=== PATIENT | female | born 1980 | race Caucasian/White ===

== ENCOUNTER → 2017-05-25 13:59 | Outpatient (CLI) | payer MEDICAID, SELFPAY ==
[2017-05-25 15:16] LABS: Absolute Lymphocyte Count 2.88 X10^3/ul (0.83-4.51); Absolute Neutrophil Count 3.2 X10^3/uL (2.0-7.7); Basophil# 0.04 X10^3/uL; Basophil% 0.6 % (0-1); Eosinophil# 0.32 X10^3/uL; Eosinophils% 4.6 % (0-5); Hematocrit 44.6 % (37-47); Hemoglobin 15.3 g/dl (12.0-15.0); Lymphocyte # 2.88 X10^3/ul (4.0); Lymphocyte % 41.8 % (19-41); Mean Corp Hgb Conc 34.3 g/gl (32-36); Mean Corpuscular Hgb 29.1 pg (27.0-32.0); Mean Platelet Vol. 10.4 fl (6.2-12.0); Monocyte# 0.47 X10^3/uL; Monocyte% 6.8 % (0-10); Neutrophil # 3.17 X10^3/uL (2.7-7.7); Neutrophil % 46.1 % (47-70); Platelet Count 292 K/mm3 (150-450); RBC Distribution Width CV 12.5 % (11.6-14.6); Red Blood Count 5.25 M/mm3 (4.2-5.4); White Blood Count 6.9 K/mm3 (4.4-11.0)
[2017-05-25 15:35] LABS: POSITIVE COUNT NO; POSITIVE DIFFERENTIAL NO; POSITIVE MORPHOLOGY NO
[2017-05-25 16:03] LABS: AST(SGOT) 17 U/L (15-37); Alanine Aminotransfer ALT/SGPT 28 U/L (13-56); Albumin, Serum 3.7 g/dL (3.2-5.0); Alkaline Phosphatase 89 U/L (45-117); Anion Gap 9 (5-15); BUN 10 mg/dL (7-18); BUN/Creat Ratio 12.1 RATIO (10-20); Chloride 99 mmol/L (98-107); Creatinine, Serum 0.83 mg/dL (0.55-1.02); EST Glomerular Filtration Rate 83 mL/min (>60); Est Glom Filt Rate - Afr Amer 100 mL/min (>60); Globulin 3.8 g/dL (2.2-4.2); Glucose 303 mg/dL (74-106); Potassium 4.1 mmol/L (3.5-5.1); Protein, Total 7.5 g/dL (6.4-8.2); Sodium Level 135 mmol/L (136-145); Thyroid Stim Hormone (TSH) 3.15 uIU/mL (0.358-3.74)
== END ==
PROVIDERS: Family Provider Family Medicine Geriatric Medicine; PCP Family Medicine Geriatric Medicine; Visit Provider Family Medicine Geriatric Medicine
DX: I10 Essential (primary) hypertension (principal); E11.9 Type 2 diabetes mellitus without complications
CPT/HCPCS: 36415; 80053; 84443; 85025

== ENCOUNTER → 2017-08-30 13:41 | Outpatient (CLI) | payer MEDICAID, SELFPAY ==
[2017-08-30 15:39] LABS: HIV - WCH Non-Reactive (Nonreactive)
[2017-09-01 03:08] LABS: HCV Quant. RNA PCR HCV Not Detected IU/mL (.)
[2017-09-01 03:47] LABS: Rapid Plasmin Reagin (RPR) NONREACTIVE (NONREACTIVE)
[2017-09-01 11:18] LABS: HEPATITIS B SURFACE AG Negative (Negative); HSV 2 IgG < 0.91 index (0.00-0.90)
== END ==
PROVIDERS: Family Provider Family Medicine Geriatric Medicine; PCP Family Medicine Geriatric Medicine; Visit Provider Obstetrics & Gynecology
DX: N76.0 Acute vaginitis (principal)
CPT/HCPCS: 36415; 86592; 86695; 86696; 86703; 87340; 87522

== ENCOUNTER → 2017-08-30 17:29 | Outpatient (CLI) | payer MEDICAID, SELFPAY ==
[2017-08-30 20:04] LABS: Chlamydia Trachomatis by PCR Negative (Negative); Neisserai gonorrhoeae by PCR Negative (Negative); Probe Check PASS; Sample Adequacy Control PASS; Specimen Processing Control PASS
== END ==
PROVIDERS: Family Provider Family Medicine Geriatric Medicine; PCP Family Medicine Geriatric Medicine; Visit Provider Obstetrics & Gynecology
DX: N76.0 Acute vaginitis (principal); N89.8 Other specified noninflammatory disorders of vagina
CPT/HCPCS: 36415; 86592; 86695; 86696; 86703; 87070; 87077; 87086; 87088; 87106; 87186; 87205; 87340; 87491; 87522; 87591

== ENCOUNTER → 2017-12-26 15:42 | Outpatient (CLI) | payer MEDICAID, SELFPAY ==
[2017-12-26 17:00] LABS: Absolute Lymphocyte Count 2.72 X10^3/ul (0.83-4.51); Absolute Neutrophil Count 3.5 X10^3/uL (2.0-7.7); Basophil# 0.07 X10^3/uL; Eosinophil# 0.28 X10^3/uL; Hemoglobin 14.9 g/dl (12.0-15.0); Lymphocyte # 2.72 X10^3/ul (4.0); Lymphocyte % 38.8 % (19-41); Mean Corp Hgb Conc 33.9 g/gl (32-36); Mean Corpuscular Hgb 29.2 pg (27.0-32.0); Mean Corpuscular Volume 86.3 fL (81-99); Mean Platelet Vol. 10.2 fl (6.2-12.0); Monocyte# 0.46 X10^3/uL; Monocyte% 6.6 % (0-10); Neutrophil # 3.46 X10^3/uL (2.7-7.7); Neutrophil % 49.3 % (47-70); Platelet Count 307 K/mm3 (150-450); RBC Distribution Width CV 12.5 % (11.6-14.6); RBC Distribution Width SD 39.7 fl (35.1-43.9)
[2017-12-26 17:01] LABS: POSITIVE COUNT NO; POSITIVE DIFFERENTIAL NO; POSITIVE MORPHOLOGY NO
[2017-12-26 17:13] LABS: ALB/GLOB Ratio 0.8 RATIO (0.9-2.4); AST(SGOT) 27 U/L (15-37); Alanine Aminotransfer ALT/SGPT 31 U/L (13-56); Albumin, Serum 3.4 g/dL (3.2-5.0); Alkaline Phosphatase 97 U/L (45-117); Anion Gap 14 (5-15); BUN 19 mg/dL (7-18); BUN/Creat Ratio 22.2 RATIO (10-20); Calcium,Total 9.2 mg/dL (8.5-10.1); Chloride 98 mmol/L (98-107); Creatinine, Serum 0.86 mg/dL (0.55-1.02); EST Glomerular Filtration Rate 79 mL/min (>60); Est Glom Filt Rate - Afr Amer 96 mL/min (>60); Globulin 4.1 g/dL (2.2-4.2); Glucose 299 mg/dL (74-106); Potassium 4.2 mmol/L (3.5-5.1); Protein, Total 7.5 g/dL (6.4-8.2); Sodium Level 135 mmol/L (136-145); Thyroid Stim Hormone (TSH) 1.55 uIU/mL (0.358-3.74)
== END ==
PROVIDERS: Family Provider Family Medicine Geriatric Medicine; PCP Family Medicine Geriatric Medicine; Visit Provider Family Medicine Geriatric Medicine
DX: E11.9 Type 2 diabetes mellitus without complications (principal); I10 Essential (primary) hypertension
CPT/HCPCS: 36415; 80053; 84443; 85025

== ENCOUNTER → 2017-12-27 13:39 | Outpatient (CLI) | payer MEDICAID, SELFPAY ==
[2017-12-27 16:45] LABS: Chlamydia Trachomatis by PCR Negative (Negative); Neisserai gonorrhoeae by PCR Negative (Negative); Probe Check PASS; Sample Adequacy Control PASS; Specimen Processing Control PASS
== END ==
PROVIDERS: Family Provider Family Medicine Geriatric Medicine; PCP Family Medicine Geriatric Medicine; Referring Provider Nurse Practitioner Women's Health; Visit Provider Nurse Practitioner Women's Health
DX: A64 Unspecified sexually transmitted disease (principal)
CPT/HCPCS: 87491; 87591

== ENCOUNTER → 2018-03-27 14:47 | Outpatient (CLI) | payer MEDICAID, SELFPAY ==
[2018-01-25 14:00] VITALS: BMI 49.0
[2018-03-27 17:16] LABS: Absolute Lymphocyte Count 3.05 X10^3/ul (0.83-4.51); Absolute Neutrophil Count 4.7 X10^3/uL (2.0-7.7); Basophil# 0.05 X10^3/uL; Basophil% 0.6 % (0-1); Eosinophil# 0.26 X10^3/uL; Hematocrit 42.2 % (37-47); Hemoglobin 14.5 g/dl (12.0-15.0); Lymphocyte # 3.05 X10^3/ul (4.0); Lymphocyte % 34.7 % (19-41); Mean Corp Hgb Conc 34.4 g/gl (32-36); Mean Corpuscular Hgb 29.7 pg (27.0-32.0); Mean Corpuscular Volume 86.5 fL (81-99); Mean Platelet Vol. 10.6 fl (6.2-12.0); Monocyte# 0.69 X10^3/uL; Monocyte% 7.8 % (0-10); Neutrophil # 4.71 X10^3/uL (2.7-7.7); Neutrophil % 53.6 % (47-70); Platelet Count 345 K/mm3 (150-450); RBC Distribution Width CV 12.8 % (11.6-14.6); RBC Distribution Width SD 39.4 fl (35.1-43.9); Red Blood Count 4.88 M/mm3 (4.2-5.4); White Blood Count 8.8 K/mm3 (4.4-11.0)
[2018-03-27 17:22] LABS: POSITIVE COUNT NO; POSITIVE DIFFERENTIAL NO; POSITIVE MORPHOLOGY NO
[2018-03-27 17:49] LABS: ALB/GLOB Ratio 0.9 RATIO (0.9-2.4); AST(SGOT) 10 U/L (15-37); Alanine Aminotransfer ALT/SGPT 25 U/L (13-56); Albumin, Serum 3.3 g/dL (3.2-5.0); Alkaline Phosphatase 102 U/L (45-117); Anion Gap 12 (5-15); BUN 10 mg/dL (7-18); BUN/Creat Ratio 11.7 RATIO (10-20); Calcium,Total 8.3 mg/dL (8.5-10.1); Chloride 100 mmol/L (98-107); Creatinine, Serum 0.86 mg/dL (0.55-1.02); EST Glomerular Filtration Rate 79 mL/min (>60); Est Glom Filt Rate - Afr Amer 96 mL/min (>60); Globulin 3.8 g/dL (2.2-4.2); Glucose 298 mg/dL (74-106); Potassium 3.8 mmol/L (3.5-5.1); Protein, Total 7.1 g/dL (6.4-8.2); Sodium Level 134 mmol/L (136-145); Thyroid Stim Hormone (TSH) 3.52 uIU/mL (0.358-3.74)
== END ==
PROVIDERS: Family Provider Family Medicine Geriatric Medicine; PCP Family Medicine Geriatric Medicine; Visit Provider Family Medicine Geriatric Medicine
DX: I10 Essential (primary) hypertension (principal); E11.9 Type 2 diabetes mellitus without complications
CPT/HCPCS: 36415; 80053; 84443; 85025

== ENCOUNTER 2018-04-02 01:33 | Observation (INO) | payer MEDICAID, SELFPAY ==
[2018-01-25 14:00] VITALS: BMI 49.0
[2018-04-02 01:34] VITALS: BP 143/104; PULSE 114; RESP 16; TEMP 36.7; O2SAT 99; BMI 47.2
[2018-04-02] MEDS: 0.9% Normal Saline 1,000 ML 1000 ML IV (02:54)
[2018-04-02] MEDS: Ondansetron 4 MG/2 ML Vial IV (02:54)
[2018-04-02 03:07] LABS: ALB/GLOB Ratio 0.8 RATIO (0.9-2.4); AST(SGOT) 14 U/L (15-37); Alanine Aminotransfer ALT/SGPT 20 U/L (13-56); Albumin, Serum 4.1 g/dL (3.2-5.0); Alkaline Phosphatase 117 U/L (45-117); Anion Gap 17 (5-15); BUN 10 mg/dL (7-18); BUN/Creat Ratio 9.2 RATIO (10-20); Calcium,Total 8.4 mg/dL (8.5-10.1); Chloride 99 mmol/L (98-107); Creatinine, Serum 1.09 mg/dL (0.55-1.02); EST Glomerular Filtration Rate 60 mL/min (>60); Est Glom Filt Rate - Afr Amer 72 mL/min (>60); Estimated Creatinine Clearance 76.42 ml/min; Globulin 4.9 g/dL (2.2-4.2); Glucose 294 mg/dL (74-106); Potassium 2.9 mmol/L (3.5-5.1); Sodium Level 134 mmol/L (136-145)
[2018-04-02 03:11] LABS: Lactic Acid 5.4 mmol/L (0.4-2.0)
--- NOTE | 2018-04-02 03:11 | ED.RN ---
LAB RESULTED LACTIC 5.4, PHYSICIAN NOTIFIED
[2018-04-02 03:20] LABS: Absolute Lymphocyte Count 2.83 X10^3/ul (0.83-4.51); Absolute Neutrophil Count 6.2 X10^3/uL (2.0-7.7); Basophil# 0.02 X10^3/uL; Basophil% 0.2 % (0-1); Eosinophil# 0.15 X10^3/uL; Eosinophils% 1.4 % (0-5); Hematocrit 51.7 % (37-47); Lymphocyte # 2.83 X10^3/ul (4.0); Mean Corpuscular Hgb 29.8 pg (27.0-32.0); Mean Corpuscular Volume 82.9 fL (81-99); Mean Platelet Vol. 10.2 fl (6.2-12.0); Monocyte# 1.21 X10^3/uL; Monocyte% 11.5 % (0-10); Neutrophil # 6.24 X10^3/uL (2.7-7.7); Neutrophil % 59.5 % (47-70); Platelet Count 398 K/mm3 (150-450); RBC Distribution Width CV 12.7 % (11.6-14.6); RBC Distribution Width SD 38.3 fl (35.1-43.9); Red Blood Count 6.24 M/mm3 (4.2-5.4); White Blood Count 10.5 K/mm3 (4.4-11.0)
[2018-04-02 03:22] LABS: Hemoglobin 18.6 g/dl (12.0-15.0); POSITIVE COUNT NO; POSITIVE DIFFERENTIAL NO; POSITIVE MORPHOLOGY NO
--- NOTE | 2018-04-02 03:22 | ED.RN ---
LAB RESULTED HGB 18.6, PHYSICIAN NOTIFIED
--- NOTE | 2018-04-02 03:30 | ED.DCSUM_ITS ---
- ER Visit Summary Date of Service: 04/02/18 Chief Complaint: [Vomiting and diarrhea] History of Present Illness: The patient is a 37 F [presents the emergency department complaint of vomiting and diarrhea for 4 days. Patient's been throwing up 5-6 times a day and having watery stool about every 2 hours. Patient describes some diffuse abdominal discomfort. Last menstrual period was 2 weeks ago. She denies any sick contacts. She is had no fevers. Patient thinks that her symptoms may be due to her new diabetic medication called Jonny. Patient started the medication the day before her symptoms started.] Physical Examination: [HEENT-PERRLA, EOMI. Cranial nerves II through XII grossly intact. TMs clear. Mucous membranes dry. No adenopathy. Cardiovascular-regular and tachycardic. No murmurs auscultated. Lungs-clear to auscultation, chest wall stable without crepitus or subcu emphysema Abdomen-normoactive bowel sounds, soft. Patient has diffuse tenderness to palpation. There is no rebound, rigidity, or perineal signs. Extremities-intact ?4, normal range of motion, normal pulses, atraumatic] Test Results: [Patient had a CBC with differential that showed a white count of 10.5, hemoglobin 18, hematocrit 52, platelets 398. Chemistry showed a sodium 134, potassium 2.9, chloride 99, CO2 18, BUN 10, creatinine 1.09. LFTs unremarkable. Lactate was elevated at 5.4. HCG was negative.] Emergency Department Course and Treatment: [Patient was given a liter normal same fluid bolus and Zofran 4 mg IV. Patient was ordered a second liter of fluid.] Patient received 40 mEq of potassium chloride p.o. Treatment Plan: [Admit for IV hydration] Disposition: [Admit.] Impression: [Viral gastroenteritis Dehydration] This note was generated with [employer] dictation software. It may contain incorrect words, spelling, and punctuation that were not noted in review of the chart prior to signing ED Disposition - Plan for ED Patient: Chief Complaint: Nausea/Vomiting/Diarrhea Referrals: Nahun Martin Chi, MD [Primary Care Provider] -
[2018-04-02] MEDS: 0.9% Normal Saline 1,000 ML 999 ML IV ×2 (03:43→05:26)
[2018-04-02 03:44] LABS: Pregnancy, Serum, hCG Quali. NEGATIVE Negative (0-9 Nonpreg)
--- NOTE | 2018-04-02 03:45 | HP.PCM_ITS ---
Problem List (1) Gastroenteritis Status: Acute (2) Lactic acidosis Status: Acute (3) Hypokalemia Status: Acute (4) Hyponatremia Status: Acute (5) Morbid obesity Status: Chronic (6) Diabetes mellitus, type II Status: Chronic Qualifiers: Diabetes mellitus vermin exterminator insulin use: without vermin exterminator use Diabetes mellitus complication status: with unspecified complications Qualified Code(s): E11.8 - Type 2 diabetes mellitus with unspecified complications (7) HTN (hypertension) Status: Chronic Qualifiers: Hypertension type: essential hypertension Qualified Code(s): I10 - Essential (primary) hypertension (8) Asthma Status: Chronic Qualifiers: Asthma severity: unspecified severity Asthma persistence: unspecified Asthma complication type: unspecified Qualified Code(s): J45.909 - Unspecified asthma, uncomplicated (9) Anxiety and depression Status: Chronic (10) HLD (hyperlipidemia) Status: Chronic Qualifiers: Hyperlipidemia type: unspecified Qualified Code(s): E78.5 - Hyperlipidemia, unspecified History of Present Illness Date of Admission: 04/02/18 Chief Complaint: N/V/D The patient is a 37 y/o F w/ PMHx: Morbid Obesity, Hypothyroidism, JEANNA, HTN, HLD, Asthma, Anxiety and Depression/OCD who presents to the [facility] ED on 04/02/18 with history of onset nausea, emesis, diarrhea x 4 days with liquid stools nearly q 2 hours and > 6 bouts emesis daily noted to have been recently started on new diabetic (Trulicity) medication the day prior to onset of symptoms in addition to concurrent abdominal generalized cramping worsened she notes with bouts of emesis primarily, 12/20 with occurrence. Patient notes that she does have city water. She denies any recent similar ill contacts. She says she subjectively felt intermittently hot and cold but never took her temperature. Workup in the ED included T 98, heart rate 114, BP 143/104, respiratory rate 16, 99% on room air, CBC with WBC 10.5, Hgb18.6, platelet 398 without left shift, CMP with sodium 134, potassium 2.9, carbon dioxide 18, anion gap 17, BUN/Cr 10/1.09, glucose 294, LA 5.4, T bili 1.30, AST/ALT 14/20. In the ED patient administered normal saline, potassium 40 mg 1 p.o. x1, Zofran. Past Medical History Past Medical History (Chronic Problems): Chronic Problems (Last Reviewed 01/25/18 @ 14:01 by Jonna Gauthier) Morbid obesity (Chronic) Diabetes mellitus, type II (Chronic) HTN (hypertension) (Chronic) Asthma (Chronic) Anxiety and depression (Chronic) HLD (hyperlipidemia) (Chronic) Medical History: Medical History (Last Reviewed 01/25/18 @ 14:01 by Jonna Gauthier) Anxiety and depression F41.9, F32.9 Asthma J45.909 OCD (obsessive compulsive disorder) F42.9 Allergies loracarbef [From Lorabid] Allergy (Verified 04/02/18 01:37) Unknown Penicillins Allergy (Verified 04/02/18 01:37) Unknown Sulfa (Sulfonamide Antibiotics) Adverse Reaction (Verified 04/02/18 01:37) Upset Stomach Home Medications: Ambulatory Orders Medication Instructions Recorded Albuterol Inhaler 2 puff INHALATION Q4H PRN PRN 01/12/13 Effexor Xr 300 mg PO DAILY 01/12/13 Lisinopril [Zestril] 20 mg PO DAILY 01/12/13 Loratadine [Claritin] 10 mg PO DAILY 01/12/13 Montelukast [Singulair] 10 mg PO DAILY 01/12/13 buPROPion tablets [Wellbutrin] 300 mg PO QHS 01/12/13 metronidazole 500 mg tablet 500 mg PO .COMPLEX #4 tab 12/27/17 Atorvastatin Calcium 40 mg PO QHS 04/02/18 Bupropion HCl [Wellbutrin Sr] 150 mg PO 04/02/18 Fluconazole 150 mg PO DAILY 04/02/18 Levothyroxine [Synthroid] 25 mcg PO DAILY 04/02/18 Metformin HCl 1,000 mg PO BID 04/02/18 Pantoprazole Sodium 40 mg PO DAILY 04/02/18 Pioglitazone [Actos] 30 mg PO DAILY 04/02/18 Surgical History: Surgical History (Last Reviewed 12/27/17 @ 10:18 by Rowan Chisholm) History of tonsillectomy Z90.89 Hx of cholecystectomy Z90.49 Surgical History: - - Cholecystectomy, tonsillectomy. Psychiatric History: Anxiety, Bipolar, Depression [employer] History: No pertinent [employer] history Lives: Alone Smoking Status: Never smoker Tobacco Use: Non-smoker Alcohol: None Drugs: None - *Family History Maternal History Items: - - Patient notes a maternal family history of diabetes, hypertension, hyperlipidemia. Paternal History Items: Unknown - Patient states she does not know her paternal family history and mother is present and states she does not either. Review of Systems Constitutional: Reports: Anorexia, Chills, Malaise, Weakness, Fatigue. Denies: Fever, Weight Change HEENT: Denies: Head Aches, Sinus Congestion, Sinus Drainage Cardiovascular: Denies: Chest Pain, Palpitations Respiratory: Denies: Cough, Shortness of breath at rest, Sputum production Gastrointestinal: Reports: Abdominal Pain, Diarrhea, Nausea, Vomiting Genitourinary: Denies: Dysuria Musculoskeletal: Denies: Joint Pain, Joint Tenderness Skin: Denies: Rash, Wounds Neurological: Denies: Numbness, Tingling, Focal weakness Psychiatric: Reports: Anxiety, Depression. Denies: Homicidal Ideations, Suicidal Ideations Hematologic/ Lymphatic: Denies: Easy Bruising, Easy Bleeding VTE Information - Inpt Only VTE Present on Admission: No VTE Mechan Device Prophylaxis: SCD's VTE Pharm Prophylaxis ordered?: Yes Patient Problems: Active and Suspected Problems (Last Reviewed 01/25/18 @ 14:01 by Jonna Gauthier) Gastroenteritis (Acute) Lactic acidosis (Acute) Hypokalemia (Acute) Hyponatremia (Acute) Subjective: Seated upright in the ED bed, fatigued appearance, no acute distress. Objective: Physical Examination: General: awake, alert, oriented x 3 and cooperative, seated upright in the ED bed in no apparent distress. Skin: normal color, turgor, no icterus, cyanosis. HEENT: AT/NC, EOMI, PERRLA, dry MM, no carotid bruits or JVD noted; ever thickened neck makes examination difficult. Lungs: Diminished breath sounds bilateral bases, moderate effort, no rales, ronchi or wheezing. Heart: Tachycardic with regular rhythm; no gallop, rub audible. Abdomen: soft, obese, generalized discomfort with palpation, nondistended but difficult to assess given habitus, hyperactive bowel sounds, no HSM however habitus makes examination difficult. Extremities: no cyanosis, clubbing, or edema. Neurological: patient awake, alert, oriented x 3; cognitive function intact; pupils equally reactive to light and accomodation; cranial nerves II-XII grossly normal, moving all 4 extremities, no focal deficits, strength moderately to severely globally decreased secondary to acute presentation. Psychiatric: affect appears normal, fatigued, no acute evidence of depressive or anxiety feelings. - Physical Exam Vital Signs Temp Pulse Resp BP Pulse Ox 98.0 F 114 H 16 143/104 H 99 04/02/18 01:34 04/02/18 01:34 04/02/18 01:34 04/02/18 01:34 04/02/18 01:34 Oxygen Delivery Method Room Air Weight: 329 lb 9.457 oz Body Mass Index (BMI) 47.2 Laboratory Tests Past 24 Hrs 04/02/18 04/02/18 04/02/18 02:40 02:40 02:40 WBC 10.5 RBC 6.24 H Hgb 18.6 H* Hct 51.7 H MCV 82.9 MCH 29.8 MCHC 36.0 RDW 12.7 RDW Differential 38.3 Plt Count 398 MPV 10.2 Immature Gran % (Auto) 0.400 Neut % (Auto) 59.5 Lymph % (Auto) 27.0 Beadle % (Auto) 11.5 H Eos % (Auto) 1.4 Baso % (Auto) 0.2 Absolute Neuts (auto) 6.2 Absolute Lymphs (auto) 2.83 Total Counted Not Reportable Sodium 134 L Potassium 2.9 L Chloride 99 Carbon Dioxide 18.0 L Anion Gap 17 H BUN 10 Creatinine 1.09 H Estim Creat Clear Calc 76.42 Est GFR (MDRD) Af Amer 72 Est GFR (MDRD) Non-Af 60 BUN/Creatinine Ratio 9.2 L Glucose 294 H Lactic Acid 5.4 H* Calcium 8.4 L Total Bilirubin 1.30 H AST 14 L ALT 20 Alkaline Phosphatase 117 Total Protein 9.0 H Albumin 4.1 Globulin 4.9 H Albumin/Globulin Ratio 0.8 L Serum , Qual 04/02/18 02:40 WBC RBC Hgb Hct MCV MCH MCHC RDW RDW Differential Plt Count MPV Immature Gran % (Auto) Neut % (Auto) Lymph % (Auto) Beadle % (Auto) Eos % (Auto) Baso % (Auto) Absolute Neuts (auto) Absolute Lymphs (auto) Total Counted Sodium Potassium Chloride Carbon Dioxide Anion Gap BUN Creatinine Estim Creat Clear Calc Est GFR (MDRD) Af Amer Est GFR (MDRD) Non-Af BUN/Creatinine Ratio Glucose Lactic Acid Calcium Total Bilirubin AST ALT Alkaline Phosphatase Total Protein Albumin Globulin Albumin/Globulin Ratio Serum , Qual Pending Assessment/Plan All Active Problems (Last Reviewed 01/25/18 @ 14:01 by Jonna Gauthier) Gastroenteritis (Acute) Lactic acidosis (Acute) Hypokalemia (Acute) Hyponatremia (Acute) Vaginal foreign body (Resolved) The patient is a 37 y/o F w/ PMHx: Morbid Obesity, Hypothyroidism, JEANNA, HTN, HLD, Asthma, Anxiety and Depression/OCD who presents to the [facility] ED on 04/02/18 with history of onset nausea, emesis, diarrhea x 4 days with liquid stools nearly q 2 hours and > 6 bouts emesis daily noted to have been recently started on new diabetic (Trulicity) medication the day prior to onset of symptoms in addition to concurrent abdominal generalized cramping. (1) N/V/D, Gastroenteritis versus possible Medication reaction: Workup in the ED included T 98, heart rate 114, BP 143/104, respiratory rate 16, 99% on room air, CBC with WBC 10.5, Hgb18.6, platelet 398 without left shift, CMP with sodi um 134, potassium 2.9, carbon dioxide 18, anion gap 17, BUN/Cr 10/1.09, glucose 294, LA 5.4, T bili 1.30, AST/ALT 14/20. Will admit to [facility], continue aggressive hydration, will obtain c diff, stool cx, O+P with repeat AM CBC. Will not start antibiotics at this time given unclear source pending stool studies as may be viral gastroenteritis or possibly medication side effect as N/V/D primarily side effect with Trulicity. Will hold this medication in interim. Anti-emetics, pain regimen PRN. Trial clears if able. (2) Lactic acidosis, DO NOT FEEL consistent w/ Septic Shock Presentation: Suspect secondary to acute severe dehydration, admission lactic acid 5.4, continue to aggressively hydrate, trend lactic acid per facility protocol. (3) Hyponatremia, Hypovolemic: Admission Na 134, secondary to GI losses, poor intake, continue aggressive hydration, repeat CMP in AM. (4) Hypokalemia: Admission K+ 2.9, supplementation given, repeat level in AM. (5) Chronic Asthma w/ Allergic Rhinitis: PRN albuterol, HOB, IS parameters, continue home Singulair and Claritin regimen. (6) Anxiety and Depression/OCD: Continue home Wellbutrin and Effexor regimen. (7) Morbid Obesity: Weight loss and lifestyle changes encouraged, nutrition consulted. (8) Hypertension: Continue home regimen including lisinopril with hold parameters, PRN hydralazine. (9) Hyperlipidemia: Continue home statin regimen. (10) Diabetes mellitus type II: Hold oral home regimen, hold trulicity regimen, initiate diet w/ clears if able w/ initially q 6 hr accu checks w/ ADAT given GI presentation w/ ADA diet, accu checks w/ ISS, HgBA1c this past week 10%, nutrition consulted for education and teaching. (11) Hypothyroidism: Continue home synthroid regimen. (12) GERD: PPI. (13) JEANNA: CPAP q HS. Encouraged improved compliance. (14) DVT Prophylaxis: SCDs, lovenox. Code Visit Inpatient E&M: 20027 Init Hosp L3
[2018-04-02 03:50] VITALS: BP 148/102; PULSE 116; RESP 16; O2SAT 100
[2018-04-02 04:50] VITALS: BP 150/76; PULSE 102; RESP 16; TEMP 36.3; O2SAT 100; BMI 46.3; BMI 46.4
[2018-04-02 05:30] VITALS: PULSE 111
[2018-04-02 06:01] LABS: Bedside Glucose 272 mg/dL (70-110)
[2018-04-02] MEDS: Insulin Lispro 100 UNIT/ML INSULN.PEN SC ×3 (06:28→16:13)
[2018-04-02] MEDS: Levothyroxine 25 MCG TABLET PO (06:29)
[2018-04-02] MEDS: 0.9% Normal Saline 1,000 ML 150 ML IV (06:39)
[2018-04-02 06:43] LABS: Reflex Lactate? Y
--- NOTE | 2018-04-02 06:53 | NURSING ---
Called lab and advised them that Dr. Weir said it was ok to wait awhile until pt becomes more hydrated to redraw lactic acid. Advised them to try in an hour.
[2018-04-02 08:35] LABS: Absolute Lymphocyte Count 3.58 X10^3/ul (0.83-4.51); Basophil# 0.03 X10^3/uL; Basophil% 0.3 % (0-1); Eosinophil# 0.19 X10^3/uL; Eosinophils% 1.9 % (0-5); Hematocrit 41.4 % (37-47); Hemoglobin 14.7 g/dl (12.0-15.0); Lymphocyte # 3.58 X10^3/ul (4.0); Lymphocyte % 36.5 % (19-41); Mean Corp Hgb Conc 35.5 g/gl (32-36); Mean Corpuscular Hgb 29.6 pg (27.0-32.0); Mean Corpuscular Volume 83.3 fL (81-99); Mean Platelet Vol. 9.9 fl (6.2-12.0); Monocyte# 1.02 X10^3/uL; Monocyte% 10.4 % (0-10); Neutrophil # 4.95 X10^3/uL (2.7-7.7); Neutrophil % 50.5 % (47-70); Platelet Count 291 K/mm3 (150-450); RBC Distribution Width CV 12.9 % (11.6-14.6); RBC Distribution Width SD 38.7 fl (35.1-43.9); Red Blood Count 4.97 M/mm3 (4.2-5.4); White Blood Count 9.8 K/mm3 (4.4-11.0)
[2018-04-02 08:36] LABS: Differential Indicated SCAN CRITERIA MET; POSITIVE COUNT NO; POSITIVE DIFFERENTIAL NO; POSITIVE MORPHOLOGY YES
[2018-04-02 09:10] LABS: Reactive Lymphocyte 1+
[2018-04-02 09:26] LABS: ALB/GLOB Ratio 0.8 RATIO (0.9-2.4); AST(SGOT) 17 U/L (15-37); Alanine Aminotransfer ALT/SGPT 16 U/L (13-56); Albumin, Serum 2.7 g/dL (3.2-5.0); Alkaline Phosphatase 79 U/L (45-117); Anion Gap 14 (5-15); BUN 9 mg/dL (7-18); BUN/Creat Ratio 10.8 RATIO (10-20); Calcium,Total 7.1 mg/dL (8.5-10.1); Chloride 105 mmol/L (98-107); Creatinine, Serum 0.83 mg/dL (0.55-1.02); EST Glomerular Filtration Rate 82 mL/min (>60); Est Glom Filt Rate - Afr Amer 99 mL/min (>60); Estimated Creatinine Clearance 100.35 ml/min; Globulin 3.6 g/dL (2.2-4.2); Glucose 211 mg/dL (74-106); Magnesium 0.8 mg/dL (1.6-2.6); Protein, Total 6.3 g/dL (6.4-8.2); Sodium Level 135 mmol/L (136-145)
[2018-04-02 09:52] LABS: Lactic Acid 2.5 mmol/L (0.4-2.0)
--- NOTE | 2018-04-02 09:58 | DCINST_ITS ---
- Discharge Diagnoses Current Active Problems: Current Active and Chronic Problems (Last Reviewed 01/25/18 @ 14:01 by Jonna Gauthier) Gastroenteritis (Acute) Lactic acidosis (Acute) Hypokalemia (Acute) Hyponatremia (Acute) Morbid obesity (Chronic) Diabetes mellitus, type II (Chronic) HTN (hypertension) (Chronic) Asthma (Chronic) Anxiety and depression (Chronic) HLD (hyperlipidemia) (Chronic) You will use the following diet at home:: Calorie/Carbohydrate Controlled (specify 1200, 1400, etc) Your food should be the consistency of: Regular Your liquids should be the consistency of: Regular/Thin Discharge Activity: Return to Normal Activity Call your doctor if you observe: Fever of 101 or Higher, Coldness, Increased Pain, Shortness of breath, Fainting spells, Swelling in the ankles, Chest pain Additional Instructions: Hold oral diabetic medications as well as lisinopril until good p.o. intake Allergies/Adverse Reactions: Allergies loracarbef [From Lorabid] Allergy (Verified 04/02/18 04:52) Unknown Pt does not remember reaction since it happened when she was a child. Penicillins Allergy (Verified 04/02/18 04:52) Unknown Pt does not remember reaction since it happened when she was a child. Sulfa (Sulfonamide Antibiotics) Adverse Reaction (Verified 04/02/18 01:37) Upset Stomach Medications to take at Discharge Albuterol Inhaler 2 puff INHALATION Q4H PRN PRN 01/12/13 Lisinopril [Zestril] 20 mg PO DAILY 01/12/13 Loratadine [Claritin] 10 mg PO DAILY 01/12/13 buPROPion tablets [Wellbutrin tablets] 300 mg PO QHS 01/12/13 ALPRAZolam [Xanax] 1 mg PO TID PRN PRN 04/02/18 Aripiprazole [Abilify] 10 mg PO QHS 04/02/18 Atorvastatin Calcium 40 mg PO QHS 04/02/18 Bupropion HCl [Wellbutrin Sr] 150 mg PO DAILY 04/02/18 Cholecalciferol (Vitamin D3) [D3-50] 50,000 unit PO MO 04/02/18 Levothyroxine [Synthroid] 25 mcg PO DAILY 04/02/18 Metformin HCl 1,000 mg PO BID 04/02/18 Oxybutynin [Ditropan] 10 mg PO DAILY 04/02/18 Pantoprazole Sodium 40 mg PO DAILY 04/02/18 Pioglitazone [Actos] 30 mg PO DAILY 04/02/18 Venlafaxine XR [Effexor Xr] 300 mg PO QHS 04/02/18 Primary Care Physician: Nahun Martin Chi, MD [Primary Care Provider] - Please follow up with your Primary Care Physician in: 3-5 days Test Results: Test results from this visit will be discussed in further detail at your follow- up appointment, if applicable.
--- NOTE | 2018-04-02 10:04 | DS.PCM_ITS ---
Discharge Date and Diagnosis - Problem List Patient Problems: Active and Suspected Problems (Last Reviewed 01/25/18 @ 14:01 by Jonna Gauthier) Gastroenteritis (Acute) Lactic acidosis (Acute) Hypokalemia (Acute) Hyponatremia (Acute) Date of Admission: 04/02/18 Date of Discharge: 04/02/18 - Primary Discharge Diagnosis Active and Suspected Problems (Last Reviewed 01/25/18 @ 14:01 by Jonna Gauthier) Gastroenteritis (Acute) Lactic acidosis (Acute) Hypokalemia (Acute) Hyponatremia (Acute) - Secondary Discharge Diagnosis Chronic Problems (Last Reviewed 01/25/18 @ 14:01 by Jonna Gauthier) Morbid obesity (Chronic) Diabetes mellitus, type II (Chronic) HTN (hypertension) (Chronic) Asthma (Chronic) Anxiety and depression (Chronic) HLD (hyperlipidemia) (Chronic) Hospital Course and Treatment Imaging Results: None Consults: None Operations: None Procedures: None Summary of Care Provided: Per HPI: The patient is a 37 y/o F w/ PMHx: Morbid Obesity, Hypothyroidism, JEANNA, HTN, HLD, Asthma, Anxiety and Depression/OCD who presents to the [facility] ED on 04/02/18 with history of onset nausea, emesis, diarrhea x 4 days with liquid stools nearly q 2 hours and > 6 bouts emesis daily noted to have been recently started on new diabetic (Trulicity) medication the day prior to onset of symptoms in addition to concurrent abdominal generalized cramping worsened she notes with bouts of emesis primarily, 12/20 with occurrence. Patient notes that she does have city water. She denies any recent similar ill contacts. She says she subjectively felt intermittently hot and cold but never took her temperature. Workup in the ED included T 98, heart rate 114, BP 143/104, respiratory rate 16, 99% on room air, CBC with WBC 10.5, Hgb18.6, platelet 398 without left shift, CMP with sodium 134, potassium 2.9, carbon dioxide 18, anion gap 17, BUN/Cr 10/1.09, glucose 294, LA 5.4, T bili 1.30, AST/ALT 14/20. In the ED patient administered normal saline, potassium 40 mg 1 p.o. x1, Zofran. Hospital Course: 1. Viral gastroenteritis/hypokalemia/[id number]-old female who presented from home with multiple episodes of diarrhea and vomiting. In the ER she was found to have an elevated lactic acid and was given fluid boluses and started on IV fluids at 150 on admission. This morning she felt much better than when she came in and improved much quicker than expected, and wanted to go home. Repeat lactic acid was down to 2.5 from 5.4. At the moment we will advance her diet and continue with IV hydration. Her potassium was low on admission to 2.9, which will be replaced and her magnesium was 0.08 which will also be replaced prior to discharge. She does have stool ova and parasites as well as a C. difficile pending, however she would like to go home so if these are positive we will contact her to give the appropriate medications. I did discuss with her that until she is taking adequate oral intake, she should not resume her metformin, Actos, and her lisinopril. Follow-up with her PCP in 3-5 days. 2. Her other medical diagnoses were evaluated and her home medications were continued where appropriate Patient Problems: Active and Suspected Problems (Last Reviewed 01/25/18 @ 14:01 by Jonna Gauthier) Gastroenteritis (Acute) Lactic acidosis (Acute) Hypokalemia (Acute) Hyponatremia (Acute) - Physical Exam General: Alert, Oriented x3, Cooperative, No apparent distress HEENT: Atraumatic, EOMI, Normocephalic Oral: Moist Mucosa Neck: Supple, No JVD Lungs: Clear to auscultation, Normal air movement, No rhonchi, No wheeze, No rales Cardiovascular: Regular rate, Regular Rhythm, Normal S1, Normal S2, No murmurs Abdomen: Soft, Non Tender, Non-Distended, No Hepato-splenomegaly Extremities: No edema, Capillary Refill Less than 3 Seconds Skin: No rashes, No breakdown Neurological: Neuro grossly intact, Sensory exam intact to light touch and pain Psych/Mental Status: Normal Affect, Appropriate Vital Signs Temp Pulse Resp BP Pulse Ox 97.4 F L 111 H 16 150/76 H 100 04/02/18 04:50 04/02/18 05:30 04/02/18 04:50 04/02/18 04:50 04/02/18 04:50 Oxygen Delivery Method Room Air Weight: 323 lb 3.163 oz Body Mass Index (BMI) 46.3 Intake and Output for Last 24 Hours 03/31/18 04/01/18 04/02/18 23:59 23:59 23:59 Intake Total 1265 / 1265 Balance 1265 / 1265 Microbiology Past 72 Hours 04/02/18 07:45 Stool Lactoferrin - Final Stool Laboratory Tests Past 24 Hrs 04/02/18 04/02/18 04/02/18 02:40 02:40 02:40 WBC 10.5 RBC 6.24 H Hgb 18.6 H* Hct 51.7 H MCV 82.9 MCH 29.8 MCHC 36.0 RDW 12.7 RDW Differential 38.3 Plt Count 398 MPV 10.2 Immature Gran % (Auto) 0.400 Neut % (Auto) 59.5 Lymph % (Auto) 27.0 Hartley % (Auto) 11.5 H Eos % (Auto) 1.4 Baso % (Auto) 0.2 Absolute Neuts (auto) 6.2 Absolute Lymphs (auto) 2.83 Total Counted Not Reportable Reactive Lymphocytes Sodium 134 L Potassium 2.9 L Chloride 99 Carbon Dioxide 18.0 L Anion Gap 17 H BUN 10 Creatinine 1.09 H Estim Creat Clear Calc 76.42 Est GFR (MDRD) Af Amer 72 Est GFR (MDRD) Non-Af 60 BUN/Creatinine Ratio 9.2 L Glucose 294 H Lactic Acid 5.4 H* Calcium 8.4 L Magnesium Total Bilirubin 1.30 H AST 14 L ALT 20 Alkaline Phosphatase 117 Total Protein 9.0 H Albumin 4.1 Globulin 4.9 H Albumin/Globulin Ratio 0.8 L Serum , Qual 04/02/18 04/02/18 04/02/18 02:40 08:14 08:14 WBC 9.8 RBC 4.97 Hgb 14.7 Hct 41.4 MCV 83.3 MCH 29.6 MCHC 35.5 RDW 12.9 RDW Differential 38.7 Plt Count 291 MPV 9.9 Immature Gran % (Auto) 0.400 Neut % (Auto) 50.5 Lymph % (Auto) 36.5 Hartley % (Auto) 10.4 H Eos % (Auto) 1.9 Baso % (Auto) 0.3 Absolute Neuts (auto) 5.0 Absolute Lymphs (auto) 3.58 Total Counted Not Reportable Reactive Lymphocytes 1+ Sodium 135 L Potassium 3.0 L Chloride 105 Carbon Dioxide 16.0 L Anion Gap 14 BUN 9 Creatinine 0.83 Estim Creat Clear Calc 100.35 Est GFR (MDRD) Af Amer 99 Est GFR (MDRD) Non-Af 82 BUN/Creatinine Ratio 10.8 Glucose 211 H Lactic Acid Calcium 7.1 L Magnesium 0.8 L* Total Bilirubin 0.90 AST 17 ALT 16 Alkaline Phosphatase 79 Total Protein 6.3 L Albumin 2.7 L Globulin 3.6 Albumin/Globulin Ratio 0.8 L Serum , Qual NEGATIVE 04/02/18 08:14 WBC RBC Hgb Hct MCV MCH MCHC RDW RDW Differential Plt Count MPV Immature Gran % (Auto) Neut % (Auto) Lymph % (Auto) Hartley % (Auto) Eos % (Auto) Baso % (Auto) Absolute Neuts (auto) Absolute Lymphs (auto) Total Counted Reactive Lymphocytes Sodium Potassium Chloride Carbon Dioxide Anion Gap BUN Creatinine Estim Creat Clear Calc Est GFR (MDRD) Af Amer Est GFR (MDRD) Non-Af BUN/Creatinine Ratio Glucose Lactic Acid 2.5 H Calcium Magnesium Total Bilirubin AST ALT Alkaline Phosphatase Total Protein Albumin Globulin Albumin/Globulin Ratio Serum , Qual POC Glucose 04/02/18 05:54 POC Glucose 272 H Discharge Activity: Return to Normal Activity Call your doctor if you observe: Fever of 101 or Higher, Coldness, Increased Pain, Shortness of breath, Fainting spells, Swelling in the ankles, Chest pain Home Medications: Medications to take at Discharge Albuterol Inhaler 2 puff INHALATION Q4H PRN PRN 01/12/13 Lisinopril [Zestril] 20 mg PO DAILY 01/12/13 Loratadine [Claritin] 10 mg PO DAILY 01/12/13 buPROPion tablets [Wellbutrin tablets] 300 mg PO QHS 01/12/13 ALPRAZolam [Xanax] 1 mg PO TID PRN PRN 04/02/18 Aripiprazole [Abilify] 10 mg PO QHS 04/02/18 Atorvastatin Calcium 40 mg PO QHS 04/02/18 Bupropion HCl [Wellbutrin Sr] 150 mg PO DAILY 04/02/18 Cholecalciferol (Vitamin D3) [D3-50] 50,000 unit PO MO 04/02/18 Levothyroxine [Synthroid] 25 mcg PO DAILY 04/02/18 Metformin HCl 1,000 mg PO BID 04/02/18 Oxybutynin [Ditropan] 10 mg PO DAILY 04/02/18 Pantoprazole Sodium 40 mg PO DAILY 04/02/18 Pioglitazone [Actos] 30 mg PO DAILY 04/02/18 Venlafaxine XR [Effexor Xr] 300 mg PO QHS 04/02/18 Primary Care Physician: Nahun Martin Chi, MD [Primary Care Provider] - Please follow up with your Primary Care Physician in: 3-5 days Disposition: Home Minutes spent on discharge:: 35 Patient Condition:: Good Medical Necessity - Tobacco Use Smoking Status: Never smoker Tobacco Use: Non-smoker Meaningful Use Info Meaningful Use Diagnoses (Choose all that apply): None applicable Code Visit OBSV E&M: 75095 Observation care discharge
[2018-04-02 10:15] VITALS: BP 150/83; PULSE 106; RESP 18; TEMP 36.5; O2SAT 100
[2018-04-02] MEDS: Enoxaparin 40 MG/0.4 ML Syringe SC (10:33)
[2018-04-02] MEDS: Lisinopril 10 MG Tablet PO (12:09)
[2018-04-02] MEDS: Oxybutynin 5 MG Tablet 10 MG PO (12:09)
[2018-04-02] MEDS: Pantoprazole Sodium 40 MG Tablet PO (12:09)
[2018-04-02] MEDS: buPROPion (SR) 150 MG Tablet.SA PO (12:09)
[2018-04-02] MEDS: Loratadine 10 MG Tablet PO (12:09)
[2018-04-02 12:20] LABS: Bedside Glucose 250 mg/dL (70-110)
[2018-04-02 16:15] VITALS: BP 143/80; PULSE 80; RESP 16; TEMP 36.5; O2SAT 99
[2018-04-02 16:20] LABS: Bedside Glucose 306 mg/dL (70-110)
--- OUTSIDE RECORDS SUMMARY | 2018-06-04 13:01 | XMS RPT_ITS ---
:1980 Author Organization OHIP Support Name Relationship Address Phone RYLAND ANDRADE Unavailable [address] + [address] [place] [address] UE Unavailable Unavailable Unavailable RAYMOND, RYLAND Unavailable [address] + [address] [place] [address] UE Unavailable Unavailable Unavailable RAYMOND RYLAND Unavailable [address] + [address] [place] [address] UE Unavailable Unavailable Unavailable RAYMOND, RYLAND Unavailable [address] + [address] [place] [address] UE Unavailable Unavailable Unavailable RAYMOND RYLAND Unavailable [address] + [address] [place] [address] UE Unavailable Unavailable Unavailable RAYMOND, RYLAND Unavailable [address] + [address] [place] [address] UE Unavailable Unavailable Unavailable RAYMOND, RYLAND Unavailable [address] + [address] [place] [address] UE Unavailable Unavailable Unavailable UE Unavailable Unavailable Unavailable RAYMOND RYLAND Unavailable [address] + [address] [place] [address] JUSTA RIVERA Unavailable [address] + [address] [place] [address] UE Unavailable Unavailable Unavailable RAYMOND RYLAND Unavailable [address] + [address] [place] [address] JUSTA RIVERA Unavailable [address] + [address] [place] [address] UE Unavailable Unavailable Unavailable RAYMOND, RYLAND Unavailable [address] + [address] [place] [address] JUSTA IRVERA Unavailable [address] + [address] [place] [address] UE Unavailable Unavailable Unavailable RAYMOND, RYLAND Unavailable [address] + [address] [place] [address] JUSTA RIVERA Unavailable [address] + [address] [place] [address] UE Unavailable Unavailable Unavailable RYLAND ANDRADE Unavailable [address] + [address] [place] [address] JUSTA RIVERA Unavailable [address] + [address] [place] [address] UE Unavailable Unavailable Unavailable Care Team Providers Name Role Phone Mario, Nahun Chi Attending Unavailable Mario, Nahun Chi Primary Care Unavailable Mario, Nahun Chi Primary Care Unavailable White, Babs Admitting Unavailable White, Babs Referring Unavailable Kannan Cook Attending Unavailable Mario, Nahun Chi Attending Unavailable Mario, Nahun Chi Primary Care Unavailable MarcanthonyFranchesca Attending Unavailable Mario, Nahun Chi Referring Unavailable Mario, Nahun Chi Primary Care Unavailable White, Babs Admitting Unavailable White, Babs Attending Unavailable White, Babs Referring Unavailable Mario, Nahun Chi Primary Care Unavailable White, Babs Consulting Unavailable Mario, Nahun Chi Attending Unavailable Mario, Nahun Chi Primary Care Unavailable MarcanthonyFranchesca Attending Unavailable Marcanthony, Franchesca Referring Unavailable Mario, Nahun Chi Primary Care Unavailable MarcjennionyFranchesca Attending Unavailable Mario, Nahun Chi Primary Care Unavailable MarcanthonyAndrewon Referring Unavailable Mario, Nahun Chi Attending Unavailable Mario, Nahun Chi Primary Care Unavailable SoniaJosiahy Attending Unavailable Mario, Nahun Chi Referring Unavailable SoniaJosiahy Attending Unavailable Sonia, Sadie Referring Unavailable Mario, Nahun Chi Primary Care Unavailable [place] ParkJosiahy Attending Unavailable Mario, Nahun Chi Referring Unavailable PROBLEMS PROBLEMS DATE TYPE CONDITION / CODE ATTENDING STATUS SOURCE 01/25/2018 Unknown Z11.3 - Encounter for SoniaSadie youssef Active Ko screening for Community infections with a Hospital predominantly sexual Repository mode of transmission / Z11.3(ICD-10) 12/27/2017 Unknown A64 - Unspecified Sonia, Sadie Active Jean sexually transmitted Community disease / A64(ICD-10) Hospital Repository 08/31/2017 Unknown N89.8 - Other Marcanthony, Active Jean specified [facility] noninflammatory [facility] disorders of vagina / Repository N89.8(ICD-10) 08/31/2017 Unknown N76.0 - Acute Marcanthony, Active Ko vaginitis / Franchesca Community N76.0(ICD-10) Hospital Repository PROCEDURES PROCEDURES No Procedure Records FoundRESULTS RESULTS BASIC METABOLIC Collected: 04/05/2018 Status: F Source: KO PROFILE (BMP) 4:20 PM [facility] [place] TYPE CODE TESTS RESULT OUT OF RANGE REFERENCE UNITS LAB L501.0100 74-106 mg/dL High GLU 305 Result Comment: Glucose result greater than or equal to 200 mg/dL suggests DIABETES MELLITUS per A.D.A. criteria. Please note revised GLUCOSE reference range effective 2017. LAB L501.1000 7-18 mg/dL Normal BUN 8 LAB L501.1100 0.55-1.02 mg/dL Normal CREAT,SERUM 0.81 Result Comment: The validity of the calculated GFR AND GFRAA in patients over 70 years has not been determined. Clinical correlation is essential. LAB L501.1110 >60 mL/min Normal EST GFR 85 Result Comment: Non- GFR Calc LAB L501.1115 >60 mL/min Normal EST GFR - AA 102 Result Comment: GFR Calc LAB L501.1300 10-20 RATIO Low BUN/CRE 9.9 LAB L501.2200 8.5-10.1 mg/dL Normal CA 8.7 LAB L501.5300 136-145 mmol/L Normal NA 139 LAB L501.5600 3.5-5.1 mmol/L Low K 3.3 LAB L501.5900 98-107 mmol/L Normal CL 103 LAB L501.6100 21.0-32.0 mmol/L Normal CO2 24.0 LAB L501.6200 5-15 Normal GAP 12 Performed By: #### L500.2500, L501.5200 #### [facility] [address] [place], [place], [address] MAGNESIUM Collected: 04/05/2018 Status: F Source: KO 4:20 PM [facility] [place] TYPE CODE TESTS RESULT OUT OF RANGE REFERENCE UNITS LAB L501.5200 1.6-2.6 mg/dL Low MG 1.2 Performed By: #### L500.2500, L501.5200 #### [facility] [address] [place], [address] CBC W/DIFF, AUTOMATED Collected: 04/05/2018 Status: F Source: KO 4:20 PM [facility] TYPE CODE TESTS RESULT OUT OF RANGE REFERENCE UNITS LAB L100.1000 4.4-11.0 K/mm3 Normal WBC 7.9 LAB L100.1200 4.2-5.4 M/mm3 Normal RBC 4.27 LAB L100.1300 12.0-15.0 g/dl Normal HGB 12.5 LAB L100.1400 37-47 % Low HCT 36.2 LAB L100.1500 81-99 fL Normal MCV 84.8 LAB L100.1600 27.0-32.0 pg Normal MCH 29.3 LAB L100.1700 32-36 g/gl Normal MCHC 34.5 LAB L100.1810 11.6-14.6 % Normal RDW CV 13.0 LAB L100.1820 35.1-43.9 fl Normal RDW SD 39.5 LAB L100.1900 150-450 K/mm3 Normal PLT 256 LAB L100.2000 6.2-12.0 fl Normal MPV 10.1 LAB L100.2100 47-70 % Normal NEUT% 63.4 LAB L100.2200 19-41 % Normal LY% 26.0 LAB L100.2300 0-10 % Normal MONO% 7.6 LAB L100.2400 0-5 % Normal EO% 1.9 LAB L100.2500 0-1 % Normal BASO% 0.5 LAB L100.2550 0.0-0.9 % Normal IM GRAN % 0.600 Result Comment: IG% - Immature Granulocytes (promyelocytes, myelocytes and metamyelocytes) > 1% indicates that a LEFT SHIFT is Present. LAB L100.2620 2.0-7.7 X10 3/uL Normal Absolute Neut 5.0 LAB L100.2720 0.83-4.51 X10 3/ul Normal Absolute Lymph 2.05 Performed By: #### L100.0100 #### [facility] [address] [place], [address] BEDSIDE GLUCOSE Collected: 04/02/2018 Status: F Source: [place] 4:11 PM [facility] TYPE CODE TESTS RESULT OUT OF REFERENCE UNITS RANGE LAB L501.080 70-110 mg/dL High BEDSIDE GLU 306 Result Comment: MANAGEMENT OF PATIENT CARE PER NURSING PROTOCOL Performed By: #### L501.080 #### [facility] Point of Care [address] [place] [address] BEDSIDE GLUCOSE Collected: 04/02/2018 Status: F Source: [place] 12:07 PM [facility] [facility] [place] TYPE CODE TESTS RESULT OUT OF REFERENCE UNITS RANGE LAB L501.080 70-110 mg/dL High BEDSIDE GLU 250 Result Comment: MANAGEMENT OF PATIENT CARE PER NURSING PROTOCOL Performed By: #### L501.080 #### [facility] Point of Care [address] [place] [address] DISCHARGE SUMMARY Observed: 04/02/2018 Status: F Source: [place] 10:08 AM [facility] [place] [facility] Medical Records Department [address] [place] [address] Discharge Summary 04/02/18 0958 MR#: [id number] Acct: [id number] Name: KRISTEN ANDRADE Rep #: [id number] : 1980 37 From: Kannan Cook MD PCP: Mario BLAKELY,Nahun Patino Status: ADM IN Location: [address] Discharge Date and Diagnosis - Problem List Patient Problems: Active and Suspected Problems (Last Reviewed 01/25/18 @ 14:01 by Jonna Gauthier) Gastroenteritis (Acute) Lactic acidosis (Acute) Hypokalemia (Acute) Hyponatremia (Acute) Date of Admission: 04/02/18 Date of Discharge: 04/02/18 - Primary Discharge Diagnosis Active and Suspected Problems (Last Reviewed 01/25/18 @ 14:01 by Jonna Gauthier) Gastroenteritis (Acute) Lactic acidosis (Acute) Hypokalemia (Acute) Hyponatremia (Acute) - Secondary Discharge Diagnosis Chronic Problems (Last Reviewed 01/25/18 @ 14:01 by Jonna Gauthier) Morbid obesity (Chronic) Diabetes mellitus, type II (Chronic) HTN (hypertension) (Chronic) Asthma (Chronic) Anxiety and depression (Chronic) HLD (hyperlipidemia) (Chronic) Hospital Course and Treatment Imaging Results: None Consults: None Operations: None Procedures: None Summary of Care Provided: Per [facility]: The patient is a 37 y/o F w/ PMHx: Morbid Obesity, Hypothyroidism, JEANNA, HTN, HLD, Asthma, Anxiety and Depression/OCD who presents to the [facility] ED on 04/02/18 with history of onset nausea, emesis, diarrhea x 4 days with liquid stools nearly q 2 hours and > 6 bouts emesis daily noted to have been recently started on new diabetic (Trulicity) medication the day prior to onset of symptoms in addition to concurrent abdominal generalized cramping worsened she notes with bouts of emesis primarily, 12/20 with occurrence. Patient notes that she does have city water. She denies any recent similar ill contacts. She says she subjectively felt intermittently hot and cold but never took her temperature. Workup in the ED included T 98, heart rate 114, BP 143/104, respiratory rate 16, 99% on room air, CBC with WBC 10.5, Hgb18.6, platelet 398 without left shift, CMP with sodium 134, potassium 2.9, carbon dioxide 18, anion gap 17, BUN/Cr 10/1.09, glucose 294, LA 5.4, T bili 1.30, AST/ALT 14/20. In the ED patient administered normal saline, potassium 40 mg 1 p.o. x1, Zofran. Hospital Course: 1. Viral gastroenteritis/hypokalemia/aeomissclaaqez-13-x[age]-old female who presented from home with multiple episodes of diarrhea and vomiting. In the ER she was found to have an elevated lactic acid and was given fluid boluses and started on IV fluids at 150 on admission. This morning she felt much better than when she came in and improved much quicker than expected, and wanted to go home. Repeat lactic acid was down to 2.5 from 5.4. At the moment we will advance her diet and continue with IV hydration. Her potassium was low on admission to 2.9, which will be replaced and her magnesium was 0.08 which will also be replaced prior to discharge. She does have stool ova and parasites as well as a C. difficile pending, however she would like to go home so if these are positive we will contact her to give the appropriate medications. I did discuss with her that until she is taking adequate oral intake, she should not resume her metformin, Actos, and her lisinopril. Follow-up with her PCP in 3-5 days. 2. Her other medical diagnoses were evaluated and her home medications were continued where appropriate Patient Problems: Active and Suspected Problems (Last Reviewed 01/25/18 @ 14:01 by Jonna Gauthier) Gastroenteritis (Acute) Lactic acidosis (Acute) Hypokalemia (Acute) Hyponatremia (Acute) - Physical Exam General: Alert, Oriented x3, Cooperative, No apparent distress HEENT: Atraumatic, EOMI, Normocephalic Oral: Moist Mucosa Neck: Supple, No JVD Lungs: Clear to auscultation, Normal air movement, No rhonchi, No wheeze, No rales Cardiovascular: Regular rate, Regular Rhythm, Normal S1, Normal S2, No murmurs Abdomen: Soft, Non Tender, Non-Distended, No Hepato-splenomegaly Extremities: No edema, Capillary Refill Less than 3 Seconds Skin: No rashes, No breakdown Neurological: Neuro grossly intact, Sensory exam intact to light touch and pain Psych/Mental Status: Normal Affect, Appropriate Vital Signs Temp Pulse Resp BP Pulse Ox 97.4 F L 111 H 16 150/76 H 100 04/02/18 04:50 04/02/18 05:30 04/02/18 04:50 04/02/18 04:50 04/02/18 04:50 Oxygen Delivery Method Room Air Weight: 323 lb 3.163 oz Body Mass Index (BMI) 46.3 Intake and Output for Last 24 Hours Intake Total 1265 / 1265 Balance 1265 / 1265 Microbiology Past 72 Hours 04/02/18 07:45 Stool Lactoferrin - Final Stool Laboratory Tests Past 24 Hrs WBC 10.5 WBC 9.8 WBC RBC Hgb Hct MCV MCH MCHC RDW RDW Differential Plt Count MPV POC Glucose POC Glucose 272 H Discharge Activity: Return to Normal Activity Call your doctor if you observe: Fever of 101 or Higher, Coldness, Increased Pain, Shortness of breath, Fainting spells, Swelling in the ankles, Chest pain Home Medications: Medications to take at Discharge Albuterol Inhaler 2 puff INHALATION Q4H PRN PRN 01/12/13 Lisinopril [Zestril] 20 mg PO DAILY 01/12/13 Loratadine [Claritin] 10 mg PO DAILY 01/12/13 buPROPion tablets [Wellbutrin tablets] 300 mg PO QHS 01/12/13 ALPRAZolam [Xanax] 1 mg PO TID PRN PRN 04/02/18 Aripiprazole [Abilify] 10 mg PO QHS 04/02/18 Atorvastatin Calcium 40 mg PO QHS 04/02/18 Bupropion HCl [Wellbutrin Sr] 150 mg PO DAILY 04/02/18 Cholecalciferol (Vitamin D3) [D3-50] 50,000 unit PO MO 04/02/18 Levothyroxine [Synthroid] 25 mcg PO DAILY 04/02/18 Metformin HCl 1,000 mg PO BID 04/02/18 Oxybutynin [Ditropan] 10 mg PO DAILY 04/02/18 Pantoprazole Sodium 40 mg PO DAILY 04/02/18 Pioglitazone [Actos] 30 mg PO DAILY 04/02/18 Venlafaxine XR [Effexor Xr] 300 mg PO QHS 04/02/18 Primary Care Physician: Nahun Martin Chi, MD [Primary Care Provider] - Please follow up with your Primary Care Physician in: 3-5 days Disposition: Home Minutes spent on discharge:: 35 Patient Condition:: Good Medical Necessity - Tobacco Use Smoking Status: Never smoker Tobacco Use: Non-smoker Meaningful Use Info Meaningful Use Diagnoses (Choose all that apply): None applicable Code Visit OBSV E AND M: 49653 Observation care discharge 04/02/18 1008 <Electronically signed by Kannan Cook MD> Date Kannan Cook MD Cosigner Signature (if applicable): Date CC: Kannan Cook MD; Nahun Martin MD Signed DISCHARGE INSTRUCTION Observed: 04/02/2018 Status: F Source: [place] 9:58 AM [facility] [place] [facility] Medical Records Department [address] [place] [address] Instructions for Home/Discharge Instructions 04/02/18 0956 MR#: [id number] Acct: [id number] Name: KRISTEN ANDRADE Rep #: [id number] : 1980 37 From: Kannan Cook MD PCP: Nahun Martin MD, Chi Status: ADM IN - Discharge Diagnoses Current Active Problems: Current Active and Chronic Problems (Last Reviewed 01/25/18 @ 14:01 by Jonna Gauthier) Gastroenteritis (Acute) Lactic acidosis (Acute) Hypokalemia (Acute) Hyponatremia (Acute) Morbid obesity (Chronic) Diabetes mellitus, type II (Chronic) HTN (hypertension) (Chronic) Asthma (Chronic) Anxiety and depression (Chronic) HLD (hyperlipidemia) (Chronic) You will use the following diet at home:: Calorie/Carbohydrate Controlled (specify 1200, 1400, etc) Your food should be the consistency of: Regular Your liquids should be the consistency of: Regular/Thin Discharge Activity: Return to Normal Activity Call your doctor if you observe: Fever of 101 or Higher, Coldness, Increased Pain, Shortness of breath, Fainting spells, Swelling in the ankles, Chest pain Additional Instructions: Hold oral diabetic medications as well as lisinopril until good p.o. intake Allergies/Adverse Reactions: Allergies loracarbef [From Lorabid] Allergy (Verified 04/02/18 04:52) Unknown Pt does not remember reaction since it happened when she was a child. Penicillins Allergy (Verified 04/02/18 04:52) Unknown Pt does not remember reaction since it happened when she was a child. Sulfa (Sulfonamide Antibiotics) Adverse Reaction (Verified 04/02/18 01:37) Upset Stomach Medications to take at Discharge Albuterol Inhaler 2 puff INHALATION Q4H PRN PRN 01/12/13 Lisinopril [Zestril] 20 mg PO DAILY 01/12/13 Loratadine [Claritin] 10 mg PO DAILY 01/12/13 buPROPion tablets [Wellbutrin tablets] 300 mg PO QHS 01/12/13 ALPRAZolam [Xanax] 1 mg PO TID PRN PRN 04/02/18 Aripiprazole [Abilify] 10 mg PO QHS 04/02/18 Atorvastatin Calcium 40 mg PO QHS 04/02/18 Bupropion HCl [Wellbutrin Sr] 150 mg PO DAILY 04/02/18 Cholecalciferol (Vitamin D3) [D3-50] 50,000 unit PO MO 04/02/18 Levothyroxine [Synthroid] 25 mcg PO DAILY 04/02/18 Metformin HCl 1,000 mg PO BID 04/02/18 Oxybutynin [Ditropan] 10 mg PO DAILY 04/02/18 Pantoprazole Sodium 40 mg PO DAILY 04/02/18 Pioglitazone [Actos] 30 mg PO DAILY 04/02/18 Venlafaxine XR [Effexor Xr] 300 mg PO QHS 04/02/18 Primary Care Physician: Nahun Martin Chi, MD [Primary Care Provider] - Please follow up with your Primary Care Physician in: 3-5 days Test Results: Test results from this visit will be discussed in further detail at your follow-up appointment, if applicable. 04/02/18 0958 <Electronically signed by Kannan Cook MD> Date Kannan Cook MD CC: Nahun Martin MD Signed CBC W/DIFF, AUTOMATED Collected: 04/02/2018 Status: F Source: KO 8:14 AM [facility] [facility] [place] TYPE CODE TESTS RESULT OUT OF RANGE REFERENCE UNITS LAB L100.1000 4.4-11.0 K/mm3 Normal WBC 9.8 LAB L100.1200 4.2-5.4 M/mm3 Normal RBC 4.97 LAB L100.1300 12.0-15.0 g/dl Normal HGB 14.7 LAB L100.1400 37-47 % Normal HCT 41.4 LAB L100.1500 81-99 fL Normal MCV 83.3 LAB L100.1600 27.0-32.0 pg Normal MCH 29.6 LAB L100.1700 32-36 g/gl Normal MCHC 35.5 LAB L100.1810 11.6-14.6 % Normal RDW CV 12.9 LAB L100.1820 35.1-43.9 fl Normal RDW SD 38.7 LAB L100.1900 150-450 K/mm3 Normal PLT 291 LAB L100.2000 6.2-12.0 fl Normal MPV 9.9 LAB L100.2100 47-70 % Normal NEUT% 50.5 LAB L100.2200 19-41 % Normal LY% 36.5 LAB L100.2300 0-10 % High MONO% 10.4 LAB L100.2400 0-5 % Normal EO% 1.9 LAB L100.2500 0-1 % Normal BASO% 0.3 LAB L100.2550 0.0-0.9 % Normal IM GRAN % 0.400 Result Comment: IG% - Immature Granulocytes (promyelocytes, myelocytes and metamyelocytes) > 1% indicates that a LEFT SHIFT is Present. LAB L100.2620 2.0-7.7 X10 3/uL Normal Absolute Neut 5.0 LAB L100.2720 0.83-4.51 X10 3/ul Normal Absolute Lymph 3.58 LAB L100.4700 Normal REACTIVE LYMPH 1+ Performed By: #### L100.0100 #### [facility] [address] [place], [address] COMPREHENSIVE METABOLIC Collected: 04/02/2018 Status: F Source: [facility] 8:14 AM [facility] [place] TYPE CODE TESTS RESULT OUT OF RANGE REFERENCE UNITS LAB L501.0100 74-106 mg/dL High GLU 211 Result Comment: Glucose result greater than or equal to 200 mg/dL suggests DIABETES MELLITUS per A.D.A. criteria. Please note revised GLUCOSE reference range effective 2017. LAB L501.1000 7-18 mg/dL Normal BUN 9 LAB L501.1100 0.55-1.02 mg/dL Normal CREAT,SERUM 0.83 Result Comment: The validity of the calculated GFR AND GFRAA in patients over 70 years has not been determined. Clinical correlation is essential. LAB L501.1110 >60 mL/min Normal EST GFR 82 Result Comment: Non- GFR Calc LAB L501.1115 >60 mL/min Normal EST GFR - AA 99 Result Comment: GFR Calc LAB L501.1255 ml/min Normal Estimated CRCL 100.35 LAB L501.1300 10-20 RATIO BUN/CRE Normal 10.8 LAB L501.1500 6.4-8. g/dL Low 2 T PROT 6.3 LAB L501.1800 3.2-5. g/dL Low 0 ALB 2.7 LAB L501.1950 2.2-4. g/dL 2 GLOB Normal 3.6 LAB L501.2000 0.9-2. RATIO Low 4 A/G 0.8 LAB L501.2200 8.5-10 mg/dL Low .1 CA 7.1 LAB L501.4100 15-37 U/L AST Normal 17 LAB L501.4305 45-117 U/L ALK P Normal 79 LAB L501.4405 13-56 U/L ALT Normal 16 LAB L501.4600 0.20-1 mg/dL .00 T BILI Normal 0.90 LAB L501.5300 136-14 mmol/L Low 5 NA 135 LAB L501.5600 3.5-5. mmol/L Low 1 K 3.0 LAB L501.5900 98-107 mmol/L CL Normal 105 LAB L501.6100 21.0-3 mmol/L Low 2.0 CO2 16.0 LAB L501.6200 5-15 GAP Normal 14 Performed By: #### L500.4050, L501.5200 #### [facility] [address] [place], [place], [address] MAGNESIUM Collected: 04/02/2018 Status: F Source: [place] 8:14 AM [facility] [place] TYPE CODE TESTS RESULT OUT OF RANGE REFERENCE UNITS LAB L501.5200 1.6-2.6 mg/dL Low alert MG 0.8 Result Comment: Critical Result(s) Called at: 09:27:22 04/02/2018 by: Aimee Hilliard to adilene Performed By: #### L500.4050, L501.5200 #### [facility] [address] [place], [place], [address] LACTIC ACID Collected: 04/02/2018 Status: F Source: [place] 8:14 AM [facility] Order Comment: SPECIMEN IS MARKEDLY HEMOLYZED. RESULTS MAY BE FALSELY INCREASED. MANAS SUN NOTIFIED BY MINOO. CRITICAL VALUE VERIFIED. CALLED TO MANAS 04/02/18 0927 Aimee Hilliard. RESULTS READ BACK BY SAME . TYPE CODE TESTS RESULT OUT OF REFERENCE UNITS RANGE LAB L503.6005 0.4-2.0 mmol/L High LACTIC ACID 2.5 Performed By: #### L503.6005 #### [facility] [address] [place], [address] STOOL Observed: 04/02/2018 Status: F Source: [place] LACTOFERRIN/WBC 7:45 AM [facility] Stool Lacto/WBC Normal Reference Range = Negative Fecal WBC Lactoferrin Positive: Fecal WBC Lactoferrin present Performed By: #### M100.0605 #### [facility] [address] [place], [address] Observed: 04/02/2018 Status: C Source: [place] CDIFF (MOLECULAR) 7:45 AM [facility] Is the patient receiving laxatives? N New/unexplained onset of 3 or more stools in past 24 hrs? Y Cdiff-Molecular C. Diff DNA Negative- No toxigenic C. Diff DNA Detected NAAT METHOD Testing was performed using nucleic acid amplification Performed By: #### M100.6796 #### [facility] [address] [place], [place], [address] Observed: 04/02/2018 Status: F Source: [place] ENTERIC PATHOGEN 7:45 AM [facility] [facility] [place]POSIT[place] Order Date: 04/02/18 EP PANEL STOOL Not detected for Campylobacter group, Salmonella species, Shigella species, Vibrio Group, Yersinia enterocolitica, EHEC (Shiga Toxin 1, Shiga Toxin 2), Norovirus Gl/Gll, and Rotavirus A. Other common stool pathogens are not detected on this panel include: Aeromonas/Plesiomonas or parasites. Order testing for these organisms separately if suspected. This is an amplified DNA test which makes it both specific and sensitive. Normal Reference Range = Not Detected CAMPYLOBACTER Not Detected Salmonella Not Detected Shigella sp. Not Detected Shiga Toxin Not Detected Yersinia Not Detected VIBRIO Not Detected Norovirus Not Detected Rotavirus Not Detected Performed By: #### M100.637 #### [facility] [address] [place], [address] Observed: 04/02/2018 Status: F Source: [place] OVA AND PARASITES 7:45 AM [facility] [place] O + P OVA AND PARASITES EXAM, ROUTINE These results were obtained using wet preparation(s) and trichrome stained smear. This test does not include testing for Crytosporidium parvum, Cyclospora, or Microsporidia. One negative specimen does not rule out the possibility of a parasitic infection. TESTING PERFORMED AT [facility]. ORIGINAL REPORT ON FILE IN LAB CONTAINS ADDITIONAL TEST SITE INFORMATION. Ova/Parasite Exam NO OVA, CYSTS, OR PARASITES FOUND. Performed By: #### M600.5000 #### [facility] [address] [place], [address] BEDSIDE GLUCOSE Collected: 04/02/2018 Status: F Source: [place] 5:54 AM [facility] [facility] [place] TYPE CODE TESTS RESULT OUT OF REFERENCE UNITS RANGE LAB L501.080 70-110 mg/dL High BEDSIDE GLU 272 Result Comment: MANAGEMENT OF PATIENT CARE PER NURSING PROTOCOL Performed By: #### L501.080 #### [facility] Point of Care [address] [place] [address] HISTORY AND PHYSICAL Observed: 04/02/2018 Status: F Source: [place] EXAM 4:08 AM [facility] [facility] [place] [facility] Medical Records Department [address] [place] [address] History and Physical 04/02/18 0331 MR#: [id number] Acct: [id number] Name: KRISTEN ANDRADE Rep #: [id number] : 1980 37 From: Babs Weir PCP: Mario BLAKELY,Nahun Patino Status: ADM IN Location: [facility] [place] [id number] Problem List (1) Gastroenteritis Status: Acute (2) Lactic acidosis Status: Acute (3) Hypokalemia Status: Acute (4) Hyponatremia Status: Acute (5) Morbid obesity Status: Chronic (6) Diabetes mellitus, type II Status: Chronic Qualifiers: Diabetes mellitus termite helper insulin use: without long-term use Diabetes mellitus complication status: with unspecified complications Qualified Code(s): E11.8 - Type 2 diabetes mellitus with unspecified complications (7) HTN (hypertension) Status: Chronic Qualifiers: Hypertension type: essential hypertension Qualified Code(s): I10 - Essential (primary) hypertension (8) Asthma Status: Chronic Qualifiers: Asthma severity: unspecified severity Asthma persistence: unspecified Asthma complication type: unspecified Qualified Code(s): J45.909 - Unspecified asthma, uncomplicated (9) Anxiety and depression Status: Chronic (10) HLD (hyperlipidemia) Status: Chronic Qualifiers: Hyperlipidemia type: unspecified Qualified Code(s): E78.5 - Hyperlipidemia, unspecified History of Present Illness Date of Admission: 04/02/18 Chief Complaint: N/V/D The patient is a 37 y/o F w/ PMHx: Morbid Obesity, Hypothyroidism, JEANNA, HTN, HLD, Asthma, Anxiety and Depression/OCD who presents to the [facility] ED on 04/02/18 with history of onset nausea, emesis, diarrhea x 4 days with liquid stools nearly q 2 hours and > 6 bouts emesis daily noted to have been recently started on new diabetic (Trulicity) medication the day prior to onset of symptoms in addition to concurrent abdominal generalized cramping worsened she notes with bouts of emesis primarily, 12/20 with occurrence. Patient notes that she does have city water. She denies any recent similar ill contacts. She says she subjectively felt intermittently hot and cold but never took her temperature. Workup in the ED included T 98, heart rate 114, BP 143/104, respiratory rate 16, 99% on room air, CBC with WBC 10.5, Hgb18.6, platelet 398 without left shift, CMP with sodium 134, potassium 2.9, carbon dioxide 18, anion gap 17, BUN/Cr 10/1.09, glucose 294, LA 5.4, T bili 1.30, AST/ALT 14/20. In the ED patient administered normal saline, potassium 40 mg 1 p.o. x1, Zofran. Past Medical History Past Medical History (Chronic Problems): Chronic Problems (Last Reviewed 01/25/18 @ 14:01 by Jonna Gauthier) Morbid obesity (Chronic) Diabetes mellitus, type II (Chronic) HTN (hypertension) (Chronic) Asthma (Chronic) Anxiety and depression (Chronic) HLD (hyperlipidemia) (Chronic) Medical History: Medical History (Last Reviewed 01/25/18 @ 14:01 by Jonna Gauthier) Anxiety and depression F41.9, F32.9 Asthma J45.909 OCD (obsessive compulsive disorder) F42.9 Allergies loracarbef [From Lorabid] Allergy (Verified 04/02/18 01:37) Unknown Penicillins Allergy (Verified 04/02/18 01:37) Unknown Sulfa (Sulfonamide Antibiotics) Adverse Reaction (Verified 04/02/18 01:37) Upset Stomach Home Medications: Ambulatory Orders Medication Instructions Recorded Albuterol Inhaler 2 puff INHALATION Q4H PRN PRN 01/12/13 Effexor Xr 300 mg PO DAILY 01/12/13 Surgical History: Surgical History (Last Reviewed 12/27/17 @ 10:18 by Rowan Chisholm) History of tonsillectomy Z90.89 Hx of cholecystectomy Z90.49 Surgical History: - - Cholecystectomy, tonsillectomy. 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 Paternal History Items: Unknown - Patient states she does not know her paternal family history and mother is present and states she does not either. Review of Systems Constitutional: Reports: Anorexia, Chills, Malaise, Weakness, Fatigue. Denies: Fever, Weight Change HEENT: Denies: Head Aches, Sinus Congestion, Sinus Drainage Cardiovascular: Denies: Chest Pain, Palpitations Respiratory: Denies: Cough, Shortness of breath at rest, Sputum production Gastrointestinal: Reports: Abdominal Pain, Diarrhea, Nausea, Vomiting Genitourinary: Denies: Dysuria Musculoskeletal: Denies: Joint Pain, Joint Tenderness Skin: Denies: Rash, Wounds Neurological: Denies: Numbness, Tingling, Focal weakness Psychiatric: Reports: Anxiety, Depression. Denies: Homicidal Ideations, Suicidal Ideations Hematologic/ Lymphatic: Denies: Easy Bruising, Easy Bleeding VTE Information - Inpt Only VTE Present on Admission: No VTE Mechan Device Prophylaxis: SCD's VTE Pharm Prophylaxis ordered?: Yes Patient Problems: Active and Suspected Problems (Last Reviewed 01/25/18 @ 14:01 by Jonna Gauthier) Gastroenteritis (Acute) Lactic acidosis (Acute) Hypokalemia (Acute) Hyponatremia (Acute) Subjective: Seated upright in the ED bed, fatigued appearance, no acute distress. Objective: Physical Examination: General: awake, alert, oriented x 3 and cooperative, seated upright in the ED bed in no apparent distress. Skin: normal color, turgor, no icterus, cyanosis. HEENT: AT/NC, EOMI, PERRLA, dry MM, no carotid bruits or JVD noted; ever thickened neck makes examination difficult. Lungs: Diminished breath sounds bilateral bases, moderate effort, no rales, ronchi or wheezing. Heart: Tachycardic with regular rhythm; no gallop, rub audible. Abdomen: soft, obese, generalized discomfort with palpation, nondistended but difficult to assess given habitus, hyperactive bowel sounds, no HSM however habitus makes examination difficult. Extremities: no cyanosis, clubbing, or edema. Neurological: patient awake, alert, oriented x 3; cognitive function intact; pupils equally reactive to light and accomodation; cranial nerves II-XII grossly normal, moving all 4 extremities, no focal deficits, strength moderately to severely globally decreased secondary to acute presentation. Psychiatric: affect appears normal, fatigued, no acute evidence of depressive or anxiety feelings. - Physical Exam Vital Signs Temp Pulse Resp BP Pulse Ox 98.0 F 114 H 16 143/104 H 99 04/02/18 01:34 04/02/18 01:34 04/02/18 01:34 04/02/18 01:34 04/02/18 01:34 Oxygen Delivery Method Room Air Weight: 329 lb 9.457 oz Body Mass Index (BMI) 47.2 Laboratory Tests Past 24 Hrs WBC RBC Hgb Hct MCV MCH MCHC RDW Assessment/Plan All Active Problems (Last Reviewed 01/25/18 @ 14:01 by Jonna Gauthier) Gastroenteritis (Acute) Lactic acidosis (Acute) Hypokalemia (Acute) Hyponatremia (Acute) Vaginal foreign body (Resolved) The patient is a 37 y/o F w/ PMHx: Morbid Obesity, Hypothyroidism, JEANNA, HTN, HLD, Asthma, Anxiety and Depression/OCD who presents to the [facility] ED on 04/02/18 with history of onset nausea, emesis, diarrhea x 4 days with liquid stools nearly q 2 hours and > 6 bouts emesis daily noted to have been recently started on new diabetic (Trulicity) medication the day prior to onset of symptoms in addition to concurrent abdominal generalized cramping. (1) N/V/D, Gastroenteritis versus possible Medication reaction: Workup in the ED included T 98, heart rate 114, BP 143/104, respiratory rate 16, 99% on room air, CBC with WBC 10.5, Hgb18.6, platelet 398 without left shift, CMP with sodium 134, potassium 2.9, carbon dioxide 18, anion gap 17, BUN/Cr 10/1.09, glucose 294, LA 5.4, T bili 1.30, AST/ALT 14/20. Will admit to MS, continue aggressive hydration, will obtain c diff, stool cx, O+P with repeat AM CBC. Will not start antibiotics at this time given unclear source pending stool studies as may be viral gastroenteritis or possibly medication side effect as N/V/D primarily side effect with Trulicity. Will hold this medication in interim. Anti-emetics, pain regimen PRN. Trial clears if able. (2) Lactic acidosis, DO NOT FEEL consistent w/ Septic Shock Presentation: Suspect secondary to acute severe dehydration, admission lactic acid 5.4, continue to aggressively hydrate, trend lactic acid per facility protocol. (3) Hyponatremia, Hypovolemic: Admission Na 134, secondary to GI losses, poor intake, continue aggressive hydration, repeat CMP in AM. (4) Hypokalemia: Admission K+ 2.9, supplementation given, repeat level in AM. (5) Chronic Asthma w/ Allergic Rhinitis: PRN albuterol, HOB, IS parameters, continue home Singulair and Claritin regimen. (6) Anxiety and Depression/OCD: Continue home Wellbutrin and Effexor regimen. (7) Morbid Obesity: Weight loss and lifestyle changes encouraged, nutrition consulted. (8) Hypertension: Continue home regimen including lisinopril with hold parameters, PRN hydralazine. (9) Hyperlipidemia: Continue home statin regimen. (10) Diabetes mellitus type II: Hold oral home regimen, hold trulicity regimen, initiate diet w/ clears if able w/ initially q 6 hr accu checks w/ ADAT given GI presentation w/ ADA diet, accu checks w/ ISS, HgBA1c this past week 10%, nutrition consulted for education and teaching. (11) Hypothyroidism: Continue home synthroid regimen. (12) GERD: PPI. (13) JEANNA: CPAP q HS. Encouraged improved compliance. (14) DVT Prophylaxis: SCDs, lovenox. Code Visit Inpatient E AND M: [id number] Init Hosp L3 04/02/18 0408 <Electronically signed by Babs Weir > Date Babs Weir Cosigner Signature: Date (if applicable) CC: Babs Weir; Nahun Martin MD Signed EMERGENCY DEPARTMENT Observed: 04/02/2018 Status: F Source: [place] SUMMARY 3:30 AM [facility] [place] [facility] Medical Records Department [address] [place] [id number] Emergency Department Summary 04/02/18 0328 MR#: [id number] Acct: [id number] Name: KRISTEN ANDRADE Rep #: [id number] : 1980 37 From: Nu Hardy DO PCP: Mario BLAKELY,Nahun Patino Status: REG ER - ER Visit Summary Date of Service: 04/02/18 Chief Complaint: [Vomiting and diarrhea] History of Present Illness: The patient is a 37 F [presents the emergency department complaint of vomiting and diarrhea for 4 days. Patient's been throwing up 5-6 times a day and having watery stool about every 2 hours. Patient describes some diffuse abdominal discomfort. Last menstrual period was 2 weeks ago. She denies any sick contacts. She is had no fevers. Patient thinks that her symptoms may be due to her new diabetic medication called Trulicity. Patient started the medication the day before her symptoms started.] Physical Examination: [HEENT-PERRLA, EOMI. Cranial nerves II through XII grossly intact. TMs clear. Mucous membranes dry. No adenopathy. Cardiovascular-regular and tachycardic. No murmurs auscultated. Lungs-clear to auscultation, chest wall stable without crepitus or subcu emphysema Abdomen-normoactive bowel sounds, soft. Patient has diffuse tenderness to palpation. There is no rebound, rigidity, or perineal signs. Extremities-intact 4, normal range of motion, normal pulses, atraumatic] Test Results: [Patient had a CBC with differential that showed a white count of 10.5, hemoglobin 18, hematocrit 52, platelets 398. Chemistry showed a sodium 134, potassium 2.9, chloride 99, CO2 18, BUN 10, creatinine 1.09. LFTs unremarkable. Lactate was elevated at 5.4. HCG was negative.] Emergency Department Course and Treatment: [Patient was given a liter normal same fluid bolus and Zofran 4 mg IV. Patient was ordered a second liter of fluid.] Patient received 40 mEq of potassium chloride p.o. Treatment Plan: [Admit for IV hydration] Disposition: [Admit.] Impression: [Viral gastroenteritis Dehydration] This note was generated with [employer] dictation software. It may contain incorrect words, spelling, and punctuation that were not noted in review of the chart prior to signing ED Disposition - Plan for ED Patient: Chief Complaint: Nausea/Vomiting/Diarrhea Referrals: Nahun Martin Chi, MD [Primary Care Provider] - What to do if you have Problems For any increased pain, shortness of breath, bleeding, nausea or vomiting, chest pain, or any unexpected problems, contact your Primary Care Provider. Call [facility] ([phone]) or report to the closest Emergency Room. Call 911 if necessary. 04/02/18 0330 <Electronically signed by Nu Hardy DO> Date Nu Hardy DO Cosigner Signature (If Indicated): Date CC: Nahun Martin MD COMPREHENSIVE METABOLIC Collected: 04/02/2018 Status: F Source: KO STOLL 2:40 AM [facility] [place] TYPE CODE TESTS RESULT OUT OF RANGE REFERENCE UNITS LAB L501.0100 74-106 mg/dL High GLU 294 Result Comment: Glucose result greater than or equal to 200 mg/dL suggests DIABETES MELLITUS per A.D.A. criteria. Please note revised GLUCOSE reference range effective 2017. LAB L501.1000 7-18 mg/dL Normal BUN 10 LAB L501.1100 0.55-1.02 mg/dL High CREAT,SERUM 1.09 Result Comment: The validity of the calculated GFR AND GFRAA in patients over 70 years has not been determined. Clinical correlation is essential. LAB L501.1110 >60 mL/min Normal EST GFR 60 Result Comment: Non- GFR Calc LAB L501.1115 >60 mL/min Normal EST GFR - AA 72 Result Comment: GFR Calc LAB L501.1255 ml/min Normal Estimated CRCL 76.42 LAB L501.1300 10-20 RATIO Low BUN/CRE 9.2 LAB L501.1500 6.4-8. g/dL High 2 T PROT 9.0 LAB L501.1800 3.2-5. g/dL Normal 0 ALB 4.1 LAB L501.1950 2.2-4. g/dL High 2 GLOB 4.9 LAB L501.2000 0.9-2. RATIO Low 4 A/G 0.8 LAB L501.2200 8.5-10 mg/dL Low .1 CA 8.4 LAB L501.4100 15-37 U/L Low AST 14 LAB L501.4305 45-117 U/L Normal ALK P 117 LAB L501.4405 13-56 U/L Normal ALT 20 LAB L501.4600 0.20-1 mg/dL High .00 T BILI 1.30 LAB L501.5300 136-14 mmol/L Low 5 NA 134 LAB L501.5600 3.5-5. mmol/L Low 1 K 2.9 LAB L501.5900 98-107 mmol/L Normal CL 99 LAB L501.6100 21.0-3 mmol/L Low 2.0 CO2 18.0 LAB L501.6200 5-15 High GAP 17 Performed By: #### L500.4050 #### [facility] [address] [place], [address] LACTIC ACID Collected: 04/02/2018 Status: F Source: [place] 2:40 AM [facility] [place] Order Comment: Yes/No query for Sepsis Lactate Rule Y TYPE CODE TESTS RESULT OUT OF REFERENCE UNITS RANGE LAB L503.6005 0.4-2.0 mmol/L High alert LACTIC ACID 5.4 Result Comment: Critical Result(s) Called at: 03:11:49 04/02/2018 by: MIKE DAIGLE to Aleisha Mcclelland Performed By: #### L503.6005 #### [facility] [address] [place], [address] CBC W/DIFF, AUTOMATED Collected: 04/02/2018 Status: F Source: [place] 2:40 AM [facility] [place] TYPE CODE TESTS RESULT OUT OF RANGE REFERENCE UNITS LAB L100.1000 4.4-11.0 K/mm3 Normal WBC 10.5 LAB L100.1200 4.2-5.4 M/mm3 High RBC 6.24 LAB L100.1300 12.0-15.0 g/dl High alert HGB 18.6 Result Comment: CRITICAL VALUE VERIFIED. CALLED TO ALEISHA HENRY 04/02/18 0321 Mike Daigle. RESULTS READ BACK BY SAME . LAB L100.1400 37-47 % High HCT 51.7 LAB L100.1500 81-99 fL Normal MCV 82.9 LAB L100.1600 27.0-32.0 pg Normal MCH 29.8 LAB L100.1700 32-36 g/gl Normal MCHC 36.0 LAB L100.1810 11.6-14.6 % Normal RDW CV 12.7 LAB L100.1820 35.1-43.9 fl Normal RDW SD 38.3 LAB L100.1900 150-450 K/mm3 Normal PLT 398 LAB L100.2000 6.2-12.0 fl Normal MPV 10.2 LAB L100.2100 47-70 % Normal NEUT% 59.5 LAB L100.2200 19-41 % Normal LY% 27.0 LAB L100.2300 0-10 % High MONO% 11.5 LAB L100.2400 0-5 % Normal EO% 1.4 LAB L100.2500 0-1 % Normal BASO% 0.2 LAB L100.2550 0.0-0.9 % Normal IM GRAN % 0.400 Result Comment: IG% - Immature Granulocytes (promyelocytes, myelocytes and metamyelocytes) > 1% indicates that a LEFT SHIFT is Present. LAB L100.2620 2.0-7.7 X10 3/uL Normal Absolute Neut 6.2 LAB L100.2720 0.83-4.51 X10 3/ul Normal Absolute Lymph 2.83 Performed By: #### L100.0100 #### [facility] [address] [place], [place], [address] ,SERUM,HCG QUALI. Collected: Status: F Source: [place] 04/02/2018 2:40 AM [facility] [place] TYPE CODE TESTS RESULT OUT OF REFERENCE UNITS RANGE LAB L700.7000 0-9 Nonpreg Negative Normal HCGSQUAL NEGATIVE LAB L700.6700 =>Qualitative mIU/mL Normal HCG Qual < 1 triggr Performed By: #### L700.6800 #### [facility] [address] [place], [place], [address] CBC W/DIFF, AUTOMATED Collected: 03/27/2018 Status: F Source: [place] 2:49 PM [facility] [place] TYPE CODE TESTS RESULT OUT OF RANGE REFERENCE UNITS LAB L100.1000 4.4-11.0 K/mm3 Normal WBC 8.8 LAB L100.1200 4.2-5.4 M/mm3 Normal RBC 4.88 LAB L100.1300 12.0-15.0 g/dl Normal HGB 14.5 LAB L100.1400 37-47 % Normal HCT 42.2 LAB L100.1500 81-99 fL Normal MCV 86.5 LAB L100.1600 27.0-32.0 pg Normal MCH 29.7 LAB L100.1700 32-36 g/gl Normal MCHC 34.4 LAB L100.1810 11.6-14.6 % Normal RDW CV 12.8 LAB L100.1820 35.1-43.9 fl Normal RDW SD 39.4 LAB L100.1900 150-450 K/mm3 Normal PLT 345 LAB L100.2000 6.2-12.0 fl Normal MPV 10.6 LAB L100.2100 47-70 % Normal NEUT% 53.6 LAB L100.2200 19-41 % Normal LY% 34.7 LAB L100.2300 0-10 % Normal MONO% 7.8 LAB L100.2400 0-5 % Normal EO% 3.0 LAB L100.2500 0-1 % Normal BASO% 0.6 LAB L100.2550 0.0-0.9 % Normal IM GRAN % 0.300 Result Comment: IG% - Immature Granulocytes (promyelocytes, myelocytes and metamyelocytes) > 1% indicates that a LEFT SHIFT is Present. LAB L100.2620 2.0-7.7 X10 3/uL Normal Absolute Neut 4.7 LAB L100.2720 0.83-4.51 X10 3/ul Normal Absolute Lymph 3.05 Performed By: #### L100.0100 #### [facility] [address] [place], [place], [address] COMPREHENSIVE METABOLIC Collected: 03/27/2018 Status: F Source: [facility] 2:49 PM [facility] [place] TYPE CODE TESTS RESULT OUT OF RANGE REFERENCE UNITS LAB L501.0100 74-106 mg/dL High GLU 298 Result Comment: Glucose result greater than or equal to 200 mg/dL suggests DIABETES MELLITUS per A.D.A. criteria. Please note revised GLUCOSE reference range effective 2017. LAB L501.1000 7-18 mg/dL Normal BUN 10 LAB L501.1100 0.55-1.02 mg/dL Normal CREAT,SERUM 0.86 Result Comment: The validity of the calculated GFR AND GFRAA in patients over 70 years has not been determined. Clinical correlation is essential. LAB L501.1110 >60 mL/min Normal EST GFR 79 Result Comment: Non- GFR Calc LAB L501.1115 >60 mL/min Normal EST GFR - AA 96 Result Comment: GFR Calc LAB L501.1300 10-20 RATIO Normal BUN/CRE 11.7 LAB L501.1500 6.4-8.2 g/dL T Normal PROT 7.1 LAB L501.1800 3.2-5.0 g/dL Normal ALB 3.3 LAB L501.1950 2.2-4.2 g/dL Normal GLOB 3.8 LAB L501.2000 0.9-2.4 RATIO Normal A/G 0.9 LAB L501.2200 8.5-10.1 mg/dL Low CA 8.3 LAB L501.4100 15-37 U/L Low AST 10 LAB L501.4305 45-117 U/L Normal ALK P 102 LAB L501.4405 13-56 U/L Normal ALT 25 LAB L501.4600 0.20-1.00 mg/dL T Normal BILI 0.80 LAB L501.5300 136-145 mmol/L Low NA 134 LAB L501.5600 3.5-5.1 mmol/L K Normal 3.8 LAB L501.5900 98-107 mmol/L CL Normal 100 LAB L501.6100 21.0-32.0 mmol/L Normal CO2 22.0 LAB L501.6200 5-15 Normal GAP 12 Performed By: #### L500.4050, L501.9520 #### [facility] [address] [place], [address] THYROID STIM HORMONE Collected: 03/27/2018 Status: F Source: KO (TSH) 2:49 PM [facility] [place] TYPE CODE TESTS RESULT OUT OF RANGE REFERENCE UNITS LAB L501.9520 0.358-3.74 uIU/mL Normal TSH 3.52 Performed By: #### L500.4050, L501.9520 #### [facility] [address] [place], [place], [address] CLIENT PROGRAM MANAGER OFFICE VISIT Observed: 01/25/2018 Status: F Source: KO REPORT 2:21 PM [facility] [place] [facility] [address] [place] [address] OFFICE VISIT Date of Service: 01/25/18 MR#: [id number] Acct: [id number] Name: KRISTEN ANDRADE Rep #: [id number] : 1980 Provider: TERELL Scott Age/Sex: 37/F [place] [facility] [place] Status: Signed Intake Vital Signs01/25/18 Height 5 ft 10 in 01/25/18 Weight: 342 lb 01/25/18 Body Mass Index (BMI) 49.0 01/25/18 Blood Pressure 142/100 H Intake Visit Reasons: 4 week follow up, abnormal vaginal discharge Chief Complaint: 4w follow up, Trich Neck Pinner Required: No Is patient in pain?: No Allergies loracarbef [From Lorabid] Allergy (Verified 01/25/18 14:00) Unknown Penicillins Allergy (Verified 01/25/18 14:00) Unknown Sulfa (Sulfonamide Antibiotics) Adverse Reaction (Verified 01/25/18 14:00) Upset Stomach Medications Albuterol Inhaler 2 INHALATION Q4H PRN PRN 01/12/13 [History Confirmed 01/25/18] Effexor Xr 300 mg PO DAILY 01/12/13 [History Confirmed 01/25/18] Lisinopril [Zestril] 10 mg PO DAILY 01/12/13 [History Confirmed 01/25/18] Loratadine [Claritin] 10 mg PO DAILY 01/12/13 [History Confirmed 01/25/18] Montelukast [Singulair] 10 mg PO DAILY 01/12/13 [History Confirmed 01/25/18] buPROPion tablets [Wellbutrin] 100 mg PO DAILY 01/12/13 [History Confirmed 01/25/18] fluconazole 150 mg tablet 150 mg PO .COMPLEX #2 tab 12/20/17 [Rx Confirmed 01/25/18] metronidazole 500 mg tablet 500 mg PO .COMPLEX #4 tab 12/27/17 [Rx Confirmed 01/25/18] Is last menstrual period known: No Post menopausal: No Patient : No : No PFSH Medical History Anxiety and depression (Acute) Asthma (Acute) OCD (obsessive compulsive disorder) (Acute) Surgical History History of tonsillectomy (Acute) Hx of cholecystectomy (Acute) Social History Smoking Status: Never smoker alcohol intake: never substance use type: does not use caffeine: Yes what type of physical activity do you participate in: walking frequency: 1-2 times per week seatbelt use: always do you feel safe at home: Yes additional social history: single- HPI 4 week follow up, abnormal vaginal discharge: Details: KRISTEN ANDRADE is a 37 year old who presents for follow up positive trich 12/27/17. States took all of medication. Partner notified but they are not together and she is unsure if treated. She has not been sexually active Pregancy History 0 Elective abortions Hx Para Spontaneous abortions Exam General: bladder normal to palpation External Female Exam: normal external appearance, normal appearance of the urethra Urethra: normal appearance of the urethra Speculum Exam - Vagina: normal appearance of the vagina, normal vaginal discharge, nontender, no lesions Speculum Exam - Cervix: normal appearance of the cervix, other (smooth, nonfriable) Bimanual Exam- Vagina AND Uterus: bladder normal to palpation, normal bimanual exam, uterine size normal, uterine shape normal, uterine mobility normal, uterus non-tender Bimanual Exam- Adnexa, other: normal adnexae, no adnexal masses, adnexae non-tender Assessment AND Plan Problems 1. History of trichomonal vaginitis Z86.19 Plan CECILLE trich collected and call only if positive Orders Orders: Coding Level of Care Code Off vis,est,level 3 Diagnoses History of trichomonal vaginitis Z86.19 01/25/18 1421 <Electronically signed by Sadie CHEN> Date Sadie CHEN Cosigner Signature: Date (if applicable) CC: CT/NG [facility] BY PCR Collected: 12/27/2017 Status: F Source: KO 2:45 PM [facility] [place] TYPE CODE TESTS RESULT OUT OF RANGE REFERENCE UNITS LAB L8200.2100 Negative Normal Chlam Negative Trac PCR LAB L8200.2200 Negative Normal NG by Negative PCR Performed By: #### L8200.1999 #### [facility] [address] [place], [address] CLIENT PROGRAM MANAGER OFFICE VISIT Observed: 12/27/2017 Status: F Source: KO REPORT 12:19 PM [facility] [place] [facility] [address] [place] [address] OFFICE VISIT Date of Service: 12/27/17 MR#: [id number] Acct: [id number] Name: KRISTEN ANDRADE Rep #: [id number] : 1980 Provider: TERELL Scott Age/Sex: 37/F Location[place] [facility] [place] Status: Signed Intake Vital Signs12/27/17 Height 5 ft 10 in 12/27/17 Weight: 333 lb 4 oz 12/27/17 Body Mass Index (BMI) 47.8 12/27/17 Blood Pressure 120/76 Intake Visit Reasons: abnormal vaginal discharge, rx not working Neck Pinner Required: No Is patient in pain?: No Allergies loracarbef [From Lorabid] Allergy (Verified 12/27/17 10:17) Unknown Penicillins Allergy (Verified 12/27/17 10:17) Unknown Sulfa (Sulfonamide Antibiotics) Adverse Reaction (Verified 12/27/17 10:17) Upset Stomach Medications Albuterol Inhaler 2 INHALATION Q4H PRN PRN 01/12/13 [History Confirmed 12/27/17] Effexor Xr 300 mg PO DAILY 01/12/13 [History Confirmed 12/27/17] Lisinopril [Zestril] 10 mg PO DAILY 01/12/13 [History Confirmed 12/27/17] Loratadine [Claritin] 10 mg PO DAILY 01/12/13 [History Confirmed 12/27/17] Montelukast [Singulair] 10 mg PO DAILY 01/12/13 [History Confirmed 12/27/17] buPROPion tablets [Wellbutrin] 100 mg PO DAILY 01/12/13 [History Confirmed 12/27/17] fluconazole 150 mg tablet 150 mg PO .COMPLEX #2 tab 12/20/17 [Rx Confirmed 12/27/17] metronidazole 500 mg tablet 500 mg PO .COMPLEX #4 tab 12/27/17 [Rx Confirmed 12/27/17] Is last menstrual period known: Yes Last Menstral Period: 12/18/17 Post menopausal: No Patient : No : No Nurse's Note: Pt states she is still having sore and itchy feeling. [facility] Medical History Anxiety and depression (Acute) Asthma (Acute) OCD (obsessive compulsive disorder) (Acute) Surgical History History of tonsillectomy (Acute) Hx of cholecystectomy (Acute) Social History Smoking Status: Never smoker alcohol intake: never substance use type: does not use caffeine: Yes what type of physical activity do you participate in: walking frequency: 1-2 times per week seatbelt use: always do you feel safe at home: Yes additional social history: single- HPI abnormal vaginal discharge, rx not working: Details: KRISTEN ANDRADE is a 37 year old who presents for abnormal discharge, started last week and had period which she felt discharge improved then came back. Describes discharge as heavy mucus. Symptoms include itching, and outer labial soreness. Took diflucan on 12/20 symptoms improved slightly then got worse again. Patient concerned for trich exposure today, would like STI testing. Female Reproductive History Last Menstral Period: 12/18/17 Pregancy History 0 Elective abortions Hx Para Spontaneous abortions ROS Const Constitutional: Reports system reviewed and no additional complaints, except as docu GI GI: Denies abdominal pain or change in bowel habits Exam External Female Exam: erythema, normal appearance of the urethra Urethra: normal appearance of the urethra Speculum Exam - Vagina: abnormal vaginal discharge yellow, vaginal erythema Speculum Exam - Cervix: normal appearance of the cervix Bimanual Exam- Vagina AND Uterus: normal bimanual exam Bimanual Exam- Adnexa, other: normal adnexae Assessment AND Plan Problems 1. Trichimoniasis A59.9 2. Screen for STD (sexually transmitted disease) Z11.3 Plan Rx flagyl. Partner needs treatment [facility] pending-call only if positive Declines serum STD testing. Orders Orders: Medications New: Coding Level of Care Code Off vis,est,level 3 Diagnoses Trichimoniasis A59.9 Screen for STD (sexually transmitted disease) Z11.3 12/27/17 1219 <Electronically signed by Sadie Scott BEEKEEPER-C> Date Sadie Scott BEEKEEPER-C Cosigner Signature: Date (if applicable) CC: CBC W/DIFF, AUTOMATED Collected: 12/26/2017 Status: F Source: KO 3:44 PM [facility] [place] TYPE CODE TESTS RESULT OUT OF RANGE REFERENCE UNITS LAB L100.1000 4.4-11.0 K/mm3 Normal WBC 7.0 LAB L100.1200 4.2-5.4 M/mm3 Normal RBC 5.10 LAB L100.1300 12.0-15.0 g/dl Normal HGB 14.9 LAB L100.1400 37-47 % Normal HCT 44.0 LAB L100.1500 81-99 fL Normal MCV 86.3 LAB L100.1600 27.0-32.0 pg Normal MCH 29.2 LAB L100.1700 32-36 g/gl Normal MCHC 33.9 LAB L100.1810 11.6-14.6 % Normal RDW CV 12.5 LAB L100.1820 35.1-43.9 fl Normal RDW SD 39.7 LAB L100.1900 150-450 K/mm3 Normal PLT 307 LAB L100.2000 6.2-12.0 fl Normal MPV 10.2 LAB L100.2100 47-70 % Normal NEUT% 49.3 LAB L100.2200 19-41 % Normal LY% 38.8 LAB L100.2300 0-10 % Normal MONO% 6.6 LAB L100.2400 0-5 % Normal EO% 4.0 LAB L100.2500 0-1 % Normal BASO% 1.0 LAB L100.2550 0.0-0.9 % Normal IM GRAN % 0.300 Result Comment: IG% - Immature Granulocytes (promyelocytes, myelocytes and metamyelocytes) > 1% indicates that a LEFT SHIFT is Present. LAB L100.2620 2.0-7.7 X10 3/uL Normal Absolute Neut 3.5 LAB L100.2720 0.83-4.51 X10 3/ul Normal Absolute Lymph 2.72 Performed By: #### L100.0100 #### [facility] [address] [place], [address] COMPREHENSIVE METABOLIC Collected: 12/26/2017 Status: F Source: KO STOLL 3:44 PM [facility] [place] TYPE CODE TESTS RESULT OUT OF RANGE REFERENCE UNITS LAB L501.0100 74-106 mg/dL High GLU 299 Result Comment: Glucose result greater than or equal to 200 mg/dL suggests DIABETES MELLITUS per A.D.A. criteria. Please note revised GLUCOSE reference range effective 2017. LAB L501.1000 7-18 mg/dL High BUN 19 LAB L501.1100 0.55-1.02 mg/dL Normal CREAT,SERUM 0.86 Result Comment: The validity of the calculated GFR AND GFRAA in patients over 70 years has not been determined. Clinical correlation is essential. LAB L501.1110 >60 mL/min Normal EST GFR 79 Result Comment: Non- GFR Calc LAB L501.1115 >60 mL/min Normal EST GFR - AA 96 Result Comment: GFR Calc LAB L501.1300 10-20 RATIO High BUN/CRE 22.2 LAB L501.1500 6.4-8.2 g/dL T Normal PROT 7.5 LAB L501.1800 3.2-5.0 g/dL Normal ALB 3.4 LAB L501.1950 2.2-4.2 g/dL Normal GLOB 4.1 LAB L501.2000 0.9-2.4 RATIO Low A/G 0.8 LAB L501.2200 8.5-10.1 mg/dL CA Normal 9.2 LAB L501.4100 15-37 U/L Normal AST 27 LAB L501.4305 45-117 U/L Normal ALK P 97 LAB L501.4405 13-56 U/L Normal ALT 31 LAB L501.4600 0.20-1.00 mg/dL T Normal BILI 0.60 LAB L501.5300 136-145 mmol/L Low NA 135 LAB L501.5600 3.5-5.1 mmol/L K Normal 4.2 LAB L501.5900 98-107 mmol/L CL Normal 98 LAB L501.6100 21.0-32.0 mmol/L Normal CO2 23.0 LAB L501.6200 5-15 Normal GAP 14 Performed By: #### L500.4050, L501.9520 #### [facility] [address] [place], [address] THYROID STIM HORMONE Collected: 12/26/2017 Status: F Source: KO (TSH) 3:44 PM [facility] [place] TYPE CODE TESTS RESULT OUT OF RANGE REFERENCE UNITS LAB L501.9520 0.358-3.74 uIU/mL Normal TSH 1.55 Performed By: #### L500.4050, L501.9520 #### [facility] [address] [place], [address] CLIENT PROGRAM MANAGER OFFICE VISIT Observed: 09/05/2017 Status: F Source: KO REPORT 6:47 AM [facility] [place] [facility] [address] [place] [address] OFFICE VISIT Date of Service: 08/30/17 MR#: [id number] Acct: [id number] Name: KRISTEN ANDRADE Rep #: [id number] : 1980 Provider: Franchesca Strickland MD Age/Sex: 36/F Location: [facility] Status: Signed Intake Vital Signs08/30/17 Height 5 ft 10 in 08/30/17 Weight: 323 lb 6 oz 08/30/17 Body Mass Index (BMI) 46.3 08/30/17 Blood Pressure 166/97 Intake Visit Reasons: VAGINAL ITCHING Chief Complaint: Vaginal Itching, STD Check Neck Pinner Required: No Is patient in pain?: No Allergies loracarbef [From Lorabid] Allergy (Verified 08/30/17 12:45) Unknown Penicillins Allergy (Verified 08/30/17 12:45) Unknown Sulfa (Sulfonamide Antibiotics) Adverse Reaction (Verified 08/30/17 12:45) Upset Stomach Medications Albuterol Inhaler 2 INHALATION Q4H PRN PRN 01/12/13 [History Confirmed 08/30/17] Effexor Xr 300 mg PO DAILY 01/12/13 [History Confirmed 08/30/17] Lisinopril [Zestril] 10 mg PO DAILY 01/12/13 [History Confirmed 08/30/17] Loratadine [Claritin] 10 mg PO DAILY 01/12/13 [History Confirmed 08/30/17] Montelukast [Singulair] 10 mg PO DAILY 01/12/13 [History Confirmed 08/30/17] buPROPion tablets [Wellbutrin] 100 mg PO DAILY 01/12/13 [History Confirmed 08/30/17] metronidazole 500 mg tablet 500 mg PO BID 7 Days #14 tab 08/30/17 [Rx Confirmed 08/30/17] ciprofloxacin 500 mg tablet 500 mg PO BID #6 tab 09/01/17 [Rx] fluconazole 150 mg tablet 150 mg PO .COMPLEX #2 tab 09/04/17 [Rx] Is last menstrual period known: Yes Last Menstral Period: 08/09/17 Post menopausal: No Patient : No : No PFSH Medical History Anxiety and depression (Acute) Asthma (Acute) OCD (obsessive compulsive disorder) (Acute) Surgical History History of tonsillectomy (Acute) Hx of cholecystectomy (Acute) Social History Smoking Status: Never smoker alcohol intake: never substance use type: does not use caffeine: Yes what type of physical activity do you participate in: walking frequency: 1-2 times per week seatbelt use: always do you feel safe at home: Yes additional social history: single- HPI VAGINAL ITCHING: Details: KRISTEN ANDRADE is a 36 year old who presents for vaginal itching and discharge. she is wanting std screening. she has a history of trichomonas. she also has some dysuria. she denies any irregular bleeding. Female Reproductive History Last Menstral Period: 08/09/17 Pregancy History 0 Elective abortions Hx Para Spontaneous abortions ROS Const Constitutional: Reports system reviewed and no additional complaints, except as docu GI GI: Reports system reviewed and no additional complaints, except as docu : Reports as per HPI Exam Const General: cooperative, healthy appearing, comfortable, no acute distress, well developed Nutritional Appearance: average body habitus Orientation: alert HENMT Head: normal to inspection, normocephalic Neck Neck: normal visual inspection, trachea midline Thyroid: thyroid normal Resp Effort AND Inspection: normal respiratory effort GI Inspection: normal to inspection, non-distended Palpation: soft, no hepatosplenomegaly General: bladder normal to palpation External Female Exam: normal external appearance, normal appearance of the urethra Urethra: normal appearance of the urethra, normal palpation, no discharge Speculum Exam - Vagina: normal appearance of the vagina, normal vaginal discharge Speculum Exam - Cervix: normal appearance of the cervix, nontender Bimanual Exam- Vagina AND Uterus: bladder normal to palpation, No cervical tenderness, normal bimanual exam, uterine size normal, uterine shape normal, uterine mobility normal, uterine consistency normal, normal cervical palpation, uterus non-tender Bimanual Exam- Adnexa, other: normal adnexae, adnexae mobile, no adnexal masses, pelvic support normal Pelvic Support: normal Skin General: no rashes or lesions noted Results BMSUA Office Urine Color YELLOW Last Edit by Jonna Gauthier on 08/30/17 13:36 Office Urine Clarity Clear Last Edit by Jonna Gauthier on 08/30/17 13:36 Patient is on period POCTRICVAG Office Trichomonas vaginalis Positive Last Edit by Jonna Gauthier on 08/30/17 13:41 POCBVBLUE Office BVBlue Test Negative Last Edit by Jonna Gauthier on 08/30/17 13:41 Assessment AND Plan Problems 1. Acute vaginitis N76.0 Plan ordered genital cultures and std testing. flagyl ordered for positive trich. std counseling provided Orders Orders: Medications New: Coding Level of Care Code Off vis,est,level 3 Diagnoses Acute vaginitis N76.0 09/05/17 0647 <Electronically signed by Franchesca Strickland MD> Date Franchesca Strickland MD Cosigner Signature: Date (if applicable) CC: CT/NG [facility] BY PCR Collected: 08/30/2017 Status: F Source: FALL[place] 5:30 PM [facility] [place] TYPE CODE TESTS RESULT OUT OF RANGE REFERENCE UNITS LAB L8200.2100 Negative Normal Chlam Negative Trac PCR LAB L8200.2200 Negative Normal NG by Negative PCR Performed By: #### L8200.2000 #### [facility] [address] [place], [address] Observed: 08/30/2017 Status: F Source: [place] CULTURE, GENITAL 5:30 PM [facility] Reason for Exam: vaginal irritation Gram Stain Score = 9 Interpretation: 0-3 Normal, 4-6 Intermediate, 7-10 Positive BV Gram Stain 3+ Gram negative rods 2+ Gram positive cocci 2+ Epithelial cells No Yeast Like Organisms No Gram negative diplococci No White Blood Cells Gent Cult Comp No Neisseria or beta-hemolytic Streptococcus isolated. ORGANISM 1: G. vaginalis (Presumptive) Amount Growth 3+ ORGANISM 2: Presumptive C albicans Amount Growth Rare Performed By: #### M100.1600, M100.0650 #### [facility] [address] [place], [address] Observed: 08/30/2017 Status: F Source: [place] CULTURE, URINE 5:30 PM [facility] [place] Urine Culture ORGANISM 1: Escherichia coli [place] Count 50,000-80,000 Escherichia coli: REACTION Amoxacillin/Clavulanic Acid $ 4 S Ampicillin $ <=2 S Ampicillin/Sulbactam $ <=2 S Cefazolin $ <=4 S Cefepime $ <=1 S Ceftriaxone $ <=1 S Ciprofloxacin $ <=0.25 S ESBL - Ertapenim $$$ <=0.5 S Gentamicin $ <=1 S Imipenem *NF <=0.25 S Levofloxacin $ <=0.12 S Nitrofurantoin $ <=16 S Piperacillin/Tazobactam $$ <=4 S Tobramycin $ <=1 S Trimethoprim/Sulfametho $ <=20 S (NF) indicates non-formulary drug at [facility]. Approval by Infectious Disease Specialist required before non-formulary drugs may be ordered and/or dispensed. Performed By: #### M100.1600, M100.0650 #### [facility] [address] [place], [address] HIV - [facility] Collected: 08/30/2017 Status: F Source: KO 1:44 PM [facility] [place] TYPE CODE TESTS RESULT OUT OF RANGE REFERENCE UNITS LAB L3890.6005 Nonreactive Normal HIV - [facility] Non-Reactive Performed By: #### L3890.6005, L700.5000 #### [facility] [address] [place], [address] RAPID PLASMIN REAGIN Collected: 08/30/2017 Status: F Source: FALL[place] (RPR) 1:44 PM [facility] [place] TYPE CODE TESTS RESULT OUT OF REFERENCE UNITS RANGE LAB L700.5000 NONREACTIVE NONREACTIVE Normal RPR Performed By: #### L3890.6005, L700.5000 #### [facility] [address] [place], [address] HEPATITIS B SURFACE Collected: 08/30/2017 Status: F Source: [place] AG 1:44 PM [facility] [place] TYPE CODE TESTS RESULT OUT OF RANGE REFERENCE UNITS LAB L3100.0400 Negative Normal HB Negative SURF AG Result Comment: Performed at: [facility] [id number] Managed Care Liaison: Jimbo Dash MD, Phone: [phone] Performed at: [facility] [id number] Managed Care Liaison: Danie San PhD, Phone: [phone] Performed By: #### L3100.0390, L3400.1610, L7000.7000 #### [facility] (refer to report for specific site) refer to report for address and phone number HSV 1 AND 2 IGG Collected: 08/30/2017 Status: F Source: KO 1:44 PM [facility] [place] TYPE CODE TESTS RESULT OUT OF RANGE REFERENCE UNITS LAB L3400.1620 0.00-0.90 index High HSV 1 IgG 23.50 Result Comment: Negative <0.91 Equivocal 0.91 - 1.09 Positive >1.09 Note: Negative indicates no antibodies detected to HSV-1. Equivocal may suggest early infection. If clinically appropriate, retest at later date. Positive indicates antibodies detected to HSV-1. LAB L3400.1630 0.00-0.90 index Normal < HSV 2 IgG 0.91 Result Comment: Negative <0.91 Equivocal 0.91 - 1.09 Positive >1.09 Note: Negative indicates no antibodies detected to HSV-2. Equivocal may suggest early infection. If clinically appropriate, retest at later date. Positive indicates antibodies detected to HSV-2. Performed By: #### L3100.0390, L3400.1610, L7000.7000 #### [facility] (refer to report for specific site) refer to report for address and phone number HEPATITIS C,RNA PCR Collected: 08/30/2017 Status: F Source: KO VIRAL LOAD 1:44 PM [facility] [place] TYPE CODE TESTS RESULT OUT OF RANGE REFERENCE UNITS LAB L7000.7100 . IU/mL HCV Normal HCV Not Detected QT PCR LAB L7000.7350 . Test Normal HCV not performed log 10 LAB L7000.7500 . Normal TEST Comment INFO: Result Comment: The quantitative range of this assay is 15 IU/mL to 100 million IU/mL. Performed By: #### L3100.0390, L3400.1610, L7000.7000 #### [facility] (refer to report for specific site) refer to report for address and phone number CBC W/DIFF, AUTOMATED Collected: 05/25/2017 Status: F Source: KO 2:01 PM [facility] [place] TYPE CODE TESTS RESULT OUT OF RANGE REFERENCE UNITS LAB L100.1000 4.4-11.0 K/mm3 Normal WBC 6.9 LAB L100.1200 4.2-5.4 M/mm3 Normal RBC 5.25 LAB L100.1300 12.0-15.0 g/dl High HGB 15.3 LAB L100.1400 37-47 % Normal HCT 44.6 LAB L100.1500 81-99 fL Normal MCV 85.0 LAB L100.1600 27.0-32.0 pg Normal MCH 29.1 LAB L100.1700 32-36 g/gl Normal MCHC 34.3 LAB L100.1810 11.6-14.6 % Normal RDW CV 12.5 LAB L100.1820 35.1-43.9 fl Normal RDW SD 38.0 LAB L100.1900 150-450 K/mm3 Normal PLT 292 LAB L100.2000 6.2-12.0 fl Normal MPV 10.4 LAB L100.2100 47-70 % Low NEUT% 46.1 LAB L100.2200 19-41 % High LY% 41.8 LAB L100.2300 0-10 % Normal MONO% 6.8 LAB L100.2400 0-5 % Normal EO% 4.6 LAB L100.2500 0-1 % Normal BASO% 0.6 LAB L100.2550 0.0-0.9 % Normal IM GRAN % 0.100 Result Comment: IG% - Immature Granulocytes (promyelocytes, myelocytes and metamyelocytes) > 1% indicates that a LEFT SHIFT is Present. LAB L100.2620 2.0-7.7 X10 3/uL Normal Absolute Neut 3.2 LAB L100.2720 0.83-4.51 X10 3/ul Normal Absolute Lymph 2.88 Performed By: #### L100.0100 #### [facility] [address] [place], [address] COMPREHENSIVE METABOLIC Collected: 05/25/2017 Status: F Source: [facility] 2:01 PM [facility] [place] TYPE CODE TESTS RESULT OUT OF RANGE REFERENCE UNITS LAB L501.0100 74-106 mg/dL High GLU 303 Result Comment: Glucose result greater than or equal to 200 mg/dL suggests DIABETES MELLITUS per A.D.A. criteria. Please note revised GLUCOSE reference range effective 2017. LAB L501.1000 7-18 mg/dL Normal BUN 10 LAB L501.1100 0.55-1.02 mg/dL Normal CREAT,SERUM 0.83 Result Comment: The validity of the calculated GFR AND GFRAA in patients over 70 years has not been determined. Clinical correlation is essential. LAB L501.1110 >60 mL/min Normal EST GFR 83 Result Comment: Non- GFR Calc LAB L501.1115 >60 mL/min Normal EST GFR - AA 100 Result Comment: GFR Calc LAB L501.1300 10-20 RATIO Normal BUN/CRE 12.1 LAB L501.1500 6.4-8.2 g/dL T Normal PROT 7.5 LAB L501.1800 3.2-5.0 g/dL Normal ALB 3.7 LAB L501.1950 2.2-4.2 g/dL Normal GLOB 3.8 LAB L501.2000 0.9-2.4 RATIO Normal A/G 1.0 LAB L501.2200 8.5-10.1 mg/dL CA Normal 9.0 LAB L501.4100 15-37 U/L Normal AST 17 LAB L501.4305 45-117 U/L Normal ALK P 89 LAB L501.4405 13-56 U/L Normal ALT 28 Result Comment: Please note revised ALT reference range effective 2017. LAB L501.4600 0.20-1.00 mg/dL Normal T BILI 0.70 LAB L501.5300 136-145 mmol/L Low NA 135 LAB L501.5600 3.5-5.1 mmol/L Normal K 4.1 LAB L501.5900 98-107 mmol/L Normal CL 99 LAB L501.6100 21.0-32.0 mmol/L Normal CO2 27.0 LAB L501.6200 5-15 Normal GAP 9 Performed By: #### L500.4050, L501.9520 #### [facility] [address] [place], [place], [address] THYROID STIM HORMONE Collected: 05/25/2017 Status: F Source: FALL[place] (TSH) 2:01 PM [facility] [place] TYPE CODE TESTS RESULT OUT OF RANGE REFERENCE UNITS LAB L501.9520 0.358-3.74 uIU/mL Normal TSH 3.15 Performed By: #### L500.4050, L501.9520 #### [facility] [address] [place], [place], [address] ALLERGIES ALLERGIES DATE TYPE / CODE NAME / CODE REACTION SEVERITY SOURCE 04/02/2018 Drug Penicillins/F Unknown Unknown [facility] Allergy/4160 [id number](RXN Hospital 19034(SNOMED ORM) Repository CT) 04/02/2018 Drug Sulfa Upset Stomach Unknown [facility] Allergy/4160 (Sulfonamide Hospital 02190(SNOMED Antibiotics)/ Repository CT) [id number](RX NORM) 04/02/2018 Drug loracarbef/F0 Unknown Unknown Ko [facility] Allergy/4160 [id number](RXNO Hospital 70290(SNOMED RM) Repository CT) ENCOUNTERS ENCOUNTERS ADMIT/DISCHARGE ACCOUNT ADMITTING ENCOUNTER LOCATION SOURCE NUMBER CLASS 04/05/2018 [id number] Ambulatory Jean Jean 4 [facility] ing:POLAB3 Repository 04/02/2018 [id number] Carmella Babs Ambulatory BMSBuilding:B Jean 4 [facility] Repository 04/02/2018/ [id number] White, Babs Ambulatory Ko Ko 9 6 [facility] ing:OD7Tfsv: Repository VT114Tzf: 1 03/27/2018 [id number] Ambulatory Ko Ko 6 [facility] ing:POLAB3 Repository 01/25/2018/ [id number] Ambulatory BMSBuilding:B Jean 8 4 [facility] Repository 12/27/2017 [id number] Ambulatory Ko Jean 7 [facility] ing:LABSPEC Repository 12/27/2017/ [id number] Ambulatory BMSBuilding:B Ko 8 7 [facility] Repository 12/26/2017 [id number] Ambulatory Ko Ko 2 [facility] ing:POLAB3 Repository 08/30/2017 [id number] Ambulatory Jean Jean 6 [facility] ing:LABSPEC Repository 08/30/2017 [id number] Ambulatory Ko Jean 6 [facility] ing:LAB Repository 08/30/2017/ [id number] Ambulatory BMSBuilding:B Jean 8 1 [facility] Repository 05/25/2017 [id number] Ambulatory Jean Ko 6 [facility] ing:POLAB3 Repository PAYERS PAYERS ENCOUNTER GUARANTOR PAYER SUBSCRIBER SOURCE 04/05/2018 KRISTEN Rivera Primary KRISTEN [id number] Insurance:[facility] CHAIB: [facility] IRENE parada Number: [id number] [id number] Repository [address]Roc: [phone]) Date:2018-04-05P O [phone] (HP) [address]ATTN: [place] [address]QN: 04/05/2018 Secondary NOT GIVENUNK Jean Insurance:SELF PAY [place] Number: Effective Repository Date:2018-04-05 04/02/2018 KRISTEN Rivera Primary KRISTEN M Ko [id number] Insurance:CARESOURCEP GRABERDOB: Community [employer] [address] olicy Number: [id number] [id number] Repository [address]Yit: ([phone]) Date:2018-04-02P O [phone] () [address]ATTN: [place] [address]TK: 04/02/2018 Secondary NOT GIVENUNK Jean Insurance:SELF PAY [place] Number: Effective Repository Date:2018-04-02 04/02/2018 KRISTEN Rivera Primary KRISTEN M Jean [id number] Insurance:CARESOURCEP GRABERDOB: Community [employer] olicy Number: [id number] [id number] Repository [address]Zie: ([phone]) Date:2018-04-02P O [phone] () [address]ATTN: [facility]S [facility] [place] [address]FQ: 04/02/2018 Secondary NOT GIVENUNK Ko Insurance:SELF PAY [place] Number: Effective Repository Date:2018-04-02 03/27/2018 KRISTEN M Primary KRISTEN M Ko [id number] Insurance:CARESOURCEP GRABERDOB: Community [employer] olicy Number: [id number] [id number] Repository [address]Dqv: ([phone]) Date:2018-03-27P O [phone] (HP) [address]ATTN: CLAIMS [facility] [place] [address]YI: 03/27/2018 Secondary NOT GIVENUNK Jean Insurance:SELF PAY [place] Number: Effective Repository Date:2018-03-27 01/25/2018 KRISTEN Rivera Primary KRISTEN Rivera Jean [id number] Insurance:CARESOURCEP GRABERDOB: Community [employer] tal Number: [id number] [id number] Repository [address]Hxi: ([phone]) Date:2017-12-27P O [phone] () [address]ATTN: [place] [address]MJ: 01/25/2018 Secondary NOT GIVENUNK Jean Insurance:SELF PAY [place] Number: Effective Repository Date:2018-01-25 12/27/2017 KRISTEN Rivera Primary KRISTEN Rivera Jean [id number] Insurance:CARESOURCEP GRABERDOB: [facility] KVNG parada Number: [id number] [id number] Repository [address]Czi: ([phone]) Date:2017-12-27P O [phone] () [address]ATTN: [place] [address]PE: 12/27/2017 Secondary NOT GIVENUNK Jean Insurance:SELF PAY [place] Number: Effective Repository Date:2017-12-27 12/27/2017 KRISTEN Rivera Primary KRISTEN Rivera Ko [id number] Insurance:CARESOURCEP GRABERDOB: [facility] KVNG parada Number: [id number] [id number] Repository [address]Zth: ([phone]) Date:2017-12-25P O [phone] () [address]ATTN: [place] [address]IE: 12/27/2017 Secondary NOT GIVENUNK Jean Insurance:SELF PAY [place] Number: Effective Repository Date:2017-12-27 12/26/2017 KRISTEN Rivera Primary KRISTEN Rivera Ko [id number] Insurance:CARESOURCEP GRABERDOB: Community [employer] olbrown Number: [id number] [id number] Repository [address]Qqa: ([phone]) Date:2017-12-26P O [phone] (HP) [address]ATTN: CLAIMS [place] [facility] [place] [address]FP: 12/26/2017 Secondary NOT GIVENUNK Ko Insurance:SELF PAY [place] Number: Effective Repository Date:2017-12-26 08/30/2017 KRISTEN M Primary KRISTEN M Ko [id number] Insurance:CARESOURCEP GRABERDOB: Community [employer] [place] olicy Number: [id number] [id number] Repository [address]Eox: [phone] Date:2017-08-30P O [phone] (HP) [address]ATTN: [place] [address]MU: 08/30/2017 Secondary NOT GIVENUNK Jean Insurance:SELF PAY [place] Number: Effective Repository Date:2017-08-30 08/30/2017 KRISTEN M Primary KRISTEN M Jean [id number] Insurance:CARESOURCEP GRABERDOB: Community [employer] olicy Number: [id number] [id number] Repository [address]Cip: [phone] Date:2017-08-30P O [phone] (HP) [address]ATTN: [place] [address]GP: 08/30/2017 Secondary NOT GIVENUNK Jean Insurance:SELF PAY [place] Number: Effective Repository Date:2017-08-30 08/30/2017 KRISTEN Primary KRISTEN Ko [id number] Insurance:CARESOURCEP GRABERDOB: Community [employer] olicy Number: [id number] [id number] Repository [address]Miy: [phone] Date:2017-08-29P O [phone] (HP) [address]ATTN: CLAIMS [facility] [place] [address]DU: 08/30/2017 Secondary NOT GIVENUNK Jean Insurance:SELF PAY [place] Number: Effective Repository Date:2017-08-30 05/25/2017 Kristen Primary Kristen Jean [id number] Insurance:BETY GraciaB: [facility] Kvng parada Number: [id number] [id number] Repository [address]Ixb: [phone]) Date:2017-05-25P O [phone] () [address]ATTN: [place] [address]AA: 05/25/2017 Secondary NOT GIVENUNK Jean Insurance:SELF PAY [place] Number: Effective Repository Date:2017-05-25
== END 2018-04-02 17:10 | disposition home or self-care (01) ==
LOC: ED 02:18 → MS3 04:01
PROVIDERS: Admitting Provider Family Medicine; Emergency Provider Emergency Medicine; Family Provider Family Medicine Geriatric Medicine; PCP Family Medicine Geriatric Medicine; Referring Provider Family Medicine; Visit Provider Family Medicine
DX: A08.4 Viral intestinal infection, unspecified (principal); E87.6 Hypokalemia; E87.2 Acidosis; E87.1 Hypo-osmolality and hyponatremia; E86.0 Dehydration; E66.01 Morbid (severe) obesity due to excess calories; Z68.42 Body mass index [BMI] 45.0-49.9, adult; Z71.3 Dietary counseling and surveillance; E11.9 Type 2 diabetes mellitus without complications; I10 Essential (primary) hypertension; J45.909 Unspecified asthma, uncomplicated; E78.5 Hyperlipidemia, unspecified; F41.9 Anxiety disorder, unspecified; Z79.899 Other long term (current) drug therapy; Z79.84 Long term (current) use of oral hypoglycemic drugs; E03.9 Hypothyroidism, unspecified; G47.33 Obstructive sleep apnea (adult) (pediatric); F31.9 Bipolar disorder, unspecified; K21.9 Gastro-esophageal reflux disease without esophagitis; E83.42 Hypomagnesemia
CPT/HCPCS: 36415; 80053; 82962; 83605; 83630; 83735; 84703; 85025; 87177; 87209; 87493; 87506; 96361; 96372; 96374; 97802; 99218; 99284; J7030; A4216; G0378; J2405

== ENCOUNTER → 2018-04-05 16:18 | Outpatient (CLI) | payer MEDICAID, SELFPAY ==
[2018-04-02 04:50] VITALS: BMI 46.3
[2018-04-05 17:12] LABS: Anion Gap 12 (5-15); BUN 8 mg/dL (7-18); BUN/Creat Ratio 9.9 RATIO (10-20); Calcium,Total 8.7 mg/dL (8.5-10.1); Chloride 103 mmol/L (98-107); Creatinine, Serum 0.81 mg/dL (0.55-1.02); EST Glomerular Filtration Rate 85 mL/min (>60); Est Glom Filt Rate - Afr Amer 102 mL/min (>60); Glucose 305 mg/dL (74-106); Magnesium 1.2 mg/dL (1.6-2.6); Potassium 3.3 mmol/L (3.5-5.1); Sodium Level 139 mmol/L (136-145)
[2018-04-05 17:19] LABS: Absolute Lymphocyte Count 2.05 X10^3/ul (0.83-4.51); Basophil# 0.04 X10^3/uL; Basophil% 0.5 % (0-1); Eosinophil# 0.15 X10^3/uL; Eosinophils% 1.9 % (0-5); Hematocrit 36.2 % (37-47); Hemoglobin 12.5 g/dl (12.0-15.0); Lymphocyte # 2.05 X10^3/ul (4.0); Mean Corp Hgb Conc 34.5 g/gl (32-36); Mean Corpuscular Hgb 29.3 pg (27.0-32.0); Mean Corpuscular Volume 84.8 fL (81-99); Mean Platelet Vol. 10.1 fl (6.2-12.0); Monocyte% 7.6 % (0-10); Neutrophil % 63.4 % (47-70); POSITIVE COUNT NO; POSITIVE DIFFERENTIAL NO; POSITIVE MORPHOLOGY NO; Platelet Count 256 K/mm3 (150-450); RBC Distribution Width SD 39.5 fl (35.1-43.9); Red Blood Count 4.27 M/mm3 (4.2-5.4); White Blood Count 7.9 K/mm3 (4.4-11.0)
== END ==
PROVIDERS: Family Provider Family Medicine Geriatric Medicine; PCP Family Medicine Geriatric Medicine; Visit Provider Family Medicine Geriatric Medicine
DX: E83.49 Other disorders of magnesium metabolism (principal); E87.6 Hypokalemia
CPT/HCPCS: 36415; 80048; 83735; 85025

== ENCOUNTER → 2018-04-16 14:31 | Outpatient (CLI) | payer MEDICAID, SELFPAY ==
[2018-04-02 04:50] VITALS: BMI 46.3
[2018-04-16 16:19] LABS: Anion Gap 11 (5-15); BUN 14 mg/dL (7-18); BUN/Creat Ratio 16.6 RATIO (10-20); Calcium,Total 9.5 mg/dL (8.5-10.1); Chloride 102 mmol/L (98-107); Creatinine, Serum 0.84 mg/dL (0.55-1.02); EST Glomerular Filtration Rate 80 mL/min (>60); Est Glom Filt Rate - Afr Amer 97 mL/min (>60); Glucose 190 mg/dL (74-106); Magnesium 1.6 mg/dL (1.6-2.6); Potassium 4.6 mmol/L (3.5-5.1); Sodium Level 137 mmol/L (136-145)
== END ==
PROVIDERS: Family Provider Family Medicine Geriatric Medicine; PCP Family Medicine Geriatric Medicine; Visit Provider Family Medicine Geriatric Medicine
DX: E87.6 Hypokalemia (principal); E83.49 Other disorders of magnesium metabolism
CPT/HCPCS: 36415; 80048; 83735

== ENCOUNTER → 2018-05-15 14:58 | Outpatient (CLI) | payer MEDICAID, SELFPAY ==
[2018-05-15 14:10] VITALS: BMI 48.6
[2018-05-15 17:05] LABS: HIV - WCH Non-Reactive (Nonreactive)
[2018-05-15 20:13] LABS: Chlamydia Trachomatis by PCR Negative (Negative); Neisserai gonorrhoeae by PCR Negative (Negative); Probe Check PASS; Sample Adequacy Control PASS; Specimen Processing Control PASS
[2018-05-18 01:31] LABS: Rapid Plasmin Reagin (RPR) NONREACTIVE (NONREACTIVE)
[2018-05-18 13:37] LABS: HEPATITIS B SURFACE AG Negative (Negative); Hepatitis A AB, Total Negative (Negative); Hepatitis A IgM Antibody Negative (Negative); Hepatitis B Core AB IgM Negative (Negative); Hepatitis B Core Ab Total Negative (Negative); Hepatitis C Ab <0.1 s/co ratio (0.0-0.9)
[2018-05-21 11:46] LABS: HCV Quant. RNA PCR <15 IU/mL (.); HSV 2 IgG < 0.91 index (0.00-0.90); Hep B Surface Antibodies Non Reactive (.)
[2018-05-21 11:46] LABS: HPV APTIMA, High Risk Positive (Negative)
== END ==
PROVIDERS: Family Provider Family Medicine Geriatric Medicine; PCP Family Medicine Geriatric Medicine; Referring Provider Nurse Practitioner Women's Health; Visit Provider Nurse Practitioner Women's Health
DX: Z11.3 Encounter for screening for infections with a predominantly sexual mode of transmission (principal); Z12.4 Encounter for screening for malignant neoplasm of cervix
CPT/HCPCS: 86592; 86695; 86696; 86703; 86704; 86705; 86706; 86708; 86709; 86803; 87340; 87491; 87522; 87591; 87624; 88175; G0145

== ENCOUNTER → 2018-08-02 | Outpatient (CLI) | payer MEDICAID, SELFPAY ==
[2018-07-18 10:33] VITALS: BMI 48.4
[2018-08-02 17:32] LABS: Absolute Lymphocyte Count 2.61 X10^3/ul (0.83-4.51); Absolute Neutrophil Count 4.1 X10^3/uL (2.0-7.7); Basophil# 0.03 X10^3/uL; Basophil% 0.4 % (0-1); Eosinophil# 0.19 X10^3/uL; Eosinophils% 2.5 % (0-5); Hematocrit 41.1 % (37-47); Lymphocyte # 2.61 X10^3/ul (4.0); Lymphocyte % 34.8 % (19-41); Mean Corp Hgb Conc 34.1 g/gl (32-36); Mean Corpuscular Hgb 28.7 pg (27.0-32.0); Mean Corpuscular Volume 84.4 fL (81-99); Mean Platelet Vol. 10.8 fl (6.2-12.0); Monocyte% 6.7 % (0-10); Neutrophil # 4.14 X10^3/uL (2.7-7.7); Neutrophil % 55.2 % (47-70); Platelet Count 268 K/mm3 (150-450); RBC Distribution Width CV 12.9 % (11.6-14.6); RBC Distribution Width SD 38.9 fl (35.1-43.9); Red Blood Count 4.87 M/mm3 (4.2-5.4); White Blood Count 7.5 K/mm3 (4.4-11.0)
[2018-08-02 17:33] LABS: POSITIVE COUNT NO; POSITIVE DIFFERENTIAL NO; POSITIVE MORPHOLOGY NO
[2018-08-02 18:00] LABS: ALB/GLOB Ratio 0.8 RATIO (0.9-2.4); AST(SGOT) 8 U/L (15-37); Alanine Aminotransfer ALT/SGPT 22 U/L (13-56); Albumin, Serum 3.4 g/dL (3.2-5.0); Alkaline Phosphatase 105 U/L (45-117); Anion Gap 9 (5-15); BUN 16 mg/dL (7-18); BUN/Creat Ratio 18.5 RATIO (10-20); Chloride 101 mmol/L (98-107); Creatinine, Serum 0.87 mg/dL (0.55-1.02); EST Glomerular Filtration Rate 78 mL/min (>60); Est Glom Filt Rate - Afr Amer 94 mL/min (>60); Globulin 4.1 g/dL (2.2-4.2); Glucose 331 mg/dL (74-106); Potassium 4.4 mmol/L (3.5-5.1); Protein, Total 7.5 g/dL (6.4-8.2); Sodium Level 136 mmol/L (136-145); Thyroid Stim Hormone (TSH) 2.47 uIU/mL (0.358-3.74)
== END | disposition home or self-care (01) ==
LOC: POLAB3 13:19
PROVIDERS: Family Provider Family Medicine Geriatric Medicine; PCP Family Medicine Geriatric Medicine; Visit Provider Family Medicine Geriatric Medicine
DX: E11.9 Type 2 diabetes mellitus without complications (principal); I10 Essential (primary) hypertension
CPT/HCPCS: 36415; 80053; 84443; 85025

== ENCOUNTER → 2018-09-26 | Outpatient (CLI) | payer MEDICAID, SELFPAY ==
[2018-09-26 09:13] VITALS: BMI 48.4
[2018-09-26 18:52] LABS: Chlamydia Trachomatis by PCR Negative (Negative); Neisserai gonorrhoeae by PCR Negative (Negative); Probe Check PASS; Sample Adequacy Control PASS; Specimen Processing Control PASS
== END | disposition home or self-care (01) ==
LOC: LABSPEC 16:24
PROVIDERS: Family Provider Family Medicine Geriatric Medicine; PCP Family Medicine Geriatric Medicine; Referring Provider Nurse Practitioner Women's Health; Visit Provider Nurse Practitioner Women's Health
DX: Z11.3 Encounter for screening for infections with a predominantly sexual mode of transmission (principal)
CPT/HCPCS: 87491; 87591

== ENCOUNTER → 2018-10-15 | Outpatient (CLI) | payer MEDICAID, SELFPAY ==
[2018-09-26 09:13] VITALS: BMI 48.4
[2018-10-16 09:43] LABS: HIV - WCH Non-Reactive (Nonreactive); Hepatitis B Surface Antigen Non-Reactive (Nonreactive)
[2018-10-19 04:45] LABS: Rapid Plasmin Reagin (RPR) NONREACTIVE (NONREACTIVE)
== END | disposition home or self-care (01) ==
PROVIDERS: Family Provider Family Medicine Geriatric Medicine; PCP Family Medicine Geriatric Medicine; Referring Provider Nurse Practitioner Women's Health; Visit Provider Nurse Practitioner Women's Health
DX: Z11.3 Encounter for screening for infections with a predominantly sexual mode of transmission (principal)
CPT/HCPCS: 36415; 86592; 86703; 87340

== ENCOUNTER → 2019-01-15 | Outpatient (CLI) | payer MEDICAID, SELFPAY ==
[2018-09-26 09:13] VITALS: BMI 48.4
[2019-01-15 17:53] LABS: Absolute Lymphocyte Count 2.45 X10^3/uL (0.83-4.51); Absolute Neutrophil Count 4.2 X10^3/uL (2.0-7.7); Basophil% 1.3 % (0-1); Eosinophil# 0.14 X10^3/uL; Eosinophils% 1.9 % (0-5); Hemoglobin 17.9 g/dL (12.0-15.0); Lymphocyte # 2.45 X10^3/ul (4.0); Lymphocyte % 32.4 % (19-41); Mean Corp Hgb Conc 33.8 g/dL (32-36); Mean Corpuscular Hgb 29.6 pg (27.0-32.0); Mean Corpuscular Volume 87.6 fL (81-99); Monocyte# 0.61 X10^3/uL; Monocyte% 8.1 % (0-10); NRBC Flagged by Analyzer 0 % (0-5); Neutrophil # 4.24 X10^3/uL (2.7-7.7); POSITIVE COUNT YES; Platelet Count 267 K/mm3 (150-450); RBC Distribution Width CV 12.5 % (11.6-14.6); RBC Distribution Width SD 39.4 fl (35.1-43.9); Red Blood Count 6.05 M/mm3 (4.2-5.4); White Blood Count 7.6 K/mm3 (4.4-11.0)
[2019-01-15 18:24] LABS: ALB/GLOB Ratio 0.9 RATIO (0.9-2.4); AST(SGOT) 17 U/L (15-37); Alanine Aminotransfer ALT/SGPT 21 U/L (13-56); Albumin, Serum 3.9 g/dL (3.2-5.0); Alkaline Phosphatase 124 U/L (45-117); Anion Gap 12 (5-15); BUN 11 mg/dL (7-18); BUN/Creat Ratio 10.8 RATIO (10-20); Calcium,Total 9.4 mg/dL (8.5-10.1); Chloride 98 mmol/L (98-107); Creatinine, Serum 1.02 mg/dL (0.55-1.02); Differential Indicated SCAN CRITERIA MET; EST Glomerular Filtration Rate 64 mL/min (>60); Est Glom Filt Rate - Afr Amer 78 mL/min (>60); Globulin 4.3 g/dL (2.2-4.2); Glucose 387 mg/dL (74-106); Potassium 4.1 mmol/L (3.5-5.1); Protein, Total 8.2 g/dL (6.4-8.2); Sodium Level 131 mmol/L (136-145); Thyroid Stim Hormone (TSH) 1.87 uIU/mL (0.358-3.74)
[2019-01-15 18:28] LABS: Platelet Estimate ADEQUATE (ADEQ); Platelet Morphology LARGE; Red Cell Morphology NORM C+C NORMAL (NORM C&C)
== END | disposition home or self-care (01) ==
LOC: POLAB3 15:43
PROVIDERS: Family Provider Family Medicine Geriatric Medicine; PCP Family Medicine Geriatric Medicine; Visit Provider Family Medicine Geriatric Medicine
DX: E11.9 Type 2 diabetes mellitus without complications (principal); E55.9 Vitamin D deficiency, unspecified; I10 Essential (primary) hypertension
CPT/HCPCS: 36415; 80053; 84443; 85025

== ENCOUNTER → 2019-04-16 | Outpatient (CLI) | payer MEDICAID, SELFPAY ==
[2019-04-11 16:14] VITALS: BMI 48.4
[2019-04-16 17:48] LABS: Absolute Lymphocyte Count 2.18 X10^3/uL (0.83-4.51); Absolute Neutrophil Count 3.9 X10^3/uL (2.0-7.7); Basophil# 0.06 X10^3/uL; Basophil% 0.9 % (0-1); Eosinophil# 0.12 X10^3/uL; Eosinophils% 1.8 % (0-5); Hemoglobin 13.7 g/dL (12.0-15.0); Lymphocyte # 2.18 X10^3/ul (4.0); Mean Corp Hgb Conc 33.4 g/dL (32-36); Mean Corpuscular Hgb 28.7 pg (27.0-32.0); Mean Platelet Vol. 10.4 fl (6.2-12.0); Monocyte# 0.54 X10^3/uL; Monocyte% 7.9 % (0-10); NRBC Flagged by Analyzer 0 % (0-5); Neutrophil # 3.89 X10^3/uL (2.7-7.7); Platelet Count 320 K/mm3 (150-450); RBC Distribution Width CV 12.4 % (11.6-14.6); RBC Distribution Width SD 38.8 fl (35.1-43.9); Red Blood Count 4.77 M/mm3 (4.2-5.4); White Blood Count 6.8 K/mm3 (4.4-11.0)
[2019-04-16 18:03] LABS: ALB/GLOB Ratio 0.8 RATIO (0.9-2.4); AST(SGOT) 10 U/L (15-37); Alanine Aminotransfer ALT/SGPT 17 U/L (13-56); Albumin, Serum 3.3 g/dL (3.2-5.0); Alkaline Phosphatase 132 U/L (45-117); Anion Gap 7 (5-15); BUN 12 mg/dL (7-18); BUN/Creat Ratio 13.4 RATIO (10-20); Calcium,Total 9.2 mg/dL (8.5-10.1); Chloride 101 mmol/L (98-107); EST Glomerular Filtration Rate 75 mL/min (>60); Est Glom Filt Rate - Afr Amer 90 mL/min (>60); Globulin 4.2 g/dL (2.2-4.2); Glucose 444 mg/dL (74-106); Potassium 4.3 mmol/L (3.5-5.1); Protein, Total 7.5 g/dL (6.4-8.2); Sodium Level 134 mmol/L (136-145); Thyroid Stim Hormone (TSH) 1.48 uIU/mL (0.358-3.74)
== END | disposition home or self-care (01) ==
LOC: POLAB3 14:12
PROVIDERS: PCP Family Medicine Geriatric Medicine; Visit Provider Family Medicine Geriatric Medicine
DX: I10 Essential (primary) hypertension (principal); E11.9 Type 2 diabetes mellitus without complications
CPT/HCPCS: 36415; 80053; 84443; 85025

== ENCOUNTER → 2019-05-01 10:31 | Outpatient (CLI) | payer MEDICAID, SELFPAY ==
[2019-05-01 09:56] VITALS: BMI 48.4
[2019-05-01 12:20] LABS: HIV - WCH Non-Reactive (Nonreactive)
[2019-05-01 15:19] LABS: Chlamydia Trachomatis by PCR Negative (Negative); Neisserai gonorrhoeae by PCR Negative (Negative); Probe Check PASS; Sample Adequacy Control PASS; Specimen Processing Control PASS
[2019-05-02 03:26] LABS: Rapid Plasmin Reagin (RPR) NONREACTIVE (NONREACTIVE)
[2019-05-02 20:07] LABS: HCV Quant. RNA PCR HCV Not Detected IU/mL (.); HEPATITIS B SURFACE AG Negative (Negative); Hepatitis A IgM Antibody Negative (Negative); Hepatitis B Core AB IgM Negative (Negative)
[2019-05-03 11:59] LABS: Hep C Antibodies <0.1 s/co ratio (0.0-0.9)
== END ==
PROVIDERS: PCP Family Medicine Geriatric Medicine; Referring Provider Obstetrics & Gynecology; Visit Provider Obstetrics & Gynecology
DX: B37.3 Candidiasis of vulva and vagina (principal)
CPT/HCPCS: 36415; 80074; 86592; 86703; 87070; 87077; 87186; 87205; 87491; 87522; 87591

== ENCOUNTER → 2019-10-16 16:00 | Outpatient (CLI) | payer MEDICAID, SELFPAY ==
[2019-06-13 13:27] VITALS: BMI 46.7
[2019-09-16 13:24] VITALS: BMI 48.4
[2019-10-16 17:35] LABS: Absolute Lymphocyte Count 1.84 X10^3/uL (0.83-4.51); Absolute Neutrophil Count 3.3 X10^3/uL (2.0-7.7); Basophil# 0.07 X10^3/uL; Basophil% 1.2 % (0-1); Eosinophil# 0.17 X10^3/uL; Hematocrit 44.4 % (37-47); Hemoglobin 14.6 g/dL (12.0-15.0); Lymphocyte # 1.84 X10^3/ul (4.0); Lymphocyte % 32.1 % (19-41); Mean Corp Hgb Conc 32.9 g/dL (32-36); Mean Corpuscular Hgb 28.5 pg (27.0-32.0); Mean Corpuscular Volume 86.7 fL (81-99); Monocyte# 0.36 X10^3/uL; Monocyte% 6.3 % (0-10); NRBC Flagged by Analyzer 0 % (0-5); Neutrophil # 3.28 X10^3/uL (2.7-7.7); Neutrophil % 57.2 % (47-70); Platelet Count 300 K/mm3 (150-450); RBC Distribution Width CV 12.9 % (11.6-14.6); RBC Distribution Width SD 40.2 fl (35.1-43.9); Red Blood Count 5.12 M/mm3 (4.2-5.4); White Blood Count 5.7 K/mm3 (4.4-11.0)
[2019-10-16 18:48] LABS: ALB/GLOB Ratio 0.9 RATIO (0.9-2.4); AST(SGOT) 8 U/L (15-37); Alanine Aminotransfer ALT/SGPT 21 U/L (13-56); Albumin, Serum 3.6 g/dL (3.2-5.0); Alkaline Phosphatase 119 U/L (45-117); Anion Gap 10 (5-15); BUN 11 mg/dL (7-18); Calcium,Total 8.5 mg/dL (8.5-10.1); Chloride 98 mmol/L (98-107); EST Glomerular Filtration Rate 66 mL/min (>60); Est Glom Filt Rate - Afr Amer 80 mL/min (>60); Globulin 4.2 g/dL (2.2-4.2); Glucose 461 mg/dL (74-106); Potassium 3.8 mmol/L (3.5-5.1); Protein, Total 7.8 g/dL (6.4-8.2); Sodium Level 133 mmol/L (136-145); Thyroid Stim Hormone (TSH) 1.26 uIU/mL (0.358-3.74)
== END ==
PROVIDERS: PCP Family Medicine Geriatric Medicine; Visit Provider Family Medicine Geriatric Medicine
DX: E11.9 Type 2 diabetes mellitus without complications (principal); I10 Essential (primary) hypertension
CPT/HCPCS: 36415; 80053; 84443; 85025

== ENCOUNTER 2019-12-15 19:02 | Inpatient (IN) | payer MEDICAID, SELFPAY ==
[2019-09-16 13:24] VITALS: BMI 48.4
[2019-12-15 19:03] VITALS: BP 190/105; PULSE 119; RESP 16; TEMP 36.2; O2SAT 99; BMI 45.9
[2019-12-15] MEDS: Ondansetron 4 MG/2 ML Vial IV (19:58)
[2019-12-15] MEDS: 0.9% Normal Saline 1,000 ML 1000 ML IV (19:58)
[2019-12-15 20:06] LABS: Absolute Lymphocyte Count 1.85 X10^3/uL (0.83-4.51); Absolute Neutrophil Count 11.1 X10^3/uL (2.0-7.7); Basophil# 0.08 X10^3/uL; Basophil% 0.6 % (0-1); Eosinophil# 0.09 X10^3/uL; Eosinophils% 0.6 % (0-5); Hematocrit 41.7 % (37-47); Hemoglobin 13.9 g/dL (12.0-15.0); Lymphocyte # 1.85 X10^3/ul (4.0); Lymphocyte % 12.9 % (19-41); Mean Corp Hgb Conc 33.3 g/dL (32-36); Mean Corpuscular Hgb 28.9 pg (27.0-32.0); Mean Corpuscular Volume 86.7 fL (81-99); Mean Platelet Vol. 10.1 fl (6.2-12.0); Monocyte# 1.19 X10^3/uL; Monocyte% 8.3 % (0-10); NRBC Flagged by Analyzer 0 % (0-5); Neutrophil # 11.05 X10^3/uL (2.7-7.7); Neutrophil % 76.8 % (47-70); Platelet Count 332 K/mm3 (150-450); RBC Distribution Width CV 12.7 % (11.6-14.6); RBC Distribution Width SD 40.1 fl (35.1-43.9); Red Blood Count 4.81 M/mm3 (4.2-5.4); White Blood Count 14.4 K/mm3 (4.4-11.0)
[2019-12-15] MEDS: HYDROmorphone 1 MG/ML Syringe IV (20:06)
[2019-12-15 20:16] VITALS: BP 175/96; PULSE 114; RESP 18; TEMP 37.1; O2SAT 98
[2019-12-15 20:26] LABS: ALB/GLOB Ratio 0.6 RATIO (0.9-2.4); AST(SGOT) 7 U/L (15-37); Alanine Aminotransfer ALT/SGPT 11 U/L (13-56); Albumin, Serum 3.2 g/dL (3.2-5.0); Alkaline Phosphatase 138 U/L (45-117); Anion Gap 15 (5-15); BUN 8 mg/dL (7-18); BUN/Creat Ratio 8.6 RATIO (10-20); Calcium,Total 9.2 mg/dL (8.5-10.1); Chloride 103 mmol/L (98-107); Creatinine, Serum 0.93 mg/dL (0.55-1.02); EST Glomerular Filtration Rate 72 mL/min (>60); Est Glom Filt Rate - Afr Amer 87 mL/min (>60); Estimated Creatinine Clearance 87.82 ml/min; Globulin 5.2 g/dL (2.2-4.2); Glucose 331 mg/dL (74-106); Potassium 4.5 mmol/L (3.5-5.1); Protein, Total 8.4 g/dL (6.4-8.2); Sodium Level 131 mmol/L (136-145)
[2019-12-15 20:27] LABS: Lactic Acid 1.1 mmol/L (0.4-1.9)
--- NOTE | 2019-12-15 20:56 | HP.PCM_ITS ---
Problem List (1) Hyperglycemia Status: Acute (2) Abscess Status: Acute (3) Diabetes Status: Chronic Qualifiers: Diabetes mellitus type: type 2 Diabetes mellitus skilled nursing insulin use: with skilled nursing use Diabetes mellitus complication status: with hyperglycemia Qualified Code(s): E11.65 - Type 2 diabetes mellitus with hyperglycemia; Z79.4 - [facility] (current) use of insulin (4) Morbid obesity Status: Chronic (5) Diabetes mellitus, type II Status: Chronic Qualifiers: Diabetes mellitus skilled nursing insulin use: with technician terminal and repeater use Diabetes mellitus complication status: with hyperglycemia Qualified Code(s): E11.65 - Type 2 diabetes mellitus with hyperglycemia; Z79.4 - termite helper (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) use of insulin (6) HTN (hypertension) Status: Chronic Qualifiers: Hypertension type: essential hypertension Qualified Code(s): I10 - Essential (primary) hypertension (7) Asthma Status: Chronic Qualifiers: Asthma severity: unspecified severity Asthma persistence: unspecified Asthma complication type: unspecified Qualified Code(s): J45.909 - Unspecified asthma, uncomplicated (8) Anxiety and depression Status: Chronic (9) HLD (hyperlipidemia) Status: Chronic Qualifiers: Hyperlipidemia type: unspecified Qualified Code(s): E78.5 - Hyperlipidemia, unspecified History of Present Illness Date of Admission: 12/15/19 Chief Complaint: Three abscesses The patient is a 39 year old F with a significant history of diabetes mellitus; and hypertension who presents emergency department with 3 abscesses that started 6-day before presentation. She had an abscess in her left armpit and in her bilateral groin. Associated with her symptoms is a fever of 100.1F at home. Also she felt nauseous and vomited. She felt weak and had body aches. She was not eating so she did not take her insulin. At emergency department her abscesses were incised and drained. Patient was started on antibiotics. Past Medical History Past Medical History (Chronic Problems): Chronic Problems (Last Reviewed 12/15/19 @ 22:[address] Kenneth Contreras MD) Diabetes (Chronic) Morbid obesity (Chronic) Diabetes mellitus, type II (Chronic) HTN (hypertension) (Chronic) Asthma (Chronic) Anxiety and depression (Chronic) HLD (hyperlipidemia) (Chronic) Medical History: Medical History (Last Reviewed 12/16/19 @ 02:[address] Kenneth Contreras MD) Anxiety and depression F41.9, F32.9 Asthma J45.909 Diabetes E11.9 Fatigue R53.83 Hx of allergic drug reaction Z88.9 Incontinence R32 OCD (obsessive compulsive disorder) F42.9 Thyroid disease E07.9 Hypertension I10 Allergies loracarbef [From Lorabid] Allergy (Verified 12/15/19 19:06) Unknown Pt does not remember reaction since it happened when she was a child. Penicillins Allergy (Verified 12/15/19 19:06) Unknown Pt does not remember reaction since it happened when she was a child. Sulfa (Sulfonamide Antibiotics) Adverse Reaction (Verified 12/15/19 19:06) Upset Stomach Home Medications: Ambulatory Orders Medication Instructions Recorded ALPRAZolam [Xanax] 1 mg PO TID PRN PRN 04/02/18 Bupropion HCl [Wellbutrin Sr] 150 mg PO DAILY 04/02/18 aripiprazole 10 mg tablet 10 tab PO DAILY 09/16/19 buspirone 30 mg tablet 30 tab PO DAILY 09/16/19 pantoprazole 40 mg tablet,delayed 40 tab PO DAILY 09/16/19 release venlafaxine 150 mg 300 mg PO QHS 09/16/19 capsule,extended release 24 hr Albuterol Sulfate [Albuterol 2 puff IH PRN PRN 12/15/19 Sulfate HFA] Insulin Lispro [Humalog] 30 unit SUBCUT TID 12/15/19 Levothyroxine [Synthroid] 25 mcg PO DAILY 12/15/19 Lisinopril 20 mg PO DAILY 12/15/19 Loratadine [Claritin] 10 mg PO DAILY 12/15/19 Pioglitazone [Actos] 30 mg PO DAILY 12/15/19 Surgical History: Surgical History (Last Reviewed 12/16/19 @ 02:[address] Kenneth Contreras MD) History of tonsillectomy Z90.89 Hx of cholecystectomy Z90.49 Surgical History: - - Cholecystectomy, tonsillectomy. Psychiatric History: Anxiety, Bipolar, Depression PLATE CLEANER History: No pertinent PLATE CLEANER history Smoking Status: Never smoker - *Family History Maternal Family History: Family History (Last Reviewed 12/16/19 @ 02:[address] Kenneth Contreras MD) Other Arthritis Diabetes Heart disease History Items: - - Patient notes a maternal family history of diabetes, hypertension, hyperlipidemia. Paternal Family History: Family History (Last Reviewed 12/16/19 @ 02:[address] Kenneth Contreras MD) Other Arthritis Diabetes Heart disease History Items: Unknown - Patient states she does not know her paternal family history and mother is present and states she does not either. Review of Systems Constitutional: Reports: Anorexia, Fever, Malaise, Weakness, Fatigue. Denies: Chills, Weight Change HEENT: Denies: Head Aches, Sinus Congestion, Sinus Drainage Cardiovascular: Denies: Chest Pain, Palpitations Respiratory: Denies: Cough, Shortness of breath at rest, Sputum production Gastrointestinal: Denies: Abdominal Pain, Nausea, Vomiting Genitourinary: Denies: Dysuria Musculoskeletal: Denies: Joint Pain, Joint Tenderness Skin: Reports: - - 3 abscesses. Denies: Rash Neurological: Denies: Numbness, Tingling, Focal weakness Psychiatric: Denies: Anxiety, Depression, Homicidal Ideations, Suicidal Ideations Hematologic/ Lymphatic: Denies: Easy Bruising, Easy Bleeding VTE Information - Inpt Only VTE Present on Admission: No VTE Mechan Device Prophylaxis: None VTE Pharm Prophylaxis ordered?: Yes Patient Problems: Active and Suspected Problems (Last Reviewed 12/15/19 @ 22:[address] Kenneth Contreras MD) Hyperglycemia (Acute) Abscess (Acute) - Physical Exam Vitals/I&O's: Vital Signs Temp Pulse Resp BP Pulse Ox 98.8 F 114 H 18 175/96 H 98 12/15/19 20:16 12/15/19 20:16 12/15/19 20:16 12/15/19 20:16 12/15/19 20:16 Oxygen Delivery Method Room Air Weight: 145.15 kg Body Mass Index (BMI) 45.9 General: Alert, Oriented x3, Cooperative HEENT: Atraumatic, PERRLA, EOMI, Normocephalic Neck: Supple, No JVD, Negative Carotid Bruits Lungs: Clear to auscultation, Normal air movement Cardiovascular: Regular rate, No murmurs Abdomen: Bowel Sounds Present, Soft, Non Tender Extremities: No edema, Capillary Refill Less than 3 Seconds Skin: No rashes, No breakdown, - - Incised area at bilateral groin with surrounding induration. Incised area at left armpit with mild induration. Musculoskeletal: No Tenderness to Palpation of Joints or Extremities Neurological: Cranial nerves II-XII grossly intact Psych/Mental Status: Normal Affect, Appropriate Laboratory Results 12/15/19 19:50: WBC 14.4 H, RBC 4.81, Hgb 13.9, Hct 41.7, MCV 86.7, MCH 28.9, MCHC 33.3, RDW Std Deviation 40.1, RDW Coeff of June 12.7, Plt Count 332, MPV 10.1, Immature Gran % (Auto) 0.800, Neut % (Auto) 76.8 H, Lymph % (Auto) 12.9 L, Marion % (Auto) 8.3, Eos % (Auto) 0.6, Baso % (Auto) 0.6, Absolute Neuts (auto) 11.1 H, Absolute Lymphs (auto) 1.85, Nucleated RBC % 0 12/15/19 19:50: Sodium 131 L, Potassium 4.5, Chloride 103, Carbon Dioxide 13.0 L , Anion Gap 15, BUN 8, Creatinine 0.93, Estim Creat Clear Calc 87.82, Est GFR (MDRD) Af Amer 87, Est GFR (MDRD) Non-Af 72, BUN/Creatinine Ratio 8.6 L, Glucose 331 H, Calcium 9.2, Total Bilirubin 1.10 H, AST 7 L, ALT 11 L, Alkaline Phosphatase 138 H, Total Protein 8.4 H, Albumin 3.2, Globulin 5.2 H, Albumin/Globulin Ratio 0.6 L 12/15/19 19:50: Lactic Acid 1.1 Assessment/Plan All Active Problems (Last Reviewed 12/15/19 @ 22:[address] Kenneth Contreras MD) Hyperglycemia (Acute) Abscess (Acute) Vaginal foreign body (Resolved) The patient is a 39 year old F with a significant history of diabetes mellitus; and hypertension who presents emergency department with 3 abscesses; fever of 100.1F at home; nausea; vomiting; weakness; body aches; and anorexia was found to have a tachycardia and with leukocytosis on presentation. Sepsis secondary to abscess Sirs criteria: Heart rate of more than 90; white count of 14.4 with neutrophilic predominance. Abscess was incised and drained at the emergency department. Discussed with emergent department doctor to take a sample for culture; follow. Clindamycin IV given at emergency department and continued. Received normal saline bolus in the emergency department Lactic acid was unremarkable Blood culture x2 was obtained in the emergency department; follow. PRN Zofran IV. PRN oxycodone for pain. Protocol ordered. Dry dressing to abscesses. Diabetes mellitus with hyperglycemia Blood glucose on BMP was 331 Adjust home basal and prandial insulin in the hospital setting. Accu-Chek QA CHS with correction scale insulin ordered. Actos continued. Calorie restricted diet ordered. Hypertensive urgency Higher systolic blood pressure on presentation was 190. Highest diastolic blood pressure on presentation was 108. Lisinopril continued. PRN labetalol ordered. Trend blood pressure and adjust blood pressure medications. Morbid obesity: BMI of 45.9. Complicates care. Lifestyle modification recommended. History of recurrent vaginal candidiasis: Reportedly get worse with antibiotics. Fluconazole 150 mg x 1 ordered. GERD: PPI continued Hypothyroidism: Synthroid continued Depression and anxiety: Xanax; aripiprazole; bupropion: Venlafaxine and BuSpar continued Asthma: Stable. PRN albuterol continued. DVT prophylaxis Subcutaneous Lovenox weight adjusted. Inpatient E&M: 81412 Init Hosp L3
--- NOTE | 2019-12-15 21:11 | ED.VIS.GEN ---
History of Present Illness Chief Complaint: Abscess Narrative: Patient presents feeling ill, she is nauseated, she has generalized weakness and she is presenting with left axilla abscess and to groin abscesses. Her blood sugars are quite elevated. She has no fevers or chills. She has had abscesses in the past but these are worse. Past Medical History - Allergies and Home Meds Allergies/Adverse Reactions: Allergies loracarbef [From Lorabid] Allergy (Verified 12/15/19 19:06) Unknown Pt does not remember reaction since it happened when she was a child. Penicillins Allergy (Verified 12/15/19 19:06) Unknown Pt does not remember reaction since it happened when she was a child. Sulfa (Sulfonamide Antibiotics) Adverse Reaction (Verified 12/15/19 19:06) Upset Stomach Primary Care Physician: Nahun Martin Chi, MD [Primary Care Provider] - Past Medical History: - - Obesity, diabetes Surgical History: - - Cholecystectomy, tonsillectomy. Smoking Status: Never smoker - Family History Maternal Family History: Family History (Last Updated 09/16/19 @ 13:24 by Harper Pimentel) Other Arthritis Diabetes Heart disease Family History: Reports: - - Patient notes a maternal family history of diabetes, hypertension, hyperlipidemia. Paternal Family History: Family History (Last Updated 09/16/19 @ 13:24 by Harper Pimentel) Other Arthritis Diabetes Heart disease Family History: Reports: Unknown - Patient states she does not know her paternal family history and mother is present and states she does not either. Review of Systems All systems negative except as indicated General: Denies: Fever Cardiovascular: Denies: Chest pain Respiratory: Denies: Dyspnea, Cough Gastrointestinal: Denies: Abdominal pain, Nausea, Vomiting Genitourinary: Denies: Dysuria Musculoskeletal: Reports: - - Axilla pain, bilateral groin pain Skin: Reports: Abscess Neurological: Denies: Headache, Parasthesia, Numbness Endocrine: Reports: Polyuria. Denies: Heat intolerance, Cold intolerance Hematologic: Denies: Easy bruising Allergy: Denies: Swelling of the mouth, Swelling of the tongue Physical Exam Vital Signs/Narrative: Vital Signs Temp Pulse Resp BP Pulse Ox 12/15/19 20:16 98.8 F 114 H 18 175/96 H 98 12/15/19 19:03 97.2 F L 119 H 16 190/105 H 99 General: - - Appears slightly anxious but does not appear in significant distress she is quite pleasant Head: Normocephalic Eyes: Perrl, EOMI ENT: Moist mucous membranes Neck: Supple Cardiovascular: Regular rate, Regular rhythm Respiratory: No distress Abdomen: Soft, Nontender Back: Nontender, Normal Inspection Extremities: - - There is a 3 cm left axilla abscess. There is a 7 cm left inguinal abscess. There is 8 cm right inguinal abscess present no significant surrounding cellulitis on these abscesses. Skin: - - As above Neurological: Normal Strength, Normal Sensation Diagnostic/Tx/Re-eval - Medical Decision Making Patient has multiple abscesses, she is found to be hyperglycemic with leukocytosis I gave her IV antibiotics I will admit her Procedures Procedure(s): Incision and drainage. 1% lidocaine was used. 3 different abscesses were incised. I used irrigation and saline. A total of 20 mL's of lidocaine was injected between the 3 abscesses. #11 blade was used. Hemostats were used to break the loculations. Copious pus was expectorated from all 3 abscesses. Patient tolerated procedure well. ED Disposition - Plan for ED Patient: Disposition: [facility] Diagnosis: Hyperglycemia, Abscess Referrals: Nahun Martin Chi, MD [Primary Care Provider] -
[2019-12-15 21:12] VITALS: BP 181/108; PULSE 110; RESP 17; TEMP 36.5; O2SAT 98
[2019-12-15 21:18] VITALS: BP 181/103; PULSE 111; RESP 16; TEMP 36.6; O2SAT 99
[2019-12-15 21:51] VITALS: BMI 45.9
[2019-12-15 21:59] VITALS: BP 159/95; PULSE 118; RESP 18; TEMP 37.3; O2SAT 98
[2019-12-15 22:00] VITALS: O2SAT 98
[2019-12-15] MEDS: Lisinopril 20 MG Tablet PO (22:33)
[2019-12-15] MEDS: FLUCONAZOLE 150 MG TABLET PO (22:34)
[2019-12-15] MEDS: Venlafaxine XR 150 MG Capsule 300 MG PO (22:37)
[2019-12-15] MEDS: Enoxaparin 40 MG/0.4 ML Syringe SC (22:39)
[2019-12-15 22:40] LABS: Bedside Glucose 280 mg/dL (70-110)
[2019-12-15] MEDS: Insulin Lispro 100 UNIT/ML INSULN.PEN SC (22:42)
[2019-12-16] VITALS (8 sets, daily range): BP systolic 119–151; BP diastolic 62–89; PULSE 98–116; RESP 16–18; TEMP 36.8–37.3; O2SAT 95–100
[2019-12-16] MEDS: Ondansetron 4 MG/2 ML Vial IV (00:42)
[2019-12-16] MEDS: oxyCODONE 5 MG Tablet PO (00:42)
[2019-12-16] MEDS: 0.9% Saline Lock 10 ML Syringe IV (00:43)
[2019-12-16 02:37] LABS: Probe Check PASS; Staph aureus DNA By PCR POSITIVE (Negative)
[2019-12-16 02:38] LABS: M R Staph aureus DNA By PCR POSITIVE (Negative)
[2019-12-16 02:38] LABS: Probe Check PASS; Staph aureus DNA By PCR POSITIVE (Negative)
[2019-12-16 02:39] LABS: M R Staph aureus DNA By PCR POSITIVE (Negative)
[2019-12-16] MEDS: Levothyroxine 25 MCG TABLET PO (05:24)
[2019-12-16 06:15] LABS: Absolute Lymphocyte Count 2.72 X10^3/uL (0.83-4.51); Basophil# 0.08 X10^3/uL; Basophil% 0.6 % (0-1); Eosinophil# 0.07 X10^3/uL; Eosinophils% 0.5 % (0-5); Hematocrit 39.1 % (37-47); Lymphocyte # 2.72 X10^3/ul (4.0); Lymphocyte % 18.9 % (19-41); Mean Corp Hgb Conc 33.2 g/dL (32-36); Mean Corpuscular Volume 87.1 fL (81-99); Mean Platelet Vol. 10.1 fl (6.2-12.0); Monocyte# 1.39 X10^3/uL; Monocyte% 9.6 % (0-10); NRBC Flagged by Analyzer 0 % (0-5); Neutrophil # 10.04 X10^3/uL (2.7-7.7); Neutrophil % 69.6 % (47-70); Platelet Count 324 K/mm3 (150-450); RBC Distribution Width CV 12.8 % (11.6-14.6); RBC Distribution Width SD 40.9 fl (35.1-43.9); Red Blood Count 4.49 M/mm3 (4.2-5.4); White Blood Count 14.4 K/mm3 (4.4-11.0)
[2019-12-16 06:43] LABS: Anion Gap 15 (5-15); BUN 9 mg/dL (7-18); BUN/Creat Ratio 11.6 RATIO (10-20); Calcium,Total 8.7 mg/dL (8.5-10.1); Chloride 103 mmol/L (98-107); Creatinine, Serum 0.78 mg/dL (0.55-1.02); EST Glomerular Filtration Rate 87 mL/min (>60); Est Glom Filt Rate - Afr Amer 106 mL/min (>60); Estimated Creatinine Clearance 104.71 ml/min; Glucose 284 mg/dL (74-106); Potassium 3.8 mmol/L (3.5-5.1); Sodium Level 129 mmol/L (136-145)
[2019-12-16 08:00] LABS: Bedside Glucose 301 mg/dL (70-110)
[2019-12-16] MEDS: Insulin Lispro 100 UNIT/ML INSULN.PEN SC ×4 (08:32→22:15)
[2019-12-16] MEDS: Insulin Lispro 100 UNIT/ML INSULN.PEN 25 UNIT SC ×2 (08:33→11:51)
[2019-12-16] MEDS: Pantoprazole Sodium 40 MG Tablet PO (08:34)
[2019-12-16] MEDS: ARIPiprazole 10 MG Tablet PO (08:34)
[2019-12-16] MEDS: Pioglitazone Hydrochloride 30 MG Tablet PO (08:34)
[2019-12-16] MEDS: busPIRone 15 MG TABLET 30 MG PO (08:34)
[2019-12-16] MEDS: Loratadine 10 MG Tablet PO (08:35)
[2019-12-16] MEDS: Lisinopril 20 MG Tablet PO (08:35)
[2019-12-16] MEDS: Enoxaparin 40 MG/0.4 ML Syringe SC ×2 (08:35→22:18)
[2019-12-16] MEDS: buPROPion (XL) 150 MG TABLET.XL PO (08:35)
--- NOTE | 2019-12-16 10:26 | NURSING ---
wound photo: left groin
--- NOTE | 2019-12-16 10:26 | NURSING ---
wound photo: left axilla
--- NOTE | 2019-12-16 10:27 | NURSING ---
wound photo: right groin
[2019-12-16 11:25] LABS: Bedside Glucose 246 mg/dL (70-110)
--- NOTE | 2019-12-16 12:39 | EKG12_ITS ---
Test Reason : Blood Pressure : / mmHG Vent. Rate : 102 BPM Atrial Rate : 102 BPM P-R Int : 138 ms QRS Dur : 088 ms QT Int : 344 ms P-R-T Axes : 050 031 038 degrees QTc Int : 448 ms Sinus tachycardia with Premature atrial complexes Otherwise normal ECG Confirmed by SHEYLA BLAKELY, CATHY ([id number]), purchasing expeditor MARINO HA ([id number]) on 12/18/2019 10:19:48 AM Referred By: Kenneth Contreras Confirmed By:CATHY CARRION MD
--- NOTE | 2019-12-16 12:39 | RAD_ITS ---
STUDY: X-RAY CHEST REASON FOR EXAM: Female, 39 years old. pre op, surgery tomorrow -- no chest complaints, fever on and off TECHNIQUE: Frontal view COMPARISON: 06/21/2011 FINDINGS: The lungs are clear and expanded. There is no demonstrated pleural abnormality. Normal size heart. Normal mediastinum and nathaniel. Normal visualized pulmonary arteries. Normal visualized aortic arch and descending thoracic aorta. Normal visualized thoracic spine. Mild degenerative changes at the shoulders. There is no demonstrated abnormality of the visualized soft tissue structures of the upper abdomen. RAD/Chest 1 View (Portable) IMPRESSION: Normal x-ray examination of the chest. Electronically Signed: Brown Martinez DO at 13:39 EDT Tel [phone], Service support ,
--- NOTE | 2019-12-16 12:45 | CASEMGMT ---
RN CM Assessment Note Introduced role of CM to patient. Demographics, PCP verified. Patient has spoken with Dr. Arrieta, and states she may need a wound vac. Discussed Home care and wound vac care with patient, and discussed home care list, and patient does not have a preference of [facility]. Presentation: abcesses- Left axilla and groin Diagnosis: Sepsis secondary to abscess PCP: Dr. Martin Specialists: Dr. Arrieta- surgical consult. Plan is for surgery, likely tomorrow. Insurance: [facility] Preferred Pharmacy: [facility], preferred Prescription Benefit: yes LNOK: Mother Living Arrangements: Lives independently in apartment. Tranportation: drives DME: [employer] and supplies, HHC: [facility] Network providers include [facility], [facility], [facility]. No referral sent yet- patient has not had surgery and no durgery consult notes available yet. SNF: no Patient DC Goals: Home DC Plan: anticipate home. If wound vac applied, will need home health on dc. See InNetwork providers above. CM available for discharge planning coordination. Contact CM for any concerns/needs that may arise. Kaley ESPAÑAN RN ACM
[2019-12-16 13:47] LABS: Hemoglobin A1c 12.3 % (3.8-5.6)
--- NOTE | 2019-12-16 15:56 | PN_ITS ---
Patient Problems: Active and Suspected Problems (Last Reviewed 12/16/19 @ 02:[address] Kennteh Contreras MD) Hyperglycemia (Acute) Abscess (Acute) Reason for Visit: Patient had history of 3 times abscesses in groin and axillary region last 8 months. Has never followed Dr. Arrieta or any other plastic surgeon. Had antibiotics before. I explained that most probably hidradenitis suppurativa in view of morbid obesity and abscesses. Physical exam General: Alert, Oriented x3, Cooperative HEENT: Atraumatic, PERRLA, EOMI, Normocephalic Oral: No Gingival or Mucosal Lesions/ Ulcerations Neck: Supple, No JVD, Negative Carotid Bruits Lungs: Air entry diminished in bilateral lung bases. No crepitation/rhonchi Cardiovascular: Regular rate, Regular Rhythm, Normal S1, Normal S2, No murmurs Abdomen: Bowel Sounds Present, Soft, Non Tender, Non-Distended : No renal angle tenderness. No suprapubic tenderness. Extremities: No edema, Capillary Refill Less than 3 Seconds Skin: Bilateral groin region induration, tenderness. Left axillary region similar abscess status post I and D. Dressing was done. Musculoskeletal: No Tenderness to Palpation of Joints or Extremities Neurological: Cranial nerves II-XII grossly intact, Deep Tendon Reflexes 2+/4 and Symmetrical, Neuro grossly intact Psych/Mental Status: Normal Affect, Appropriate. Vitals/I&O's: Vital Signs Temp Pulse Resp BP Pulse Ox 98.7 F 99 16 119/72 98 12/16/19 14:18 12/16/19 14:18 12/16/19 14:18 12/16/19 14:18 12/16/19 14:18 Oxygen Delivery Method Room Air Weight: 320 lb Body Mass Index (BMI) 45.9 Intake and Output for Last 24 Hours 12/14/19 12/15/19 12/16/19 23:59 23:59 23:59 Intake Total 2105 1265.25 / 1265.25 Balance 2105 1265.25 / 1265.25 Laboratory Results 12/15/19 19:50: WBC 14.4 H, RBC 4.81, Hgb 13.9, Hct 41.7, MCV 86.7, MCH 28.9, MCHC 33.3, RDW Std Deviation 40.1, RDW Coeff of June 12.7, Plt Count 332, MPV 10.1, Immature Gran % (Auto) 0.800, Neut % (Auto) 76.8 H, Lymph % (Auto) 12.9 L, Desha % (Auto) 8.3, Eos % (Auto) 0.6, Baso % (Auto) 0.6, Absolute Neuts (auto) 11.1 H, Absolute Lymphs (auto) 1.85, Nucleated RBC % 0 12/15/19 19:50: Sodium 131 L, Potassium 4.5, Chloride 103, Carbon Dioxide 13.0 L , Anion Gap 15, BUN 8, Creatinine 0.93, Estim Creat Clear Calc 87.82, Est GFR (MDRD) Af Amer 87, Est GFR (MDRD) Non-Af 72, BUN/Creatinine Ratio 8.6 L, Glucose 331 H, Calcium 9.2, Total Bilirubin 1.10 H, AST 7 L, ALT 11 L, Alkaline Phosphatase 138 H, Total Protein 8.4 H, Albumin 3.2, Globulin 5.2 H, Albumin/Globulin Ratio 0.6 L 12/15/19 19:50: Lactic Acid 1.1 12/15/19 21:50: S.aureus Protein A PCR POSITIVE H, MRSA (PCR) POSITIVE H 12/15/19 22:37: POC Glucose 280 H 12/15/19 22:50: S.aureus Protein A PCR POSITIVE H, MRSA (PCR) POSITIVE H 12/16/19 05:20: WBC 14.4 H, RBC 4.49, Hgb 13.0, Hct 39.1, MCV 87.1, MCH 29.0, MCHC 33.2, RDW Std Deviation 40.9, RDW Coeff of June 12.8, Plt Count 324, MPV 10.1, Immature Gran % (Auto) 0.800, Neut % (Auto) 69.6, Lymph % (Auto) 18.9 L, Desha % (Auto) 9.6, Eos % (Auto) 0.5, Baso % (Auto) 0.6, Absolute Neuts (auto) 10.0 H, Absolute Lymphs (auto) 2.72, Nucleated RBC % 0 12/16/19 05:20: Sodium 129 L, Potassium 3.8, Chloride 103, Carbon Dioxide 11.0 L , Anion Gap 15, BUN 9, Creatinine 0.78, Estim Creat Clear Calc 104.71, Est GFR (MDRD) Af Amer 106, Est GFR (MDRD) Non-Af 87, BUN/Creatinine Ratio 11.6, Glucose 284 H, Calcium 8.7 12/16/19 05:20: Hemoglobin A1c 12.3 H 12/16/19 07:46: POC Glucose 301 H 12/16/19 11:05: POC Glucose 246 H Current Medications Acetaminophen (Tylenol) 650 mg PO Q6H PRN PRN PRN Reason: Pain Score 1-10/Temp > 100.7 F Albuterol Sulfate (Ventolin Aerosols) 2.5 mg INHALATION Q2H PRN PRN PRN Reason: Shortness of Breath/Wheezing Alprazolam (Xanax) 1 mg PO TID PRN PRN PRN Reason: panic attacks Aripiprazole (Abilify) 10 mg PO DAILY [facility] Last Admin: 12/16/19 08:34 Dose: 10 mg Documented by: Bupropion HCl (Wellbutrin Xl) 150 mg PO DAILY [facility] Last Admin: 12/16/19 08:35 Dose: 150 mg Documented by: Buspirone HCl (Buspar) 30 mg PO DAILY [facility] Last Admin: 12/16/19 08:34 Dose: 30 mg Documented by: Dextrose (D50w Syringe) 0 gm IV X1 PRN; Protocol PRN Reason: Hypoglycemia Enoxaparin Sodium (Lovenox) 40 mg SC BID [facility] Last Admin: 12/16/19 08:35 Dose: 40 mg Documented by: Glucagon () 1 mg IM .X1 PRN PRN Reason: Hypoglycemia Sodium Chloride () 250 mls @ 15 mls/hr IV .[id number] PRN PRN Reason: Saline Flush Last Infusion: 12/16/19 14:46 Dose: 15 mls/hr Documented by: Sodium Chloride () 250 mls @ 15 mls/hr IV .[id number] PRN PRN Reason: Additional IVPB Infusion Clindamycin Phosphate 900 mg/ (Dextrose) 106 mls @ 150 mls/hr IV Q8 [facility] Last Infusion: 12/16/19 14:46 Dose: Infused Documented by: Insulin Glargine (Lantus (Bkc)) 60 units SC DAILY [facility] Last Admin: 12/16/19 08:33 Dose: 60 u Documented by: Insulin Human Lispro (Humalog Kwikpen (Bkc)) 25 unit SC TIDAC [facility] Last Admin: 12/16/19 11:51 Dose: 25 u Documented by: Insulin Human Lispro (Humalog Kwikpen (Bkc)) 0 unit SC ACHS [facility]; Protocol Last Admin: 12/16/19 11:52 Dose: 4 u Documented by: Labetalol HCl (Trandate) 10 mg IV Q4H PRN PRN PRN Reason: SBP > 160 OR DBP > 120 Levothyroxine Sodium (Synthroid) 25 mcg PO DAILY@0600 [facility] Last Admin: 12/16/19 05:24 Dose: 25 mcg Documented by: Lisinopril (Zestril) 20 mg PO DAILY [facility] Last Admin: 12/16/19 08:35 Dose: 20 mg Documented by: Loratadine (Claritin) 10 mg PO DAILY [facility] Last Admin: 12/16/19 08:35 Dose: 10 mg Documented by: Ondansetron HCl (Zofran) 4 mg IV Q8H PRN PRN PRN Reason: NAUSEA/VOMITING Last Admin: 12/16/19 00:42 Dose: 4 mg Documented by: Oxycodone HCl (Oxyir) 5 mg PO Q4H PRN PRN PRN Reason: Pain Score 4-5/10 Last Admin: 12/16/19 00:42 Dose: 5 mg Documented by: Oxycodone HCl (Oxyir) 10 mg PO Q4H PRN PRN PRN Reason: Pain Score 6-10/10 Pantoprazole Sodium (Protonix) 40 mg PO DAILY [facility] Last Admin: 12/16/19 08:34 Dose: 40 mg Documented by: [facility] Last Admin: 12/16/19 08:34 Dose: 30 mg Documented by: Senna/Docusate Sodium (Senokot-S, Aida-Colace) 2 tablet PO DAILY PRN PRN PRN Reason: CONSTIPATION Sodium Chloride () 10 - 40 ml IV UD PRN PRN Reason: SALINE FLUSH Last Admin: 12/16/19 00:43 Dose: 10 ml Documented by: Venlafaxine HCl (Effexor Xr) 300 mg PO QHS [facility] Last Admin: 12/15/19 22:37 Dose: 300 mg Documented by: STROKE Vital Signs/Narrative: Vital Signs Temp Pulse Resp BP Pulse Ox 12/16/19 14:18 98.7 F 99 16 119/72 98 Medical Necessity - Tobacco Use Smoking Status: Never smoker Tobacco Use: Non-smoker Assessment/Plan All Active Problems (Last Reviewed 12/16/19 @ 02:[address] Kenneth Contreras MD) Hyperglycemia (Acute) Abscess (Acute) Vaginal foreign body (Resolved) This 39 female with history of diabetes mellitus and hypertension came to ED with multiple abscesses and fever and systemic symptoms of nausea, vomiting weakness and body aches anorexia. 1. SIRS with sepsis (mild fever, tachycardia, leukocytosis with left shift) secondary to hidradenitis separative, most likely MRSA: Had incision and drainage in ED. Discussed with the wound care nurse. Dr. Arrieta consult. On IV clindamycin. Blood cultures pending. MRSA nasal screen positive. Patient is afebrile, therefore most likely antibiotic use effective. 2. Diabetes mellitus with hyperglycemia: Accu-Chek before meals and at bedtime. Titrate up the basal and prandial insulin. On Actos at home. 3. Hypertension, uncontrolled: Adjust the antihypertensive medications 4. Morbid obesity, BMI 45.9 kg/m? weight loss, exercise counseling done. 5. History of recurrent vaginal candidiasis, GERD, hypothyroidism, depression and anxiety and asthma: Stable. VTE prophylaxis: On Lovenox 40 mg subcu twice daily. Inpatient E&M: 180[address] [facility] Hosp L2
[2019-12-16 16:35] LABS: Bedside Glucose 254 mg/dL (70-110)
--- NOTE | 2019-12-16 17:03 | CON.PCM_ITS ---
Reason for Consult Date of Consultation: 12/16/19 Reason for Consultation: Diabetic hidradenitis abscesses bilateral inguinal areas and vulval area involving the mons pubis. REFERRING PHYSICIAN: Dr. Riggins. WINDER HELPER: Dr. Arrieta. History of Present Illness: The patient is a 39 year old F with a significant history of diabetes mellitus who presented to the ED with 3 abscesses that started 6-day before presentation. She had an abscess in her left axilla and bilateral inguinal areas with exte nsion to the vulval area involving the mons pubis. She had a fever of 100.1F at home. Also she felt nauseous and vomited. She felt weak and had body aches. She was not eating so she did not take her insulin. At emergency department her abscesses were incised and drained. Patient was started on antibiotics with Clindamycin. Initial wound culture showed MRSA. WBC was 14.4. HgbA1c was 12.3. I was asked to evaluate this patient for surgical options for treatment. Past Medical History Past Medical History (Chronic Problems): Chronic Problems (Last Reviewed 12/16/19 @ 02:[address] Kenneth Contreras MD) Vulval hidradenitis suppurativa (Chronic) Hidradenitis suppurativa (Chronic) bilateral inguinal hidradenitis Diabetes (Chronic) Morbid obesity (Chronic) Diabetes mellitus, type II (Chronic) HTN (hypertension) (Chronic) Asthma (Chronic) Anxiety and depression (Chronic) HLD (hyperlipidemia) (Chronic) Medical History: Medical History (Last Reviewed 12/16/19 @ 02:[address] Kenneth Contreras MD) Anxiety and depression F41.9, F32.9 Asthma J45.909 Diabetes E11.9 Fatigue R53.83 Hx of allergic drug reaction Z88.9 Incontinence R32 OCD (obsessive compulsive disorder) F42.9 Thyroid disease E07.9 Hypertension I10 Allergies loracarbef [From Lorabid] Allergy (Verified 12/15/19 19:06) Unknown Pt does not remember reaction since it happened when she was a child. Penicillins Allergy (Verified 12/15/19 19:06) Unknown Pt does not remember reaction since it happened when she was a child. Sulfa (Sulfonamide Antibiotics) Adverse Reaction (Verified 12/15/19 19:06) Upset Stomach Home Medications: Ambulatory Orders Medication Instructions Recorded ALPRAZolam [Xanax] 1 mg PO TID PRN PRN 04/02/18 aripiprazole 10 mg tablet 10 tab PO DAILY 09/16/19 buspirone 30 mg tablet 30 tab PO BID 09/16/19 pantoprazole 40 mg tablet,delayed 40 tab PO DAILY 09/16/19 release venlafaxine 150 mg 300 mg PO QHS 09/16/19 capsule,extended release 24 hr Albuterol Sulfate [Albuterol 2 puff IH PRN PRN 12/15/19 Sulfate HFA] Insulin Lispro [Humalog] 35 unit SUBCUT TID 12/15/19 Levothyroxine [Synthroid] 25 mcg PO DAILY 12/15/19 Lisinopril 20 mg PO DAILY 12/15/19 Pioglitazone [Actos] 30 mg PO DAILY 12/15/19 Budesonide/Formoterol Fumarate 6 gm IH BID 12/16/19 [Symbicort 160-4.5 Mcg Inhaler] Bupropion HCl [Bupropion Xl] 300 mg PO DAILY 12/16/19 Insulin Glargine [Lantus (BKC)] 70 units SUBCUT DAILY 12/16/19 Loratadine [Claritin] 10 mg PO DAILY 12/16/19 Tolterodine Tartrate 1 tab PO BID 12/16/19 Surgical History: Surgical History (Last Reviewed 12/16/19 @ 02:[address] Kenneth Contreras MD) History of tonsillectomy Z90.89 Hx of cholecystectomy Z90.49 Surgical History: - - Cholecystectomy, tonsillectomy. 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 Kenneth Contreras MD) Other Arthritis Diabetes Heart disease History Items: - - Patient notes a maternal family history of diabetes, hypertension, hyperlipidemia. Paternal Family History: Family History (Last Reviewed 12/16/19 @ 02:[address] Kenneth Contreras MD) Other Arthritis Diabetes Heart disease History Items: Unknown - Patient states she does not know her paternal family history and mother is present and states she does not either. Review of Systems Comment: Constitutional: Reports: Anorexia, Fever, Malaise, Weakness, Fatigue. Denies: Chills, Weight Change. HEENT: Denies: Head Aches, Sinus Congestion, Sinus Drainage. Cardiovascular: Denies: Chest Pain, Palpitations. Respiratory: Denies: Cough, Shortness of breath at rest, Sputum production. Gastrointestinal: Denies: Abdominal Pain, Nausea, Vomiting. Genitourinary: Denies: Dysuria. Musculoskeletal: Denies: Joint Pain, Joint Tenderness. Skin: Reports: - - 3 abscesses. Denies: Rash. Neurological: Denies: Numbness, Tingling, Focal weakness. Psychiatric: Denies: Anxiety, Depression, Homicidal Ideations, Suicidal Ideations. Hematologic/ Lymphatic: Denies: Easy Bruising, Easy Bleeding Patient Problems: Active and Suspected Problems (Last Reviewed 12/16/19 @ 02:[address] Kenneth Contreras MD) Abscess, vulva (Acute) MRSA (methicillin resistant Staphylococcus aureus) infection (Acute) Abscess of groin, right (Acute) Abscess of groin, left (Acute) Hyperglycemia (Acute) Abscess (Acute) - Physical Exam Vitals/I&O's: General: Alert, Oriented. HEENT: PERRLA, EOMI. Neck: Supple, nontender. No cervical adenopathy. Lungs: Clear to auscultation. Cardiovascular: Regular rate and rhythm. Abdomen: Soft, Nondistended. Extremities: No edema, Capillary Refill Less than 3 Seconds Skin: There are diabetic hidradenitis abscesses bilateral inguinal areas with extension to the vulval area involving the mons pubis. Recent I&D done in the ED. Surrounding induration and tenderness. Measures 7 cm. Incised area at left axilla with mild induration. Stable at present time. Neurological: Cranial nerves II-XII grossly intact. Psych/Mental Status: Normal Affect, Appropriate. Vital Signs Temp Pulse Resp BP Pulse Ox 98.7 F 99 16 119/72 98 12/16/19 14:18 12/16/19 14:18 12/16/19 14:18 12/16/19 14:18 12/16/19 14:18 Oxygen Delivery Method Room Air Weight: 320 lb Body Mass Index (BMI) 45.9 Intake and Output for Last 24 Hours 12/14/19 12/15/19 12/16/19 23:59 23:59 23:59 Intake Total 2105 1265.25 / 1265.25 Balance 2105 1265.25 / 1265.25 Laboratory Results 12/15/19 19:50: WBC 14.4 H, RBC 4.81, Hgb 13.9, Hct 41.7, MCV 86.7, MCH 28.9, MCHC 33.3, RDW Std Deviation 40.1, RDW Coeff of June 12.7, Plt Count 332, MPV 10.1, Immature Gran % (Auto) 0.800, Neut % (Auto) 76.8 H, Lymph % (Auto) 12.9 L, Bartholomew % (Auto) 8.3, Eos % (Auto) 0.6, Baso % (Auto) 0.6, Absolute Neuts (auto) 11.1 H, Absolute Lymphs (auto) 1.85, Nucleated RBC % 0 12/15/19 19:50: Sodium 131 L, Potassium 4.5, Chloride 103, Carbon Dioxide 13.0 L , Anion Gap 15, BUN 8, Creatinine 0.93, Estim Creat Clear Calc 87.82, Est GFR (MDRD) Af Amer 87, Est GFR (MDRD) Non-Af 72, BUN/Creatinine Ratio 8.6 L, Glucose 331 H, Calcium 9.2, Total Bilirubin 1.10 H, AST 7 L, ALT 11 L, Alkaline Phosphatase 138 H, Total Protein 8.4 H, Albumin 3.2, Globulin 5.2 H, Albumin/Globulin Ratio 0.6 L 12/15/19 19:50: Lactic Acid 1.1 12/15/19 21:50: S.aureus Protein A PCR POSITIVE H, MRSA (PCR) POSITIVE H 12/15/19 22:37: POC Glucose 280 H 12/15/19 22:50: S.aureus Protein A PCR POSITIVE H, MRSA (PCR) POSITIVE H 12/16/19 05:20: WBC 14.4 H, RBC 4.49, Hgb 13.0, Hct 39.1, MCV 87.1, MCH 29.0, MCHC 33.2, RDW Std Deviation 40.9, RDW Coeff of June 12.8, Plt Count 324, MPV 10.1, Immature Gran % (Auto) 0.800, Neut % (Auto) 69.6, Lymph % (Auto) 18.9 L, Bartholomew % (Auto) 9.6, Eos % (Auto) 0.5, Baso % (Auto) 0.6, Absolute Neuts (auto) 10.0 H, Absolute Lymphs (auto) 2.72, Nucleated RBC % 0 12/16/19 05:20: Sodium 129 L, Potassium 3.8, Chloride 103, Carbon Dioxide 11.0 L , Anion Gap 15, BUN 9, Creatinine 0.78, Estim Creat Clear Calc 104.71, Est GFR (MDRD) Af Amer 106, Est GFR (MDRD) Non-Af 87, BUN/Creatinine Ratio 11.6, Glucose 284 H, Calcium 8.7 12/16/19 05:20: Hemoglobin A1c 12.3 H 12/16/19 07:46: POC Glucose 301 H 12/16/19 11:05: POC Glucose 246 H 12/16/19 16:27: POC Glucose 254 H Diagnostic Data Chest X-Ray 12/16/19 12:39 IMPRESSION: Normal x-ray examination of the chest. Electronically Signed: Brown Martinez DO at 13:39 EDT Tel [phone], Service support , Current Medications Acetaminophen (Tylenol) 650 mg PO Q6H PRN PRN PRN Reason: Pain Score 1-10/Temp > 100.7 F Albuterol Sulfate (Ventolin Aerosols) 2.5 mg INHALATION Q2H PRN PRN PRN Reason: Shortness of Breath/Wheezing Alprazolam (Xanax) 1 mg PO TID PRN PRN PRN Reason: panic attacks Aripiprazole (Abilify) 10 mg PO DAILY [facility] Last Admin: 12/16/19 08:34 Dose: 10 mg Documented by: Bupropion HCl (Wellbutrin Xl) 150 mg PO DAILY [facility] Last Admin: 12/16/19 08:35 Dose: 150 mg Documented by: Buspirone HCl (Buspar) 30 mg PO DAILY [facility] Last Admin: 12/16/19 08:34 Dose: 30 mg Documented by: Dextrose (D50w Syringe) 0 gm IV X1 PRN; Protocol PRN Reason: Hypoglycemia Enoxaparin Sodium (Lovenox) 40 mg SC BID [facility] Last Admin: 12/16/19 08:35 Dose: 40 mg Documented by: Glucagon () 1 mg IM .X1 PRN PRN Reason: Hypoglycemia Sodium Chloride () 250 mls @ 15 mls/hr IV .[id number] PRN PRN Reason: Saline Flush Last Infusion: 12/16/19 14:46 Dose: 15 mls/hr Documented by: Sodium Chloride () 250 mls @ 15 mls/hr IV .[id number] PRN PRN Reason: Additional IVPB Infusion Clindamycin Phosphate 900 mg/ (Dextrose) 106 mls @ 150 mls/hr IV Q8 [facility] Last Infusion: 12/16/19 14:46 Dose: Infused Documented by: Insulin Glargine (Lantus (Bkc)) 60 units SC DAILY [facility] Last Admin: 12/16/19 08:33 Dose: 60 u Documented by: Insulin Glargine (Lantus (Bkc)) 30 units SC QHS [facility] Insulin Human Lispro (Humalog Kwikpen (Bkc)) 0 unit SC ACHS [facility]; Protocol Last Admin: 12/16/19 11:52 Dose: 4 u Documented by: Insulin Human Lispro (Humalog Kwikpen (Bkc)) 35 unit SC TIDAC [facility] Labetalol HCl (Trandate) 10 mg IV Q4H PRN PRN PRN Reason: SBP > 160 OR DBP > 120 Lactobacillus Acidophilus (Acidophilus) 1 tablet PO TID [facility] Levothyroxine Sodium (Synthroid) 25 mcg PO DAILY@0600 [facility] Last Admin: 12/16/19 05:24 Dose: 25 mcg Documented by: Lisinopril (Zestril) 20 mg PO DAILY [facility] Last Admin: 12/16/19 08:35 Dose: 20 mg Documented by: Loratadine (Claritin) 10 mg PO DAILY [facility] Last Admin: 12/16/19 08:35 Dose: 10 mg Documented by: Ondansetron HCl (Zofran) 4 mg IV Q8H PRN PRN PRN Reason: NAUSEA/VOMITING Last Admin: 12/16/19 00:42 Dose: 4 mg Documented by: Oxycodone HCl (Oxyir) 5 mg PO Q4H PRN PRN PRN Reason: Pain Score 4-5/10 Last Admin: 12/16/19 00:42 Dose: 5 mg Documented by: Oxycodone HCl (Oxyir) 10 mg PO Q4H PRN PRN PRN Reason: Pain Score 6-10/10 Pantoprazole Sodium (Protonix) 40 mg PO DAILY [facility] Last Admin: 12/16/19 08:34 Dose: 40 mg Documented by: Pioglitazone HCl (Actos) 30 mg PO DAILYCM [facility] Last Admin: 12/16/19 08:34 Dose: 30 mg Documented by: Senna/Docusate Sodium (Senokot-S, Aida-Colace) 2 tablet PO DAILY PRN PRN PRN Reason: CONSTIPATION Sodium Chloride () 10 - 40 ml IV UD PRN PRN Reason: SALINE FLUSH Last Admin: 12/16/19 00:43 Dose: 10 ml Documented by: Venlafaxine HCl (Effexor Xr) 300 mg PO QHS [facility] Last Admin: 12/15/19 22:37 Dose: 300 mg Documented by: Assessment/Plan All Active Problems (Last Reviewed 12/16/19 @ 02:[address] Kenneth Contreras MD) Abscess, vulva (Acute) MRSA (methicillin resistant Staphylococcus aureus) infection (Acute) Abscess of groin, right (Acute) Abscess of groin, left (Acute) Hyperglycemia (Acute) Abscess (Acute) Vaginal foreign body (Resolved) 1. Diabetic hidradenitis abscess bilateral inguinal areas with extension to vulval area involving the mons pubis. 2. Hidradenitis bilateral inguinal areas. 3. Vulval hidradenitis involving the mons pubis. 4. Left axillary hidradenitis, stable after I&D. 5. Diabetes mellitus. 6. MRSA. 7. Obesity. Continue Clindamycin. Will add Vancomycin for the MRSA. Recommend operative intervention with surgical preparation bilateral inguinal areas with extension to vulval area involving the mons pubis with incision and drainage and excision diabetic hidradenitis abscess and partial vulvectomy. Tissue will be sent to Pathology for analysis to rule out carcinoma and to Microbiology for culture. A positive culture will necessitate antibiotic therapy. Will leave the wounds open and proceed with postoperative care with the VAC or daily Silver dressing changes. After discharge, will followup [facility]. If there is a plateau in the healing process, can proceed with delayed closure with skin grafting. However, before an elective skin graft can be done, her HgbA1c needs to be less than 8. Currently it is 12.3. Surgery will be done tomorrow under general anesthesia. Patient was informed of the risks and complications of the procedure including alternatives to surgery. These were discussed with the patient personally. Patient voices understanding and wishes to proceed. Anticipate increased metabolic demands from the infection. Will check a Prealbumin and encourage nutritional supplementation with protein to help the healing process. We discussed the current risks associated with COVID-19. While it is understood that there is a community spread of COVID-19, the risk of gale COVID-19 while at [facility] ([facility]) is very low; however, the risk cannot be completely mitigated because of the community spread of the disease. We discussed in detail the risk of exposure to and/or potential harm posed by the COVID-19 virus with having a surgery/procedure at this time versus the risk of delaying the surgery/procedure. It is not possible to know either the risk of delaying the surgery or procedure or chance of getting an infection with perfect accuracy, but a joint decision was made to proceed at this time with the scheduled surgery/procedure as indicated on the consent form. Patient was notified that we will need to comply with any screening or testing [facility] wishes to perform or that surgery may be delayed for any positive results. Discussed with the patient that I was tested for COVID-19 on 09/12/19 which was negative and on 09/26/19 which was negative and on 10/10/19 which was negative and on 10/24/19 which was negative and on 11/07/19 which was negative and on 11/28/19 which was negative. My testing regimen at this time is to be COVID-19 tested every 2 weeks or so. Procedure Criteria Procedure Type: Elective COVID Risk Discussion: The surgeon/proceduralist and patient have discussed in detail the risk of exposure to and/or potential harm posed by the COVID-19 virus with having a surgery/procedure at this time versus the risk of delaying the surgery/procedure. It is not possible to know either the risk of delaying the surgery or procedure or chance of getting an infection with perfect accuracy, but a joint decision was made between the patient and the surgeon/proceduralist to proceed at this time with the scheduled surgery/procedure as indicated on the consent form. Inpatient E&M: 76312 Init Hosp L2 - ICD-10 - L02.214, N76.4, L73.2, A49.02, E11.9, E66.01
[2019-12-16] MEDS: Insulin Lispro 100 UNIT/ML INSULN.PEN 35 UNIT SC (17:19)
[2019-12-16] MEDS: Venlafaxine XR 150 MG Capsule 300 MG PO (22:14)
[2019-12-16 22:50] LABS: Bedside Glucose 207 mg/dL (70-110)
[2019-12-17] VITALS (11 sets, daily range): BP systolic 113–143; BP diastolic 60–93; PULSE 95–108; RESP 14–20; TEMP 35.8–37.1; O2SAT 93–100; BMI 45.9
[2019-12-17] MEDS: Levothyroxine 25 MCG TABLET PO (06:44)
[2019-12-17] MEDS: 0.9% Saline Lock 10 ML Syringe IV ×4 (06:50→20:32)
[2019-12-17] MEDS: Insulin Lispro 100 UNIT/ML INSULN.PEN SC ×3 (06:59→22:07)
[2019-12-17 07:11] LABS: Bedside Glucose 234 mg/dL (70-110)
[2019-12-17 07:40] LABS: Absolute Lymphocyte Count 1.55 X10^3/uL (0.83-4.51); Absolute Neutrophil Count 3.8 X10^3/uL (2.0-7.7); Basophil# 0.06 X10^3/uL; Eosinophil# 0.13 X10^3/uL; Eosinophils% 2.1 % (0-5); Hematocrit 37.3 % (37-47); Hemoglobin 12.5 g/dL (12.0-15.0); Lymphocyte # 1.55 X10^3/ul (4.0); Lymphocyte % 24.9 % (19-41); Mean Corp Hgb Conc 33.5 g/dL (32-36); Mean Corpuscular Hgb 28.7 pg (27.0-32.0); Mean Corpuscular Volume 85.6 fL (81-99); Monocyte# 0.65 X10^3/uL; Monocyte% 10.5 % (0-10); NRBC Flagged by Analyzer 0 % (0-5); Platelet Count 309 K/mm3 (150-450); RBC Distribution Width CV 12.8 % (11.6-14.6); RBC Distribution Width SD 39.7 fl (35.1-43.9); Red Blood Count 4.36 M/mm3 (4.2-5.4); White Blood Count 6.2 K/mm3 (4.4-11.0)
[2019-12-17 08:06] LABS: Anion Gap 7 (5-15); BUN 11 mg/dL (7-18); BUN/Creat Ratio 15.4 RATIO (10-20); Calcium,Total 8.7 mg/dL (8.5-10.1); Chloride 106 mmol/L (98-107); Creatinine, Serum 0.72 mg/dL (0.55-1.02); EST Glomerular Filtration Rate 97 mL/min (>60); Est Glom Filt Rate - Afr Amer 117 mL/min (>60); Estimated Creatinine Clearance 113.44 ml/min; Glucose 236 mg/dL (74-106); Potassium 3.5 mmol/L (3.5-5.1); Prealbumin 9.1 mg/dL (20.0-40.0); Sodium Level 135 mmol/L (136-145)
[2019-12-17 08:14] LABS: Internal QC Validated? YES +Cl - CLEAR BKGD; Pregnancy, Urine Negative Negative
[2019-12-17] MEDS: busPIRone 15 MG TABLET 30 MG PO (09:11)
[2019-12-17] MEDS: buPROPion (XL) 150 MG TABLET.XL PO (09:11)
[2019-12-17] MEDS: Pantoprazole Sodium 40 MG Tablet PO (09:12)
[2019-12-17] MEDS: Lisinopril 20 MG Tablet PO (09:12)
[2019-12-17] MEDS: ARIPiprazole 10 MG Tablet PO (09:12)
[2019-12-17] MEDS: Loratadine 10 MG Tablet PO (09:12)
[2019-12-17 11:01] LABS: Bedside Glucose 295 mg/dL (70-110)
--- NOTE | 2019-12-17 12:03 | PCM.PN.HOSP ---
Patient Problems: Active and Suspected Problems (Last Reviewed 12/16/19 @ 02:[address] Kenneth Contreras MD) Abscess, vulva (Acute) MRSA (methicillin resistant Staphylococcus aureus) infection (Acute) Abscess of groin, right (Acute) Abscess of groin, left (Acute) Hyperglycemia (Acute) Abscess (Acute) Reason for Visit: Hidradenitis abscesses of groins and axilla, due to MRSA Objective: No fever or chills. Hemodynamically, blood pressure and heart rate is controlled Physical exam General: Alert, Oriented x3, Cooperative HEENT: Atraumatic, PERRLA, EOMI, Normocephalic Oral: No Gingival or Mucosal Lesions/ Ulcerations Neck: Supple, No JVD, Negative Carotid Bruits Lungs: Air entry diminished in bilateral lung bases secondary to obesity. No crepitation/rhonchi Cardiovascular: Regular rate, Regular Rhythm, Normal S1, Normal S2, No murmurs Abdomen: Bowel Sounds Present, Soft, Non Tender, Non-Distended : No renal angle tenderness. No suprapubic tenderness. Extremities: No edema, Capillary Refill Less than 3 Seconds Skin: Multiple abscesses in both groin and left axilla status post incision and drainage in ED. Right axilla is spared. Musculoskeletal: No Tenderness to Palpation of Joints or Extremities Neurological: Cranial nerves II-XII grossly intact, Deep Tendon Reflexes 2+/4 and Symmetrical, Neuro grossly intact Psych/Mental Status: Normal Affect, Appropriate. Vitals/I&O's: Vital Signs Temp Pulse Resp BP Pulse Ox 98.2 F 95 16 136/72 H 98 12/17/19 11:19 12/17/19 11:19 12/17/19 11:19 12/17/19 11:19 12/17/19 11:19 Oxygen Delivery Method Room Air Weight: 320 lb Body Mass Index (BMI) 45.9 Intake and Output for Last 24 Hours 12/15/19 12/16/19 12/17/19 23:59 23:59 23:59 Intake Total 2105 1821.25 / 2459.75 802.75 / 802.75 Balance 2105 1821.25 / 2459.75 802.75 / 802.75 Laboratory Results 12/16/19 05:20: Hemoglobin A1c 12.3 H 12/16/19 16:27: POC Glucose 254 H 12/16/19 22:12: POC Glucose 207 H 12/17/19 00:20: Urine Test Negative 12/17/19 06:48: POC Glucose 234 H 12/17/19 07:08: WBC 6.2, RBC 4.36, Hgb 12.5, Hct 37.3, MCV 85.6, MCH 28.7, MCHC 33.5, RDW Std Deviation 39.7, RDW Coeff of June 12.8, Plt Count 309, MPV 10.0, Immature Gran % (Auto) 0.500, Neut % (Auto) 61.0, Lymph % (Auto) 24.9, [place] % (Auto) 10.5 H, Eos % (Auto) 2.1, Baso % (Auto) 1.0, Absolute Neuts (auto) 3.8, Absolute Lymphs (auto) 1.55, Nucleated RBC % 0 12/17/19 07:08: Sodium 135 L, Potassium 3.5, Chloride 106, Carbon Dioxide 22.0, Anion Gap 7, BUN 11, Creatinine 0.72, Estim Creat Clear Calc 113.44, Est GFR (MDRD) Af Amer 117, Est GFR (MDRD) Non-Af 97, BUN/Creatinine Ratio 15.4, Glucose 236 H, Calcium 8.7, Prealbumin 9.1 L 12/17/19 10:56: POC Glucose 295 H Current Medications Acetaminophen (Tylenol) 650 mg PO Q6H PRN PRN PRN Reason: Pain Score 1-10/Temp > 100.7 F Albuterol Sulfate (Ventolin Aerosols) 2.5 mg INHALATION Q2H PRN PRN PRN Reason: Shortness of Breath/Wheezing Alprazolam (Xanax) 1 mg PO TID PRN PRN PRN Reason: panic attacks Aripiprazole (Abilify) 10 mg PO DAILY [facility] Last Admin: 12/17/19 09:12 Dose: 10 mg Documented by: Bupropion HCl (Wellbutrin Xl) 150 mg PO DAILY [facility] Last Admin: 12/17/19 09:11 Dose: 150 mg Documented by: Buspirone HCl (Buspar) 30 mg PO DAILY [facility] Last Admin: 12/17/19 09:11 Dose: 30 mg Documented by: Dextrose (D50w Syringe) 0 gm IV X1 PRN; Protocol PRN Reason: Hypoglycemia Enoxaparin Sodium (Lovenox) 40 mg SC BID [facility] Last Admin: 12/17/19 08:05 Dose: Not Given Documented by: Glucagon () 1 mg IM .X1 PRN PRN Reason: Hypoglycemia Sodium Chloride () 250 mls @ 15 mls/hr IV .[id number] PRN PRN Reason: Saline Flush Last Admin: 12/17/19 09:23 Dose: 15 mls/hr Documented by: Sodium Chloride () 250 mls @ 15 mls/hr IV .[id number] PRN PRN Reason: Additional IVPB Infusion Clindamycin Phosphate 900 mg/ (Dextrose) 106 mls @ 150 mls/hr IV Q8 [facility] Last Infusion: 12/17/19 08:04 Dose: Infused Documented by: Insulin Glargine (Lantus (Bkc)) 60 units SC DAILY [facility] Last Admin: 12/16/19 08:33 Dose: 60 u Documented by: Insulin Glargine (Lantus (Bkc)) 30 units SC QHS [facility] Last Admin: 12/16/19 22:16 Dose: 30 units Documented by: Insulin Human Lispro (Humalog Kwikpen (Bkc)) 0 unit SC ACHS [facility]; Protocol Last Admin: 12/17/19 11:20 Dose: Not Given Documented by: Insulin Human Lispro (Humalog Kwikpen (Bkc)) 35 unit SC TIDAC [facility] Last Admin: 12/17/19 10:34 Dose: Not Given Documented by: Labetalol HCl (Trandate) 10 mg IV Q4H PRN PRN PRN Reason: SBP > 160 OR DBP > 120 Lactobacillus Acidophilus (Acidophilus) 1 tablet PO TID [facility] Last Admin: 12/17/19 06:44 Dose: 1 tablet Documented by: Levothyroxine Sodium (Synthroid) 25 mcg PO DAILY@0600 [facility] Last Admin: 12/17/19 06:44 Dose: 25 mcg Documented by: Lisinopril (Zestril) 20 mg PO DAILY [facility] Last Admin: 12/17/19 09:12 Dose: 20 mg Documented by: Loratadine (Claritin) 10 mg PO DAILY [facility] Last Admin: 12/17/19 09:12 Dose: 10 mg Documented by: Ondansetron HCl (Zofran) 4 mg IV Q8H PRN PRN PRN Reason: NAUSEA/VOMITING Last Admin: 12/16/19 00:42 Dose: 4 mg Documented by: Oxycodone HCl (Oxyir) 5 mg PO Q4H PRN PRN PRN Reason: Pain Score 4-5/10 Last Admin: 12/16/19 00:42 Dose: 5 mg Documented by: Oxycodone HCl (Oxyir) 10 mg PO Q4H PRN PRN PRN Reason: Pain Score 6-10/10 Pantoprazole Sodium (Protonix) 40 mg PO DAILY [facility] Last Admin: 12/17/19 09:12 Dose: 40 mg Documented by: [facility] Admin: 12/17/19 09:02 Dose: Not Given Documented by: Senna/Docusate Sodium (Senokot-S, Aida-Colace) 2 tablet PO DAILY PRN PRN PRN Reason: CONSTIPATION Sodium Chloride () 10 - 40 ml IV UD PRN PRN Reason: SALINE FLUSH Last Admin: 12/17/19 06:57 Dose: 10 ml Documented by: Venlafaxine HCl (Effexor Xr) 300 mg PO QHS [facility] Last Admin: 12/16/19 22:14 Dose: 300 mg Documented by: STROKE Vital Signs/Narrative: Vital Signs Temp Pulse Resp BP Pulse Ox 12/17/19 11:19 98.2 F 95 16 136/72 H 98 12/17/19 08:07 98.6 F 99 16 132/81 H 100 Medical Necessity - Tobacco Use Smoking Status: Never smoker Tobacco Use: Non-smoker Assessment/Plan All Active Problems (Last Reviewed 12/16/19 @ 02:[address] Kenneth Contreras MD) Abscess, vulva (Acute) MRSA (methicillin resistant Staphylococcus aureus) infection (Acute) Abscess of groin, right (Acute) Abscess of groin, left (Acute) Hyperglycemia (Acute) Abscess (Acute) Vaginal foreign body (Resolved) This 39 female with history of diabetes mellitus and hypertension came to ED with multiple abscesses and fever and systemic symptoms of nausea, vomiting weakness and body aches anorexia. 1. SIRS with sepsis (mild fever, tachycardia, leukocytosis with left shift) secondary to hidradenitis separative, most likely MRSA: Had incision and drainage in ED. Discussed with the wound care nurse. Dr. Arrieta consult. On IV clindamycin. Blood cultures pending. MRSA nasal screen positive. 12/16: Dr. Arrieta consult reviewed and appreciated. In view of persistent MRSA, antibiotic changed from clindamycin to vancomycin. ID consult for further opinion. Surgery scheduled for today afternoon. I think patient will require extensive surgery and probably secondary healing with wound VAC. 2. Diabetes mellitus with hyperglycemia: Accu-Chek before meals and at bedtime. Titrate up the basal and prandial insulin. On Actos at home. A1c 12.3. 12/16: Glucose is still elevated 234 and 295. Adjust insulin. 3. Hypertension, uncontrolled: Adjust the antihypertensive medications 4. Morbid obesity, BMI 45.9 kg/m? weight loss, exercise counseling done. 5. History of recurrent vaginal candidiasis, GERD, hypothyroidism, depression and anxiety and asthma: Stable. VTE prophylaxis: On Lovenox 40 mg subcu twice daily. Inpatient E&M: [id number] [facility] Hosp L2
--- NOTE | 2019-12-17 13:19 | NURSING ---
pt left for surgery
--- NOTE | 2019-12-17 14:05 | HID_PTH ---
PATIENT: KRISTEN ANDRADE LOC: MS3 U#:[id number] AGE/SX: 39/F ROOM: MS319 RE12/15/[address]: Dr. Jas Tony MD : 1980 BED: 1 DIS: 12/21/2019 SPEC #: [id number] RECD: 12/18/19 06:51 STATUS: AAKASH IZABELA #: [id number] ANNABELLA: 12/17/19 14:[address]: Dereck Arrieta DEPT: SURGICAL PATHOLOGY RECD BY: Bob Moreno ENTERED: 12/18/19 10:29 SP TYPE: Hidradenit OTHR DR: MD Dr. Jas Cornelius MD Dr. Robert Leininger, MD Dr. Tai Chi Kwok, MD Tissues: A - Inguinal region, NOS B - Inguinal region, NOS Procedures: Surgery Specimen Level IV HEADER OPERATION: Excision infected diabetic hidradenitis abscess PRE-OP DIAGNOSIS: Diabetic hidradenitis abscess bilateral inguinal and vulvar area, extensive in bilateral vulvar area TISSUE SUBMITTED: A - Right inguinal and vulvar diabetic hidradenitis abscess, B - Left inguinal and vulvar diabetic hidradenitis abscess MICROSCOPIC DIAGNOSIS A. Skin and soft tissue right inguinal region, excision: Hidradenitis with abscess formation. B. Skin and soft tissue left inguinal region, excision: Hidradenitis with abscess formation. AM:von 12/19/19 MICROSCOPIC DESCRIPTION Slides are reviewed. GROSS DESCRIPTION A - Received in fixative is one container labeled with the patient's name and designated right inguinal and vulvar tissue. The specimen consists of an irregular fragment of pink-kwong skin with attached yellow fatty tissue measuring 15 x 7 cm and a depth of excision measuring 2 cm. No cutaneous mass lesions are identified. Serial sections reveal a subcutaneous blood filled cavity measuring 4 x 2 cm in greatest dimension. Resp Ther sections are submitted in three cassettes. B - Received in fixative is one container labeled with the patient's name and designated left inguinal and vulvar tissue. The specimen consists of an irregular fragment of pink-kwong skin with attached yellow fatty tissue measuring 16 x 8 cm and a depth of excision measuring 3 cm. No cutaneous mass lesions are identified. Serial sections reveal a subcutaneous blood filled cavity measuring 4 x 2.5 x 1.8 cm in greatest dimension. Resp Ther sections are submitted in three cassettes. / AM:von 12/18/19 TC:2 CPT: 43474 x2
--- NOTE | 2019-12-17 14:35 | PCM.RX.CS ---
Consult Pharmacy has been consulted to manage selected antiobiotic: Vancomycin Type of Consult: New start Prior Doses of Antibiotics Received/Current Regimen: Medications Vancomycin HCl 2,000 mg/ (Sodium Chloride) 540 mls @ 250 mls/hr IV X1 ONE Stop: 12/17/19 15:09 Last Admin: 12/17/19 13:00 Dose: 250 mls/hr Documented by: Labs: Sodium 135 mmol/L (136-145) L 12/17/19 07:08 Potassium 3.5 mmol/L (3.5-5.1) 12/17/19 07:08 Chloride 106 mmol/L (98-107) 12/17/19 07:08 Carbon Dioxide 22.0 mmol/L (21.0-32.0) 12/17/19 07:08 Anion Gap 7 (5-15) 12/17/19 07:08 BUN 11 mg/dL (7-18) 12/17/19 07:08 Creatinine 0.72 mg/dL (0.55-1.02) 12/17/19 07:08 Est GFR (MDRD) Af Amer 117 mL/min (>60) 12/17/19 07:08 Est GFR (MDRD) Non-Af 97 mL/min (>60) 12/17/19 07:08 BUN/Creatinine Ratio 15.4 RATIO (-20) 12/17/19 07:08 Glucose 236 mg/dL (74-106) H 12/17/19 07:08 Weight used for dosin kg Estimated Creatinine Clearance: > 100 Goal Trough: 15-20 mcg/mL Pharmacy Plan for Drug Dosing: Vancomycin 2000mg given x1 IV, 1500mg IV q8h thereafter with trough prior to 4th dose per policy. Pharmacy Service will continue to monitor and adjust dosing as required. Follow-Up Labs: Trough Vancomycin - 12/17 @ 2030
--- NOTE | 2019-12-17 16:00 | OP.PCM_ITS ---
Report of Operation Date of Procedure: 12/17/19 Pre-Operative Diagnosis: 1. Diabetic hidradenitis abscesses bilateral inguinal areas with extension to vulval area involving the mons pubis. 2. Hidradenitis bilateral inguinal areas. 3. Vulval hidradenitis involving the mons pubis. 4. Left axillary hidradenitis, stable after I&D. 5. Diabetes mellitus. 6. MRSA. 7. Obesity. Post-Operative Diagnosis: 1. Diabetic hidradenitis abscess bilateral inguinal areas with extension to vulval area involving the mons pesubis and genitocrural crease. 2. Hidradenitis bilateral inguinal areas. 3. Vulval hidradenitis involving the mons pubis and genitocrural crease. 4. Left axillary hidrade nitis, stable after I&D. 5. Diabetes mellitus. 6. MRSA. 7. Obesity. Surgery/Procedure Performed:: 1. Surgical preparation bilateral inguinal areas with extension to vulval area involving the mons pubis and genitocrural crease with incision and drainage and excision diabetic hidradenitis abscesses, (216 cm2 on the left and 209 cm2 on the right). 2. Partial vulvectomy including deep subcutaneous tissue involving mons pubis and genitrocrural crease. Description of Surgical Findings:: The patient is a 39 year old F with a significant history of diabetes mellitus who presented to the ED with 3 abscesses that started 6-day before presentation. She had an abscess in her left axilla and bilateral inguinal areas with extension to the vulval area involving the mons pubis. She had a fever of 100.1F at home. Also she felt nauseous and vomited. She felt weak and had body aches. She was not eating so she did not take her insulin. At emergency department her abscesses were incised and drained. Patient was started on antibiotics with Clindamycin. Initial wound culture showed MRSA. WBC was 14.4. HgbA1c was 12.3. I was asked to evaluate this patient for surgical options for treatment. Patient was informed of the risks and complications of the procedure including alternatives to surgery. These were discussed with the patient personally. Patient voices understanding and wishes to proceed. Size of defect left inguinal area extending to vulval area involving the mons pubis and genitocrural crease - 18 x 12 x 6 cm. Size of defect right inguinal area extending to vulval area involving the mons pubis and genitocrural crease - 19 x 11 x 6 cm. 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 Diabetic hidradenitis ulcer left inguinal area with extension to vulval area involving mons pubis and genitocrural crease to Pathology and Microbiology. 2. Diabetic hidradenitis ulcer right inguinal area with extension to vulval area involving mons pubis and genitocrural crease to Pathology and Microbiology Estimated Blood Loss (mL): 150 ml. Description of Procedure: Patient was taken to OR in supine position and was placed under general anesthesia. The bilateral inguinal and vulval areas were prepped and draped in the usual fashion. SCD's were placed for DVT prophylaxis. Perioperative antibiotics were given intravenously. For the procedure, I wore an N95 mask and wore proper eyewear protection. Patient has diabetic hidradenitis abscesses bilaterally along with further areas of hidradenitis. Incisions were made first on the right side and then on the left side. Some pus was seen in the area of the recent I&D from the ED. A lot of fat necrosis and induration was present and excised and debrided. The abscesses were in the lateral inguinal areas with extension to the vulval area involving the mons pubis. There were further areas of hidradenitis in the medial inguinal areas with extension to the vulval area involving the genitocrural crease that was also excised down through the subcutaneous tissue until the fascia was seen. An extensive partial vulvectomy was done involving the mons pubis and genitocrural crease including deep subcuta neous tissue. The wounds were irrigated with saline. Hemostasis was obtained with electrocautery. Tissue was sent to Pathology for analysis to rule out carcinoma and to Microbiology for culture. A positive culture will necessitate antibiotic therapy. The size of the defects after incision and drainage and excision diabetic hidradenitis abscesses bilateral inguinal areas with extension to vulval area involving mons pubis and genitocrural crease was 18 x 12 x 6 cm or 216 cm2 on the left and 19 x 11 x 6 cm or 209 cm2 on the right. The wounds were dressed with Mepitel nonadherent dressing followed by Kerlix gauze and Betadine and dry Kerlix gauze and ABD pads and secured with Medipore tape and meshed panties. Patient tolerated the procedure well and was sent to PACU in satisfactory cond ition. Patient will be sent upstairs for continued postop care. The VAC will be applied tomorrow. Grafts/Implants Used: None. - Complications None. - Admit VTE Documentation VTE Present on Admission: No VTE Mechan Device Prophylaxis: SCD's VTE Pharm Prophylaxis ordered?: Yes Surgery Charges CPT - 70040 ICD-10 - L02.214, L73.2, E11.9, A49.02, E66.01 [id number] L02.214, L73.2, E11.9, A49.02, E66.01 00669 N76.4, L73.2, E11.9, A49.02, E66.01
[2019-12-17 17:00] LABS: Bedside Glucose 253 mg/dL (70-110)
[2019-12-17] MEDS: Insulin Lispro 100 UNIT/ML INSULN.PEN 35 UNIT SC (17:09)
[2019-12-17 17:16] LABS: Bedside Glucose 304 mg/dL (70-110)
[2019-12-17] MEDS: Acetaminophen 325 MG Tablet 650 MG PO (20:31)
[2019-12-17] MEDS: Venlafaxine XR 150 MG Capsule 300 MG PO (20:42)
[2019-12-17] MEDS: Enoxaparin 40 MG/0.4 ML Syringe SC (20:42)
[2019-12-17 22:35] LABS: Bedside Glucose 304 mg/dL (70-110)
[2019-12-18 01:46] VITALS: BP 150/97; PULSE 96; RESP 18; TEMP 36.8; O2SAT 100
[2019-12-18] MEDS: Levothyroxine 25 MCG TABLET PO (05:22)
[2019-12-18] MEDS: oxyCODONE 5 MG Tablet 10 MG PO ×2 (05:29→10:12)
[2019-12-18 05:35] VITALS: BP 140/92; PULSE 102; RESP 18; TEMP 36.6; O2SAT 100
[2019-12-18 06:56] LABS: Absolute Lymphocyte Count 2.05 X10^3/uL (0.83-4.51); Absolute Neutrophil Count 4.3 X10^3/uL (2.0-7.7); Basophil# 0.04 X10^3/uL; Basophil% 0.5 % (0-1); Eosinophil# 0.03 X10^3/uL; Eosinophils% 0.4 % (0-5); Hemoglobin 11.4 g/dL (12.0-15.0); Lymphocyte # 2.05 X10^3/ul (4.0); Lymphocyte % 27.3 % (19-41); Mean Corp Hgb Conc 32.6 g/dL (32-36); Mean Corpuscular Hgb 28.3 pg (27.0-32.0); Mean Corpuscular Volume 86.8 fL (81-99); Mean Platelet Vol. 9.8 fl (6.2-12.0); Monocyte# 1.09 X10^3/uL; Monocyte% 14.5 % (0-10); NRBC Flagged by Analyzer 0 % (0-5); Neutrophil # 4.25 X10^3/uL (2.7-7.7); Neutrophil % 56.6 % (47-70); Platelet Count 311 K/mm3 (150-450); RBC Distribution Width SD 41.1 fl (35.1-43.9); Red Blood Count 4.03 M/mm3 (4.2-5.4); White Blood Count 7.5 K/mm3 (4.4-11.0)
[2019-12-18 07:31] LABS: Anion Gap 9 (5-15); BUN 19 mg/dL (7-18); BUN/Creat Ratio 12.8 RATIO (10-20); Calcium,Total 8.2 mg/dL (8.5-10.1); Chloride 111 mmol/L (98-107); Creatinine, Serum 1.48 mg/dL (0.55-1.02); EST Glomerular Filtration Rate 42 mL/min (>60); Est Glom Filt Rate - Afr Amer 50 mL/min (>60); Estimated Creatinine Clearance 55.19 ml/min; Glucose 211 mg/dL (74-106); Potassium 3.6 mmol/L (3.5-5.1); Sodium Level 138 mmol/L (136-145)
[2019-12-18] MEDS: Insulin Lispro 100 UNIT/ML INSULN.PEN 35 UNIT SC (08:31)
[2019-12-18] MEDS: Insulin Lispro 100 UNIT/ML INSULN.PEN SC (08:32)
[2019-12-18] MEDS: Pioglitazone Hydrochloride 30 MG Tablet PO (08:33)
[2019-12-18 08:40] LABS: Bedside Glucose 193 mg/dL (70-110)
[2019-12-18] MEDS: Enoxaparin 40 MG/0.4 ML Syringe SC ×2 (08:40→21:36)
[2019-12-18] MEDS: busPIRone 15 MG TABLET 30 MG PO (08:41)
[2019-12-18] MEDS: ARIPiprazole 10 MG Tablet PO (08:41)
[2019-12-18] MEDS: buPROPion (XL) 150 MG TABLET.XL PO (08:41)
[2019-12-18] MEDS: Pantoprazole Sodium 40 MG Tablet PO (08:41)
[2019-12-18] MEDS: Lisinopril 20 MG Tablet PO (08:41)
[2019-12-18] MEDS: Loratadine 10 MG Tablet PO (08:41)
[2019-12-18 10:16] VITALS: O2SAT 100
--- NOTE | 2019-12-18 10:49 | PCM.PN.HOSP ---
Patient Problems: Active and Suspected Problems (Last Reviewed 12/16/19 @ 02:[address] Kenneth Contreras MD) Abscess, vulva (Acute) MRSA (methicillin resistant Staphylococcus aureus) infection (Acute) Abscess of groin, right (Acute) Abscess of groin, left (Acute) Hyperglycemia (Acute) Abscess (Acute) Reason for Visit: Follow-up for hidradenitis abscesses secondary to MRSA Objective: No fever or chills. Vital signs are stable. Mild seropurulent drainage from the wound dressing in groin and left axilla. Physical exam General: Alert, Oriented x3, Cooperative HEENT: Atraumatic, PERRLA, EOMI, Normocephalic Oral: No Gingival or Mucosal Lesions/ Ulcerations Neck: Supple, No JVD, Negative Carotid Bruits Lungs: Air entry diminished in bilateral lung bases secondary to obesity. No crepitation/rhonchi Cardiovascular: Regular rate, Regular Rhythm, Normal S1, Normal S2, No murmurs Abdomen: Bowel Sounds Present, Soft, Non Tender, Non-Distended : No renal angle tenderness. No suprapubic tenderness. Extremities: No edema, Capillary Refill Less than 3 Seconds Skin: Surgical excision and drainage of hidradenitis abscesses in groin and left axilla. Mild seropurulent soakage of the dressing. Right axilla is spared. Musculoskeletal: No Tenderness to Palpation of Joints or Extremities Neurological: Cranial nerves II-XII grossly intact, Deep Tendon Reflexes 2+/4 and Symmetrical, Neuro grossly intact Psych/Mental Status: Normal Affect, Appropriate. Vitals/I&O's: Vital Signs Temp Pulse Resp BP Pulse Ox 97.8 F 102 H 18 140/92 H 100 12/18/19 05:35 12/18/19 05:35 12/18/19 05:35 12/18/19 05:35 12/18/19 10:16 Oxygen Delivery Method Room Air Weight: 320 lb Body Mass Index (BMI) 45.9 Intake and Output for Last 24 Hours 12/16/19 12/17/19 12/18/19 23:59 23:59 23:59 Intake Total 1821.25 / 2459.75 2181.75 / 2681.75 1530 / 1530 Balance 1821.25 / 2459.75 2181.75 / 2681.75 1530 / 1530 Microbiology Past 72 Hours 12/15/19 20:15 Blood Culture (Wb) - Left Forearm Blood Culture - Preliminary No growth in 48 hours. 12/15/19 19:50 Blood Culture (Wb) - Anticubital Right Blood Culture - Preliminary No growth in 48 hours. 12/17/19 16:17 Tissue - Groin Gram Stain - Final 12/17/19 16:17 Tissue - Groin Gram Stain - Final Laboratory Results 12/17/19 10:56: POC Glucose 295 H 12/17/19 16:23: POC Glucose 253 H 12/17/19 17:09: POC Glucose 304 H 12/17/19 22:05: POC Glucose 304 H 12/18/19 06:10: WBC 7.5, RBC 4.03 L, Hgb 11.4 L, Hct 35.0 L, MCV 86.8, MCH 28.3, MCHC 32.6, RDW Std Deviation 41.1, RDW Coeff of June 13.0, Plt Count 311, MPV 9.8, Immature Gran % (Auto) 0.700, Neut % (Auto) 56.6, Lymph % (Auto) 27.3, [place] % (Auto) 14.5 H, Eos % (Auto) 0.4, Baso % (Auto) 0.5, Absolute Neuts (auto) 4.3, Absolute Lymphs (auto) 2.05, Nucleated RBC % 0 12/18/19 06:10: Sodium 138, Potassium 3.6, Chloride 111 H, Carbon Dioxide 18.0 L, Anion Gap 9, BUN 19 H, Creatinine 1.48 H, Estim Creat Clear Calc 55.19, Est GFR (MDRD) Af Amer 50 L, Est GFR (MDRD) Non-Af 42 L, BUN/Creatinine Ratio 12.8, Glucose 211 H, Calcium 8.2 L 12/18/19 08:30: POC Glucose 193 H Current Medications Acetaminophen (Tylenol) 650 mg PO Q6H PRN PRN PRN Reason: Pain Score 1-10/Temp > 100.7 F Last Admin: 12/17/19 20:31 Dose: 650 mg Documented by: Albuterol Sulfate (Ventolin Aerosols) 2.5 mg INHALATION Q2H PRN PRN PRN Reason: Shortness of Breath/Wheezing Alprazolam (Xanax) 1 mg PO TID PRN PRN PRN Reason: panic attacks Aripiprazole (Abilify) 10 mg PO DAILY [facility] Last Admin: 12/18/19 08:41 Dose: 10 mg Documented by: Bupropion HCl (Wellbutrin Xl) 150 mg PO DAILY [facility] Last Admin: 12/18/19 08:41 Dose: 150 mg Documented by: Buspirone HCl (Buspar) 30 mg PO DAILY [facility] Last Admin: 12/18/19 08:41 Dose: 30 mg Documented by: Dextrose (D50w Syringe) 0 gm IV X1 PRN; Protocol PRN Reason: Hypoglycemia Enoxaparin Sodium (Lovenox) 40 mg SC BID [facility] Last Admin: 12/18/19 08:40 Dose: 40 mg Documented by: Glucagon () 1 mg IM .X1 PRN PRN Reason: Hypoglycemia Hydromorphone HCl (Dilaudid Inj) 1 mg IV Q3H PRN PRN PRN Reason: Pain Score 6-10/10 Sodium Chloride () 250 mls @ 15 mls/hr IV .[id number] PRN PRN Reason: Saline Flush Last Infusion: 12/17/19 22:45 Dose: 15 mls/hr Documented by: Sodium Chloride () 250 mls @ 15 mls/hr IV .[id number] PRN PRN Reason: Additional IVPB Infusion Vancomycin IV Pharmacy to Dose (1 ea/ Sodium Chloride) 500 mls @ 250 mls/hr IV X1 PRN; Protocol PRN Reason: prn Vancomycin HCl 1,500 mg/ (Sodium Chloride) 530 mls @ 250 mls/hr IV Q8H [facility] Last Infusion: 12/18/19 07:30 Dose: Infused Documented by: Insulin Glargine (Lantus (Bkc)) 40 units SC QHS [facility] Last Admin: 12/17/19 22:10 Dose: 40 units Documented by: Insulin Glargine (Lantus (Bkc)) 70 units SC 1100 [facility] Insulin Human Lispro (Humalog Kwikpen (Bkc)) 0 unit SC ACHS [facility]; Protocol Last Admin: 12/18/19 08:32 Dose: 2 u Documented by: Insulin Human Lispro (Humalog Kwikpen (Bkc)) 35 unit SC TIDAC [facility] Last Admin: 10/07/20 08:31 Dose: 35 u Documented by: Labetalol HCl (Trandate) 10 mg IV Q4H PRN PRN PRN Reason: SBP > 160 OR DBP > 120 Lactobacillus Acidophilus (Acidophilus) 1 tablet PO TID [facility] Last Admin: 12/18/19 05:22 Dose: 1 tablet Documented by: Levothyroxine Sodium (Synthroid) 25 mcg PO DAILY@0600 [facility] Last Admin: 12/18/19 05:22 Dose: 25 mcg Documented by: Lisinopril (Zestril) 20 mg PO DAILY [facility] Last Admin: 12/18/19 08:41 Dose: 20 mg Documented by: Loratadine (Claritin) 10 mg PO DAILY [facility] Last Admin: 12/18/19 08:41 Dose: 10 mg Documented by: Ondansetron HCl (Zofran) 4 mg IV Q8H PRN PRN PRN Reason: NAUSEA/VOMITING Last Admin: 12/16/19 00:42 Dose: 4 mg Documented by: Oxycodone HCl (Oxyir) 5 mg PO Q4H PRN PRN PRN Reason: Pain Score 4-5/10 Last Admin: 12/16/19 00:42 Dose: 5 mg Documented by: Oxycodone HCl (Oxyir) 10 mg PO Q4H PRN PRN PRN Reason: Pain Score 6-10/10 Last Admin: 12/18/19 10:12 Dose: 10 mg Documented by: Pantoprazole Sodium (Protonix) 40 mg PO DAILY [facility] Last Admin: 12/18/19 08:41 Dose: 40 mg Documented by: [facility] Last Admin: 12/18/19 08:33 Dose: 30 mg Documented by: Senna/Docusate Sodium (Senokot-S, Aida-Colace) 2 tablet PO DAILY PRN PRN PRN Reason: CONSTIPATION Sodium Chloride () 10 - 40 ml IV UD PRN PRN Reason: SALINE FLUSH Last Admin: 12/17/19 20:32 Dose: 10 ml Documented by: Venlafaxine HCl (Effexor Xr) 300 mg PO QHS [facility] Last Admin: 12/17/19 20:42 Dose: 300 mg Documented by: STROKE Vital Signs/Narrative: Vital Signs Pulse Ox 12/18/19 10:16 100 Medical Necessity - Tobacco Use Smoking Status: Never smoker Tobacco Use: Non-smoker Assessment/Plan All Active Problems (Last Reviewed 12/16/19 @ 02:[address] Kenneth Contreras MD) Abscess, vulva (Acute) MRSA (methicillin resistant Staphylococcus aureus) infection (Acute) Abscess of groin, right (Acute) Abscess of groin, left (Acute) Hyperglycemia (Acute) Abscess (Acute) Vaginal foreign body (Resolved) This 39 female with history of diabetes mellitus and hypertension came to ED with multiple abscesses and fever and systemic symptoms of nausea, vomiting weakness and body aches anorexia. 1. SIRS with sepsis (mild fever, tachycardia, leukocytosis with left shift) secondary to hidradenitis separative, most likely MRSA: Had incision and drainage in ED. Discussed with the wound care nurse. Dr. Arrieta consult. On IV clindamycin. Blood cultures pending. MRSA nasal screen positive. 12/16: Dr. Arrieta consult reviewed and appreciated. In view of persistent MRSA, antibiotic changed from clindamycin to vancomycin. ID consult for further opinion. 12/17: Patient had incision and drainage and excision of diabetic hidradenitis abscesses of bilateral groin/genitocrural crease, partial vulvectomy. Plan is wound dressing and wound VAC application. Patient will need home health and dressing education at home. ID consult. 2. Diabetes mellitus with hyperglycemia: Accu-Chek before meals and at bedtime. Titrate up the basal and prandial insulin. On Actos at home. A1c 12.3. 12/16: Glucose is still elevated 234 and 295. Adjust insulin. 12/17: Glucose control is improved. Adjust insulin further. 3. Hypertension, uncontrolled: Adjust the antihypertensive medications 4. Morbid obesity, BMI 45.9 kg/m? weight loss, exercise counseling done. 5. History of recurrent vaginal candidiasis, GERD, hypothyroidism, depression and anxiety and asthma: Stable. VTE prophylaxis: On Lovenox 40 mg subcu twice daily. Inpatient E&M: [id number] [facility] L2
[2019-12-18 11:30] VITALS: BP 129/75; PULSE 79; RESP 16; TEMP 36.7; O2SAT 100
--- NOTE | 2019-12-18 12:11 | NURSING ---
wound photo: left groin
--- NOTE | 2019-12-18 12:12 | NURSING ---
wound photo: right groin
[2019-12-18 12:15] LABS: Bedside Glucose 79 mg/dL (70-110)
--- NOTE | 2019-12-18 13:01 | CASEMGMT ---
Addendum entered by Tu Pritchard 12/18/19 17:00: Call received back from [facility]. They are unable to accept pt d/t staffing. Addendum entered by Tu Pritchard 12/18/19 16:03: Referrals faxed [facility] and [facility]. Call placed to [facility] and spoke w/Lilly. She states intake liaison, Layo, will not be back in the office until tomorrow morning but she will review tomorrow and let RN CM know if they are able to accept. Call placed to Noelle @ [facility] and referral made. Addendum entered by Tu Pritchard 12/18/19 15:44: Call received from Jonna @ [facility]. They are unable to accept pt d/t staffing in [place] area. Addendum entered by Tu Pritchard 12/18/19 15:37: Call placed back to [facility] to inquire if they are able to accept pt. [facility] personnel took this RN CM's information and states someone will call back to inform if able to accept or not. Call placed back to [facility] to inquire if they are able to accept pt. Per staff, this RN CM will receive call once it has been reviewed. Original Note: RN CM NOTE: Wound Vac has been applied. RN CM to room to talk with pt re: discharge needs/plan. Pt states she would like [facility]. Pt states she will be discharging to her mother's home in [place]. Noted mother's address listed in demographics was the same address as pt's. Pt provided her mother's address and this was updated in pt's demographics at this time. List of local [facility] agencies in network w/[facility] given to pt. She denies having any preference. Call placed to [facility] and [facility]. They do not have staffing at this time. Call placed to both [facility] and [facility] and referrals made. They were made aware pt will need SN for wound vac care/dressing changes and anticipate discharge tomorrow 12/18. They were also made aware pt will be discharging to her mother's address in [place]. They will check on staffing in pt's area and will contact this RN CM if able to accept pt. Awaiting response. Anupama BSN RN CM
--- NOTE | 2019-12-18 14:34 | NURSING ---
Home VAC approved for when patient is discharged home. BUN and creat elevated so patient is being monitored.
[2019-12-18 15:15] LABS: Bedside Glucose 93 mg/dL (70-110)
--- NOTE | 2019-12-18 16:05 | PCM.PN.SRG ---
Patient Problems: Active and Suspected Problems (Last Reviewed 12/16/19 @ 02:[address] Kenneth Contreras MD) Hyperglycemia (Acute) Abscess (Acute) Subjective: Post op day #1 Pain is controlled. - Physical Exam Vitals/I&O's: Vital Signs Temp Pulse Resp BP Pulse Ox 98.0 F 79 16 129/75 H 100 12/18/19 11:30 12/18/19 11:30 12/18/19 11:30 12/18/19 11:30 12/18/19 11:30 Oxygen Delivery Method Room Air Weight: 320 lb Body Mass Index (BMI) 45.9 Intake and Output for Last 24 Hours 12/16/19 12/17/19 12/18/19 23:59 23:59 23:59 Intake Total 1821.25 / 2459.75 2181.75 / 2681.75 2251 / 2251 Balance 1821.25 / 2459.75 2181.75 / 2681.75 2251 / 2251 General: Alert, Oriented x3 HEENT: Atraumatic Oral: Moist Mucosa Lungs: Normal air movement Cardiovascular: Regular rate Abdomen: Obese Extremities: Capillary Refill Less than 3 Seconds Skin: Ulcer/ Wound - Bilateral inguinal wounds stable. No bleeding. Wound VAC dressing placed today. Musculoskeletal: No Tenderness to Palpation of Joints or Extremities Neurological: Cranial nerves II-XII grossly intact Psych/Mental Status: Normal Affect, Appropriate Microbiology Past 72 Hours 12/17/19 16:17 Tissue - Groin Gram Stain - Final 12/17/19 16:17 Tissue - Groin Wound Culture - Preliminary Gram positive organism 12/17/19 16:17 Tissue - Groin Gram Stain - Final 12/17/19 16:17 Tissue - Groin Wound Culture - Preliminary Staphylococcus aureus 12/15/19 20:15 Blood Culture (Wb) - Left Forearm Blood Culture - Preliminary No growth in 48 hours. 12/15/19 19:50 Blood Culture (Wb) - Anticubital Right Blood Culture - Preliminary No growth in 48 hours. Laboratory Results 12/17/19 16:23: POC Glucose 253 H 12/17/19 17:09: POC Glucose 304 H 12/17/19 22:05: POC Glucose 304 H 12/18/19 06:10: WBC 7.5, RBC 4.03 L, Hgb 11.4 L, Hct 35.0 L, MCV 86.8, MCH 28.3, MCHC 32.6, RDW Std Deviation 41.1, RDW Coeff of June 13.0, Plt Count 311, MPV 9.8, Immature Gran % (Auto) 0.700, Neut % (Auto) 56.6, Lymph % (Auto) 27.3, [place] % (Auto) 14.5 H, Eos % (Auto) 0.4, Baso % (Auto) 0.5, Absolute Neuts (auto) 4.3, Absolute Lymphs (auto) 2.05, Nucleated RBC % 0 12/18/19 06:10: Sodium 138, Potassium 3.6, Chloride 111 H, Carbon Dioxide 18.0 L, Anion Gap 9, BUN 19 H, Creatinine 1.48 H, Estim Creat Clear Calc 55.19, Est GFR (MDRD) Af Amer 50 L, Est GFR (MDRD) Non-Af 42 L, BUN/Creatinine Ratio 12.8, Glucose 211 H, Calcium 8.2 L 12/18/19 08:30: POC Glucose 193 H 12/18/19 12:08: POC Glucose 79 12/18/19 15:09: POC Glucose 93 Current Medications Acetaminophen (Tylenol) 650 mg PO Q6H PRN PRN PRN Reason: Pain Score 1-10/Temp > 100.7 F Last Admin: 12/17/19 20:31 Dose: 650 mg Documented by: Albuterol Sulfate (Ventolin Aerosols) 2.5 mg INHALATION Q2H PRN PRN PRN Reason: Shortness of Breath/Wheezing Alprazolam (Xanax) 1 mg PO TID PRN PRN PRN Reason: panic attacks Aripiprazole (Abilify) 10 mg PO DAILY [facility] Last Admin: 12/18/19 08:41 Dose: 10 mg Documented by: Bupropion HCl (Wellbutrin Xl) 150 mg PO DAILY [facility] Last Admin: 12/18/19 08:41 Dose: 150 mg Documented by: Buspirone HCl (Buspar) 30 mg PO DAILY [facility] Last Admin: 12/18/19 08:41 Dose: 30 mg Documented by: Dextrose (D50w Syringe) 0 gm IV X1 PRN; Protocol PRN Reason: Hypoglycemia Enoxaparin Sodium (Lovenox) 40 mg SC BID [facility] Last Admin: 12/18/19 08:40 Dose: 40 mg Documented by: Glucagon () 1 mg IM .X1 PRN PRN Reason: Hypoglycemia Hydromorphone HCl (Dilaudid Inj) 1 mg IV Q3H PRN PRN PRN Reason: Pain Score 6-10/10 Sodium Chloride () 250 mls @ 15 mls/hr IV .[id number] PRN PRN Reason: Saline Flush Last Infusion: 12/18/19 11:29 Dose: Infused Documented by: Sodium Chloride () 250 mls @ 15 mls/hr IV .[id number] PRN PRN Reason: Additional IVPB Infusion Vancomycin IV Pharmacy to Dose (1 ea/ Sodium Chloride) 500 mls @ 250 mls/hr IV X1 PRN; Protocol PRN Reason: prn Vancomycin HCl 1,500 mg/ (Sodium Chloride) 530 mls @ 250 mls/hr IV Q8H [facility] Last Infusion: 12/18/19 15:32 Dose: Infused Documented by: Insulin Glargine (Lantus (Bkc)) 70 units SC 1100 [facility] Last Admin: 12/18/19 12:15 Dose: Not Given Documented by: Insulin Glargine (Lantus (Bkc)) 50 units SC QHS [facility] Insulin Human Lispro (Humalog Kwikpen (Bkc)) 0 unit SC ACHS [facility]; Protocol Last Admin: 12/18/19 16:04 Dose: Not Given Documented by: Insulin Human Lispro (Humalog Kwikpen (Bkc)) 40 unit SC TIDAC [facility] Last Admin: 12/18/19 16:05 Dose: Not Given Documented by: Labetalol HCl (Trandate) 10 mg IV Q4H PRN PRN PRN Reason: SBP > 160 OR DBP > 120 Lactobacillus Acidophilus (Acidophilus) 1 tablet PO TID [facility] Last Admin: 12/18/19 13:27 Dose: 1 tablet Documented by: Levothyroxine Sodium (Synthroid) 25 mcg PO DAILY@0600 [facility] Last Admin: 12/18/19 05:22 Dose: 25 mcg Documented by: Lisinopril (Zestril) 20 mg PO DAILY [facility] Last Admin: 12/18/19 08:41 Dose: 20 mg Documented by: Loratadine (Claritin) 10 mg PO DAILY [facility] Last Admin: 12/18/19 08:41 Dose: 10 mg Documented by: Ondansetron HCl (Zofran) 4 mg IV Q8H PRN PRN PRN Reason: NAUSEA/VOMITING Last Admin: 12/16/19 00:42 Dose: 4 mg Documented by: Oxycodone HCl (Oxyir) 5 mg PO Q4H PRN PRN PRN Reason: Pain Score 4-5/10 Last Admin: 12/16/19 00:42 Dose: 5 mg Documented by: Oxycodone HCl (Oxyir) 10 mg PO Q4H PRN PRN PRN Reason: Pain Score 6-10/10 Last Admin: 12/18/19 10:12 Dose: 10 mg Documented by: Pantoprazole Sodium (Protonix) 40 mg PO DAILY [facility] Last Admin: 12/18/19 08:41 Dose: 40 mg Documented by: [facility]) [facility] Last Admin: 12/18/19 08:33 Dose: 30 mg Documented by: Senna/Docusate Sodium (Senokot-S, Aida-Colace) 2 tablet PO DAILY PRN PRN PRN Reason: CONSTIPATION Sodium Chloride () 10 - 40 ml IV UD PRN PRN Reason: SALINE FLUSH Last Admin: 12/17/19 20:32 Dose: 10 ml Documented by: Venlafaxine HCl (Effexor Xr) 300 mg PO QHS [facility] Last Admin: 12/17/19 20:42 Dose: 300 mg Documented by: Medical Necessity - Tobacco Use Smoking Status: Never smoker Tobacco Use: Non-smoker Assessment/Plan All Active Problems (Last Reviewed 12/16/19 @ 02:[address] Kenneth Contreras MD) Abscess, vulva (Acute) MRSA (methicillin resistant Staphylococcus aureus) infection (Acute) Abscess of groin, right (Acute) Abscess of groin, left (Acute) Hyperglycemia (Acute) Abscess (Acute) Vaginal foreign body (Resolved) Post op day #1 from 1. Surgical preparation bilateral inguinal areas with extension to vulval area involving the mons pubis and genitocrural crease with incision and drainage and excision diabetic hidradenitis abscesses, (216 cm2 on the left and 209 cm2 on the right). 2. Partial vulvectomy including deep subcutaneous tissue involving mons pubis and genitrocrural crease. Pain well controlled. Wound VAC placed today to bilateral inguinal wounds at 150 mmHg. Preliminary operative wound cultures to left inguinal/vulval area show Gram +. Right inguinal/vulval show staphylococcus aureus. She is currently on Vancomycin. ID has been consulted. Today BUN 19/Creatinine 1.48. Both elevated from yesterday BUN 11/creat 0.72. Encouraged ambulation. She will go home with a wound VAC. Waiting for approval. She will have home health to assist her with wound VAC changes. After discharge she will follow up at the wound center on 12/30/19.
--- NOTE | 2019-12-18 16:55 | PCM.HP.ID ---
Problem List (1) MRSA (methicillin resistant Staphylococcus aureus) infection Status: Acute Reason for Consult: mrsa Consulted by: Dr. Tony History of Present Illness: The patient is a 39 year old F with uncontrolled DM, hidradenitis, who presented 12/14 with about a week of progressive pain, redness, swelling in bilat groin and R axilla. Had some purulent drainage from axilla. Mild chills, some aches, n/v, fatigue. No abx prior to admit. Started on clinda, changed to vanc. Taken to OR 12/[address] Arrieta for bilat groin I&D and wound vac placement. Feeling ok today. Full ROS performed and neg except as noted above. - Medical History Past Medical History (Chronic Problems): Chronic Problems (Last Reviewed 12/16/19 @ 02:[address] Kenneth Contreras MD) Vulval hidradenitis suppurativa (Chronic) Hidradenitis suppurativa (Chronic) bilateral inguinal hidradenitis Diabetes (Chronic) Morbid obesity (Chronic) Diabetes mellitus, type II (Chronic) HTN (hypertension) (Chronic) Asthma (Chronic) Anxiety and depression (Chronic) HLD (hyperlipidemia) (Chronic) Allergies/Adverse Reactions: Allergies loracarbef [From Lorabid] Allergy (Verified 12/15/19 19:06) Unknown Pt does not remember reaction since it happened when she was a child. Penicillins Allergy (Verified 12/15/19 19:06) Unknown Pt does not remember reaction since it happened when she was a child. Sulfa (Sulfonamide Antibiotics) Adverse Reaction (Verified 12/15/19 19:06) Upset Stomach Home Medications: Ambulatory Orders Medication Instructions Recorded ALPRAZolam [Xanax] 1 mg PO TID PRN PRN 04/02/18 aripiprazole 10 mg tablet 10 tab PO DAILY 09/16/19 buspirone 30 mg tablet 30 tab PO BID 09/16/19 pantoprazole 40 mg tablet,delayed 40 tab PO DAILY 09/16/19 release venlafaxine 150 mg 300 mg PO QHS 09/16/19 capsule,extended release 24 hr Albuterol Sulfate [Albuterol 2 puff IH PRN PRN 12/15/19 Sulfate HFA] Insulin Lispro [Humalog] 35 unit SUBCUT TID 12/15/19 Levothyroxine [Synthroid] 25 mcg PO DAILY 12/15/19 Lisinopril 20 mg PO DAILY 12/15/19 Pioglitazone [Actos] 30 mg PO DAILY 12/15/19 Budesonide/Formoterol Fumarate 6 gm IH BID 12/16/19 [Symbicort 160-4.5 Mcg Inhaler] Bupropion HCl [Bupropion Xl] 300 mg PO DAILY 12/16/19 Insulin Glargine [Lantus (BKC)] 70 units SUBCUT DAILY 12/16/19 Loratadine [Claritin] 10 mg PO DAILY 12/16/19 Tolterodine Tartrate 1 tab PO BID 12/16/19 - Social History Tobacco Use: non-smoker Vital Signs Temp Pulse Resp BP Pulse Ox 98.0 F 79 16 129/75 H 100 12/18/19 11:30 12/18/19 11:30 12/18/19 11:30 12/18/19 11:30 12/18/19 11:30 Oxygen Delivery Method Room Air Weight: 145.15 kg Body Mass Index (BMI) 45.9 Microbiology Past 72 Hours 12/17/19 16:17 Gram Stain - Final Tissue - Groin Wound Culture - Preliminary Gram positive organism 12/17/19 16:17 Gram Stain - Final Tissue - Groin Wound Culture - Preliminary Staphylococcus aureus 12/15/19 20:15 Blood Culture - Preliminary Blood Culture (Wb) - Left Forearm No growth in 48 hours. 12/15/19 19:50 Blood Culture - Preliminary Blood Culture (Wb) - Anticubital Right No growth in 48 hours. Laboratory Tests Past 24 Hrs 12/18/19 12/18/19 06:10 06:10 WBC 7.5 RBC 4.03 L Hgb 11.4 L Hct 35.0 L MCV 86.8 MCH 28.3 MCHC 32.6 RDW Std Deviation 41.1 RDW Coeff of June 13.0 Plt Count 311 MPV 9.8 Immature Gran % (Auto) 0.700 Neut % (Auto) 56.6 Lymph % (Auto) 27.3 [place] % (Auto) 14.5 H Eos % (Auto) 0.4 Baso % (Auto) 0.5 Absolute Neuts (auto) 4.3 Absolute Lymphs (auto) 2.05 Nucleated RBC % 0 Sodium 138 Potassium 3.6 Chloride 111 H Carbon Dioxide 18.0 L Anion Gap 9 BUN 19 H Creatinine 1.48 H Estim Creat Clear Calc 55.19 Est GFR (MDRD) Af Amer 50 L Est GFR (MDRD) Non-Af 42 L BUN/Creatinine Ratio 12.8 Glucose 211 H Calcium 8.2 L - Other Studies Radiology: [] reviewed Other Studies: [] Route of nutrition/ use of supplements: [] Nutritional Intake: [] IV Site: [] Jules Catheter: [] - Physical Exam General: Alert, Oriented x3, Cooperative, No apparent distress HEENT: Atraumatic, PERRLA, EOMI Neck: Supple, No Nodes Lungs: Clear to auscultation, Normal air movement Cardiovascular: Regular rate, Regular Rhythm Abdomen: Soft, Non Tender, Non-Distended, Obese Extremities: No edema Skin: Ulcer/ Wound - reviewed photos IV Site: Peripheral, without redness Musculoskeletal: No Tenderness to Palpation of Joints or Extremities Neurological: Cranial nerves II-XII grossly intact - Assessment/Plan Antibiotics: [] Assessment/Plan: [] Active and Suspected Problems (Last Reviewed 12/16/19 @ 02:[address] Kenneth Contreras MD) Abscess, vulva (Acute) MRSA (methicillin resistant Staphylococcus aureus) infection (Acute) Abscess of groin, right (Acute) Abscess of groin, left (Acute) Hyperglycemia (Acute) Abscess (Acute) Bilat groin suspected MRSA abscess with hidradenitis and uncontrolled DM - now s/p I&D by Dr. Arrieta 12/17/19. On vanc. Having some CLAUDETTE, trough pending for this evening. Will also get repeat bmp at that time. Plan will be for discharge home on po abx now that she has had good source control. For prevention, would benefit from glucose control, weight loss, and would consider long course of doxy. Will follow, thank you
[2019-12-18 17:14] VITALS: BP 102/59; PULSE 99; RESP 18; TEMP 36.6; O2SAT 99
[2019-12-18 21:33] VITALS: BP 141/85; PULSE 104; RESP 18; TEMP 36.8; O2SAT 100
[2019-12-18] MEDS: Venlafaxine XR 150 MG Capsule 300 MG PO (21:37)
[2019-12-18] MEDS: 0.9% Saline Lock 10 ML Syringe IV (21:44)
[2019-12-18 22:01] LABS: Bedside Glucose 107 mg/dL (70-110)
[2019-12-18 22:05] LABS: Anion Gap 7 (5-15); BUN 22 mg/dL (7-18); Calcium,Total 8.3 mg/dL (8.5-10.1); Chloride 113 mmol/L (98-107); Creatinine, Serum 2.19 mg/dL (0.55-1.02); EST Glomerular Filtration Rate 27 mL/min (>60); Est Glom Filt Rate - Afr Amer 32 mL/min (>60); Glucose 130 mg/dL (74-106); Potassium 3.6 mmol/L (3.5-5.1); Sodium Level 140 mmol/L (136-145)
[2019-12-18 22:06] LABS: Vancomycin, Trough Level 48.2 ug/mL (5.0-15.0)
--- NOTE | 2019-12-18 23:55 | NURSING ---
Yohan from Pharmacy called and asked if the pt's Vanc was completed. I advised him that when I checked, it appeared that there was about 50-60 cc left in the bag. He told me to go ahead and stop it. Med was discarded and Ralf SUN aware.
[2019-12-19] MEDS: oxyCODONE 5 MG Tablet 10 MG PO (00:42)
[2019-12-19 03:27] VITALS: BP 104/67; PULSE 105; RESP 18; TEMP 36.6; O2SAT 98
--- NOTE | 2019-12-19 06:13 | PCM.RX.CS ---
Consult Pharmacy has been consulted to manage selected antiobiotic: Vancomycin Type of Consult: Follow-up Labs: Sodium 140 mmol/L (136-145) 12/18/19 21:20 Potassium 3.6 mmol/L (3.5-5.1) 12/18/19 21:20 Chloride 113 mmol/L (98-107) H 12/18/19 21:20 Carbon Dioxide 20.0 mmol/L (21.0-32.0) L 12/18/19 21:20 Anion Gap 7 (5-15) 12/18/19 21:20 BUN 22 mg/dL (7-18) H 12/18/19 21:20 Creatinine 2.19 mg/dL (0.55-1.02) H 12/18/19 21:20 Est GFR (MDRD) Af Amer 32 mL/min (>60) L 12/18/19 21:20 Est GFR (MDRD) Non-Af 27 mL/min (>60) L 12/18/19 21:20 BUN/Creatinine Ratio 10.0 RATIO (-) 12/18/19 21:20 Glucose 130 mg/dL (74-106) H 12/18/19 21:20 Vancomycin Trough 48.2 ug/mL (5.0-15.0) H 12/18/19 21:20 Microbiology: Microbiology 12/17/19 16:17 Tissue - Groin Gram Stain - Final 12/17/19 16:17 Tissue - Groin Wound Culture - Preliminary Gram positive organism 12/17/19 16:17 Tissue - Groin Gram Stain - Final 12/17/19 16:17 Tissue - Groin Wound Culture - Preliminary Staphylococcus aureus 12/15/19 20:15 Blood Culture (Wb) - Left Forearm Blood Culture - Preliminary No growth in 48 hours. 12/15/19 19:50 Blood Culture (Wb) - Anticubital Right Blood Culture - Preliminary No growth in 48 hours. Goal Trough: 15-20 mcg/mL Pharmacy Plan for Drug Dosing: Pharmacy Service will continue to monitor and adjust dosing as required. TROUGH 48.2 D/C CURRENT DOSE, DRAW RANDOM LEVEL 12/18 Follow-Up Labs: Trough Vancomycin Labs to be done on [date and time ordered]: 12/18
[2019-12-19] MEDS: Levothyroxine 25 MCG TABLET PO (06:41)
[2019-12-19 06:51] LABS: Bedside Glucose 180 mg/dL (70-110)
[2019-12-19 07:52] VITALS: BP 122/77; PULSE 105; RESP 20; TEMP 37; O2SAT 97
[2019-12-19 08:11] LABS: Hematocrit 33.1 % (37-47); Hemoglobin 10.8 g/dL (12.0-15.0); Mean Corp Hgb Conc 32.6 g/dL (32-36); Mean Corpuscular Hgb 28.5 pg (27.0-32.0); Mean Corpuscular Volume 87.3 fL (81-99); Mean Platelet Vol. 9.5 fl (6.2-12.0); Platelet Count 274 K/mm3 (150-450); RBC Distribution Width CV 13.2 % (11.6-14.6); RBC Distribution Width SD 42.1 fl (35.1-43.9); Red Blood Count 3.79 M/mm3 (4.2-5.4); White Blood Count 7.3 K/mm3 (4.4-11.0)
[2019-12-19 08:26] LABS: Anion Gap 8 (5-15); BUN 22 mg/dL (7-18); BUN/Creat Ratio 9.1 RATIO (10-20); Calcium,Total 8.1 mg/dL (8.5-10.1); Chloride 110 mmol/L (98-107); Creatinine, Serum 2.41 mg/dL (0.55-1.02); EST Glomerular Filtration Rate 24 mL/min (>60); Est Glom Filt Rate - Afr Amer 29 mL/min (>60); Estimated Creatinine Clearance 33.89 ml/min; Glucose 187 mg/dL (74-106); Potassium 3.6 mmol/L (3.5-5.1); Sodium Level 137 mmol/L (136-145)
[2019-12-19] MEDS: Insulin Lispro 100 UNIT/ML INSULN.PEN SC ×2 (09:07→13:16)
[2019-12-19] MEDS: Insulin Lispro 100 UNIT/ML INSULN.PEN 40 UNIT SC ×3 (09:08→17:02)
[2019-12-19] MEDS: Pioglitazone Hydrochloride 30 MG Tablet PO (09:09)
[2019-12-19] MEDS: ARIPiprazole 10 MG Tablet PO (09:11)
[2019-12-19] MEDS: busPIRone 15 MG TABLET 30 MG PO (09:13)
[2019-12-19] MEDS: Loratadine 10 MG Tablet PO (09:13)
[2019-12-19] MEDS: Enoxaparin 40 MG/0.4 ML Syringe SC ×2 (09:13→22:28)
[2019-12-19] MEDS: Pantoprazole Sodium 40 MG Tablet PO (09:14)
[2019-12-19] MEDS: Lisinopril 20 MG Tablet PO (09:14)
[2019-12-19] MEDS: buPROPion (XL) 150 MG TABLET.XL PO (09:14)
--- NOTE | 2019-12-19 09:42 | CASEMGMT ---
CORINNE CM Note: Call to Noelle @ [facility]. They can accept patient for wound vac changes. Per Dr. Martínez, patient is not ready for discharge at this time. Will continue to follow. Kaley BUTTERFIELD RN ACM
--- NOTE | 2019-12-19 10:00 | PN.ID_ITS ---
Patient Problems: Active and Suspected Problems (Last Reviewed 12/16/19 @ 02:[address] Kenneth Contreras MD) Hyperglycemia (Acute) Abscess (Acute) Subjective: Feeling ok, no fever, no n/v/d. - Physical Exam Vitals/I&O's: Vital Signs Temp Pulse Resp BP Pulse Ox 98.6 F 105 H 20 H 122/77 H 97 12/19/19 07:52 12/19/19 07:52 12/19/19 07:52 12/19/19 07:52 12/19/19 07:52 Oxygen Delivery Method Room Air Weight: 145.15 kg Body Mass Index (BMI) 45.9 Intake and Output for Last 24 Hours 12/17/19 12/18/19 12/19/19 23:59 23:59 23:59 Intake Total 2181.75 / 2681.75 2781 / 2781 700 / 700 Balance 2181.75 / 2681.75 2781 / 2781 700 / 700 General: Alert, Cooperative, No apparent distress Lungs: Clear to auscultation, Normal air movement Cardiovascular: Regular rate, Regular Rhythm Abdomen: Soft, Non Tender, Non-Distended Skin: No rashes, Ulcer/ Wound - wound vac in place Microbiology Past 72 Hours 12/17/19 16:17 Tissue - Groin Gram Stain - Final 12/17/19 16:17 Tissue - Groin Wound Culture - Preliminary Meth. resistant Staph. aureus Streptococcus group B 12/17/19 16:17 Tissue - Groin Gram Stain - Final 12/17/19 16:17 Tissue - Groin Wound Culture - Preliminary Gram positive organism 12/15/19 20:15 Blood Culture (Wb) - Left Forearm Blood Culture - Preliminary No growth in 48 hours. 12/15/19 19:50 Blood Culture (Wb) - Anticubital Right Blood Culture - Preliminary No growth in 48 hours. Laboratory Results 12/18/19 12:08: POC Glucose 79 12/18/19 15:09: POC Glucose 93 12/18/19 21:20: Vancomycin Trough 48.2 H 12/18/19 21:20: Sodium 140, Potassium 3.6, Chloride 113 H, Carbon Dioxide 20.0 L , Anion Gap 7, BUN 22 H, Creatinine 2.19 H, Estim Creat Clear Calc 37.30, Est GFR (MDRD) Af Amer 32 L, Est GFR (MDRD) Non-Af 27 L, BUN/Creatinine Ratio 10.0, Glucose 130 H, Calcium 8.3 L 12/18/19 21:41: POC Glucose 107 12/19/19 06:36: POC Glucose 180 H 12/19/19 08:04: WBC 7.3, RBC 3.79 L, Hgb 10.8 L, Hct 33.1 L, MCV 87.3, MCH 28.5, MCHC 32.6, RDW Std Deviation 42.1, RDW Coeff of June 13.2, Plt Count 274, MPV 9.5 12/19/19 08:04: Sodium 137, Potassium 3.6, Chloride 110 H, Carbon Dioxide 19.0 L , Anion Gap 8, BUN 22 H, Creatinine 2.41 H, Estim Creat Clear Calc 33.89, Est GFR (MDRD) Af Amer 29 L, Est GFR (MDRD) Non-Af 24 L, BUN/Creatinine Ratio 9.1 L, Glucose 187 H, Calcium 8.1 L Current Medications Acetaminophen (Tylenol) 650 mg PO Q6H PRN PRN PRN Reason: Pain Score 1-10/Temp > 100.7 F Last Admin: 12/17/19 20:31 Dose: 650 mg Documented by: Albuterol Sulfate (Ventolin Aerosols) 2.5 mg INHALATION Q2H PRN PRN PRN Reason: Shortness of Breath/Wheezing Alprazolam (Xanax) 1 mg PO TID PRN PRN PRN Reason: panic attacks Aripiprazole (Abilify) 10 mg PO DAILY [facility] Last Admin: 12/19/19 09:11 Dose: 10 mg Documented by: Bupropion HCl (Wellbutrin Xl) 150 mg PO DAILY [facility] Last Admin: 12/19/19 09:14 Dose: 150 mg Documented by: Buspirone HCl (Buspar) 30 mg PO DAILY [facility] Last Admin: 12/19/19 09:13 Dose: 30 mg Documented by: Dextrose (D50w Syringe) 0 gm IV X1 PRN; Protocol PRN Reason: Hypoglycemia Enoxaparin Sodium (Lovenox) 40 mg SC BID [facility] Last Admin: 12/19/19 09:13 Dose: 40 mg Documented by: Glucagon () 1 mg IM .X1 PRN PRN Reason: Hypoglycemia Hydromorphone HCl (Dilaudid Inj) 1 mg IV Q3H PRN PRN PRN Reason: Pain Score 6-10/10 Sodium Chloride () 250 mls @ 15 mls/hr IV .[id number] PRN PRN Reason: Saline Flush Last Infusion: 12/18/19 11:29 Dose: Infused Documented by: Sodium Chloride () 250 mls @ 15 mls/hr IV .[id number] PRN PRN Reason: Additional IVPB Infusion Sodium Chloride () 1,000 mls @ 100 mls/hr IV .Q10H [facility] Insulin Glargine (Lantus (Bkc)) 70 units SC 1100 [facility] Last Admin: 12/18/19 12:15 Dose: Not Given Documented by: Insulin Glargine (Lantus (Bkc)) 50 units SC QHS [facility] Last Admin: 12/18/19 21:44 Dose: Not Given Documented by: Insulin Human Lispro (Humalog Kwikpen (Bkc)) 0 unit SC ACHS [facility]; Protocol Last Admin: 12/19/19 09:07 Dose: 1 u Documented by: Insulin Human Lispro (Humalog Kwikpen (Bkc)) 40 unit SC TIDAC [facility] Last Admin: 12/19/19 09:08 Dose: 40 u Documented by: Labetalol HCl (Trandate) 10 mg IV Q4H PRN PRN PRN Reason: SBP > 160 OR DBP > 120 Lactobacillus Acidophilus (Acidophilus) 1 tablet PO TID [facility] Last Admin: 12/19/19 06:41 Dose: 1 tablet Documented by: Levothyroxine Sodium (Synthroid) 25 mcg PO DAILY@0600 [facility] Last Admin: 12/19/19 06:41 Dose: 25 mcg Documented by: Lisinopril (Zestril) 20 mg PO DAILY [facility] Last Admin: 12/19/19 09:14 Dose: 20 mg Documented by: Loratadine (Claritin) 10 mg PO DAILY [facility] Last Admin: 12/19/19 09:13 Dose: 10 mg Documented by: Ondansetron HCl (Zofran) 4 mg IV Q8H PRN PRN PRN Reason: NAUSEA/VOMITING Last Admin: 12/16/19 00:42 Dose: 4 mg Documented by: Oxycodone HCl (Oxyir) 5 mg PO Q4H PRN PRN PRN Reason: Pain Score 4-5/10 Last Admin: 12/16/19 00:42 Dose: 5 mg Documented by: Oxycodone HCl (Oxyir) 10 mg PO Q4H PRN PRN PRN Reason: Pain Score 6-10/10 Last Admin: 12/19/19 00:42 Dose: 10 mg Documented by: Pantoprazole Sodium (Protonix) 40 mg PO DAILY [facility] Last Admin: 12/19/19 09:14 Dose: 40 mg Documented by: [facility] Last Admin: 12/19/19 09:09 Dose: 30 mg Documented by: Senna/Docusate Sodium (Senokot-S, Aida-Colace) 2 tablet PO DAILY PRN PRN PRN Reason: CONSTIPATION Sodium Chloride () 10 - 40 ml IV UD PRN PRN Reason: SALINE FLUSH Last Admin: 12/18/19 21:44 Dose: 10 ml Documented by: Venlafaxine HCl (Effexor Xr) 300 mg PO QHS [facility] Last Admin: 12/18/19 21:37 Dose: 300 mg Documented by: Medical Necessity - Tobacco Use Smoking Status: Never smoker Tobacco Use: Non-smoker Route of nutrition/ use of supplements: [] Nutritional Intake: [] IV Site: [] Jules Catheter: [] - Assessment/Plan Antibiotics: [] Assessment/Plan: [] Active and Suspected Problems (Last Reviewed 12/16/19 @ 02:[address] Kenneth Contreras MD) Abscess, vulva (Acute) MRSA (methicillin resistant Staphylococcus aureus) infection (Acute) Abscess of groin, right (Acute) Abscess of groin, left (Acute) Hyperglycemia (Acute) Abscess (Acute) Bilat groin suspected MRSA abscess with hidradenitis and uncontrolled DM - now s/p I&D by Dr. Arrieta 12/17/19. High trough and worsening CLAUDETTE on vanc. Stop vanc, check repeat level and bmp in AM. Plan will be for discharge home on po clinda now that she has had good source control. For prevention, would benefit from glucose control, weight loss, and would consider long course of doxy. Will follow, d/w Dr. Tony and employment case manager
[2019-12-19 10:58] VITALS: BP 113/73; PULSE 104; RESP 18; TEMP 36.5; O2SAT 97
[2019-12-19] MEDS: 0.9% Normal Saline 1,000 ML 100 ML IV ×2 (11:17→22:16)
[2019-12-19 11:25] LABS: Bedside Glucose 159 mg/dL (70-110)
--- NOTE | 2019-12-19 12:57 | PCM.PN.HOSP ---
Patient Problems: Active and Suspected Problems (Last Reviewed 12/16/19 @ 02:[address] Kenneth Contreras MD) Hyperglycemia (Acute) Abscess (Acute) Objective: Vital signs are stable. Heart rate 105/min. Blood pressure is stable. Patient had increase in creatinine and BUN. Patient has been voiding urine good and denies any decrease in urine output. Started on IV fluid normal saline. Physical exam General: Alert, Oriented x3, Cooperative HEENT: Atraumatic, PERRLA, EOMI, Normocephalic Oral: No Gingival or Mucosal Lesions/ Ulcerations Neck: Supple, No JVD, Negative Carotid Bruits Lungs: Air entry diminished in bilateral lung bases secondary to obesity. No crepitation/rhonchi Cardiovascular: Regular rate, Regular Rhythm, Normal S1, Normal S2, No murmurs Abdomen: Bowel Sounds Present, Soft, Non Tender, Non-Distended : No renal angle tenderness. No suprapubic tenderness. Extremities: No edema, Capillary Refill Less than 3 Seconds Skin: Surgical excision and drainage of hidradenitis abscesses in groin and left axilla. Wound VAC in right and left groin placed. Musculoskeletal: No Tenderness to Palpation of Joints or Extremities Neurological: Cranial nerves II-XII grossly intact, Deep Tendon Reflexes 2+/4 and Symmetrical, Neuro grossly intact Psych/Mental Status: Normal Affect, Appropriate. Vitals/I&O's: Vital Signs Temp Pulse Resp BP Pulse Ox 97.7 F L 104 H 18 113/73 97 12/19/19 10:58 12/19/19 10:58 12/19/19 10:58 12/19/19 10:58 12/19/19 10:58 Oxygen Delivery Method Room Air Weight: 320 lb Body Mass Index (BMI) 45.9 Intake and Output for Last 24 Hours 12/17/19 12/18/19 12/19/19 23:59 23:59 23:59 Intake Total 2181.75 / 2681.75 2781 / 2781 700 / 700 Balance 2181.75 / 2681.75 2781 / 2781 700 / 700 Microbiology Past 72 Hours 12/17/19 16:17 Tissue - Groin Gram Stain - Final 12/17/19 16:17 Tissue - Groin Wound Culture - Preliminary Staphylococcus aureus Streptococcus group B 12/17/19 16:17 Tissue - Groin Gram Stain - Final 12/17/19 16:17 Tissue - Groin Wound Culture - Preliminary Meth. resistant Staph. aureus Streptococcus group B 12/15/19 20:15 Blood Culture (Wb) - Left Forearm Blood Culture - Preliminary No growth in 48 hours. 12/15/19 19:50 Blood Culture (Wb) - Anticubital Right Blood Culture - Preliminary No growth in 48 hours. Laboratory Results 12/18/19 15:09: POC Glucose 93 12/18/19 21:20: Vancomycin Trough 48.2 H 12/18/19 21:20: Sodium 140, Potassium 3.6, Chloride 113 H, Carbon Dioxide 20.0 L, Anion Gap 7, BUN 22 H, Creatinine 2.19 H, Estim Creat Clear Calc 37.30, Est GFR (MDRD) Af Amer 32 L, Est GFR (MDRD) Non-Af 27 L, BUN/Creatinine Ratio 10.0, Glucose 130 H, Calcium 8.3 L 12/18/19 21:41: POC Glucose 107 12/19/19 06:36: POC Glucose 180 H 12/19/19 08:04: WBC 7.3, RBC 3.79 L, Hgb 10.8 L, Hct 33.1 L, MCV 87.3, MCH 28.5, MCHC 32.6, RDW Std Deviation 42.1, RDW Coeff of June 13.2, Plt Count 274, MPV 9.5 12/19/19 08:04: Sodium 137, Potassium 3.6, Chloride 110 H, Carbon Dioxide 19.0 L, Anion Gap 8, BUN 22 H, Creatinine 2.41 H, Estim Creat Clear Calc 33.89, Est GFR (MDRD) Af Amer 29 L, Est GFR (MDRD) Non-Af 24 L, BUN/Creatinine Ratio 9.1 L, Glucose 187 H, Calcium 8.1 L 12/19/19 11:17: POC Glucose 159 H Current Medications Acetaminophen (Tylenol) 650 mg PO Q6H PRN PRN PRN Reason: Pain Score 1-10/Temp > 100.7 F Last Admin: 12/17/19 20:31 Dose: 650 mg Documented by: Albuterol Sulfate (Ventolin Aerosols) 2.5 mg INHALATION Q2H PRN PRN PRN Reason: Shortness of Breath/Wheezing Alprazolam (Xanax) 1 mg PO TID PRN PRN PRN Reason: panic attacks Aripiprazole (Abilify) 10 mg PO DAILY [facility] Last Admin: 12/19/19 09:11 Dose: 10 mg Documented by: Bupropion HCl (Wellbutrin Xl) 150 mg PO DAILY [facility] Last Admin: 12/19/19 09:14 Dose: 150 mg Documented by: Buspirone HCl (Buspar) 30 mg PO DAILY [facility] Last Admin: 12/19/19 09:13 Dose: 30 mg Documented by: Dextrose (D50w Syringe) 0 gm IV X1 PRN; Protocol PRN Reason: Hypoglycemia Enoxaparin Sodium (Lovenox) 40 mg SC BID [facility] Last Admin: 12/19/19 09:13 Dose: 40 mg Documented by: Glucagon () 1 mg IM .X1 PRN PRN Reason: Hypoglycemia Hydromorphone HCl (Dilaudid Inj) 1 mg IV Q3H PRN PRN PRN Reason: Pain Score 6-10/10 Sodium Chloride () 250 mls @ 15 mls/hr IV .[id number] PRN PRN Reason: Saline Flush Last Infusion: 12/18/19 11:29 Dose: Infused Documented by: Sodium Chloride () 250 mls @ 15 mls/hr IV .[id number] PRN PRN Reason: Additional IVPB Infusion Sodium Chloride () 1,000 mls @ 100 mls/hr IV .Q10H [facility] Last Admin: 12/19/19 11:17 Dose: 100 mls/hr Documented by: Insulin Glargine (Lantus (Bkc)) 70 units SC 1100 [facility] Last Admin: 12/18/19 12:15 Dose: Not Given Documented by: Insulin Glargine (Lantus (Bkc)) 50 units SC QHS [facility] Last Admin: 12/18/19 21:44 Dose: Not Given Documented by: Insulin Human Lispro (Humalog Kwikpen (Bk)) 0 unit SC ACHS [facility]; Protocol Last Admin: 12/19/19 09:07 Dose: 1 u Documented by: Insulin Human Lispro (Humalog Kwikpen (Bkc)) 40 unit SC TIDAC [facility] Last Admin: 12/19/19 09:08 Dose: 40 u Documented by: Labetalol HCl (Trandate) 10 mg IV Q4H PRN PRN PRN Reason: SBP > 160 OR DBP > 120 Lactobacillus Acidophilus (Acidophilus) 1 tablet PO TID [facility] Last Admin: 12/19/19 06:41 Dose: 1 tablet Documented by: Levothyroxine Sodium (Synthroid) 25 mcg PO DAILY@0600 [facility] Last Admin: 12/19/19 06:41 Dose: 25 mcg Documented by: Lisinopril (Zestril) 20 mg PO DAILY [facility] Last Admin: 12/19/19 09:14 Dose: 20 mg Documented by: Loratadine (Claritin) 10 mg PO DAILY [facility] Last Admin: 12/19/19 09:13 Dose: 10 mg Documented by: Ondansetron HCl (Zofran) 4 mg IV Q8H PRN PRN PRN Reason: NAUSEA/VOMITING Last Admin: 12/16/19 00:42 Dose: 4 mg Documented by: Oxycodone HCl (Oxyir) 5 mg PO Q4H PRN PRN PRN Reason: Pain Score 4-5/10 Last Admin: 12/16/19 00:42 Dose: 5 mg Documented by: Oxycodone HCl (Oxyir) 10 mg PO Q4H PRN PRN PRN Reason: Pain Score 6-10/10 Last Admin: 12/19/19 00:42 Dose: 10 mg Documented by: Pantoprazole Sodium (Protonix) 40 mg PO DAILY [facility] Last Admin: 12/19/19 09:14 Dose: 40 mg Documented by: [facility] Last Admin: 12/19/19 09:09 Dose: 30 mg Documented by: Senna/Docusate Sodium (Senokot-S, Aida-Colace) 2 tablet PO DAILY PRN PRN PRN Reason: CONSTIPATION Sodium Chloride () 10 - 40 ml IV UD PRN PRN Reason: SALINE FLUSH Last Admin: 12/18/19 21:44 Dose: 10 ml Documented by: Venlafaxine HCl (Effexor Xr) 300 mg PO QHS [facility] Last Admin: 12/18/19 21:37 Dose: 300 mg Documented by: STROKE Vital Signs/Narrative: Vital Signs Temp Pulse Resp BP Pulse Ox 12/19/19 10:58 97.7 F L 104 H 18 113/73 97 Medical Necessity - Tobacco Use Smoking Status: Never smoker Tobacco Use: Non-smoker Assessment/Plan All Active Problems (Last Reviewed 12/16/19 @ 02:[address] Kenneth Contreras MD) Abscess, vulva (Acute) MRSA (methicillin resistant Staphylococcus aureus) infection (Acute) Abscess of groin, right (Acute) Abscess of groin, left (Acute) Hyperglycemia (Acute) Abscess (Acute) Vaginal foreign body (Resolved) This 39 female with history of diabetes mellitus and hypertension came to ED with multiple abscesses and fever and systemic symptoms of nausea, vomiting weakness and body aches anorexia. 1. SIRS with sepsis (mild fever, tachycardia, leukocytosis with left shift) secondary to hidradenitis separative, most likely MRSA: Had incision and drainage in ED. Discussed with the wound care nurse. Dr. Arrieta consult. On IV clindamycin. Blood cultures pending. MRSA nasal screen positive. 12/16: Dr. Arrieta consult reviewed and appreciated. In view of persistent MRSA, antibiotic changed from clindamycin to vancomycin. ID consult for further opinion. 12/17: Patient had incision and drainage and excision of diabetic hidradenitis abscesses of bilateral groin/genitocrural crease, partial vulvectomy. Plan is wound dressing and wound VAC application. Patient will need home health and dressing education at home. 12/18: Seen and discussed with ID. Vancomycin discontinued secondary to CLAUDETTE. Vanco trough level 48.2. 2. Acute kidney injury most likely ATN from vancomycin: Vancomycin trough is high. As mentioned above it is discontinued. IV fluid normal saline at 100 mL/h. Monitor intake and output. Monitor kidney function and electrolytes. Discussed with the patient. Actos and lisinopril are held. 3. Diabetes mellitus with hyperglycemia: Accu-Chek before meals and at bedtime. Titrate up the basal and prandial insulin. A1c 12.3. 12/16: Glucose is still elevated 234 and 295. Adjust insulin. 12/17: Glucose control is improved. Adjust insulin further. 12/18: Glucose is controlled. Continue Lantus. 3. Hypertension, uncontrolled: Adjust the antihypertensive medications: Lisinopril changed to hydralazine until kidney function recovers. 4. Morbid obesity, BMI 45.9 kg/m? weight loss, exercise counseling done. 5. History of recurrent vaginal candidiasis, GERD, hypothyroidism, depression and anxiety and asthma: Stable. VTE prophylaxis: On Lovenox 40 mg subcu twice daily. Total time of the visit including total time spent in counseling or coordination of care, (more than 50% of the total time, spent in obtaining medical information from nurses and other ancillary care providers), discussion with technical sales consultant, review of labs and imaging is 30 minutes. Inpatient E&M: [id number] [facility]
--- NOTE | 2019-12-19 13:29 | PCM.PN.SRG ---
Patient Problems: Active and Suspected Problems (Last Reviewed 12/16/19 @ 02:[address] Kenneth Contreras MD) Hyperglycemia (Acute) Abscess (Acute) Subjective: Post of day #2 Patient states she has good pain control. She complains of fatigue. - Physical Exam Vitals/I&O's: Vital Signs Temp Pulse Resp BP Pulse Ox 97.7 F L 104 H 18 113/73 97 12/19/19 10:58 12/19/19 10:58 12/19/19 10:58 12/19/19 10:58 12/19/19 10:58 Oxygen Delivery Method Room Air Weight: 320 lb Body Mass Index (BMI) 45.9 Intake and Output for Last 24 Hours 12/17/19 12/18/19 12/19/19 23:59 23:59 23:59 Intake Total 2181.75 / 2681.75 2781 / 2781 700 / 700 Balance 2181.75 / 2681.75 2781 / 2781 700 / 700 General: Alert, Oriented x3, Cooperative HEENT: Atraumatic Oral: Moist Mucosa Lungs: Normal air movement Cardiovascular: Regular rate Abdomen: Obese Extremities: No edema, Capillary Refill Less than 3 Seconds Skin: Ulcer/ Wound - Bilateral inguinal/vulva wounds are stable. Wound VAC in place. No redness surrounding VAC dressing. Musculoskeletal: No Tenderness to Palpation of Joints or Extremities Neurological: Cranial nerves II-XII grossly intact Psych/Mental Status: Normal Affect, Appropriate Microbiology Past 72 Hours 12/17/19 16:17 Tissue - Groin Gram Stain - Final 12/17/19 16:17 Tissue - Groin Wound Culture - Preliminary Staphylococcus aureus Streptococcus group B 12/17/19 16:17 Tissue - Groin Gram Stain - Final 12/17/19 16:17 Tissue - Groin Wound Culture - Preliminary Meth. resistant Staph. aureus Streptococcus group B 12/15/19 20:15 Blood Culture (Wb) - Left Forearm Blood Culture - Preliminary No growth in 48 hours. 12/15/19 19:50 Blood Culture (Wb) - Anticubital Right Blood Culture - Preliminary No growth in 48 hours. Laboratory Results 12/18/19 15:09: POC Glucose 93 12/18/19 21:20: Vancomycin Trough 48.2 H 12/18/19 21:20: Sodium 140, Potassium 3.6, Chloride 113 H, Carbon Dioxide 20.0 L, Anion Gap 7, BUN 22 H, Creatinine 2.19 H, Estim Creat Clear Calc 37.30, Est GFR (MDRD) Af Amer 32 L, Est GFR (MDRD) Non-Af 27 L, BUN/Creatinine Ratio 10.0, Glucose 130 H, Calcium 8.3 L 12/18/19 21:41: POC Glucose 107 12/19/19 06:36: POC Glucose 180 H 12/19/19 08:04: WBC 7.3, RBC 3.79 L, Hgb 10.8 L, Hct 33.1 L, MCV 87.3, MCH 28.5, MCHC 32.6, RDW Std Deviation 42.1, RDW Coeff of June 13.2, Plt Count 274, MPV 9.5 12/19/19 08:04: Sodium 137, Potassium 3.6, Chloride 110 H, Carbon Dioxide 19.0 L, Anion Gap 8, BUN 22 H, Creatinine 2.41 H, Estim Creat Clear Calc 33.89, Est GFR (MDRD) Af Amer 29 L, Est GFR (MDRD) Non-Af 24 L, BUN/Creatinine Ratio 9.1 L, Glucose 187 H, Calcium 8.1 L 12/19/19 11:17: POC Glucose 159 H Current Medications Acetaminophen (Tylenol) 650 mg PO Q6H PRN PRN PRN Reason: Pain Score 1-10/Temp > 100.7 F Last Admin: 12/17/19 20:31 Dose: 650 mg Documented by: Albuterol Sulfate (Ventolin Aerosols) 2.5 mg INHALATION Q2H PRN PRN PRN Reason: Shortness of Breath/Wheezing Alprazolam (Xanax) 1 mg PO TID PRN PRN PRN Reason: panic attacks Aripiprazole (Abilify) 10 mg PO DAILY [facility] Last Admin: 12/19/19 09:11 Dose: 10 mg Documented by: Bupropion HCl (Wellbutrin Xl) 150 mg PO DAILY [facility] Last Admin: 12/19/19 09:14 Dose: 150 mg Documented by: Buspirone HCl (Buspar) 30 mg PO DAILY [facility] Last Admin: 12/19/19 09:13 Dose: 30 mg Documented by: Dextrose (D50w Syringe) 0 gm IV X1 PRN; Protocol PRN Reason: Hypoglycemia Enoxaparin Sodium (Lovenox) 40 mg SC BID [facility] Last Admin: 12/19/19 09:13 Dose: 40 mg Documented by: Glucagon () 1 mg IM .X1 PRN PRN Reason: Hypoglycemia Hydralazine HCl (Apresoline) 25 mg PO BID [facility] Hydromorphone HCl (Dilaudid Inj) 1 mg IV Q3H PRN PRN PRN Reason: Pain Score 6-10/10 Sodium Chloride () 250 mls @ 15 mls/hr IV .[id number] PRN PRN Reason: Saline Flush Last Infusion: 12/18/19 11:29 Dose: Infused Documented by: Sodium Chloride () 250 mls @ 15 mls/hr IV .[id number] PRN PRN Reason: Additional IVPB Infusion Sodium Chloride () 1,000 mls @ 100 mls/hr IV .Q10H [facility] Last Admin: 12/19/19 11:17 Dose: 100 mls/hr Documented by: Insulin Glargine (Lantus (Bkc)) 70 units SC 1100 [facility] Last Admin: 12/19/19 13:16 Dose: 70 u Documented by: Insulin Glargine (Lantus (Bkc)) 50 units SC QHS [facility] Last Admin: 12/18/19 21:44 Dose: Not Given Documented by: Insulin Human Lispro (Humalog Kwikpen (Bkc)) 0 unit SC ACHS [facility]; Protocol Last Admin: 12/19/19 13:16 Dose: 1 u Documented by: Insulin Human Lispro (Humalog Kwikpen (Bkc)) 40 unit SC TIDAC [facility] Last Admin: 12/19/19 13:16 Dose: 40 u Documented by: Labetalol HCl (Trandate) 10 mg IV Q4H PRN PRN PRN Reason: SBP > 160 OR DBP > 120 Lactobacillus Acidophilus (Acidophilus) 1 tablet PO TID [facility] Last Admin: 12/19/19 13:17 Dose: 1 tablet Documented by: Levothyroxine Sodium (Synthroid) 25 mcg PO DAILY@0600 [facility] Last Admin: 12/19/19 06:41 Dose: 25 mcg Documented by: Loratadine (Claritin) 10 mg PO DAILY [facility] Last Admin: 12/19/19 09:13 Dose: 10 mg Documented by: Ondansetron HCl (Zofran) 4 mg IV Q8H PRN PRN PRN Reason: NAUSEA/VOMITING Last Admin: 12/16/19 00:42 Dose: 4 mg Documented by: Oxycodone HCl (Oxyir) 5 mg PO Q4H PRN PRN PRN Reason: Pain Score 4-5/10 Last Admin: 12/16/19 00:42 Dose: 5 mg Documented by: Oxycodone HCl (Oxyir) 10 mg PO Q4H PRN PRN PRN Reason: Pain Score 6-10/10 Last Admin: 12/19/19 00:42 Dose: 10 mg Documented by: Pantoprazole Sodium (Protonix) 40 mg PO DAILY [facility] Last Admin: 12/19/19 09:14 Dose: 40 mg Documented by: Senna/Docusate Sodium (Senokot-S, Aida-Colace) 2 tablet PO DAILY PRN PRN PRN Reason: CONSTIPATION Sodium Chloride () 10 - 40 ml IV UD PRN PRN Reason: SALINE FLUSH Last Admin: 12/18/19 21:44 Dose: 10 ml Documented by: Venlafaxine HCl (Effexor Xr) 300 mg PO QHS [facility] Last Admin: 12/18/19 21:37 Dose: 300 mg Documented by: Medical Necessity - Tobacco Use Smoking Status: Never smoker Tobacco Use: Non-smoker Assessment/Plan All Active Problems (Last Reviewed 12/16/19 @ 02:[address] Kenneth Contreras MD) Abscess, vulva (Acute) MRSA (methicillin resistant Staphylococcus aureus) infection (Acute) Abscess of groin, right (Acute) Abscess of groin, left (Acute) Hyperglycemia (Acute) Abscess (Acute) Vaginal foreign body (Resolved) Post op day #1 from 1. Surgical preparation bilateral inguinal areas with extension to vulval area involving the mons pubis and genitocrural crease with incision and drainage and excision diabetic hidradenitis abscesses, (216 cm2 on the left and 209 cm2 on the right). 2. Partial vulvectomy including deep subcutaneous tissue involving mons pubis and genitrocrural crease. Pain well controlled. Wound VAC in place to bilateral inguinal wounds at 150 mmHg. Preliminary operative wound cultures to left inguinal/vulval area show Staphylococcus aureus and Streptococcus group B. Right inguinal/vulval show MRSA and Streptococcus Group B. ID has been consulted. Vancomycin discontinue- CLAUDETTE with high trough and elevated BUN/Creatinine Today BUN 22/Creatinine 2.41 Encouraged ambulation. She states she is getting up to bathroom without difficulty. She will go home with a wound VAC. Waiting for approval. She will have home health to assist her with wound VAC changes. After discharge she will follow up at the wound center on 12/30/19.
--- NOTE | 2019-12-19 14:49 | CASEMGMT ---
Addendum entered by Isiah Neal 12/19/19 15:33: [facility] cannot accept patient as they do not have a nurse in our area. -Call to engine manager of [facility] wound center requesting call back to see if patient can go to wound center for vac changes. Kaley VALLE Addendum entered by Isiah Neal 12/19/19 15:15: [facility] cannot accept referral. Kaley VALLE Original Note: CORINNE WHATLEY Note: Received call from [facility] that they cannot staff the patient. Called to >10 agencies and none can accept patient. The last two agencies referrals faxed to are [facility] and [facility] in [place] who are still evaluating. Kaley VALLE
[2019-12-19 16:04] VITALS: BP 143/87; PULSE 105; RESP 18; TEMP 37.1; O2SAT 100
[2019-12-19 16:16] LABS: Bedside Glucose 77 mg/dL (70-110)
[2019-12-19 22:04] VITALS: BP 137/77; PULSE 102; RESP 16; TEMP 36.6; O2SAT 100
[2019-12-19 22:25] LABS: Bedside Glucose 108 mg/dL (70-110)
[2019-12-19 22:26] VITALS: BP 137/77; PULSE 102
[2019-12-19] MEDS: Venlafaxine XR 150 MG Capsule 300 MG PO (22:26)
[2019-12-19] MEDS: hydrALAZINE 25 MG Tablet PO (22:26)
[2019-12-20 04:00] VITALS: BP 116/73; PULSE 101; RESP 16; TEMP 36.6; O2SAT 100
[2019-12-20] MEDS: 0.9% Normal Saline 1,000 ML 100 ML IV ×2 (06:50→17:21)
[2019-12-20] MEDS: Levothyroxine 25 MCG TABLET PO (06:51)
[2019-12-20 06:55] LABS: Bedside Glucose 172 mg/dL (70-110)
[2019-12-20 07:26] LABS: Anion Gap 10 (5-15); BUN 25 mg/dL (7-18); BUN/Creat Ratio 9.6 RATIO (10-20); Calcium,Total 8.3 mg/dL (8.5-10.1); Chloride 113 mmol/L (98-107); Creatinine, Serum 2.61 mg/dL (0.55-1.02); EST Glomerular Filtration Rate 22 mL/min (>60); Est Glom Filt Rate - Afr Amer 26 mL/min (>60); Estimated Creatinine Clearance 31.29 ml/min; Glucose 180 mg/dL (74-106); Potassium 3.7 mmol/L (3.5-5.1); Sodium Level 141 mmol/L (136-145)
--- NOTE | 2019-12-20 08:34 | CASEMGMT ---
RN CM NOTE: Call to Wound Center requesting to speak with manager disaster recovery re: patient coming to wound center for wound vac changes. Message left yesterday, no response yet. Spoke with Charmaine, requested she give manager disaster recovery a message to review case and please contact RN CHACORTA with determination so dc planning could be continued. Kaley BUTTERFIELD RN ACM
[2019-12-20 08:40] VITALS: BP 116/74; PULSE 99; RESP 18; TEMP 36.5; O2SAT 100
[2019-12-20] MEDS: Pantoprazole Sodium 40 MG Tablet PO (08:42)
[2019-12-20] MEDS: ARIPiprazole 10 MG Tablet PO (08:42)
[2019-12-20] MEDS: buPROPion (XL) 150 MG TABLET.XL PO (08:42)
[2019-12-20] MEDS: Enoxaparin 40 MG/0.4 ML Syringe SC ×2 (08:42→21:54)
[2019-12-20] MEDS: Loratadine 10 MG Tablet PO (08:42)
[2019-12-20] MEDS: busPIRone 15 MG TABLET 30 MG PO (08:42)
[2019-12-20 08:43] VITALS: PULSE 99
[2019-12-20] MEDS: Insulin Lispro 100 UNIT/ML INSULN.PEN 40 UNIT SC ×2 (08:44→12:47)
[2019-12-20] MEDS: Insulin Lispro 100 UNIT/ML INSULN.PEN SC (08:44)
[2019-12-20 08:51] LABS: Vancomycin, Random Level 24.2 ug/mL (0.0-15.0)
--- NOTE | 2019-12-20 09:19 | CASEMGMT ---
CORINNE WHATLEY Note: Message received from [facility] [employer] who states they could have patient come in Monday and Fridays. CORINNE WHATLEY spoke with Ira wound nurse and ENGINEERING GROUP MANAGER. Updated and ENGINEERING GROUP MANAGER will speak with Tre re: how best to schedule the patient as she will be seen in the clinic on Mondays by ENGINEERING GROUP MANAGER. Requested CORINNE WHATLEY be updated on schedule for dc planning once decided. Patient is not medically ready for dc today. Kaley BUTTERFIELD RN ACM
--- NOTE | 2019-12-20 09:33 | PHA.PHARE_ITS ---
Consult Pharmacy has been consulted to manage selected antiobiotic: Vancomycin Type of Consult: Follow-up Suspected Infection: Skin/Soft tissue Prior Doses of Antibiotics Received/Current Regimen: Had been on 1500mg iv q8h. Last dose 10.7 due to elevated vancomycin level (trough 48.2). Labs: Sodium 141 mmol/L (136-145) 12/20/19 06:13 Potassium 3.7 mmol/L (3.5-5.1) 12/20/19 06:13 Chloride 113 mmol/L (98-107) H 12/20/19 06:13 Carbon Dioxide 18.0 mmol/L (21.0-32.0) L 12/20/19 06:13 Anion Gap 10 (5-15) 12/20/19 06:13 BUN 25 mg/dL (7-18) H 12/20/19 06:13 Creatinine 2.61 mg/dL (0.55-1.02) H 12/20/19 06:13 Est GFR (MDRD) Af Amer 26 mL/min (>60) L 12/20/19 06:13 Est GFR (MDRD) Non-Af 22 mL/min (>60) L 12/20/19 06:13 BUN/Creatinine Ratio 9.6 RATIO (10-20) L 12/20/19 06:13 Glucose 180 mg/dL (74-106) H 12/20/19 06:13 Vancomycin Trough 48.2 ug/mL (5.0-15.0) H 12/18/19 21:20 Random Vancomycin 24.2 ug/mL (0.0-15.0) H 12/20/19 07:50 Microbiology: Microbiology 12/17/19 16:17 Tissue - Groin Gram Stain - Final 12/17/19 16:17 Tissue - Groin Wound Culture - Final Meth. resistant Staph. aureus Streptococcus agalactiae (B) 12/17/19 16:17 Tissue - Groin Anaerobic Culture - Preliminary Checking for anaerobes, further studies to follow. 12/17/19 16:17 Tissue - Groin Gram Stain - Final 12/17/19 16:17 Tissue - Groin Wound Culture - Final Meth. resistant Staph. aureus Streptococcus agalactiae (B) 12/17/19 16:17 Tissue - Groin Anaerobic Culture - Preliminary Checking for anaerobes, further studies to follow. 12/15/19 20:15 Blood Culture (Wb) - Left Forearm Blood Culture - Preliminary No growth in 48 hours. 12/15/19 19:50 Blood Culture (Wb) - Anticubital Right Blood Culture - Preliminary No growth in 48 hours. Weight used for dosin kg Estimated Creatinine Clearance: ~31ml/min Goal Trough: 15-20 mcg/mL Pharmacy Plan for Drug Dosing: Random level trending down today. Was 24.2. Continuing to hold vanco and get ano ther random level in 24hrs. Pharmacy Service will continue to monitor and adjust dosing as required. Follow-Up Labs: Trough Vancomycin - random 10.10 @0800
[2019-12-20] MEDS: HYDROmorphone 1 MG/ML Syringe IV (10:00)
--- NOTE | 2019-12-20 10:38 | PN.SURG_ITS ---
Patient Problems: Active and Suspected Problems (Last Reviewed 12/16/19 @ 02:[address] Kenneth Contreras MD) Hyperglycemia (Acute) Abscess (Acute) - Physical Exam Vitals/I&O's: Vital Signs Temp Pulse Resp BP Pulse Ox 97.7 F L 99 18 116/74 100 12/20/19 08:40 12/20/19 08:43 12/20/19 08:40 12/20/19 08:40 12/20/19 08:40 Oxygen Delivery Method Room Air Weight: 320 lb Body Mass Index (BMI) 45.9 Intake and Output for Last 24 Hours 12/18/19 12/19/19 12/20/19 23:59 23:59 23:59 Intake Total 2781 / 2781 2550 / 2550 856.67 / 856.67 Balance 2781 / 2781 2550 / 2550 856.67 / 856.67 General: Alert, Oriented x3, Cooperative HEENT: Atraumatic Oral: Moist Mucosa Lungs: Normal air movement Cardiovascular: Regular rate Abdomen: Obese Extremities: Capillary Refill Less than 3 Seconds Skin: Ulcer/ Wound - Bilateral inguinal/vulval wounds stable. Wound VAC dressing in place. No redness surrounding the dressing. Musculoskeletal: No Tenderness to Palpation of Joints or Extremities Neurological: Cranial nerves II-XII grossly intact Psych/Mental Status: Normal Affect, Appropriate Microbiology Past 72 Hours 12/17/19 16:17 Tissue - Groin Gram Stain - Final 12/17/19 16:17 Tissue - Groin Wound Culture - Final Meth. resistant Staph. aureus Streptococcus agalactiae (B) 12/17/19 16:17 Tissue - Groin Anaerobic Culture - Preliminary Checking for anaerobes, further studies to follow. 12/17/19 16:17 Tissue - Groin Gram Stain - Final 12/17/19 16:17 Tissue - Groin Wound Culture - Final Meth. resistant Staph. aureus Streptococcus agalactiae (B) 12/17/19 16:17 Tissue - Groin Anaerobic Culture - Preliminary Checking for anaerobes, further studies to follow. 12/15/19 20:15 Blood Culture (Wb) - Left Forearm Blood Culture - Preliminary No growth in 48 hours. 12/15/19 19:50 Blood Culture (Wb) - Anticubital Right Blood Culture - Preliminary No growth in 48 hours. Laboratory Results 12/19/19 11:17: POC Glucose 159 H 12/19/19 16:08: POC Glucose 77 12/19/19 22:16: POC Glucose 108 12/20/19 06:13: Sodium 141, Potassium 3.7, Chloride 113 H, Carbon Dioxide 18.0 L , Anion Gap 10, BUN 25 H, Creatinine 2.61 H, Estim Creat Clear Calc 31.29, Est GFR (MDRD) Af Amer 26 L, Est GFR (MDRD) Non-Af 22 L, BUN/Creatinine Ratio 9.6 L, Glucose 180 H, Calcium 8.3 L 12/20/19 06:44: POC Glucose 172 H 12/20/19 07:50: Random Vancomycin 24.2 H Current Medications Acetaminophen (Tylenol) 650 mg PO Q6H PRN PRN PRN Reason: Pain Score 1-10/Temp > 100.7 F Last Admin: 12/17/19 20:31 Dose: 650 mg Documented by: Albuterol Sulfate (Ventolin Aerosols) 2.5 mg INHALATION Q2H PRN PRN PRN Reason: Shortness of Breath/Wheezing Alprazolam (Xanax) 1 mg PO TID PRN PRN PRN Reason: panic attacks Aripiprazole (Abilify) 10 mg PO DAILY [facility] Last Admin: 12/20/19 08:42 Dose: 10 mg Documented by: Bupropion HCl (Wellbutrin Xl) 150 mg PO DAILY [facility] Last Admin: 12/20/19 08:42 Dose: 150 mg Documented by: Buspirone HCl (Buspar) 30 mg PO DAILY [facility] Last Admin: 12/20/19 08:42 Dose: 30 mg Documented by: Dextrose (D50w Syringe) 0 gm IV X1 PRN; Protocol PRN Reason: Hypoglycemia Enoxaparin Sodium (Lovenox) 40 mg SC BID [facility] Last Admin: 12/20/19 08:42 Dose: 40 mg Documented by: Glucagon () 1 mg IM .X1 PRN PRN Reason: Hypoglycemia Hydralazine HCl (Apresoline) 25 mg PO BID [facility] Last Admin: 12/20/19 08:43 Dose: Not Given Documented by: Hydromorphone HCl (Dilaudid Inj) 1 mg IV Q3H PRN PRN PRN Reason: Pain Score 6-10/10 Last Admin: 12/20/19 10:00 Dose: 1 mg Documented by: Sodium Chloride () 250 mls @ 15 mls/hr IV .[id number] PRN PRN Reason: Saline Flush Last Infusion: 12/18/19 11:29 Dose: Infused Documented by: Sodium Chloride () 250 mls @ 15 mls/hr IV .[id number] PRN PRN Reason: Additional IVPB Infusion Sodium Chloride () 1,000 mls @ 100 mls/hr IV .Q10H [facility] Last Admin: 12/20/19 06:50 Dose: 100 mls/hr Documented by: Insulin Glargine (Lantus (Bkc)) 70 units SC 1100 [facility] Last Admin: 12/19/19 13:16 Dose: 70 u Documented by: Insulin Glargine (Lantus (Bkc)) 50 units SC QHS [facility] Last Admin: 12/19/19 22:19 Dose: Not Given Documented by: Insulin Human Lispro (Humalog Kwikpen (Bkc)) 0 unit SC ACHS [facility]; Protocol Last Admin: 12/20/19 08:44 Dose: 1 u Documented by: Insulin Human Lispro (Humalog Kwikpen (Bkc)) 40 unit SC TIDAC [facility] Last Admin: 12/20/19 08:44 Dose: 40 u Documented by: Labetalol HCl (Trandate) 10 mg IV Q4H PRN PRN PRN Reason: SBP > 160 OR DBP > 120 Lactobacillus Acidophilus (Acidophilus) 1 tablet PO TID [facility] Last Admin: 12/20/19 06:51 Dose: 1 tablet Documented by: Levothyroxine Sodium (Synthroid) 25 mcg PO DAILY@0600 [facility] Last Admin: 12/20/19 06:51 Dose: 25 mcg Documented by: Loratadine (Claritin) 10 mg PO DAILY [facility] Last Admin: 12/20/19 08:42 Dose: 10 mg Documented by: Ondansetron HCl (Zofran) 4 mg IV Q8H PRN PRN PRN Reason: NAUSEA/VOMITING Last Admin: 12/16/19 00:42 Dose: 4 mg Documented by: Oxycodone HCl (Oxyir) 5 mg PO Q4H PRN PRN PRN Reason: Pain Score 4-5/10 Last Admin: 12/16/19 00:42 Dose: 5 mg Documented by: Oxycodone HCl (Oxyir) 10 mg PO Q4H PRN PRN PRN Reason: Pain Score 6-10/10 Last Admin: 12/19/19 00:42 Dose: 10 mg Documented by: Pantoprazole Sodium (Protonix) 40 mg PO DAILY [facility] Last Admin: 12/20/19 08:42 Dose: 40 mg Documented by: Senna/Docusate Sodium (Senokot-S, Aida-Colace) 2 tablet PO DAILY PRN PRN PRN Reason: CONSTIPATION Sodium Chloride () 10 - 40 ml IV UD PRN PRN Reason: SALINE FLUSH Last Admin: 12/18/19 21:44 Dose: 10 ml Documented by: Venlafaxine HCl (Effexor Xr) 300 mg PO QHS [facility] Last Admin: 12/19/19 22:26 Dose: 300 mg Documented by: Medical Necessity - Tobacco Use Smoking Status: Never smoker Tobacco Use: Non-smoker Assessment/Plan All Active Problems (Last Reviewed 12/16/19 @ 02:[address] Kenneth Contreras MD) Abscess, vulva (Acute) MRSA (methicillin resistant Staphylococcus aureus) infection (Acute) Abscess of groin, right (Acute) Abscess of groin, left (Acute) Hyperglycemia (Acute) Abscess (Acute) Vaginal foreign body (Resolved) Post op day #1 from 1. Surgical preparation bilateral inguinal areas with extension to vulval area involving the mons pubis and genitocrural crease with incision and drainage and excision diabetic hidradenitis abscesses, (216 cm2 on the left and 209 cm2 on the right). 2. Partial vulvectomy including deep subcutaneous tissue involving mons pubis and genitrocrural crease. Pain well controlled. Wound VAC in place to bilateral inguinal wounds at 150 mmHg. VAC dressing to be changed later today. Operative wound cultures to left and right inguinal/vulval areas are both positive for MRSA and Streptococcus group agalactiae (B). ID has been consulted. Vancomycin discontinued due to CLAUDETTE with high trough and elevated BUN/Creatinine Today random Vancomycin level 24.2 and BUN 25/Creatinine 2.61 which medicine and ID are managing. Encouraged ambulation. She states she is getting up to bathroom without d ifficulty. She will go home with a wound VAC. Waiting for home health approval. If unable to find a home health agency and she is discharged over the weekend, then she will go to the wound center next week on Monday and Monday for wound VAC changes. After discharge she will follow up with Dr. Arrieta at the wound center on 12/30/19 .
--- NOTE | 2019-12-20 10:42 | CASEMGMT ---
Addendum entered by Isiah Neal 12/20/19 14:19: Wound Center appointments are arranged for 12/24/19 and Monday12/27/19 at 2 pm for nurse visits for vac dressing changes, and Monday12/30/19 @ [address] Arrieta. Appointments placed in worklist and printed copy given to patient. Addendum entered by Isiah Neal 12/20/19 13:36: Call to Charmaine @ Wound Clinic. Monday appointment is not set up yet. CORINNE WHATLEY let patient know of dc plan for Monday wound vac change. Patient knows where wound center is, and will contact them on monday if appointment time has not been called to her by then. DC PLAN: Discharge Home with f/u on Monday @ [facility] for wound vac dressing changes. Kaley VALLE Original Note: CORINNE WHATLEY Note: Per Tiffanie Barnes NP, the [facility] wound center will be able to take patient for wound vac changes on Monday and Monday next week, then will see FEDERAL LAW CLERK the following Monday and remainder of schedule will be figured out. Updated patient and nursing. Kaley VALLE
[2019-12-20 11:30] LABS: Bedside Glucose 148 mg/dL (70-110)
[2019-12-20] MEDS: Clindamycin HCl 150 MG Capsule 450 MG PO ×2 (13:50→21:51)
--- NOTE | 2019-12-20 14:03 | PN_ITS ---
Patient Problems: Active and Suspected Problems (Last Reviewed 12/16/19 @ 02:[address] Kenneth Contreras MD) Hyperglycemia (Acute) Abscess (Acute) Reason for Visit: Follow-up for acute kidney injury and MRSA hidradenitis abscesses Objective: Patient heart rate and blood pressure control. Urine output is good about 3-4 times daily. Vancomycin trough has come down. Physical exam General: Alert, Oriented x3, Cooperative HEENT: Atraumatic, PERRLA, EOMI, Normocephalic Oral: No Gingival or Mucosal Lesions/ Ulcerations Neck: Supple, No JVD, Negative Carotid Bruits Lungs: Air entry diminished in bilateral lung bases secondary to obesity. No crepitation/rhonchi Cardiovascular: Regular rate, Regular Rhythm, Normal S1, Normal S2, No murmurs Abdomen: Bowel Sounds Present, Soft, Non Tender, Non-Distended : No renal angle tenderness. No suprapubic tenderness. Extremities: No edema, Capillary Refill Less than 3 Seconds Skin: Surgical excision and drainage of hidradenitis abscesses in groin and left axilla. Wound VAC in right and left groin placed. Musculoskeletal: No Tenderness to Palpation of Joints or Extremities Neurological: Cranial nerves II-XII grossly intact, Deep Tendon Reflexes 2+/4 and Symmetrical, Neuro grossly intact Psych/Mental Status: Normal Affect, Appropriate. Vitals/I&O's: Vital Signs Temp Pulse Resp BP Pulse Ox 97.7 F L 99 18 116/74 100 12/20/19 08:40 12/20/19 08:43 12/20/19 08:40 12/20/19 08:40 12/20/19 08:40 Oxygen Delivery Method Room Air Weight: 320 lb Body Mass Index (BMI) 45.9 Intake and Output for Last 24 Hours 12/18/19 12/19/19 12/20/19 23:59 23:59 23:59 Intake Total 2781 / 2781 2550 / 2550 1216.67 / 1216.67 Balance 2781 / 2781 2550 / 2550 1216.67 / 1216.67 Microbiology Past 72 Hours 12/17/19 16:17 Tissue - Groin Gram Stain - Final 12/17/19 16:17 Tissue - Groin Wound Culture - Final Meth. resistant Staph. aureus Streptococcus agalactiae (B) 12/17/19 16:17 Tissue - Groin Anaerobic Culture - Preliminary Checking for anaerobes, further studies to follow. 12/17/19 16:17 Tissue - Groin Gram Stain - Final 12/17/19 16:17 Tissue - Groin Wound Culture - Final Meth. resistant Staph. aureus Streptococcus agalactiae (B) 12/17/19 16:17 Tissue - Groin Anaerobic Culture - Preliminary Checking for anaerobes, further studies to follow. 12/15/19 20:15 Blood Culture (Wb) - Left Forearm Blood Culture - Preliminary No growth in 48 hours. 12/15/19 19:50 Blood Culture (Wb) - Anticubital Right Blood Culture - Preliminary No growth in 48 hours. Laboratory Results 12/19/19 16:08: POC Glucose 77 12/19/19 22:16: POC Glucose 108 12/20/19 06:13: Sodium 141, Potassium 3.7, Chloride 113 H, Carbon Dioxide 18.0 L , Anion Gap 10, BUN 25 H, Creatinine 2.61 H, Estim Creat Clear Calc 31.29, Est GFR (MDRD) Af Amer 26 L, Est GFR (MDRD) Non-Af 22 L, BUN/Creatinine Ratio 9.6 L, Glucose 180 H, Calcium 8.3 L 12/20/19 06:44: POC Glucose 172 H 12/20/19 07:50: Random Vancomycin 24.2 H 12/20/19 11:20: POC Glucose 148 H Current Medications Acetaminophen (Tylenol) 650 mg PO Q6H PRN PRN PRN Reason: Pain Score 1-10/Temp > 100.7 F Last Admin: 12/17/19 20:31 Dose: 650 mg Documented by: Albuterol Sulfate (Ventolin Aerosols) 2.5 mg INHALATION Q2H PRN PRN PRN Reason: Shortness of Breath/Wheezing Alprazolam (Xanax) 1 mg PO TID PRN PRN PRN Reason: panic attacks Aripiprazole (Abilify) 10 mg PO DAILY [facility] Last Admin: 12/20/19 08:42 Dose: 10 mg Documented by: Bupropion HCl (Wellbutrin Xl) 150 mg PO DAILY [facility] Last Admin: 12/20/19 08:42 Dose: 150 mg Documented by: Buspirone HCl (Buspar) 30 mg PO DAILY [facility] Last Admin: 12/20/19 08:42 Dose: 30 mg Documented by: Clindamycin HCl (Cleocin) 450 mg PO TID [facility] Last Admin: 12/20/19 13:50 Dose: 450 mg Documented by: Dextrose (D50w Syringe) 0 gm IV X1 PRN; Protocol PRN Reason: Hypoglycemia Enoxaparin Sodium (Lovenox) 40 mg SC BID [facility] Last Admin: 12/20/19 08:42 Dose: 40 mg Documented by: Glucagon () 1 mg IM .X1 PRN PRN Reason: Hypoglycemia Hydralazine HCl (Apresoline) 25 mg PO BID [facility] Last Admin: 12/20/19 08:43 Dose: Not Given Documented by: Hydromorphone HCl (Dilaudid Inj) 1 mg IV Q3H PRN PRN PRN Reason: Pain Score 6-10/10 Last Admin: 12/20/19 10:00 Dose: 1 mg Documented by: Sodium Chloride () 250 mls @ 15 mls/hr IV .[id number] PRN PRN Reason: Saline Flush Last Infusion: 12/18/19 11:29 Dose: Infused Documented by: Sodium Chloride () 250 mls @ 15 mls/hr IV .[id number] PRN PRN Reason: Additional IVPB Infusion Sodium Chloride () 1,000 mls @ 100 mls/hr IV .Q10H [facility] Last Admin: 12/20/19 06:50 Dose: 100 mls/hr Documented by: Insulin Glargine (Lantus (Bkc)) 70 units SC 1100 [facility] Last Admin: 12/20/19 11:22 Dose: 70 u Documented by: Insulin Glargine (Lantus (Bkc)) 50 units SC QHS [facility] Last Admin: 12/19/19 22:19 Dose: Not Given Documented by: Insulin Human Lispro (Humalog Kwikpen (Bkc)) 0 unit SC ACHS [facility]; Protocol Last Admin: 12/20/19 11:20 Dose: Not Given Documented by: Insulin Human Lispro (Humalog Kwikpen (Bkc)) 40 unit SC TIDAC [facility] Last Admin: 12/20/19 12:47 Dose: 40 u Documented by: Labetalol HCl (Trandate) 10 mg IV Q4H PRN PRN PRN Reason: SBP > 160 OR DBP > 120 Lactobacillus Acidophilus (Acidophilus) 1 tablet PO TID [facility] Last Admin: 12/20/19 12:50 Dose: 1 tablet Documented by: Levothyroxine Sodium (Synthroid) 25 mcg PO DAILY@0600 [facility] Last Admin: 12/20/19 06:51 Dose: 25 mcg Documented by: Loratadine (Claritin) 10 mg PO DAILY [facility] Last Admin: 12/20/19 08:42 Dose: 10 mg Documented by: Ondansetron HCl (Zofran) 4 mg IV Q8H PRN PRN PRN Reason: NAUSEA/VOMITING Last Admin: 12/16/19 00:42 Dose: 4 mg Documented by: Oxycodone HCl (Oxyir) 5 mg PO Q4H PRN PRN PRN Reason: Pain Score 4-5/10 Last Admin: 12/16/19 00:42 Dose: 5 mg Documented by: Oxycodone HCl (Oxyir) 10 mg PO Q4H PRN PRN PRN Reason: Pain Score 6-10/10 Last Admin: 12/19/19 00:42 Dose: 10 mg Documented by: Pantoprazole Sodium (Protonix) 40 mg PO DAILY [facility] Last Admin: 12/20/19 08:42 Dose: 40 mg Documented by: Senna/Docusate Sodium (Senokot-S, Aida-Colace) 2 tablet PO DAILY PRN PRN PRN Reason: CONSTIPATION Sodium Chloride () 10 - 40 ml IV UD PRN PRN Reason: SALINE FLUSH Last Admin: 12/18/19 21:44 Dose: 10 ml Documented by: Venlafaxine HCl (Effexor Xr) 300 mg PO QHS [facility] Last Admin: 12/19/19 22:26 Dose: 300 mg Documented by: Medical Necessity - Tobacco Use Smoking Status: Never smoker Tobacco Use: Non-smoker Assessment/Plan All Active Problems (Last Reviewed 12/16/19 @ 02:[address] Kenneth Contreras MD) Abscess, vulva (Acute) MRSA (methicillin resistant Staphylococcus aureus) infection (Acute) Abscess of groin, right (Acute) Abscess of groin, left (Acute) Hyperglycemia (Acute) Abscess (Acute) Vaginal foreign body (Resolved) This 39 female with history of diabetes mellitus and hypertension came to ED with multiple abscesses and fever and systemic symptoms of nausea, vomiting weakness and body aches anorexia. 1. SIRS with sepsis (mild fever, tachycardia, leukocytosis with left shift) secondary to hidradenitis separative, most likely MRSA: Had incision and drainage in ED. Discussed with the wound care nurse. Dr. Arrieta consult. On IV clindamycin. Blood cultures pending. MRSA nasal screen positive. 12/16: Dr. Arrieta consult reviewed and appreciated. In view of persistent MRSA, antibiotic changed from clindamycin to vancomycin. ID consult for further opinion. 12/17: Patient had incision and drainage and excision of diabetic hidradenitis abscesses of bilateral groin/genitocrural crease, partial vulvectomy. Plan is wound dressing and wound VAC application. Patient will need home health and dressing education at home. 12/18: Seen and discussed with ID. Vancomycin discontinued secondary to CLAUDETTE. Vanco trough level 48.2. 12/19: No fever or chills. Currently vancomycin in blood level is high therefore no need to start another antibiotic now. Repeat Vanco level is 24. 2. Acute kidney injury most likely ATN from vancomycin: Vancomycin trough is high. As mentioned above it is discontinued. IV fluid normal saline at 100 mL/h. Monitor intake and output. Monitor kidney function and electrolytes. Discussed with the patient. Actos and lisinopril are held. Vancomycin was discontinued. 12/19: Discussed with the mems process engineer. UA, urine lites ordered. Post void bladder scan to look for urine retention. Renal ultrasound if creatinine gets worse. 3. Diabetes mellitus with hyperglycemia: Accu-Chek before meals and at bedtime. Titrate up the basal and prandial insulin. A1c 12.3. 12/16: Glucose is still elevated 234 and 295. Adjust insulin. 12/17: Glucose control is improved. Adjust insulin further. 12/18: Glucose is controlled. Continue Lantus. 3. Hypertension, uncontrolled: Adjust the antihypertensive medications: Lisinopril changed to hydralazine until kidney function recovers. 4. Morbid obesity, BMI 45.9 kg/m? weight loss, exercise counseling done. 5. History of recurrent vaginal candidiasis, GERD, hypothyroidism, depression and anxiety and asthma: Stable. VTE prophylaxis: On Lovenox 40 mg subcu twice daily. Total time of the visit including total time spent in counseling or coordination of care, (more than 50% of the total time, spent in obtaining medical information from nurses and other ancillary care providers), discussion with j2ee consultant, review of labs and imaging is 30 minutes. Inpatient E&M: 38944 Subs Hosp L2
--- NOTE | 2019-12-20 14:08 | CON.PCM_ITS ---
Problem List (1) CLAUDETTE (acute kidney injury) Status: Acute Consultation - Renal 12/20/19 PCP/ Referring MD: Requesting physician: [] Primary care physician: Dr. Nahun Martin MD Reason for Consultation:: CLAUDETTE - History of Present Illness History of Present Illness: The patient is a 39 year old F who is admitted to the hospital with complaints of lower abdominal, pelvic area wound. She was found to have hidradenitis and is status post incision and drainage. Nephrology consulted for acute renal failure. No kidney disease at baseline. Creatinine on admission was 0.7. Now up to 2.6. She did receive vancomycin for skin infection. Last vancomycin trough was elevated at 4 0. Denies any urinary complaints. Says urine was on the dark side as of 2 days ago but is better now. Blood pressure is acceptable. - Allergies Allergies: Allergies loracarbef [From Lorabid] Allergy (Verified 12/15/19 19:06) Unknown Pt does not remember reaction since it happened when she was a child. Penicillins Allergy (Verified 12/15/19 19:06) Unknown Pt does not remember reaction since it happened when she was a child. Sulfa (Sulfonamide Antibiotics) Adverse Reaction (Verified 12/15/19 19:06) Upset Stomach - Current Medications Current Medications: Current Medications Acetaminophen (Tylenol) 650 mg PO Q6H PRN PRN PRN Reason: Pain Score 1-10/Temp > 100.7 F Last Admin: 12/17/19 20:31 Dose: 650 mg Documented by: Albuterol Sulfate (Ventolin Aerosols) 2.5 mg INHALATION Q2H PRN PRN PRN Reason: Shortness of Breath/Wheezing Alprazolam (Xanax) 1 mg PO TID PRN PRN PRN Reason: panic attacks Aripiprazole (Abilify) 10 mg PO DAILY [facility] Last Admin: 12/20/19 08:42 Dose: 10 mg Documented by: Bupropion HCl (Wellbutrin Xl) 150 mg PO DAILY [facility] Last Admin: 12/20/19 08:42 Dose: 150 mg Documented by: Buspirone HCl (Buspar) 30 mg PO DAILY [facility] Last Admin: 12/20/19 08:42 Dose: 30 mg Documented by: Clindamycin HCl (Cleocin) 450 mg PO TID [facility] Last Admin: 12/20/19 13:50 Dose: 450 mg Documented by: Dextrose (D50w Syringe) 0 gm IV X1 PRN; Protocol PRN Reason: Hypoglycemia Enoxaparin Sodium (Lovenox) 40 mg SC BID [facility] Last Admin: 12/20/19 08:42 Dose: 40 mg Documented by: Glucagon () 1 mg IM .X1 PRN PRN Reason: Hypoglycemia Hydralazine HCl (Apresoline) 25 mg PO BID [facility] Last Admin: 12/20/19 08:43 Dose: Not Given Documented by: Hydromorphone HCl (Dilaudid Inj) 1 mg IV Q3H PRN PRN PRN Reason: Pain Score 6-10/10 Last Admin: 12/20/19 10:00 Dose: 1 mg Documented by: Sodium Chloride () 250 mls @ 15 mls/hr IV .[id number] PRN PRN Reason: Saline Flush Last Infusion: 12/18/19 11:29 Dose: Infused Documented by: Sodium Chloride () 250 mls @ 15 mls/hr IV .[id number] PRN PRN Reason: Additional IVPB Infusion Sodium Chloride () 1,000 mls @ 100 mls/hr IV .Q10H [facility] Last Admin: 12/20/19 06:50 Dose: 100 mls/hr Documented by: Insulin Glargine (Lantus (Bkc)) 70 units SC 1100 [facility] Last Admin: 12/20/19 11:22 Dose: 70 u Documented by: Insulin Glargine (Lantus (Bkc)) 50 units SC QHS [facility] Last Admin: 12/19/19 22:19 Dose: Not Given Documented by: Insulin Human Lispro (Humalog Kwikpen (Bkc)) 0 unit SC ACHS [facility]; Protocol Last Admin: 12/20/19 11:20 Dose: Not Given Documented by: Insulin Human Lispro (Humalog Kwikpen (Bkc)) 40 unit SC TIDAC [facility] Last Admin: 12/20/19 12:47 Dose: 40 u Documented by: Labetalol HCl (Trandate) 10 mg IV Q4H PRN PRN PRN Reason: SBP > 160 OR DBP > 120 Lactobacillus Acidophilus (Acidophilus) 1 tablet PO TID [facility] Last Admin: 12/20/19 12:50 Dose: 1 tablet Documented by: Levothyroxine Sodium (Synthroid) 25 mcg PO DAILY@0600 [facility] Last Admin: 12/20/19 06:51 Dose: 25 mcg Documented by: Loratadine (Claritin) 10 mg PO DAILY [facility] Last Admin: 12/20/19 08:42 Dose: 10 mg Documented by: Ondansetron HCl (Zofran) 4 mg IV Q8H PRN PRN PRN Reason: NAUSEA/VOMITING Last Admin: 12/16/19 00:42 Dose: 4 mg Documented by: Oxycodone HCl (Oxyir) 5 mg PO Q4H PRN PRN PRN Reason: Pain Score 4-5/10 Last Admin: 12/16/19 00:42 Dose: 5 mg Documented by: Oxycodone HCl (Oxyir) 10 mg PO Q4H PRN PRN PRN Reason: Pain Score 6-10/10 Last Admin: 12/19/19 00:42 Dose: 10 mg Documented by: Pantoprazole Sodium (Protonix) 40 mg PO DAILY [facility] Last Admin: 12/20/19 08:42 Dose: 40 mg Documented by: Senna/Docusate Sodium (Senokot-S, Aida-Colace) 2 tablet PO DAILY PRN PRN PRN Reason: CONSTIPATION Sodium Chloride () 10 - 40 ml IV UD PRN PRN Reason: SALINE FLUSH Last Admin: 12/18/19 21:44 Dose: 10 ml Documented by: Venlafaxine HCl (Effexor Xr) 300 mg PO QHS [facility] Last Admin: 12/19/19 22:26 Dose: 300 mg Documented by: - Past Medical History Past Medical History (Chronic Problems): Chronic Problems (Last Reviewed 12/16/19 @ 02:[address] Kenneth Contreras MD) Vulval hidradenitis suppurativa (Chronic) Hidradenitis suppurativa (Chronic) bilateral inguinal hidradenitis Diabetes (Chronic) Morbid obesity (Chronic) Diabetes mellitus, type II (Chronic) HTN (hypertension) (Chronic) Asthma (Chronic) Anxiety and depression (Chronic) HLD (hyperlipidemia) (Chronic) - Past Surgical History Surgical History: - - Cholecystectomy, tonsillectomy. - Social History Smoking Status: Never smoker - Family History Maternal Family History: Family History (Last Reviewed 12/16/19 @ 02:[address] Kenneth Contreras MD) Other Arthritis Diabetes Heart disease History Items: - - Patient notes a maternal family history of diabetes, hypertension, hyperlipidemia. Paternal Family History: Family History (Last Reviewed 12/16/19 @ 02:[address] Kenneth Contreras MD) Other Arthritis Diabetes Heart disease History Items: Unknown - Patient states she does not know her paternal family history and mother is present and states she does not either. Review of Systems Constitutional: Denies: Chills, Fever, Weight Change HEENT: Denies: Head Aches, Sinus Congestion, Sinus Drainage Cardiovascular: Denies: Chest Pain, Palpitations Respiratory: Denies: Cough, Shortness of breath at rest, Sputum production Gastrointestinal: Denies: Abdominal Pain, Nausea, Vomiting Genitourinary: Denies: Dysuria Musculoskeletal: Denies: Joint Pain, Joint Tenderness Skin: Denies: Rash, Wounds Neurological: Denies: Numbness, Tingling, Focal weakness Psychiatric: Denies: Anxiety, Depression, Homicidal Ideations, Suicidal Ideations Hematologic/ Lymphatic: Denies: Easy Bruising, Easy Bleeding Patient Problems: Active and Suspected Problems (Last Reviewed 12/16/19 @ 02:[address] Kenneth Contreras MD) CLAUDETTE (acute kidney injury) (Acute) Hyperglycemia (Acute) Abscess (Acute) - Physical Exam Vitals/I&O's: Vital Signs Temp Pulse Resp BP Pulse Ox 97.7 F L 99 18 116/74 100 12/20/19 08:40 12/20/19 08:43 12/20/19 08:40 12/20/19 08:40 12/20/19 08:40 Oxygen Delivery Method Room Air Weight: 145.15 kg Body Mass Index (BMI) 45.9 Intake and Output for Last 24 Hours 12/18/19 12/19/19 12/20/19 23:59 23:59 23:59 Intake Total 2781 / 2781 2550 / 2550 1216.67 / 1216.67 Balance 2781 / 2781 2550 / 2550 1216.67 / 1216.67 General: Alert, Oriented x3, Cooperative HEENT: Atraumatic, PERRLA, EOMI, Normocephalic Neck: Supple, No JVD, Negative Carotid Bruits Lungs: Clear to auscultation, Normal air movement Cardiovascular: Regular rate, No murmurs Abdomen: Bowel Sounds Present, Soft, Non Tender Extremities: No edema, Capillary Refill Less than 3 Seconds Skin: No rashes, No breakdown Musculoskeletal: No Tenderness to Palpation of Joints or Extremities Neurological: Cranial nerves II-XII grossly intact Psych/Mental Status: Normal Affect, Appropriate Comment: Lower abdominal wound with wound VAC Microbiology Past 72 Hours 12/17/19 16:17 Tissue - Groin Gram Stain - Final 12/17/19 16:17 Tissue - Groin Wound Culture - Final Meth. resistant Staph. aureus Streptococcus agalactiae (B) 12/17/19 16:17 Tissue - Groin Anaerobic Culture - Preliminary Checking for anaerobes, further studies to follow. 12/17/19 16:17 Tissue - Groin Gram Stain - Final 12/17/19 16:17 Tissue - Groin Wound Culture - Final Meth. resistant Staph. aureus Streptococcus agalactiae (B) 12/17/19 16:17 Tissue - Groin Anaerobic Culture - Preliminary Checking for anaerobes, further studies to follow. 12/15/19 20:15 Blood Culture (Wb) - Left Forearm Blood Culture - Preliminary No growth in 48 hours. 12/15/19 19:50 Blood Culture (Wb) - Anticubital Right Blood Culture - Preliminary No growth in 48 hours. Laboratory Results 12/19/19 16:08: POC Glucose 77 12/19/19 22:16: POC Glucose 108 12/20/19 06:13: Sodium 141, Potassium 3.7, Chloride 113 H, Carbon Dioxide 18.0 L , Anion Gap 10, BUN 25 H, Creatinine 2.61 H, Estim Creat Clear Calc 31.29, Est GFR (MDRD) Af Amer 26 L, Est GFR (MDRD) Non-Af 22 L, BUN/Creatinine Ratio 9.6 L, Glucose 180 H, Calcium 8.3 L 12/20/19 06:44: POC Glucose 172 H 12/20/19 07:50: Random Vancomycin 24.2 H 12/20/19 11:20: POC Glucose 148 H Current Medications Acetaminophen (Tylenol) 650 mg PO Q6H PRN PRN PRN Reason: Pain Score 1-10/Temp > 100.7 F Last Admin: 12/17/19 20:31 Dose: 650 mg Documented by: Albuterol Sulfate (Ventolin Aerosols) 2.5 mg INHALATION Q2H PRN PRN PRN Reason: Shortness of Breath/Wheezing Alprazolam (Xanax) 1 mg PO TID PRN PRN PRN Reason: panic attacks Aripiprazole (Abilify) 10 mg PO DAILY [facility] Last Admin: 12/20/19 08:42 Dose: 10 mg Documented by: Bupropion HCl (Wellbutrin Xl) 150 mg PO DAILY [facility] Last Admin: 12/20/19 08:42 Dose: 150 mg Documented by: Buspirone HCl (Buspar) 30 mg PO DAILY [facility] Last Admin: 12/20/19 08:42 Dose: 30 mg Documented by: Clindamycin HCl (Cleocin) 450 mg PO TID [facility] Last Admin: 12/20/19 13:50 Dose: 450 mg Documented by: Dextrose (D50w Syringe) 0 gm IV X1 PRN; Protocol PRN Reason: Hypoglycemia Enoxaparin Sodium (Lovenox) 40 mg SC BID [facility] Last Admin: 12/20/19 08:42 Dose: 40 mg Documented by: Glucagon () 1 mg IM .X1 PRN PRN Reason: Hypoglycemia Hydralazine HCl (Apresoline) 25 mg PO BID [facility] Last Admin: 12/20/19 08:43 Dose: Not Given Documented by: Hydromorphone HCl (Dilaudid Inj) 1 mg IV Q3H PRN PRN PRN Reason: Pain Score 6-10/10 Last Admin: 12/20/19 10:00 Dose: 1 mg Documented by: Sodium Chloride () 250 mls @ 15 mls/hr IV .[id number] PRN PRN Reason: Saline Flush Last Infusion: 12/18/19 11:29 Dose: Infused Documented by: Sodium Chloride () 250 mls @ 15 mls/hr IV .[id number] PRN PRN Reason: Additional IVPB Infusion Sodium Chloride () 1,000 mls @ 100 mls/hr IV .Q10H [facility] Last Admin: 12/20/19 06:50 Dose: 100 mls/hr Documented by: Insulin Glargine (Lantus (Bkc)) 70 units SC 1100 [facility] Last Admin: 12/20/19 11:22 Dose: 70 u Documented by: Insulin Glargine (Lantus (Bkc)) 50 units SC QHS [facility] Last Admin: 12/19/19 22:19 Dose: Not Given Documented by: Insulin Human Lispro (Humalog Kwikpen (Bkc)) 0 unit SC ACHS [facility]; Protocol Last Admin: 12/20/19 11:20 Dose: Not Given Documented by: Insulin Human Lispro (Humalog Kwikpen (Bkc)) 40 unit SC TIDAC [facility] Last Admin: 12/20/19 12:47 Dose: 40 u Documented by: Labetalol HCl (Trandate) 10 mg IV Q4H PRN PRN PRN Reason: SBP > 160 OR DBP > 120 Lactobacillus Acidophilus (Acidophilus) 1 tablet PO TID [facility] Last Admin: 12/20/19 12:50 Dose: 1 tablet Documented by: Levothyroxine Sodium (Synthroid) 25 mcg PO DAILY@0600 [facility] Last Admin: 12/20/19 06:51 Dose: 25 mcg Documented by: Loratadine (Claritin) 10 mg PO DAILY [facility] Last Admin: 12/20/19 08:42 Dose: 10 mg Documented by: Ondansetron HCl (Zofran) 4 mg IV Q8H PRN PRN PRN Reason: NAUSEA/VOMITING Last Admin: 12/16/19 00:42 Dose: 4 mg Documented by: Oxycodone HCl (Oxyir) 5 mg PO Q4H PRN PRN PRN Reason: Pain Score 4-5/10 Last Admin: 12/16/19 00:42 Dose: 5 mg Documented by: Oxycodone HCl (Oxyir) 10 mg PO Q4H PRN PRN PRN Reason: Pain Score 6-10/10 Last Admin: 12/19/19 00:42 Dose: 10 mg Documented by: Pantoprazole Sodium (Protonix) 40 mg PO DAILY [facility] Last Admin: 12/20/19 08:42 Dose: 40 mg Documented by: Senna/Docusate Sodium (Senokot-S, Aida-Colace) 2 tablet PO DAILY PRN PRN PRN Reason: CONSTIPATION Sodium Chloride () 10 - 40 ml IV UD PRN PRN Reason: SALINE FLUSH Last Admin: 12/18/19 21:44 Dose: 10 ml Documented by: Venlafaxine HCl (Effexor Xr) 300 mg PO QHS [facility] Last Admin: 12/19/19 22:26 Dose: 300 mg Documented by: Assessment/Plan All Active Problems (Last Reviewed 12/16/19 @ 02:[address] Kenneth Contreras MD) CLAUDETTE (acute kidney injury) (Acute) Abscess, vulva (Acute) MRSA (methicillin resistant Staphylococcus aureus) infection (Acute) Abscess of groin, right (Acute) Abscess of groin, left (Acute) Hyperglycemia (Acute) Abscess (Acute) Vaginal foreign body (Resolved) Acute renal failure. Normal creatinine at baseline. Last known creatinine was 0.7 at the time of admission. Increased to 2.6 today. Blood pressure is acceptable. We will check urine analysis, urine electrolytes Vancomycin is on hold We will also check a postvoid bladder scan to make sure there is no retention If creatinine continues to get worse, we will get a formal renal ultrasound If urine sodium is low, add fluids Will follow Thank you
[2019-12-20 14:11] VITALS: BP 116/67; PULSE 98; RESP 18; TEMP 36.6; O2SAT 98
--- NOTE | 2019-12-20 14:37 | PN.ID_ITS ---
Patient Problems: Active and Suspected Problems (Last Reviewed 12/16/19 @ 02:[address] Kenneth Contreras MD) CLAUDETTE (acute kidney injury) (Acute) Hyperglycemia (Acute) Abscess (Acute) Subjective: Feeling ok, no fever, no pain, no n/v/d - Physical Exam Vitals/I&O's: Vital Signs Temp Pulse Resp BP Pulse Ox 97.9 F 98 18 116/67 98 12/20/19 14:11 12/20/19 14:11 12/20/19 14:11 12/20/19 14:11 12/20/19 14:11 Oxygen Delivery Method Room Air Weight: 145.15 kg Body Mass Index (BMI) 45.9 Intake and Output for Last 24 Hours 12/18/19 12/19/19 12/20/19 23:59 23:59 23:59 Intake Total 2781 / 2781 2550 / 2550 1216.67 / 1216.67 Balance 2781 / 2781 2550 / 2550 1216.67 / 1216.67 General: Alert, Cooperative, No apparent distress Lungs: Clear to auscultation, Normal air movement Cardiovascular: Regular rate, Regular Rhythm Abdomen: Soft, Non Tender, Non-Distended Skin: No rashes Microbiology Past 72 Hours 12/17/19 16:17 Tissue - Groin Gram Stain - Final 12/17/19 16:17 Tissue - Groin Wound Culture - Final Meth. resistant Staph. aureus Streptococcus agalactiae (B) 12/17/19 16:17 Tissue - Groin Anaerobic Culture - Preliminary Checking for anaerobes, further studies to follow. 12/17/19 16:17 Tissue - Groin Gram Stain - Final 12/17/19 16:17 Tissue - Groin Wound Culture - Final Meth. resistant Staph. aureus Streptococcus agalactiae (B) 12/17/19 16:17 Tissue - Groin Anaerobic Culture - Preliminary Checking for anaerobes, further studies to follow. 12/15/19 20:15 Blood Culture (Wb) - Left Forearm Blood Culture - Preliminary No growth in 48 hours. 12/15/19 19:50 Blood Culture (Wb) - Anticubital Right Blood Culture - Preliminary No growth in 48 hours. Laboratory Results 12/19/19 16:08: POC Glucose 77 12/19/19 22:16: POC Glucose 108 12/20/19 06:13: Sodium 141, Potassium 3.7, Chloride 113 H, Carbon Dioxide 18.0 L , Anion Gap 10, BUN 25 H, Creatinine 2.61 H, Estim Creat Clear Calc 31.29, Est GFR (MDRD) Af Amer 26 L, Est GFR (MDRD) Non-Af 22 L, BUN/Creatinine Ratio 9.6 L, Glucose 180 H, Calcium 8.3 L 12/20/19 06:44: POC Glucose 172 H 12/20/19 07:50: Random Vancomycin 24.2 H 12/20/19 11:20: POC Glucose 148 H Current Medications Acetaminophen (Tylenol) 650 mg PO Q6H PRN PRN PRN Reason: Pain Score 1-10/Temp > 100.7 F Last Admin: 12/17/19 20:31 Dose: 650 mg Documented by: Albuterol Sulfate (Ventolin Aerosols) 2.5 mg INHALATION Q2H PRN PRN PRN Reason: Shortness of Breath/Wheezing Alprazolam (Xanax) 1 mg PO TID PRN PRN PRN Reason: panic attacks Aripiprazole (Abilify) 10 mg PO DAILY [facility] Last Admin: 12/20/19 08:42 Dose: 10 mg Documented by: Bupropion HCl (Wellbutrin Xl) 150 mg PO DAILY [facility] Last Admin: 12/20/19 08:42 Dose: 150 mg Documented by: Buspirone HCl (Buspar) 30 mg PO DAILY [facility] Last Admin: 12/20/19 08:42 Dose: 30 mg Documented by: Clindamycin HCl (Cleocin) 450 mg PO TID [facility] Last Admin: 12/20/19 13:50 Dose: 450 mg Documented by: Dextrose (D50w Syringe) 0 gm IV X1 PRN; Protocol PRN Reason: Hypoglycemia Enoxaparin Sodium (Lovenox) 40 mg SC BID [facility] Last Admin: 12/20/19 08:42 Dose: 40 mg Documented by: Glucagon () 1 mg IM .X1 PRN PRN Reason: Hypoglycemia Hydralazine HCl (Apresoline) 25 mg PO BID [facility] Last Admin: 12/20/19 08:43 Dose: Not Given Documented by: Hydromorphone HCl (Dilaudid Inj) 1 mg IV Q3H PRN PRN PRN Reason: Pain Score 6-10/10 Last Admin: 12/20/19 10:00 Dose: 1 mg Documented by: Sodium Chloride () 250 mls @ 15 mls/hr IV .[id number] PRN PRN Reason: Saline Flush Last Infusion: 12/18/19 11:29 Dose: Infused Documented by: Sodium Chloride () 250 mls @ 15 mls/hr IV .[id number] PRN PRN Reason: Additional IVPB Infusion Sodium Chloride () 1,000 mls @ 100 mls/hr IV .Q10H [facility] Last Admin: 12/20/19 06:50 Dose: 100 mls/hr Documented by: Insulin Glargine (Lantus (Bkc)) 70 units SC 1100 [facility] Last Admin: 12/20/19 11:22 Dose: 70 u Documented by: Insulin Glargine (Lantus (Bkc)) 50 units SC QHS [facility] Last Admin: 12/19/19 22:19 Dose: Not Given Documented by: Insulin Human Lispro (Humalog Kwikpen (Bkc)) 0 unit SC ACHS [facility]; Protocol Last Admin: 12/20/19 11:20 Dose: Not Given Documented by: Insulin Human Lispro (Humalog Kwikpen (Bkc)) 40 unit SC TIDAC [facility] Last Admin: 12/20/19 12:47 Dose: 40 u Documented by: Labetalol HCl (Trandate) 10 mg IV Q4H PRN PRN PRN Reason: SBP > 160 OR DBP > 120 Lactobacillus Acidophilus (Acidophilus) 1 tablet PO TID [facility] Last Admin: 12/20/19 12:50 Dose: 1 tablet Documented by: Levothyroxine Sodium (Synthroid) 25 mcg PO DAILY@0600 [facility] Last Admin: 12/20/19 06:51 Dose: 25 mcg Documented by: Loratadine (Claritin) 10 mg PO DAILY [facility] Last Admin: 12/20/19 08:42 Dose: 10 mg Documented by: Ondansetron HCl (Zofran) 4 mg IV Q8H PRN PRN PRN Reason: NAUSEA/VOMITING Last Admin: 12/16/19 00:42 Dose: 4 mg Documented by: Oxycodone HCl (Oxyir) 5 mg PO Q4H PRN PRN PRN Reason: Pain Score 4-5/10 Last Admin: 12/16/19 00:42 Dose: 5 mg Documented by: Oxycodone HCl (Oxyir) 10 mg PO Q4H PRN PRN PRN Reason: Pain Score 6-10 Last Admin: 12/19/19 00:42 Dose: 10 mg Documented by: Pantoprazole Sodium (Protonix) 40 mg PO DAILY [facility] Last Admin: 12/20/19 08:42 Dose: 40 mg Documented by: Senna/Docusate Sodium (Senokot-S, Aida-Colace) 2 tablet PO DAILY PRN PRN PRN Reason: CONSTIPATION Sodium Chloride () 10 - 40 ml IV UD PRN PRN Reason: SALINE FLUSH Last Admin: 12/18/19 21:44 Dose: 10 ml Documented by: Venlafaxine HCl (Effexor Xr) 300 mg PO QHS [facility] Last Admin: 12/19/19 22:26 Dose: 300 mg Documented by: Medical Necessity - Tobacco Use Smoking Status: Never smoker Tobacco Use: Non-smoker Route of nutrition/ use of supplements: [] Nutritional Intake: [] IV Site: [] Jules Catheter: [] - Assessment/Plan Antibiotics: [] Assessment/Plan: [] Active and Suspected Problems (Last Reviewed 12/16/19 @ 02:[address] Kenneth Contreras MD) Abscess, vulva (Acute) MRSA (methicillin resistant Staphylococcus aureus) infection (Acute) Abscess of groin, right (Acute) Abscess of groin, left (Acute) Hyperglycemia (Acute) Abscess (Acute) Bilat groin suspected MRSA abscess with hidradenitis and uncontrolled DM - now s/p I&D by Dr. Arrieta 12/17/19. High trough and worsening CLAUDETTE on vanc. Plan will be for discharge home on po clinda now that she has had good source control; wrote rx. For prevention, would benefit from glucose control, weight loss, and would consider long course of doxy. Will follow, d/w case packer
[2019-12-20 17:15] LABS: Bedside Glucose 79 mg/dL (70-110)
[2019-12-20 21:32] VITALS: BP 138/67; PULSE 99; RESP 18; TEMP 36.6; O2SAT 100
[2019-12-20] MEDS: oxyCODONE 5 MG Tablet PO (21:50)
[2019-12-20] MEDS: Venlafaxine XR 150 MG Capsule 300 MG PO (21:50)
[2019-12-20 21:51] VITALS: BP 138/67; PULSE 99
[2019-12-20] MEDS: hydrALAZINE 25 MG Tablet PO (21:51)
[2019-12-20] MEDS: Senna/Docusate Sodium 1 Tablet 2 TABLET PO (21:51)
[2019-12-20 22:01] LABS: Bedside Glucose 65 mg/dL (70-110)
[2019-12-20 22:30] LABS: Bedside Glucose 69 mg/dL (70-110)
[2019-12-20 23:00] LABS: Bacteria 0 SEEN /hpf (None Seen); Mucous, Urine 0 SEEN /hpf (<or=2+); Red Blood Cells-Urine 0 SEEN /hpf (0-5); White Blood Cells 0 SEEN /hpf (0-5)
[2019-12-20 23:02] LABS: Color, Urine Yellow (Yellow); Glucose, Dipstick Normal (Normal); Ketone-Dipstick Negative (Negative); Leukocyte Esterase-Dipstick Negative /ul (Negative); Nitrite-Dipstick Negative (Negative); Occult Blood-Urine Negative /ul (Negative); Protein-Dipstick Negative (Negative); Specific Gravity, Urine 1.015 (1.002-1.030); Urine Bilirubin Dipstick Negative (Negative); Urine Clarity Clear (Clear); Urine Urobilinogen Normal (Normal)
[2019-12-20 23:09] LABS: Squamous Epithelial Cells - UA 0-5 SEEN /hpf (5-10)
[2019-12-20 23:11] LABS: Urine Sodium 65 mmol/L (Not Establ.)
[2019-12-20 23:31] LABS: Bedside Glucose 83 mg/dL (70-110)
[2019-12-21] MEDS: 0.9% Normal Saline 1,000 ML 100 ML IV (03:22)
[2019-12-21 03:25] VITALS: BP 133/79; PULSE 100; RESP 18; TEMP 36.7; O2SAT 100
[2019-12-21] MEDS: Clindamycin HCl 150 MG Capsule 450 MG PO (06:25)
[2019-12-21] MEDS: Levothyroxine 25 MCG TABLET PO (06:26)
[2019-12-21 07:34] LABS: Absolute Lymphocyte Count 1.79 X10^3/uL (0.83-4.51); Absolute Neutrophil Count 5.1 X10^3/uL (2.0-7.7); Basophil# 0.04 X10^3/uL; Basophil% 0.5 % (0-1); Eosinophils% 1.3 % (0-5); Hemoglobin 9.4 g/dL (12.0-15.0); Lymphocyte # 1.79 X10^3/ul (4.0); Lymphocyte % 22.6 % (19-41); Mean Corp Hgb Conc 31.3 g/dL (32-36); Mean Corpuscular Hgb 28.1 pg (27.0-32.0); Mean Corpuscular Volume 89.8 fL (81-99); Mean Platelet Vol. 9.7 fl (6.2-12.0); Monocyte# 0.88 X10^3/uL; Monocyte% 11.1 % (0-10); NRBC Flagged by Analyzer 0 % (0-5); Neutrophil # 5.06 X10^3/uL (2.7-7.7); Platelet Count 252 K/mm3 (150-450); Red Blood Count 3.34 M/mm3 (4.2-5.4); White Blood Count 7.9 K/mm3 (4.4-11.0)
[2019-12-21 07:53] LABS: Anion Gap 7 (5-15); BUN 22 mg/dL (7-18); BUN/Creat Ratio 8.7 RATIO (10-20); Calcium,Total 8.2 mg/dL (8.5-10.1); Chloride 114 mmol/L (98-107); Creatinine, Serum 2.52 mg/dL (0.55-1.02); EST Glomerular Filtration Rate 23 mL/min (>60); Est Glom Filt Rate - Afr Amer 27 mL/min (>60); Estimated Creatinine Clearance 32.41 ml/min; Glucose 140 mg/dL (74-106); Magnesium 1.7 mg/dL (1.6-2.6); Potassium 3.9 mmol/L (3.5-5.1); Sodium Level 141 mmol/L (136-145)
--- NOTE | 2019-12-21 08:30 | PCM.DC ---
- Discharge Diagnoses Current Active Problems: Current Active and Chronic Problems (Last Reviewed 12/16/19 @ 02:[address] Kenneth Contreras MD) CLAUDETTE (acute kidney injury) (Acute) Hyperglycemia (Acute) Abscess (Acute) You will use the following diet at home:: Calorie/Carbohydrate Controlled (specify 1200, 1400, etc), Cardiac Discharge Activity: May Not Drive - for 4 weeks Weight Bearing Status: Weight bearing as tolerated Call your doctor if you observe: Fever of 101 or Higher, Coldness, Increased Pain, Numbness or Tingling, Inability to urinate, Inability to have a bowel movement, Using more than one pad per hour, Shortness of breath, Dizziness, Fainting spells, Swelling in the ankles, Chest pain, Increased palpitations (irregular heartbeat), Calf discomfort Allergies/Adverse Reactions: Allergies loracarbef [From Lorabid] Allergy (Verified 12/15/19 19:06) Unknown Pt does not remember reaction since it happened when she was a child. Penicillins Allergy (Verified 12/15/19 19:06) Unknown Pt does not remember reaction since it happened when she was a child. Sulfa (Sulfonamide Antibiotics) Adverse Reaction (Verified 12/15/19 19:06) Upset Stomach Medications to take at Discharge ALPRAZolam [Xanax] 1 mg PO TID PRN PRN 04/02/18 aripiprazole 10 mg tablet 10 tab PO DAILY 09/16/19 buspirone 30 mg tablet 30 tab PO BID 09/16/19 pantoprazole 40 mg tablet,delayed release 40 tab PO DAILY 09/16/19 venlafaxine 150 mg capsule,extended release 24 hr 300 mg PO QHS 09/16/19 Albuterol Sulfate [Albuterol Sulfate HFA] 2 puff IH PRN PRN 12/15/19 Levothyroxine [Synthroid] 25 mcg PO DAILY 12/15/19 Budesonide/Formoterol Fumarate [Symbicort 160-4.5 Mcg Inhaler] 6 gm IH BID 12/16/19 Bupropion HCl [Bupropion Xl] 300 mg PO DAILY 12/16/19 Insulin Glargine [Lantus SoloStar Pen] 70 units SUBCUT DAILY 12/16/19 Loratadine [Claritin] 10 mg PO DAILY 12/16/19 Tolterodine Tartrate 1 tab PO BID 12/16/19 Clindamycin [Cleocin] 450 mg PO TID #27 cap 12/21/19 Insulin Lispro [Humalog] 40 unit SUBCUT TID #0 12/21/19 Lisinopril 20 mg PO DAILY #0 12/21/19 Oxycodone [Oxyir] 5 mg PO Q6H PRN PRN 3 Days #10 tablet 12/21/19 Pioglitazone [Actos] 30 mg PO DAILY #0 12/21/19 The following prescriptions were given: Clindamycin [Cleocin] 450 mg PO TID #27 cap Transmission Status: Pending to [facility] Oxycodone [Oxyir] 5 mg PO Q6H PRN PRN 3 Days #10 tablet PRN Reason: Pain Score 6-12/20 Transmission Status: Sent to [facility] Primary Care Physician: Nahun Martin Chi, MD [Primary Care Provider] - Please follow up with your Primary Care Physician in: in 1-2 week Test Results: Test results from this visit will be discussed in further detail at your follow-up appointment, if applicable. Please Follow Up With: Jan Rizvi MD When: for CLAUDETTE in 1 week with repeat BMP Please Follow Up With: Clinic,Wound When: Monday and Tuesday 12/26 Please Follow Up With: Dereck Arrieta MD When: Monday
--- NOTE | 2019-12-21 08:30 | PCM.DC.SUM ---
Discharge Date and Diagnosis - Problem List Patient Problems: Active and Suspected Problems (Last Reviewed 12/16/19 @ 02:[address] Kenneth Contreras MD) CLAUDETTE (acute kidney injury) (Acute) Hyperglycemia (Acute) Abscess (Acute) Date of Admission: 12/15/19 Date of Discharge: 12/21/19 - Primary Discharge Diagnosis Acute Problems: Active Problems (Last Reviewed 12/16/19 @ 02:[address] Kenneth Contreras MD) CLAUDETTE (acute kidney injury) (Acute) Hyperglycemia (Acute) Abscess (Acute) - Secondary Discharge Diagnosis Chronic Problems: Chronic Problems (Last Reviewed 12/16/19 @ 02:[address] 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 1. SIRS with sepsis (mild fever, tachycardia, leukocytosis with left shift) secondary to hidradenitis separative, most likely MRSA: Had incision and drainage in ED. Discussed with the wound care nurse. Dr. Arrieta consult. On IV clindamycin. Blood cultures pending. MRSA nasal screen positive. In view of multifocal/multiple abscesses in both groins left axilla, antibiotic changed from clindamycin to vancomycin but patient had vancomycin induced acute kidney injury therefore vancomycin was discontinued. As vancomycin level came down to about 15, patient is discharged on clindamycin. Patient had incision and drainage and excision of diabetic hidradenitis abscesses of bilateral groin/genitocrural crease, partial vulvectomy. The patient had wound VAC applied. 2. Acute kidney injury most likely ATN from vancomycin: Vancomycin trough is high. Supervisor [employer] was consulted. Patient was treated with IV fluid normal saline. UA was negative for proteinuria, ketones, glucose, WBC and RBC. Urine random sodium 65. Discussed with the technical assistance consultant today and advised to follow-up in nephrology clinic next week. Keep holding Actos 5 days and lisinopril for 7 days. 3. Diabetes mellitus with hyperglycemia: Accu-Chek before meals and at bedtime. Titrate up the basal and prandial insulin. A1c 12.3. Glucose was controlled optimally. 3. Hypertension, uncontrolled: Adjust the antihypertensive medications: Lisinopril was changed to hydralazine until kidney function recovers. Pressure is controlled 4. Morbid obesity, BMI 45.9 kg/m? weight loss, exercise counseling done. 5. History of recurrent vaginal candidiasis, GERD, hypothyroidism, depression and anxiety and asthma: Stable. VTE prophylaxis: On Lovenox 40 mg subcu twice daily. Discharge medication reconciliation done. Discharge follow-up instructions completed. Discharge process discussed with the patient and all questions were answered to patient's satisfaction. Home health was not able to be arranged because of mild incisional pain available. Follow-up wound clinic on next Monday and then Monday for wound VAC change. Follow-up with Dr. Arrieta on 12/30/2019. Discharged on clindamycin for 3 more days. Total time spent, exact 35 minutes on discharge meds reconciliation, examination, coordination of care with nurses and ancillary staff, review of imaging and blood test and discussion with the patient on follow-up instructions Patient Problems: Active and Suspected Problems (Last Reviewed 12/16/19 @ 02:[address] Kenneth Contreras MD) CLAUDETTE (acute kidney injury) (Acute) Hyperglycemia (Acute) Abscess (Acute) - Physical Exam Vitals/I&O's: Vital Signs Temp Pulse Resp BP Pulse Ox 98.1 F 100 18 133/79 H 100 12/21/19 03:25 12/21/19 03:25 12/21/19 03:25 12/21/19 03:25 12/21/19 03:25 Oxygen Delivery Method Room Air Weight: 320 lb Body Mass Index (BMI) 45.9 Intake and Output for Last 24 Hours 12/19/19 12/20/19 12/21/19 23:59 23:59 23:59 Intake Total 2550 / 2550 3216.67 / 3216.67 1480 / 1480 Output Total 600 / 600 800 / 800 Balance 2550 / 2550 2616.67 / 2616.67 680 / 680 General: Alert, Oriented x3, Cooperative HEENT: Atraumatic, PERRLA, EOMI, Normocephalic Oral: No Gingival or Mucosal Lesions/ Ulcerations Neck: Supple, No JVD, Negative Carotid Bruits Lungs: Clear to auscultation, No rhonchi, No wheeze, No rales, Diminished Cardiovascular: Regular rate, Regular Rhythm, Normal S1, Normal S2, No murmurs Abdomen: Bowel Sounds Present, Soft, Non Tender, Non-Distended, - - : Urine output is good. Patient had 5-6 times good urine output, clear in color. No suprapubic tenderness. UA shows negative for pyuria or proteinuria. Extremities: No edema, Capillary Refill Less than 3 Seconds Skin: Ulcer/ Wound - Bilateral groin wound VAC with dressing. Left axilla is dry. Musculoskeletal: No Tenderness to Palpation of Joints or Extremities Neurological: Cranial nerves II-XII grossly intact Psych/Mental Status: Normal Affect, Appropriate Microbiology Past 72 Hours 12/17/19 16:17 Tissue - Groin Gram Stain - Final 12/17/19 16:17 Tissue - Groin Wound Culture - Final Meth. resistant Staph. aureus Streptococcus agalactiae (B) 12/17/19 16:17 Tissue - Groin Anaerobic Culture - Preliminary Checking for anaerobes, further studies to follow. 12/17/19 16:17 Tissue - Groin Gram Stain - Final 12/17/19 16:17 Tissue - Groin Wound Culture - Final Meth. resistant Staph. aureus Streptococcus agalactiae (B) 12/17/19 16:17 Tissue - Groin Anaerobic Culture - Preliminary Checking for anaerobes, further studies to follow. 12/15/19 20:15 Blood Culture (Wb) - Left Forearm Blood Culture - Preliminary No growth in 48 hours. 12/15/19 19:50 Blood Culture (Wb) - Anticubital Right Blood Culture - Preliminary No growth in 48 hours. Laboratory Results 12/20/19 07:50: Random Vancomycin 24.2 H 12/20/19 11:20: POC Glucose 148 H 12/20/19 17:07: POC Glucose 79 12/20/19 20:25: Urine Color Yellow, Urine Clarity Clear, Urine pH 5.0, Ur Specific [place] 1.015, Urine Protein Negative, Urine Glucose (UA) Normal, Urine Ketones Negative, Urine Occult Blood Negative, Urine Nitrite Negative, Urine Bilirubin Negative, Urine Urobilinogen Normal, Ur Leukocyte Esterase Negative, Urine RBC 0 SEEN, Urine WBC 0 SEEN, Ur Squamous Epith Cells 0-5 SEEN, Urine Bacteria 0 SEEN, Urine Mucus 0 SEEN 12/20/19 20:25: Ur Random Sodium 65 12/20/19 21:48: POC Glucose 65 L 12/20/19 22:25: POC Glucose 69 L 12/20/19 22:54: POC Glucose 83 12/21/19 06:35: WBC 7.9, RBC 3.34 L, Hgb 9.4 L, Hct 30.0 L, MCV 89.8, MCH 28.1, MCHC 31.3 L, RDW Std Deviation 43.0, RDW Coeff of June 13.0, Plt Count 252, MPV 9.7, Immature Gran % (Auto) 0.500, Neut % (Auto) 64.0, Lymph % (Auto) 22.6, [place] % (Auto) 11.1 H, Eos % (Auto) 1.3, Baso % (Auto) 0.5, Absolute Neuts (auto) 5.1, Absolute Lymphs (auto) 1.79, Nucleated RBC % 0 12/21/19 06:35: Sodium 141, Potassium 3.9, Chloride 114 H, Carbon Dioxide 20.0 L, Anion Gap 7, BUN 22 H, Creatinine 2.52 H, Estim Creat Clear Calc 32.41, Est GFR (MDRD) Af Amer 27 L, Est GFR (MDRD) Non-Af 23 L, BUN/Creatinine Ratio 8.7 L, Glucose 140 H, Calcium 8.2 L, Magnesium 1.7 Current Medications Acetaminophen (Tylenol) 650 mg PO Q6H PRN PRN PRN Reason: Pain Score 1-10/Temp > 100.7 F Last Admin: 12/17/19 20:31 Dose: 650 mg Documented by: Albuterol Sulfate (Ventolin Aerosols) 2.5 mg INHALATION Q2H PRN PRN PRN Reason: Shortness of Breath/Wheezing Alprazolam (Xanax) 1 mg PO TID PRN PRN PRN Reason: panic attacks Aripiprazole (Abilify) 10 mg PO DAILY [facility] Last Admin: 12/20/19 08:42 Dose: 10 mg Documented by: Bupropion HCl (Wellbutrin Xl) 150 mg PO DAILY [facility] Last Admin: 12/20/19 08:42 Dose: 150 mg Documented by: Buspirone HCl (Buspar) 30 mg PO DAILY [facility] Last Admin: 12/20/19 08:42 Dose: 30 mg Documented by: Clindamycin HCl (Cleocin) 450 mg PO TID [facility] Last Admin: 12/21/19 06:25 Dose: 450 mg Documented by: Dextrose (D50w Syringe) 0 gm IV X1 PRN; Protocol PRN Reason: Hypoglycemia Enoxaparin Sodium (Lovenox) 40 mg SC BID [facility] Last Admin: 12/20/19 21:54 Dose: 40 mg Documented by: Glucagon () 1 mg IM .X1 PRN PRN Reason: Hypoglycemia Hydralazine HCl (Apresoline) 25 mg PO BID [facility] Last Admin: 12/20/19 21:51 Dose: 25 mg Documented by: Hydromorphone HCl (Dilaudid Inj) 1 mg IV Q3H PRN PRN PRN Reason: Pain Score 6-10/10 Last Admin: 12/20/19 10:00 Dose: 1 mg Documented by: Sodium Chloride () 250 mls @ 15 mls/hr IV .[id number] PRN PRN Reason: Saline Flush Last Infusion: 12/18/19 11:29 Dose: Infused Documented by: Sodium Chloride () 250 mls @ 15 mls/hr IV .[id number] PRN PRN Reason: Additional IVPB Infusion Sodium Chloride () 1,000 mls @ 100 mls/hr IV .Q10H [facility] Last Admin: 12/21/19 03:22 Dose: 100 mls/hr Documented by: Insulin Glargine (Lantus (Bkc)) 70 units SC 1100 [facility] Last Admin: 12/20/19 11:22 Dose: 70 u Documented by: Insulin Glargine (Lantus (Bkc)) 50 units SC QHS [facility] Last Admin: 12/20/19 21:54 Dose: Not Given Documented by: Insulin Human Lispro (Humalog Kwikpen (Bkc)) 0 unit SC ACHS [facility]; Protocol Last Admin: 12/20/19 21:53 Dose: Not Given Documented by: Insulin Human Lispro (Humalog Kwikpen (Bk)) 40 unit SC TIDAC [facility] Last Admin: 12/20/19 19:53 Dose: Not Given Documented by: Labetalol HCl (Trandate) 10 mg IV Q4H PRN PRN PRN Reason: SBP > 160 OR DBP > 120 Lactobacillus Acidophilus (Acidophilus) 1 tablet PO TID [facility] Last Admin: 12/21/19 06:25 Dose: 1 tablet Documented by: Levothyroxine Sodium (Synthroid) 25 mcg PO DAILY@0600 [facility] Last Admin: 12/21/19 06:26 Dose: 25 mcg Documented by: Loratadine (Claritin) 10 mg PO DAILY [facility] Last Admin: 12/20/19 08:42 Dose: 10 mg Documented by: Ondansetron HCl (Zofran) 4 mg IV Q8H PRN PRN PRN Reason: NAUSEA/VOMITING Last Admin: 12/16/19 00:42 Dose: 4 mg Documented by: Oxycodone HCl (Oxyir) 5 mg PO Q4H PRN PRN PRN Reason: Pain Score 4-5/10 Last Admin: 12/20/19 21:50 Dose: 5 mg Documented by: Oxycodone HCl (Oxyir) 10 mg PO Q4H PRN PRN PRN Reason: Pain Score 6-10/10 Last Admin: 12/19/19 00:42 Dose: 10 mg Documented by: Pantoprazole Sodium (Protonix) 40 mg PO DAILY [facility] Last Admin: 12/20/19 08:42 Dose: 40 mg Documented by: Senna/Docusate Sodium (Senokot-S, Aida-Colace) 2 tablet PO DAILY PRN PRN PRN Reason: CONSTIPATION Last Admin: 12/20/19 21:51 Dose: 2 tablet Documented by: Sodium Chloride () 10 - 40 ml IV UD PRN PRN Reason: SALINE FLUSH Last Admin: 12/18/19 21:44 Dose: 10 ml Documented by: Venlafaxine HCl (Effexor Xr) 300 mg PO QHS [facility] Last Admin: 12/20/19 21:50 Dose: 300 mg Documented by: Home Medications: Medications to take at Discharge ALPRAZolam [Xanax] 1 mg PO TID PRN PRN 04/02/18 aripiprazole 10 mg tablet 10 tab PO DAILY 09/16/19 buspirone 30 mg tablet 30 tab PO BID 09/16/19 pantoprazole 40 mg tablet,delayed release 40 tab PO DAILY 09/16/19 venlafaxine 150 mg capsule,extended release 24 hr 300 mg PO QHS 09/16/19 Albuterol Sulfate [Albuterol Sulfate HFA] 2 puff IH PRN PRN 12/15/19 Levothyroxine [Synthroid] 25 mcg PO DAILY 12/15/19 Budesonide/Formoterol Fumarate [Symbicort 160-4.5 Mcg Inhaler] 6 gm IH BID 12/16/19 Bupropion HCl [Bupropion Xl] 300 mg PO DAILY 12/16/19 Insulin Glargine [Lantus SoloStar Pen] 70 units SUBCUT DAILY 12/16/19 Loratadine [Claritin] 10 mg PO DAILY 12/16/19 Tolterodine Tartrate 1 tab PO BID 12/16/19 Clindamycin [Cleocin] 450 mg PO TID #27 cap 12/21/19 Insulin Lispro [Humalog] 40 unit SUBCUT TID #0 12/21/19 Lisinopril 20 mg PO DAILY #0 12/21/19 Oxycodone [Oxyir] 5 mg PO Q6H PRN PRN 3 Days #10 tablet 12/21/19 Pioglitazone [Actos] 30 mg PO DAILY #0 12/21/19 Following Prescriptions Were Given to Patient: Clindamycin [Cleocin] 450 mg PO TID #27 cap Transmission Status: Pending to [facility] Oxycodone [Oxyir] 5 mg PO Q6H PRN PRN 3 Days #10 tablet PRN Reason: Pain Score 6-10/10 Transmission Status: Sent to [facility]30 Primary Care Physician: Nahun Martin Chi, MD [Primary Care Provider] - Please Follow Up With: Clinic,Wound When: Monday and Tuesday 12/26 Please Follow Up With: Dereck Arrieta MD When: Monday Medical Necessity - Tobacco Use Smoking Status: Never smoker Tobacco Use: Non-smoker Meaningful Use Info Meaningful Use Diagnoses (Choose all that apply): None applicable Inpatient E&M: 61570 [facility]
[2019-12-21 08:50] VITALS: BP 170/94; PULSE 103; PULSE 99; RESP 18; TEMP 36.2; O2SAT 100
[2019-12-21] MEDS: hydrALAZINE 25 MG Tablet PO (08:50)
[2019-12-21] MEDS: busPIRone 15 MG TABLET 30 MG PO (08:54)
[2019-12-21] MEDS: Pantoprazole Sodium 40 MG Tablet PO (08:54)
[2019-12-21] MEDS: buPROPion (XL) 150 MG TABLET.XL PO (08:55)
[2019-12-21] MEDS: Loratadine 10 MG Tablet PO (08:55)
[2019-12-21] MEDS: ARIPiprazole 10 MG Tablet PO (08:55)
[2019-12-21] MEDS: Enoxaparin 40 MG/0.4 ML Syringe SC (08:55)
[2019-12-21 09:06] LABS: Bedside Glucose 129 mg/dL (70-110)
[2019-12-21 09:43] LABS: Vancomycin, Random Level 15.8 ug/mL (0.0-15.0)
--- NOTE | 2019-12-23 12:43 | CASEMGMT ---
CORINNE WHATLEY Discharge Follow-up Phone Call: WINDY: Padmaja Strata: 3 Call Date: 12/23/2019 Discharge Date: 12/21/2019 Time of Call: 1240 Admitting Diagnosis: Abscess, CLAUDETTE Discharge follow-up call attempted to pt's cell phone. Non-identifying voicemail received and nondescript message left requesting a return call left. Eugene Dozier RN CM
== END 2019-12-21 12:14 | disposition home or self-care (01) | DRG 710 ==
LOC: ED 21:15 → MS3 21:17
PROVIDERS: Anesthesiology; Internal Medicine Infectious Disease; Internal Medicine Nephrology; Surgery; Admitting Provider Hospitalist; Emergency Provider Emergency Medicine; PCP Family Medicine Geriatric Medicine; Referring Provider Hospitalist; Visit Provider Internal Medicine
PROC: 0UBMXZZ Excision of Vulva, External Approach (ICD-10-PCS; principal; 2019-12-17 13:50)
DX: A41.02 Sepsis due to Methicillin resistant Staphylococcus aureus (principal); L73.2 Hidradenitis suppurativa; A49.02 Methicillin resistant Staphylococcus aureus infection, unspecified site; N17.0 Acute kidney failure with tubular necrosis; T36.8X5A Adverse effect of other systemic antibiotics, initial encounter; E11.65 Type 2 diabetes mellitus with hyperglycemia; I10 Essential (primary) hypertension; Z68.42 Body mass index [BMI] 45.0-49.9, adult; E66.01 Morbid (severe) obesity due to excess calories; K21.9 Gastro-esophageal reflux disease without esophagitis; J45.909 Unspecified asthma, uncomplicated; F31.9 Bipolar disorder, unspecified; F41.9 Anxiety disorder, unspecified; E03.9 Hypothyroidism, unspecified; B37.3 Candidiasis of vulva and vagina; L02.412 Cutaneous abscess of left axilla; L02.214 Cutaneous abscess of groin; Z79.4 Long term (current) use of insulin; E78.5 Hyperlipidemia, unspecified; Z79.899 Other long term (current) drug therapy; I16.0 Hypertensive urgency
CPT/HCPCS: 36415; 71045; 80048; 80053; 80202; 81001; 81025; 82962; 83036; 83605; 83735; 84134; 84300; 85025; 85027; 87015; 87040; 87070; 87075; 87077; 87102; 87116; 87186; 87205; 87206; 87640; 88304; 88305; 93005; 99284; J7030; J7040; J7050; 90686; A4216; J2405

== ENCOUNTER 2020-01-09 13:45 | Outpatient (RCR) | payer MEDICAID, SELFPAY ==
[2019-12-17 10:32] VITALS: BMI 45.9
[2019-12-24 14:58] VITALS: BP 137/74; PULSE 94; RESP 16; TEMP 36.2; BMI 45.9
[2019-12-27 15:13] VITALS: BP 135/79; PULSE 88; RESP 18; TEMP 35.9; BMI 45.9
[2019-12-30 09:15] VITALS: BP 136/78; PULSE 93; RESP 16; TEMP 36.1; BMI 46.6
--- NOTE | 2019-12-30 10:08 | PN.PCM_ITS ---
Type of Wound Date of Service: 12/30/19 Chief Complaint: Open surgical diabetic hidradenitis wounds bilateral inguinal areas with extension to vulval area involving the mons pubis and genitocrural crease. History of Wound: Surgery 12/17/19 - 1. Surgical preparation bilateral inguinal areas with extension to vulval area involving the mons pubis and genitocrural crease with incision and drainage and excision diabetic hidradenitis abscesses, (216 cm2 on the left and 209 cm2 on the right). 2. Partial vulvectomy including deep subcutaneous tissue involving mons pubis and genitrocrural crease. Wound care - VAC. Operative cultures - MRSA and Streptococcus agalactiae. She was treated with Vancomycin in the hospital and had increased Creatinine and the Vancomycin was stopped. She was changed to Clindamycin and has finished them. Prealbumin from 12/17/19 was 9.1. Encourage nutritional feldman pplementation with protein to help the healing process. Today she denies fever. Her appetite is good. Progress of Wound: Improved. - Physical Exam Vital Signs Temp Pulse Resp BP 97.0 F L 93 16 136/78 H 12/30/19 09:15 12/30/19 09:15 12/30/19 09:15 12/30/19 09:15 Wound Measurements and Assessment WC - Nurse 1 - General Ulcer Measurement Start: 12/24/19 09:16 Freq: Status: Active Protocol: Activity Type Activity Date Activity User E-Sign Co-Sign Detail Recorded Client Recorded Date Recorded By Document 12/30/19 09:15 MW [id number] 12/30/19 09:30 MW 12/30/19 09:15 Wound Center Nurse 1 [Ulcer Assessment] #1- R GROIN -Combined with other wound No -Current Size (cm) - Length 20.5 -Current Size (cm) - Width 5.8 -Current Size (cm) - Depth 4.0 -Total Square Cm 118.90 -Date of Last Picture (Recall this 12/30/19 field) -Photo Taken Yes -Epithelialization None Present -Tunneling No -Undermining/Tunneling No -Circular Undermining No -Classification - Thickness Full Thickness with Exposed Support Structure -Exudate Amt Large -Exudate Type Serosanguineous -Wound Margin Distinct, Outline Attached -Granulation Amt Large (67-100%) -Granulation Quality Red -Slough/Fibrin Yes -Necrosis Amt Small (1-33%) -Necrotic Tissue Type Adherent Slough -Structure Exposed N/A -Texture (Aida-wound Skin Appearance) Assessed, Localized Edema ,Scarring -Moisture (Aida-wound Skin Appearance No Abnormality, ) Assessed -Color (Aida-wound Skin Appearance) No Abnormality, Assessed -Temperature (Aida-wound Skin No Abnormality Appearance) (Pt Warm) -Tenderness on Palpation (Aida-wound Yes Skin Appearance) -Ulcer Cleansing SOAP AND WATER -Foul Odor after Cleansing No -Anesthetic Used 4% Lidocaine Solution #2- L GROIN -Combined with other wound No -Current Size (cm) - Length 21.5 -Current Size (cm) - Width 4.8 -Current Size (cm) - Depth 2.4 -Total Square Cm 103.20 -Date of Last Picture (Recall this 12/30/19 field) -Photo Taken Yes -Epithelialization None Present -Tunneling No -Undermining/Tunneling No -Circular Undermining No -Classification - Thickness Full Thickness with Exposed Support Structure -Exudate Amt Large -Exudate Type Serosanguineous -Wound Margin Distinct, Outline Attached -Granulation Amt Large (67-100%) -Granulation Quality Red -Necrosis Amt Small (1-33%) -Necrotic Tissue Type Adherent Slough -Structure Exposed N/A -Texture (Aida-wound Skin Appearance) Assessed, Localized Edema ,Scarring -Moisture (Aida-wound Skin Appearance No Abnormality, ) Assessed -Color (Aida-wound Skin Appearance) No Abnormality, Assessed -Temperature (Aida-wound Skin No Abnormality Appearance) (Pt Warm) -Tenderness on Palpation (Aida-wound No Skin Appearance) -Ulcer Cleansing SOAP AND WATER -Foul Odor after Cleansing No -Anesthetic Used 4% Lidocaine Solution [Edema Assessment] -Lower Limb Edema Present No WC - Nurse 2 - General Ulcer CM Notes Start: 12/24/19 09:16 Freq: Status: Active Protocol: Activity Type Activity Date Activity User E-Sign Co-Sign Detail Recorded Client Recorded Date Recorded By Document 12/30/19 09:45 PAT [id number] 12/30/19 09:47 PAT 12/30/19 09:45 Wound Center Nurse 2 [Procedure/Treatment] #1- R GROIN -Time 09:46 -Correct Patient Yes -Correct Side, Site, Position Yes -Correct Procedure Yes -Procedure Performed Yes -Type of Procedure Debridement -Clinical Debridement Subcutaneous -Tissue Removed Subcutaneous -Post Debridement (cm) - Length 20.5 -Post Debridement (cm) - Width 5.9 -Post Debridement (cm) - Depth 4.0 -Total Square (Post) (cm) 120.95 -Area of Debridement (cm) - Length 20.5 -Area of Debridement (cm) - Width 5.9 -Total Square (Area) (cm) 120.95 -Tunneling No -Undermining/Tunneling No -Circular Undermining No -Wound/Ulcer Outcome Not Healed -Ulcer Cleansing Rinsed/ Irrigated with Saline -Foul Odor after Cleansing No -Bioengineered Tissue No -Bleeding Controlled with Pressure -Offloading No -Debridement - Subq, 1st 20sq cm Yes -Debridement, SubQ, ea addt'l 20sq cm 11 or part thereof #2- L GROIN -Time 09:46 -Correct Patient Yes -Correct Side, Site, Position Yes -Correct Procedure Yes -Procedure Performed Yes -Type of Procedure Debridement -Clinical Debridement Subcutaneous -Tissue Removed Subcutaneous -Post Debridement (cm) - Length 21.5 -Post Debridement (cm) - Width 4.9 -Post Debridement (cm) - Depth 2.5 -Total Square (Post) (cm) 105.35 -Area of Debridement (cm) - Length 21.5 -Area of Debridement (cm) - Width 4.9 -Total Square (Area) (cm) 105.35 -Tunneling No -Undermining/Tunneling No -Circular Undermining No -Wound/Ulcer Outcome Not Healed -Ulcer Cleansing Rinsed/ Irrigated with Saline -Foul Odor after Cleansing No -Bioengineered Tissue No -Bleeding Controlled with Pressure -Offloading No -Treatment Response Procedure Tolerated Well -Debridement - Subq, 1st 20sq cm No [See Physician Procedure note for Specifics] Pain Scale: 0-10 Numeric [Pain] -Is Patient Pain Free? Yes WC - Nurse 3 - General Ulcer D/C NN Start: 12/24/19 09:16 Freq: Status: Active Protocol: Activity Type Activity Date Activity User E-Sign Co-Sign Detail Recorded Client Recorded Date Recorded By Document 12/27/19 15:13 RB [id number] 12/27/19 15:18 RB 12/27/19 15:13 Vital Signs [Temperature Protocol: VS] -Temperature (97.8 F-99.1 F) 96.7 F L -Temperature Source Temporal [Pulse] -Pulse Rate (60-100) 88 -Pulse Location Monitor [Respirations] -Respiratory Rate (12-18) 18 -Respiratory rate source Observation [Blood Pressure] -Blood Pressure (90/60-120/80) 135/79 H -Blood Pressure Mean (mm Hg) 97 -Source Monitor -Position Semi-Fowlers -Blood Pressure Location Left Arm Pain Scale: 0-10 Numeric [Pain] -Is Patient Pain Free? Yes Wound Care Nurse 3 [Wound Dressing] #1- R GROIN -Negative Pressure Wound Therapy Continue -Setting (mmHg) 150 -Negative Pressure is Continuous -NPWT Application Charge ($) NPWT > 50 sq cm (disp) #2- L GROIN -Negative Pressure Wound Therapy Continue -Setting (mmHg) 150 -Negative Pressure is Continuous -NPWT Application Charge ($) NPWT > 50 sq cm (disp) [Post Procedure Tolerated] -Treatment Response Procedure Tolerated Well WC - Visit Discharge [Visit Discharge Information] -Discharge Condition Stable -Ambulatory Status Ambulatory -Transportation Private Auto -Medication Reconcilliation completed No & provided to patient/care provider -Clinical Summary of Care Provided Yes Debridement Note Post-Debridement Measurements/Treatment WC - Nurse 2 - General Ulcer CM Notes Start: 12/24/19 09:16 Freq: Status: Active Protocol: Activity Type Activity Date Activity User E-Sign Co-Sign Detail Recorded Client Recorded Date Recorded By Document 12/30/19 09:45 PAT [id number] 12/30/19 09:47 PAT 12/30/19 09:45 Wound Center Nurse 2 #1- R GROIN -Time 09:46 -Correct Patient Yes -Correct Side, Site, Position Yes -Correct Procedure Yes -Procedure Performed Yes -Type of Procedure Debridement -Clinical Debridement Subcutaneous -Tissue Removed Subcutaneous -Post Debridement (cm) - Length 20.5 -Post Debridement (cm) - Width 5.9 -Post Debridement (cm) - Depth 4.0 -Total Square (Post) (cm) 120.95 -Area of Debridement (cm) - Length 20.5 -Area of Debridement (cm) - Width 5.9 -Total Square (Area) (cm) 120.95 -Tunneling No -Undermining/Tunneling No -Circular Undermining No -Wound/Ulcer Outcome Not Healed -Ulcer Cleansing Rinsed/ Irrigated with Saline -Foul Odor after Cleansing No -Bioengineered Tissue No -Bleeding Controlled with Pressure -Offloading No -Debridement - Subq, 1st 20sq cm Yes -Debridement, SubQ, ea addt'l 20sq cm 11 or part thereof #2- L GROIN -Time 09:46 -Correct Patient Yes -Correct Side, Site, Position Yes -Correct Procedure Yes -Procedure Performed Yes -Type of Procedure Debridement -Clinical Debridement Subcutaneous -Tissue Removed Subcutaneous -Post Debridement (cm) - Length 21.5 -Post Debridement (cm) - Width 4.9 -Post Debridement (cm) - Depth 2.5 -Total Square (Post) (cm) 105.35 -Area of Debridement (cm) - Length 21.5 -Area of Debridement (cm) - Width 4.9 -Total Square (Area) (cm) 105.35 -Tunneling No -Undermining/Tunneling No -Circular Undermining No -Wound/Ulcer Outcome Not Healed -Ulcer Cleansing Rinsed/ Irrigated with Saline -Foul Odor after Cleansing No -Bioengineered Tissue No -Bleeding Controlled with Pressure -Offloading No -Treatment Response Procedure Tolerated Well -Debridement - Subq, 1st 20sq cm No Pain Scale: 0-10 Numeric Is Patient Pain Free? Yes WC - Nurse 3 - General Ulcer D/C NN Start: 12/24/19 09:16 Freq: Status: Active Protocol: Activity Type Activity Date Activity User E-Sign Co-Sign Detail Recorded Client Recorded Date Recorded By Document 12/24/19 14:58 [facility] [id number] 12/24/19 15:02 [facility] Document 12/27/19 15:13 [id number] 12/27/19 15:18 RB 12/24/19 12/27/19 14:58 15:13 Vital Signs Temperature (97.8 F-99.1 F) 97.1 F L 96.7 F L Temperature Source Temporal Temporal Pulse Rate (60-100) 94 88 Pulse Location Monitor Monitor Respiratory Rate (12-18) 16 18 Respiratory rate source Observation Observation Oxygen Delivery Method Room Air Blood Pressure (90/60-120/80) 137/74 H 135/79 H Blood Pressure Mean (mm Hg) 95 97 Source Monitor Monitor Position Sitting Semi-Fowlers Blood Pressure Location Right Forearm Left Arm Pain Scale: 0-10 Numeric Is Patient Pain Free? Yes Yes Wound Care Nurse 3 #1- R GROIN -Ulcer Cleansing SOAPY WATER -Foul Odor after Cleansing No -Negative Pressure Wound Therapy Continue Continue -Setting (mmHg) 150 150 -Negative Pressure is Continuous Continuous -NPWT Application Charge ($) NPWT > 50 sq cm NPWT > 50 sq cm (disp) #2- L GROIN -Ulcer Cleansing SOAPY WATER -Foul Odor after Cleansing No -Negative Pressure Wound Therapy Continue Continue -Setting (mmHg) 150 150 -Negative Pressure is Continuous Continuous -NPWT Application Charge ($) NPWT > 50 sq cm NPWT > 50 sq cm (disp) Treatment Response Procedure Procedure Tolerated Well Tolerated Well WC - Visit Discharge Discharge Condition Stable Stable Ambulatory Status Ambulatory Ambulatory Transportation Private Auto Private Auto Accompanied by MOM Medication Reconcilliation completed & No provided to patient/care provider Clinical Summary of Care Provided Yes Wound debrided: #1 Right inguinal area with extension to vulva. Laterality: Right Wound Grade/Stage: 2. Type of Debridement: Excisional debridement Anesthesia Used: 4% Lidocaine Solution Depth: Down to and including healthy tissue, in the subcutaneous layer Percentage of wound debrided: 100 Instrument Used: 7mm curette Tissue Removed: subcutaneous tissue. Severity: Fat Layer Exposed Amount of bleeding with debridement: Mild Bleeding Controlled with: Pressure Patient tolerated procedure well - Additional Wound Wound debrided: #2 Left inguinal area with extension to vulva. Laterality: Left Wound Grade/Stage: 2. Type of Debridement: Excisional debridement Anesthesia Used: 4% Lidocaine Solution Depth: Down to and including healthy tissue, in the subcutaneous layer Percentage of wound debrided: 100 Instrument Used: 7mm curette Tissue Removed: subcutaneous tissue. Severity: Fat Layer Exposed Amount of bleeding with debridement: Mild Bleeding Controlled with: Pressure Patient tolerated procedure: Patient tolerated procedure well Assessment/Plan Assessment: 1. Diabetic hidradenitis abscess bilateral inguinal areas with extension to vulval area involving the mons pubis and genitocrural crease. 2. Hidradenitis bilateral inguinal areas. 3. Vulval hidradenitis involving the mons pubis and genitocrural crease. 4. Left axillary hidradenitis, stable after I&D. 5. Diabetes mellitus. 6. MRSA. 7. Obesity. 8. Open surgical diabetic hidradenitis wounds bilateral inguinal areas with extension to vulval area involving the mons pubis and genitocrural crease. Plan: Continue VAC twice a week at 150 mmHg continuous suction to be changed at the Wound Center. She has finished the Clindamycin for the MRSA and Streptococcus agalactiae. Prealbumin from 12/17/19 was 9.1. Encourage nutritional supplementation with protein to help the healing process. She has enough pain medication and spasm medication at home at this time. Followup one week. [id number]: [id number] Global Visit - ICD-10 - Z48.89, L02.214, N76.4, S31.103A, S31.104A, S31.40xA, L73.2, E11.9, A49.02, E66.01
[2019-12-30 10:35] VITALS: BP 137/73; PULSE 95
[2020-01-02 16:33] VITALS: BP 135/79; PULSE 103; RESP 16; TEMP 36.6; BMI 46.6
[2020-01-06 11:16] VITALS: BP 132/87; PULSE 106; RESP 20; TEMP 36.3; BMI 46.6
--- NOTE | 2020-01-08 15:13 | PN.PCM_ITS ---
(1) Abscess of groin, left Status: Chronic Code(s): L02.214 - Cutaneous abscess of groin (2) Abscess of groin, right Status: Chronic Code(s): L02.214 - Cutaneous abscess of groin (3) Abscess, vulva Status: Chronic Code(s): N76.4 - Abscess of vulva (4) Non-healing open wound of left groin Status: Acute Code(s): S31.104A - Unspecified open wound of abdominal wall, left lower quadrant without penetration into peritoneal cavity, initial encounter (5) Non-healing open wound of right groin Status: Acute Code(s): S31.103A - Unspecified open wound of abdominal wall, right lower quadrant without penetration into peritoneal cavity, initial encounter (6) Open wound of vulva Status: Acute Code(s): S31.40XA - Unspecified open wound of vagina and vulva, initial encounter (7) Diabetes mellitus, type II Status: Chronic Qualifiers: Diabetes mellitus manager terminal insulin use: with longterm use Diabetes mellitus complication status: with hyperglycemia Qualified Code(s): E11.65 - Type 2 diabetes mellitus with hyperglycemia; Z79.4 - longterm (current) use of insulin Code(s): E11.9 - Type 2 diabetes mellitus without complications (8) Hidradenitis suppurativa Status: Chronic Code(s): L73.2 - Hidradenitis suppurativa Comment: bilateral inguinal hidradenitis (9) Vulval hidradenitis suppurativa Status: Chronic Code(s): L73.2 - Hidradenitis suppurativa Type of Wound Date of Service: 01/06/20 Chief Complaint: Open surgical diabetic hidradenitis wounds bilateral inguinal areas with extension to vulval area involving the mons pubis and genitocrural crease. History of Wound: Surgery 12/17/19 - 1. Surgical preparation bilateral inguinal areas with extension to vulval area involving the mons pubis and genitocrural crease with incision and drainage and excision diabetic hidradenitis abscesses, (216 cm2 on the left and 209 cm2 on the right). 2. Partial vulvectomy including deep subcutaneous tissue involving mons pubis and genitrocrural crease. Wound care - VAC. Operative cultures - MRSA and Streptococcus agalactiae. She was treated with Vancomycin in the hospital and had increased Creatinine and the Vancomycin was stopped. She was changed to Clindamycin and has finished them. Prealbumin from 12/17/19 was 9.1. Encourage nutritional supplementation with protein to help the healing process. Today she denies fever. Her appetite is good. Progress of Wound: Improved. The patient denies any fever, chills, nausea, vomiting, or diarrhea. Denies any increasing pain, redness, swelling, or purulent/malodorous drainage from affected area. - Physical Exam Vital Signs Temp Pulse Resp BP 97.3 F L 106 H 20 H 132/87 H 01/06/20 11:16 01/06/20 11:16 01/06/20 11:16 01/06/20 11:16 General: Alert, Cooperative, No apparent distress HEENT: Atraumatic, Normocephalic Oral: Moist Mucosa Neck: Supple Lungs: Normal air movement Abdomen: Obese Extremities: Capillary Refill Less than 3 Seconds Skin: Ulcer/ Wound - Postsurgical wounds of bilateral groin Wound Measurements and Assessment WC - Nurse 1 - General Ulcer Measurement Start: 12/24/19 09:16 Freq: Status: Active Protocol: Activity Type Activity Date Activity User E-Sign Co-Sign Detail Recorded Client Recorded Date Recorded By Document 01/06/20 11:16 DL [id number] 01/06/20 11:32 DL 01/06/20 11:16 Wound Center Nurse 1 [Ulcer Assessment] #1- R GROIN -Current Size (cm) - Length 16 -Current Size (cm) - Width 4 -Current Size (cm) - Depth 3 -Total Square Cm 64 -Photo Taken No -Exudate Amt Medium -Exudate Type Sanguineous -Wound Margin Distinct, Outline Attached -Granulation Amt Large (67-100%) -Granulation Quality Red -Necrosis Amt None Present (0 %) -Structure Exposed N/A -Texture (Aida-wound Skin Appearance) Scarring -Moisture (Aida-wound Skin Appearance No Abnormality ) -Color (Aida-wound Skin Appearance) No Abnormality -Temperature (Aida-wound Skin No Abnormality Appearance) (Pt Warm) -Tenderness on Palpation (Aida-wound No Skin Appearance) -Ulcer Cleansing Wound Cleanser -Foul Odor after Cleansing No -Anesthetic Used 4% Lidocaine Solution #2- L GROIN -Current Size (cm) - Length 16.5 -Current Size (cm) - Width 5.5 -Current Size (cm) - Depth 3.8 -Total Square Cm 90.75 -Photo Taken No -Exudate Amt Medium -Exudate Type Sanguineous -Wound Margin Distinct, Outline Attached -Granulation Amt Large (67-100%) -Granulation Quality Red -Necrosis Amt None Present (0 %) -Structure Exposed N/A -Texture (Aida-wound Skin Appearance) Scarring -Moisture (Aida-wound Skin Appearance No Abnormality ) -Color (Aida-wound Skin Appearance) No Abnormality -Temperature (Aida-wound Skin No Abnormality Appearance) (Pt Warm) -Tenderness on Palpation (Aida-wound No Skin Appearance) -Ulcer Cleansing Wound Cleanser -Foul Odor after Cleansing No -Anesthetic Used 4% Lidocaine Solution WC - Nurse 2 - General Ulcer CM Notes Start: 12/24/19 09:16 Freq: Status: Active Protocol: Activity Type Activity Date Activity User E-Sign Co-Sign Detail Recorded Client Recorded Date Recorded By Document 01/06/20 11:55 [id number] 01/06/20 12:04 01/06/20 11:55 Wound Center Nurse 2 [Procedure/Treatment] #1- R GROIN -Time 11:58 -Correct Patient Yes -Correct Side, Site, Position Yes -Correct Procedure Yes -Procedure Performed Yes -Type of Procedure Debridement -Clinical Debridement Subcutaneous -Tissue Removed Subcutaneous -Post Debridement (cm) - Length 4.5 -Post Debridement (cm) - Width 21.0 -Post Debridement (cm) - Depth 1.7 -Total Square (Post) (cm) 94.50 -Area of Debridement (cm) - Length 4.5 -Area of Debridement (cm) - Width 21.0 -Total Square (Area) (cm) 94.50 -Tunneling No -Undermining/Tunneling No -Circular Undermining No -Wound/Ulcer Outcome Not Healed -Ulcer Cleansing Rinsed/ Irrigated with Saline -Foul Odor after Cleansing No -Bioengineered Tissue No -Bleeding Controlled with Pressure -Offloading No -Treatment Response Procedure Tolerated Well -Debridement - Subq, 1st 20sq cm No #2- L GROIN -Time 11:55 -Correct Patient Yes -Correct Side, Site, Position Yes -Correct Procedure Yes -Procedure Performed Yes -Type of Procedure Debridement -Clinical Debridement Subcutaneous -Tissue Removed Subcutaneous -Post Debridement (cm) - Length 7.0 -Post Debridement (cm) - Width 21.5 -Post Debridement (cm) - Depth 0.8 -Total Square (Post) (cm) 150.50 -Area of Debridement (cm) - Length 7.0 -Area of Debridement (cm) - Width 21.5 -Total Square (Area) (cm) 150.50 -Tunneling No -Undermining/Tunneling No -Circular Undermining No -Wound/Ulcer Outcome Not Healed -Ulcer Cleansing Rinsed/ Irrigated with Saline -Foul Odor after Cleansing No -Bioengineered Tissue No -Bleeding Controlled with Pressure -Offloading No -Debridement - Subq, 1st 20sq cm Yes -Debridement, SubQ, ea addt'l 20sq cm 12 or part thereof [See Physician Procedure note for Specifics] Pain Scale: 0-10 Numeric [Pain] -Is Patient Pain Free? Yes - Nurse 3 - General Ulcer D/C NN Start: 12/24/19 09:16 Freq: Status: Active Protocol: Activity Type Activity Date Activity User E-Sign Co-Sign Detail Recorded Client Recorded Date Recorded By Document 01/06/20 12:04 [id number] 01/06/20 12:07 01/06/20 12:04 Wound Care Nurse 3 [Wound Dressing] #1- R GROIN -Ulcer Cleansing Rinsed/ Irrigated with Saline -Foul Odor after Cleansing No -Negative Pressure Wound Therapy Continue -Setting (mmHg) 150 -Negative Pressure is Continuous -NPWT Application Charge ($) NPWT > 50 sq cm #2- L GROIN -Ulcer Cleansing Rinsed/ Irrigated with Saline -Foul Odor after Cleansing No -Negative Pressure Wound Therapy Continue -Setting (mmHg) 150 -NPWT Application Charge ($) NPWT > 50 sq cm Pain Scale: 0-10 Numeric [Pain] -Is Patient Pain Free? Yes - Visit Discharge [Visit Discharge Information] -Discharge Condition Stable -Ambulatory Status Ambulatory -Transportation Private Auto -Medication Reconcilliation completed Yes & provided to patient/care provider -Clinical Summary of Care Provided Yes Psych/Mental Status: Normal Affect, Appropriate Debridement Note Post-Debridement Measurements/Treatment TERESE - Nurse 2 - General Ulcer CM Notes Start: 12/24/19 09:16 Freq: Status: Active Protocol: Activity Type Activity Date Activity User E-Sign Co-Sign Detail Recorded Client Recorded Date Recorded By Document 12/30/19 09:45 [id number] 12/30/19 09:47 Document 01/06/20 11:55 [id number] 01/06/20 12:04 12/30/19 01/06/20 09:45 11:55 Wound Center Nurse 2 #1- R GROIN -Time 09:46 11:58 -Correct Patient Yes Yes -Correct Side, Site, Position Yes Yes -Correct Procedure Yes Yes -Procedure Performed Yes Yes -Type of Procedure Debridement Debridement -Clinical Debridement Subcutaneous Subcutaneous -Tissue Removed Subcutaneous Subcutaneous -Post Debridement (cm) - Length 20.5 4.5 -Post Debridement (cm) - Width 5.9 21.0 -Post Debridement (cm) - Depth 4.0 1.7 -Total Square (Post) (cm) 120.95 94.50 -Area of Debridement (cm) - Length 20.5 4.5 -Area of Debridement (cm) - Width 5.9 21.0 -Total Square (Area) (cm) 120.95 94.50 -Tunneling No No -Undermining/Tunneling No No -Circular Undermining No No -Wound/Ulcer Outcome Not Healed Not Healed -Ulcer Cleansing Rinsed/ Rinsed/ Irrigated with Irrigated with Saline Saline -Foul Odor after Cleansing No No -Bioengineered Tissue No No -Bleeding Controlled with Pressure Pressure -Offloading No No -Treatment Response Procedure Tolerated Well -Debridement - Subq, 1st 20sq cm Yes No -Debridement, SubQ, ea addt'l 20sq cm 11 or part thereof #2- L GROIN -Time 09:46 11:55 -Correct Patient Yes Yes -Correct Side, Site, Position Yes Yes -Correct Procedure Yes Yes -Procedure Performed Yes Yes -Type of Procedure Debridement Debridement -Clinical Debridement Subcutaneous Subcutaneous -Tissue Removed Subcutaneous Subcutaneous -Post Debridement (cm) - Length 21.5 7.0 -Post Debridement (cm) - Width 4.9 21.5 -Post Debridement (cm) - Depth 2.5 0.8 -Total Square (Post) (cm) 105.35 150.50 -Area of Debridement (cm) - Length 21.5 7.0 -Area of Debridement (cm) - Width 4.9 21.5 -Total Square (Area) (cm) 105.35 150.50 -Tunneling No No -Undermining/Tunneling No No -Circular Undermining No No -Wound/Ulcer Outcome Not Healed Not Healed -Ulcer Cleansing Rinsed/ Rinsed/ Irrigated with Irrigated with Saline Saline -Foul Odor after Cleansing No No -Bioengineered Tissue No No -Bleeding Controlled with Pressure Pressure -Offloading No No -Treatment Response Procedure Tolerated Well -Debridement - Subq, 1st 20sq cm No Yes -Debridement, SubQ, ea addt'l 20sq cm 12 or part thereof Pain Scale: 0-10 Numeric Is Patient Pain Free? Yes Yes WC - Nurse 3 - General Ulcer D/C NN Start: 12/24/19 09:16 Freq: Status: Active Protocol: Activity Type Activity Date Activity User E-Sign Co-Sign Detail Recorded Client Recorded Date Recorded By Document 12/24/19 14:58 [facility] [id number] 12/24/19 15:02 BM Document 12/27/19 15:13 RB [id number] 12/27/19 15:18 RB Document 12/30/19 10:35 MS [id number] 12/30/19 10:38 MS Document 01/02/20 16:32 BMF [id number] 01/02/20 16:33 BMF Document 01/06/20 12:04 JF [id number] 01/06/20 12:07 JF 12/24/19 12/27/19 12/30/19 14:58 15:13 10:35 Vital Signs Temperature (97.8 F-99.1 F) 97.1 F L 96.7 F L Temperature Source Temporal Temporal Pulse Rate (60-100) 94 88 95 Pulse Location Monitor Monitor Monitor Respiratory Rate (12-18) 16 18 Respiratory rate source Observation Observation Oxygen Delivery Method Room Air Blood Pressure (90/60-120/80) 137/74 H 135/79 H 137/73 H Blood Pressure Mean (mm Hg) 95 97 94 Source Monitor Monitor Monitor Position Sitting Semi-Fowlers Sitting Blood Pressure Location Right Forearm Left Arm Right Arm Pain Scale: 0-10 Numeric Is Patient Pain Free? Yes Yes Yes Wound Care Nurse 3 #1- R GROIN -Ulcer Cleansing SOAPY WATER -Foul Odor after Cleansing No -Negative Pressure Wound Therapy Continue Continue Continue -Setting (mmHg) 150 150 150 -Negative Pressure is Continuous Continuous Continuous -NPWT Application Charge ($) NPWT > 50 sq cm NPWT > 50 sq cm NPWT > 50 sq cm (disp) #2- L GROIN -Ulcer Cleansing SOAPY WATER -Foul Odor after Cleansing No -Negative Pressure Wound Therapy Continue Continue Continue -Setting (mmHg) 150 150 150 -Negative Pressure is Continuous Continuous Continuous -NPWT Application Charge ($) NPWT > 50 sq cm NPWT > 50 sq cm NPWT > 50 sq cm (disp) Treatment Response Procedure Procedure Procedure Tolerated Well Tolerated Well Tolerated Well WC - Visit Discharge Discharge Condition Stable Stable Stable Ambulatory Status Ambulatory Ambulatory Ambulatory Transportation [employer] Accompanied by MOM Medication Reconcilliation completed & No provided to patient/care provider Clinical Summary of Care Provided Yes 01/02/20 01/06/20 16:32 12:04 Vital Signs Temperature (97.8 F-99.1 F) Temperature Source Pulse Rate (60-100) Pulse Location Respiratory Rate (12-18) Respiratory rate source Oxygen Delivery Method Blood Pressure (90/60-120/80) Blood Pressure Mean (mm Hg) Source Position Blood Pressure Location Pain Scale: 0-10 Numeric Is Patient Pain Free? Yes Yes Wound Care Nurse 3 #1- R GROIN -Ulcer Cleansing soapy water Rinsed/ Irrigated with Saline -Foul Odor after Cleansing No No -Negative Pressure Wound Therapy Continue Continue -Setting (mmHg) 150 150 -Negative Pressure is Continuous Continuous -NPWT Application Charge ($) NPWT > 50 sq cm NPWT > 50 sq cm #2- L GROIN -Ulcer Cleansing soapy water Rinsed/ Irrigated with Saline -Foul Odor after Cleansing No No -Negative Pressure Wound Therapy Continue -Setting (mmHg) 150 -Negative Pressure is -NPWT Application Charge ($) NPWT > 50 sq cm NPWT > 50 sq cm Treatment Response Procedure Tolerated Well WC - Visit Discharge Discharge Condition Stable Stable Ambulatory Status Ambulatory Ambulatory Transportation [employer] Accompanied by Medication Reconcilliation completed & Yes provided to patient/care provider Clinical Summary of Care Provided Yes Wound debrided: Right inguinal area with extension to the vulva Laterality: Right Type of Debridement: Excisional debridement Anesthesia Used: 4% Lidocaine Solution Depth: in the subcutaneous layer Percentage of wound debrided: 100 Instrument Used: 7mm curette Tissue Removed: Slough and devitalized tissue Severity: Fat Layer Exposed Amount of bleeding with debridement: Mild Bleeding Controlled with: Pressure Patient tolerated procedure well - Additional Wound Wound debrided: Left inguinal area with extension to vulva Laterality: Left Type of Debridement: Excisional debridement Anesthesia Used: 4% Lidocaine Solution Depth: in the subcutaneous layer Percentage of wound debrided: 100 Instrument Used: 7mm curette Tissue Removed: Slough and devitalized tissue Severity: Fat Layer Exposed Amount of bleeding with debridement: Mild Bleeding Controlled with: Pressure Patient tolerated procedure: Patient tolerated procedure well Assessment/Plan Active Problems (Last Reviewed 12/16/19 @ 02:[address] Kenneth Contreras MD) Open wound of vulva (Acute) Non-healing open wound of left groin (Acute) Non-healing open wound of right groin (Acute) Abscess, vulva (Chronic) Vulval hidradenitis suppurativa (Chronic) Hidradenitis suppurativa (Chronic) bilateral inguinal hidradenitis Abscess of groin, right (Chronic) Abscess of groin, left (Chronic) Diabetes mellitus, type II (Chronic) Assessment: 1. Diabetic hidradenitis abscess bilateral inguinal areas with extension to vulval area involving the mons pubis and genitocrural crease. 2. Hidradenitis bilateral inguinal areas. 3. Vulval hidradenitis involving the mons pubis and genitocrural crease. 4. Left axillary hidradenitis, stable after I&D. 5. Diabetes mellitus. 6. MRSA. 7. Obesity. 8. Open surgical diabetic hidradenitis wounds bilateral inguinal areas with extension to vulval area involving the mons pubis and genitocrural crease. Plan: Continue VAC twice a week at 150 mmHg continuous suction to be changed at the Wound Center. Prior to attending wound center for VAC changes, remove VAC and shower. Wash bilateral groin with antibacterial soap and water, and rinse w ell. She has finished the Clindamycin for the MRSA and Streptococcus agalactiae. Prealbumin from 12/17/19 was 9.1. Encourage nutritional supplementation with protein to help the healing process. She has enough pain medication and spasm medication at home at this time. Followup one week.Follow- up sooner should new or concerning symptoms arise. Note: [facility] speech recognition health information technologist software was used to create portions of this document. Sound-alike and misspelled words, as well as other health information technologist errors may be contained in the documentation. [id number]: [id number] [facility] Visit
[2020-01-09 14:18] VITALS: BP 128/74; PULSE 103; RESP 16; TEMP 36; BMI 46.6
== END 2020-01-11 23:59 ==
LOC: WC 13:45
PROVIDERS: PCP Family Medicine Geriatric Medicine; Referring Provider Surgery; Visit Provider Surgery
DX: L73.2 Hidradenitis suppurativa (principal); L02.214 Cutaneous abscess of groin; N76.4 Abscess of vulva; E11.9 Type 2 diabetes mellitus without complications; Z79.4 Long term (current) use of insulin; Z98.890 Other specified postprocedural states; E66.9 Obesity, unspecified; A49.02 Methicillin resistant Staphylococcus aureus infection, unspecified site
CPT/HCPCS: 11042; 11045; 97606; 97608; 99213; 99214; G0463

== ENCOUNTER → 2020-01-20 13:15 | Outpatient (CLI) | payer MEDICAID, SELFPAY ==
[2020-01-20 09:16] VITALS: BMI 46.6
[2020-01-20 13:55] LABS: Absolute Neutrophil Count 6.6 X10^3/uL (2.0-7.7); Basophil# 0.07 X10^3/uL; Basophil% 0.7 % (0-1); Eosinophil# 0.37 X10^3/uL; Eosinophils% 3.5 % (0-5); Hematocrit 30.2 % (37-47); Hemoglobin 9.8 g/dL (12.0-15.0); Lymphocyte % 25.2 % (19-41); Mean Corp Hgb Conc 32.5 g/dL (32-36); Mean Corpuscular Hgb 28.5 pg (27.0-32.0); Mean Corpuscular Volume 87.8 fL (81-99); Mean Platelet Vol. 9.5 fl (6.2-12.0); Monocyte# 0.89 X10^3/uL; Monocyte% 8.3 % (0-10); NRBC Flagged by Analyzer 0 % (0-5); Neutrophil # 6.64 X10^3/uL (2.7-7.7); Neutrophil % 61.8 % (47-70); Platelet Count 360 K/mm3 (150-450); RBC Distribution Width CV 13.7 % (11.6-14.6); RBC Distribution Width SD 43.4 fl (35.1-43.9); Red Blood Count 3.44 M/mm3 (4.2-5.4); White Blood Count 10.7 K/mm3 (4.4-11.0)
[2020-01-20 14:22] LABS: Vitamin D,25 Hydroxy 34.2 ng/mL
[2020-01-20 14:32] LABS: ALB/GLOB Ratio 0.6 RATIO (0.9-2.4); AST(SGOT) 9 U/L (15-37); Alanine Aminotransfer ALT/SGPT 13 U/L (13-56); Alkaline Phosphatase 118 U/L (45-117); Anion Gap 7 (5-15); BUN 22 mg/dL (7-18); Calcium,Total 8.5 mg/dL (8.5-10.1); Chloride 103 mmol/L (98-107); Creatinine, Serum 1.16 mg/dL (0.55-1.02); EST Glomerular Filtration Rate 55 mL/min (>60); Est Glom Filt Rate - Afr Amer 67 mL/min (>60); Globulin 4.8 g/dL (2.2-4.2); Glucose 142 mg/dL (74-106); Potassium 3.9 mmol/L (3.5-5.1); Protein, Total 7.8 g/dL (6.4-8.2); Sodium Level 136 mmol/L (136-145); Thyroid Stim Hormone (TSH) 4.75 uIU/mL (0.358-3.74)
== END ==
PROVIDERS: PCP Family Medicine Geriatric Medicine; Visit Provider Family Medicine Geriatric Medicine
DX: E11.9 Type 2 diabetes mellitus without complications (principal); E55.9 Vitamin D deficiency, unspecified; I10 Essential (primary) hypertension; T81.89XA Other complications of procedures, not elsewhere classified, initial encounter; S31.104A Unspecified open wound of abdominal wall, left lower quadrant without penetration into peritoneal cavity, initial encounter; S31.103A Unspecified open wound of abdominal wall, right lower quadrant without penetration into peritoneal cavity, initial encounter; S31.40XA Unspecified open wound of vagina and vulva, initial encounter; L73.2 Hidradenitis suppurativa; A49.02 Methicillin resistant Staphylococcus aureus infection, unspecified site
CPT/HCPCS: 11042; 11045; 36415; 80053; 82306; 84443; 85025; 97605

== ENCOUNTER → 2020-01-23 | Outpatient (CLI) | payer MEDICAID, SELFPAY ==
[2020-01-20 09:16] VITALS: BMI 46.6
[2020-01-23 16:48] LABS: Absolute Lymphocyte Count 2.19 X10^3/uL (0.83-4.51); Absolute Neutrophil Count 4.2 X10^3/uL (2.0-7.7); Basophil# 0.08 X10^3/uL; Basophil% 1.1 % (0-1); Eosinophil# 0.42 X10^3/uL; Eosinophils% 5.7 % (0-5); Hematocrit 31.9 % (37-47); Lymphocyte # 2.19 X10^3/ul (4.0); Lymphocyte % 29.5 % (19-41); Mean Corp Hgb Conc 31.3 g/dL (32-36); Mean Corpuscular Hgb 27.5 pg (27.0-32.0); Mean Corpuscular Volume 87.6 fL (81-99); Mean Platelet Vol. 9.4 fl (6.2-12.0); Monocyte# 0.54 X10^3/uL; Monocyte% 7.3 % (0-10); NRBC Flagged by Analyzer 0 % (0-5); Neutrophil # 4.18 X10^3/uL (2.7-7.7); Neutrophil % 56.1 % (47-70); Platelet Count 354 K/mm3 (150-450); RBC Distribution Width CV 13.4 % (11.6-14.6); RBC Distribution Width SD 43.3 fl (35.1-43.9); Red Blood Count 3.64 M/mm3 (4.2-5.4); White Blood Count 7.4 K/mm3 (4.4-11.0)
[2020-01-23 17:22] LABS: Anion Gap 7 (5-15); BUN 23 mg/dL (7-18); BUN/Creat Ratio 20.7 RATIO (10-20); Calcium,Total 9.3 mg/dL (8.5-10.1); Chloride 109 mmol/L (98-107); Creatinine, Serum 1.11 mg/dL (0.55-1.02); EST Glomerular Filtration Rate 58 mL/min (>60); Est Glom Filt Rate - Afr Amer 70 mL/min (>60); Ferritin 123 ng/mL (8-252); Glucose 149 mg/dL (74-106); Iron 47 ug/dL (50-170); Iron Binding Capacity,Total 334 ug/dL (250-450); PERCENT IRON SATURATION 14.1 % (15.0-55.0); Potassium 4.3 mmol/L (3.5-5.1); Sodium Level 139 mmol/L (136-145)
== END | disposition home or self-care (01) ==
PROVIDERS: PCP Family Medicine Geriatric Medicine; Visit Provider Family Medicine Geriatric Medicine
DX: N17.9 Acute kidney failure, unspecified (principal); D64.9 Anemia, unspecified
CPT/HCPCS: 36415; 80048; 82728; 83540; 83550; 85025

== ENCOUNTER 2020-02-10 08:15 | Outpatient (RCR) | payer MEDICAID, SELFPAY ==
[2020-01-12 00:38] VITALS: BP 128/74; PULSE 103; RESP 16; TEMP 36
[2020-01-13 09:03] VITALS: BP 161/87; PULSE 104; RESP 20; TEMP 36.6; BMI 46.6
--- NOTE | 2020-01-13 12:36 | PN.PCM_ITS ---
(1) Non-healing open wound of right groin Status: Acute Code(s): S31.103A - Unspecified open wound of abdominal wall, right lower quadrant without penetration into peritoneal cavity, initial encounter (2) Non-healing open wound of left groin Status: Acute Code(s): S31.104A - Unspecified open wound of abdominal wall, left lower quadrant without penetration into peritoneal cavity, initial encounter (3) Open wound of vulva Status: Acute Code(s): S31.40XA - Unspecified open wound of vagina and vulva, initial encounter (4) MRSA (methicillin resistant Staphylococcus aureus) infection Status: Acute Code(s): A49.02 - Methicillin resistant Staphylococcus aureus infection, unspecified site (5) Vulval hidradenitis suppurativa Status: Chronic Code(s): L73.2 - Hidradenitis suppurativa (6) Diabetes Status: Chronic Qualifiers: Diabetes mellitus type: type 2 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 History of Wound: Surgery 12/17/19 - 1. Surgical preparation bilateral inguinal areas with extension to vulval area involving the mons pubis and genitocrural crease with incision and drainage and excision diabetic hidradenitis abscesses, (216 cm2 on the left and 209 cm2 on the right). 2. Partial vulvectomy including deep subcutaneous tissue involving mons pubis and genitrocrural crease. Wound care - VAC. Operative cultures - MRSA and Streptococcus agalactiae. She was treated with Vancomycin in the hospital and had increased Creatinine and the Vancomycin was stopped. She was changed to Clindamycin and has finished them. Prealbumin from 12/17/19 was 9.1. Encourage nutritional supplementation with protein to help the healing process. Today she denies fever. Her appetite is good. Progress of Wound: Improved. - Physical Exam Vital Signs Temp Pulse Resp BP 97.9 F 104 H 20 H 161/87 H 01/13/20 09:03 01/13/20 09:03 01/13/20 09:03 01/13/20 09:03 General: Alert, Oriented x3, Cooperative HEENT: Atraumatic Oral: Moist Mucosa Lungs: Normal air movement Cardiovascular: Regular rate Abdomen: Obese Extremities: Capillary Refill Less than 3 Seconds Skin: Ulcer/ Wound - Bilateral groin into the vulva wounds that are beefy pink with good granuation. There is a lot of odor when the VAC is changed. Wound Measurements and Assessment WC - Nurse 1 - General Ulcer Measurement Start: 01/13/20 09:02 Freq: Status: Active Protocol: Activity Type Activity Date Activity User E-Sign Co-Sign Detail Recorded Client Recorded Date Recorded By Document 01/13/20 09:03 DL [id number] 01/13/20 09:16 DL 01/13/20 09:03 Wound Center Nurse 1 [Ulcer Assessment] #1- R GROIN -Current Size (cm) - Length 16 -Current Size (cm) - Width 3 -Current Size (cm) - Depth 1.1 -Total Square Cm 48 -Exudate Amt Medium -Exudate Type Serosanguineous -Wound Margin Distinct, Outline Attached -Granulation Amt Large (67-100%) -Granulation Quality Red -Slough/Fibrin Yes -Necrosis Amt Small (1-33%) -Texture (Aida-wound Skin Appearance) No Abnormality -Moisture (Aida-wound Skin Appearance No Abnormality ) -Color (Aida-wound Skin Appearance) No Abnormality -Temperature (Aida-wound Skin No Abnormality Appearance) (Pt Warm) -Ulcer Cleansing Rinsed/ Irrigated with Saline -Foul Odor after Cleansing Yes -Anesthetic Used 4% Lidocaine Solution #2- L GROIN -Current Size (cm) - Length 18 -Current Size (cm) - Width 3 -Current Size (cm) - Depth 1 -Total Square Cm 54 -Exudate Amt Medium -Exudate Type Serosanguineous -Wound Margin Distinct, Outline Attached -Granulation Amt Large (67-100%) -Granulation Quality Red -Slough/Fibrin Yes -Necrosis Amt Small (1-33%) -Texture (Aida-wound Skin Appearance) Assessed -Moisture (Aida-wound Skin Appearance No Abnormality ) -Color (Aida-wound Skin Appearance) Assessed, Erythema -Temperature (Aida-wound Skin No Abnormality Appearance) (Pt Warm) -Tenderness on Palpation (Aida-wound No Skin Appearance) -Ulcer Cleansing Rinsed/ Irrigated with Saline -Foul Odor after Cleansing Yes -Anesthetic Used 4% Lidocaine Solution WC - Nurse 2 - General Ulcer CM Notes Start: 01/13/20 09:02 Freq: Status: Active Protocol: Activity Type Activity Date Activity User E-Sign Co-Sign Detail Recorded Client Recorded Date Recorded By Document 01/13/20 09:27 PAT [id number] 01/13/20 09:30 PAT 01/13/20 09:27 Wound Center Nurse 2 [Procedure/Treatment] #1- R GROIN -Time 09:27 -Correct Patient Yes -Correct Side, Site, Position Yes -Correct Procedure Yes -Procedure Performed Yes -Type of Procedure Debridement -Clinical Debridement Subcutaneous -Tissue Removed Subcutaneous -Post Debridement (cm) - Length 4.0 -Post Debridement (cm) - Width 18.8 -Post Debridement (cm) - Depth 1.0 -Total Square (Post) (cm) 75.20 -Area of Debridement (cm) - Length 4.0 -Area of Debridement (cm) - Width 18.8 -Total Square (Area) (cm) 75.20 -Tunneling No -Undermining/Tunneling No -Circular Undermining No -Wound/Ulcer Outcome Not Healed -Ulcer Cleansing Rinsed/ Irrigated with Saline -Foul Odor after Cleansing No -Bioengineered Tissue No -Bleeding Controlled with Pressure -Offloading No -Treatment Response Procedure Tolerated Well -Debridement - Subq, 1st 20sq cm Yes -Debridement, SubQ, ea addt'l 20sq cm 7 or part thereof #2- L GROIN -Time 09:28 -Correct Patient Yes -Correct Side, Site, Position Yes -Correct Procedure Yes -Procedure Performed Yes -Type of Procedure Debridement -Clinical Debridement Subcutaneous -Tissue Removed Subcutaneous -Post Debridement (cm) - Length 3.3 -Post Debridement (cm) - Width 20.0 -Post Debridement (cm) - Depth 0.8 -Total Square (Post) (cm) 66.00 -Area of Debridement (cm) - Length 3.3 -Area of Debridement (cm) - Width 20.0 -Total Square (Area) (cm) 66.00 -Tunneling No -Undermining/Tunneling No -Circular Undermining No -Wound/Ulcer Outcome Not Healed -Ulcer Cleansing Rinsed/ Irrigated with Saline -Foul Odor after Cleansing No -Bioengineered Tissue No -Bleeding Controlled with Pressure -Offloading No -Treatment Response Procedure Tolerated Well -Debridement - Subq, 1st 20sq cm No -Debridement, SubQ, ea addt'l 20sq cm 3 or part thereof [See Physician Procedure note for Specifics] Pain Scale: 0-10 Numeric [Pain] -Is Patient Pain Free? Yes - Nurse 3 - General Ulcer D/C NN Start: 01/13/20 09:02 Freq: Status: Active Protocol: Activity Type Activity Date Activity User E-Sign Co-Sign Detail Recorded Client Recorded Date Recorded By Document 01/13/20 10:02 DL [id number] 01/13/20 10:04 DL 01/13/20 10:02 Wound Care Nurse 3 [Wound Dressing] #1- R GROIN -Ulcer Cleansing Wound Cleanser -Foul Odor after Cleansing No -Negative Pressure Wound Therapy Continue -Setting (mmHg) 150 -Negative Pressure is Continuous -NPWT Application Charge ($) NPWT </= 50 sq cm #2- L GROIN -Ulcer Cleansing Wound Cleanser -Foul Odor after Cleansing No -Negative Pressure Wound Therapy Continue -Setting (mmHg) 150 -Negative Pressure is Continuous -NPWT Application Charge ($) NPWT </= 50 sq cm [Aida-Wound Care] -Aida-Wound Care Barrier [Post Procedure Tolerated] -Treatment Response Procedure Tolerated Well Pain Scale: 0-10 Numeric [Pain] -Is Patient Pain Free? Yes - Visit Discharge [Visit Discharge Information] -Discharge Condition Stable -Ambulatory Status Ambulatory -Transportation Private Auto Musculoskeletal: No Tenderness to Palpation of Joints or Extremities Neurological: Cranial nerves II-XII grossly intact Psych/Mental Status: Normal Affect, Appropriate Debridement Note Post-Debridement Measurements/Treatment - Nurse 2 - General Ulcer CM Notes Start: 01/13/20 09:02 Freq: Status: Active Protocol: Activity Type Activity Date Activity User E-Sign Co-Sign Detail Recorded Client Recorded Date Recorded By Document 01/13/20 09:27 JF [id number] 01/13/20 09:30 JF 01/13/20 09:27 Wound Center Nurse 2 #1- R GROIN -Time 09:27 -Correct Patient Yes -Correct Side, Site, Position Yes -Correct Procedure Yes -Procedure Performed Yes -Type of Procedure Debridement -Clinical Debridement Subcutaneous -Tissue Removed Subcutaneous -Post Debridement (cm) - Length 4.0 -Post Debridement (cm) - Width 18.8 -Post Debridement (cm) - Depth 1.0 -Total Square (Post) (cm) 75.20 -Area of Debridement (cm) - Length 4.0 -Area of Debridement (cm) - Width 18.8 -Total Square (Area) (cm) 75.20 -Tunneling No -Undermining/Tunneling No -Circular Undermining No -Wound/Ulcer Outcome Not Healed -Ulcer Cleansing Rinsed/ Irrigated with Saline -Foul Odor after Cleansing No -Bioengineered Tissue No -Bleeding Controlled with Pressure -Offloading No -Treatment Response Procedure Tolerated Well -Debridement - Subq, 1st 20sq cm Yes -Debridement, SubQ, ea addt'l 20sq cm 7 or part thereof #2- L GROIN -Time 09:28 -Correct Patient Yes -Correct Side, Site, Position Yes -Correct Procedure Yes -Procedure Performed Yes -Type of Procedure Debridement -Clinical Debridement Subcutaneous -Tissue Removed Subcutaneous -Post Debridement (cm) - Length 3.3 -Post Debridement (cm) - Width 20.0 -Post Debridement (cm) - Depth 0.8 -Total Square (Post) (cm) 66.00 -Area of Debridement (cm) - Length 3.3 -Area of Debridement (cm) - Width 20.0 -Total Square (Area) (cm) 66.00 -Tunneling No -Undermining/Tunneling No -Circular Undermining No -Wound/Ulcer Outcome Not Healed -Ulcer Cleansing Rinsed/ Irrigated with Saline -Foul Odor after Cleansing No -Bioengineered Tissue No -Bleeding Controlled with Pressure -Offloading No -Treatment Response Procedure Tolerated Well -Debridement - Subq, 1st 20sq cm No -Debridement, SubQ, ea addt'l 20sq cm 3 or part thereof Pain Scale: 0-10 Numeric Is Patient Pain Free? Yes WC - Nurse 3 - General Ulcer D/C NN Start: 01/13/20 09:02 Freq: Status: Active Protocol: Activity Type Activity Date Activity User E-Sign Co-Sign Detail Recorded Client Recorded Date Recorded By Document 01/13/20 10:02 MI [id number] 01/13/20 10:04 DL 01/13/20 10:02 Wound Care Nurse 3 #1- R GROIN -Ulcer Cleansing Wound Cleanser -Foul Odor after Cleansing No -Negative Pressure Wound Therapy Continue -Setting (mmHg) 150 -Negative Pressure is Continuous -NPWT Application Charge ($) NPWT </= 50 sq cm #2- L GROIN -Ulcer Cleansing Wound Cleanser -Foul Odor after Cleansing No -Negative Pressure Wound Therapy Continue -Setting (mmHg) 150 -Negative Pressure is Continuous -NPWT Application Charge ($) NPWT </= 50 sq cm Aida-Wound Care Barrier Treatment Response Procedure Tolerated Well Pain Scale: 0-10 Numeric Is Patient Pain Free? Yes WC - Visit Discharge Discharge Condition Stable Ambulatory Status Ambulatory Transportation Private Auto Wound debrided: groin/vulva Laterality: Right Type of Debridement: Excisional debridement Anesthesia Used: 5% Lidocaine Gel Depth: Down to and including healthy tissue, in the subcutaneous layer Percentage of wound debrided: 100 Instrument Used: 7mm curette Tissue Removed: Subcutaneous tissue and slough Severity: Fat Layer Exposed Amount of bleeding with debridement: Mild Bleeding Controlled with: Pressure Patient tolerated procedure well - Additional Wound Wound debrided: groin/vulva wound Laterality: Left Type of Debridement: Excisional debridement Anesthesia Used: 5% Lidocaine Gel Depth: Down to and including healthy tissue, in the subcutaneous layer Percentage of wound debrided: 100 Instrument Used: 7mm curette Tissue Removed: Subcutaneous tissue and slough Severity: Fat Layer Exposed Amount of bleeding with debridement: Mild Bleeding Controlled with: Pressure Patient tolerated procedure: Patient tolerated procedure well Assessment/Plan Assessment: 1. Diabetic hidradenitis abscess bilateral inguinal areas with extension to vulval area involving the mons pubis and genitocrural crease. 2. Hidradenitis bilateral inguinal areas. 3. Vulval hidradenitis involving the mons pubis and genitocrural crease. 4. Left axillary hidradenitis, stable after I&D. 5. Diabetes mellitus. 6. MRSA. 7. Obesity. 8. Open surgical diabetic hidradenitis wounds bilateral inguinal areas with extension to vulval area involving the mons pubis and genitocrural crease. Plan: Continue VAC twice a week at 150 mmHg continuous suction to be changed at the Wound Center. Prior to attending wound center for VAC changes, remove VAC and shower. Wash bilateral groin with antibacterial soap and water, and rinse well. She has finished the Clindamycin for the MRSA and Streptococcus agalactiae. Prealbumin from 12/17/19 was 9.1. Encourage nutritional supplementation with protein to help the healing process. She has enough pain medication and spasm medication at home at this time. Followup one week.Follow- up sooner should new or concerning symptoms arise. [id number]: [id number] Global Visit
[2020-01-17 13:36] VITALS: BP 128/78; PULSE 111; RESP 16; TEMP 36.2; BMI 46.6
[2020-01-20 09:16] VITALS: BP 130/83; PULSE 96; TEMP 35.9; BMI 46.6
--- NOTE | 2020-01-20 14:27 | PN.PCM_ITS ---
(1) Non-healing open wound of right groin Status: Acute Code(s): S31.103A - Unspecified open wound of abdominal wall, right lower quadrant without penetration into peritoneal cavity, initial encounter (2) Non-healing open wound of left groin Status: Acute Code(s): S31.104A - Unspecified open wound of abdominal wall, left lower quadrant without penetration into peritoneal cavity, initial encounter (3) Open wound of vulva Status: Acute Code(s): S31.40XA - Unspecified open wound of vagina and vulva, initial encounter (4) MRSA (methicillin resistant Staphylococcus aureus) infection Status: Acute Code(s): A49.02 - Methicillin resistant Staphylococcus aureus infection, unspecified site (5) Vulval hidradenitis suppurativa Status: Chronic Code(s): L73.2 - Hidradenitis suppurativa (6) Diabetes Status: Chronic Qualifiers: Diabetes mellitus type: type 2 Diabetes mellitus long-term insulin use: with long-term use Diabetes mellitus complication status: with hyperglycemia Qualified Code(s): E11.65 - Type 2 diabetes mellitus with hyperglycemia; Z79.4 - alf (current) use of insulin Code(s): E11.9 - Type 2 diabetes mellitus without complications Type of Wound Date of Service: 01/21/20 Chief Complaint: Open surgical diabetic hidradenitis wounds bilateral inguinal areas with extension to vulval area involving the mons pubis and genitocrural crease. History of Wound: Surgery 12/17/19 - 1. Surgical preparation bilateral inguinal areas with extension to vulval area involving the mons pubis and genitocrural crease with incision and drainage and excision diabetic hidradenitis abscesses, (216 cm2 on the left and 209 cm2 on the right). 2. Partial vulvectomy including deep subcutaneous tissue involving mons pubis and genitrocrural crease. Wound care - VAC. Operative cultures - MRSA and Streptococcus agalactiae. She was treated with Vancomycin in the hospital and had increased Creatinine and the Vancomycin was stopped. She was changed to Clindamycin and has finished them. Prealbumin from 12/17/19 was 9.1. Encourage nutritional supplementation with protein to help the healing process. Today she denies fever. Her appetite is good. Progress of Wound: Bilateral groin opened areas are improved. - Physical Exam Vital Signs Temp Pulse Resp BP 96.7 F L 96 16 130/83 H 01/20/20 09:16 01/20/20 09:16 01/17/20 13:36 01/20/20 09:16 General: Alert, Oriented x3, Cooperative HEENT: Atraumatic Oral: Moist Mucosa Lungs: Normal air movement Cardiovascular: Regular rate Extremities: Capillary Refill Less than 3 Seconds Skin: Ulcer/ Wound - Bilateral groin ulcers are pink with granulation tissue present. Wound Measurements and Assessment WC - Nurse 1 - General Ulcer Measurement Start: 01/13/20 09:02 Freq: Status: Active Protocol: Activity Type Activity Date Activity User E-Sign Co-Sign Detail Recorded Client Recorded Date Recorded By Document 01/20/20 09:16 KR [id number] 01/20/20 09:28 KR 01/20/20 09:16 Wound Center Nurse 1 [Ulcer Assessment] #1- R GROIN -Current Size (cm) - Length 15 -Current Size (cm) - Width 2.6 -Current Size (cm) - Depth 0.2 -Total Square Cm 39.0 -Photo Taken No -Epithelialization Medium 34-66% -Exudate Amt Small -Exudate Type Serosanguineous -Wound Margin Distinct, Outline Attached -Granulation Amt Medium (34-66%) -Granulation Quality Red -Necrosis Amt Medium (34-66%) -Necrotic Tissue Type Adherent Slough -Structure Exposed N/A -Texture (Aida-wound Skin Appearance) Assessed, Scarring -Moisture (Aida-wound Skin Appearance No Abnormality ) -Color (Aida-wound Skin Appearance) Assessed,Rubor -Temperature (Aida-wound Skin No Abnormality Appearance) (Pt Warm) -Tenderness on Palpation (Aida-wound No Skin Appearance) -Ulcer Cleansing Wound Cleanser -Foul Odor after Cleansing No -Anesthetic Used 4% Lidocaine Solution #2- L GROIN -Current Size (cm) - Length 16.3 -Current Size (cm) - Width 4 -Current Size (cm) - Depth 0.4 -Total Square Cm 65.2 -Photo Taken No -Epithelialization Medium 34-66% -Exudate Amt Medium -Exudate Type Serosanguineous -Wound Margin Distinct, Outline Attached -Granulation Amt Medium (34-66%) -Granulation Quality Red -Slough/Fibrin Yes -Necrosis Amt Medium (34-66%) -Necrotic Tissue Type Adherent Slough -Structure Exposed N/A -Texture (Aida-wound Skin Appearance) Assessed, Scarring -Moisture (Aida-wound Skin Appearance Assessed ) -Color (Aida-wound Skin Appearance) Rubor -Temperature (Aida-wound Skin No Abnormality Appearance) (Pt Warm) -Tenderness on Palpation (Aida-wound No Skin Appearance) -Ulcer Cleansing Wound Cleanser -Foul Odor after Cleansing No -Anesthetic Used 4% Lidocaine Solution WC - Nurse 2 - General Ulcer CM Notes Start: 01/13/20 09:02 Freq: Status: Active Protocol: Activity Type Activity Date Activity User E-Sign Co-Sign Detail Recorded Client Recorded Date Recorded By Document 01/20/20 09:44 PAT [id number] 01/20/20 09:50 PAT 01/20/20 09:44 Wound Center Nurse 2 [Procedure/Treatment] #1- R GROIN -Time 09:48 -Correct Patient Yes -Correct Side, Site, Position Yes -Correct Procedure Yes -Procedure Performed Yes -Type of Procedure Debridement -Clinical Debridement Subcutaneous -Tissue Removed Subcutaneous -Post Debridement (cm) - Length 2.2 -Post Debridement (cm) - Width 15.6 -Post Debridement (cm) - Depth 0.3 -Total Square (Post) (cm) 34.32 -Area of Debridement (cm) - Length 2.2 -Area of Debridement (cm) - Width 15.6 -Total Square (Area) (cm) 34.32 -Tunneling No -Undermining/Tunneling No -Circular Undermining No -Wound/Ulcer Outcome Not Healed -Ulcer Cleansing Rinsed/ Irrigated with Saline -Foul Odor after Cleansing No -Bioengineered Tissue No -Bleeding Controlled with Pressure -Offloading No -Treatment Response Procedure Tolerated Well -Debridement - Subq, 1st 20sq cm No #2- L GROIN -Time 09:48 -Correct Patient Yes -Correct Side, Site, Position Yes -Correct Procedure Yes -Procedure Performed Yes -Type of Procedure Debridement -Clinical Debridement Subcutaneous -Tissue Removed Subcutaneous -Post Debridement (cm) - Length 4.3 -Post Debridement (cm) - Width 18.0 -Post Debridement (cm) - Depth 0.3 -Total Square (Post) (cm) 77.40 -Area of Debridement (cm) - Length 4.3 -Area of Debridement (cm) - Width 18 -Total Square (Area) (cm) 77.4 -Tunneling No -Undermining/Tunneling No -Circular Undermining No -Wound/Ulcer Outcome Not Healed -Ulcer Cleansing Rinsed/ Irrigated with Saline -Foul Odor after Cleansing No -Bioengineered Tissue No -Bleeding Controlled with Pressure -Offloading No -Treatment Response Procedure Tolerated Well -Debridement - Subq, 1st 20sq cm Yes -Debridement, SubQ, ea addt'l 20sq cm 5 or part thereof [See Physician Procedure note for Specifics] Pain Scale: 0-10 Numeric [Pain] -Is Patient Pain Free? Yes WC - Nurse 3 - General Ulcer D/C NN Start: 01/13/20 09:02 Freq: Status: Active Protocol: Activity Type Activity Date Activity User E-Sign Co-Sign Detail Recorded Client Recorded Date Recorded By Document 01/17/20 13:36 [facility] [id number] 01/17/20 13:38 [facility] Document 01/20/20 11:34 DL [id number] 01/20/20 11:37 DL 01/17/20 01/20/20 13:36 11:34 Vital Signs [Temperature Protocol: VS] -Temperature (97.8 F-99.1 F) 97.2 F L -Temperature Source Temporal [Pulse] -Pulse Rate (60-100) 111 H -Pulse Location Monitor [Respirations] -Respiratory Rate (12-18) 16 -Respiratory rate source Observation -Oxygen Delivery Method Room Air [Blood Pressure] -Blood Pressure (90/60-120/80) 128/78 H -Blood Pressure Mean (mm Hg) 94 -Source Monitor -Position Sitting -Blood Pressure Location Left Arm Pain Scale: 0-10 Numeric [Pain] -Is Patient Pain Free? Yes Wound Care Nurse 3 [Wound Dressing] #1- R GROIN -Ulcer Cleansing Rinsed/ Wound Cleanser Irrigated with Saline -Foul Odor after Cleansing No No -Negative Pressure Wound Therapy Continue Continue -Setting (mmHg) 150 150 -Negative Pressure is Continuous Continuous -NPWT Application Charge ($) NPWT > 50 sq cm NPWT </= 50 sq cm #2- L GROIN -Ulcer Cleansing Rinsed/ Wound Cleanser Irrigated with Saline -Foul Odor after Cleansing No No -Negative Pressure Wound Therapy Continue Continue -Setting (mmHg) 150 150 -Negative Pressure is Continuous Continuous -NPWT Application Charge ($) NPWT > 50 sq cm NPWT </= 50 sq cm [Aida-Wound Care] -Aida-Wound Care Barrier [Post Procedure Tolerated] -Treatment Response Procedure Procedure Tolerated Well Tolerated Well - Visit Discharge [Visit Discharge Information] -Discharge Condition Stable Stable -Ambulatory Status Ambulatory Ambulatory -Transportation Private Auto Private Auto -Notes: Pt to stop Vac when Dakins daily when available. Musculoskeletal: No Tenderness to Palpation of Joints or Extremities Psych/Mental Status: Normal Affect, Appropriate Debridement Note Post-Debridement Measurements/Treatment - Nurse 2 - General Ulcer CM Notes Start: 01/13/20 09:02 Freq: Status: Active Protocol: Activity Type Activity Date Activity User E-Sign Co-Sign Detail Recorded Client Recorded Date Recorded By Document 01/13/20 09:27 [id number] 01/13/20 09:30 Document 01/20/20 09:44 [id number] 01/20/20 09:50 01/13/20 01/20/20 09:27 09:44 Wound Center Nurse 2 #1- R GROIN -Time 09:48 -Correct Patient Yes Yes -Correct Side, Site, Position Yes Yes -Correct Procedure Yes Yes -Procedure Performed Yes Yes -Type of Procedure Debridement Debridement -Clinical Debridement Subcutaneous Subcutaneous -Tissue Removed Subcutaneous Subcutaneous -Post Debridement (cm) - Length 4.0 2.2 -Post Debridement (cm) - Width 18.8 15.6 -Post Debridement (cm) - Depth 1.0 0.3 -Total Square (Post) (cm) 75.20 34.32 -Area of Debridement (cm) - Length 4.0 2.2 -Area of Debridement (cm) - Width 18.8 15.6 -Total Square (Area) (cm) 75.20 34.32 -Tunneling No No -Undermining/Tunneling No No -Circular Undermining No No -Wound/Ulcer Outcome Not Healed Not Healed -Ulcer Cleansing Rinsed/ Rinsed/ Irrigated with Irrigated with Saline Saline -Foul Odor after Cleansing No No -Bioengineered Tissue No No -Bleeding Controlled with Pressure Pressure -Offloading No No -Treatment Response Procedure Procedure Tolerated Well Tolerated Well -Debridement - Subq, 1st 20sq cm Yes No -Debridement, SubQ, ea addt'l 20sq cm 7 or part thereof #2- L GROIN -Time 09:28 09:48 -Correct Patient Yes Yes -Correct Side, Site, Position Yes Yes -Correct Procedure Yes Yes -Procedure Performed Yes Yes -Type of Procedure Debridement Debridement -Clinical Debridement Subcutaneous Subcutaneous -Tissue Removed Subcutaneous Subcutaneous -Post Debridement (cm) - Length 3.3 4.3 -Post Debridement (cm) - Width 20.0 18.0 -Post Debridement (cm) - Depth 0.8 0.3 -Total Square (Post) (cm) 66.00 77.40 -Area of Debridement (cm) - Length 3.3 4.3 -Area of Debridement (cm) - Width 20.0 18 -Total Square (Area) (cm) 66.00 77.4 -Tunneling No No -Undermining/Tunneling No No -Circular Undermining No No -Wound/Ulcer Outcome Not Healed Not Healed -Ulcer Cleansing Rinsed/ Rinsed/ Irrigated with Irrigated with Saline Saline -Foul Odor after Cleansing No No -Bioengineered Tissue No No -Bleeding Controlled with Pressure Pressure -Offloading No No -Treatment Response Procedure Procedure Tolerated Well Tolerated Well -Debridement - Subq, 1st 20sq cm No Yes -Debridement, SubQ, ea addt'l 20sq cm 0 5 or part thereof Pain Scale: 0-10 Numeric Is Patient Pain Free? Yes Yes WC - Nurse 3 - General Ulcer D/C NN Start: 01/13/20 09:02 Freq: Status: Active Protocol: Activity Type Activity Date Activity User E-Sign Co-Sign Detail Recorded Client Recorded Date Recorded By Document 01/13/20 10:02 DL [id number] 01/13/20 10:04 DL Document 01/17/20 13:36 [facility] [id number] 01/17/20 13:38 [facility] Document 01/20/20 11:34 DL [id number] 01/20/20 11:37 DL 01/13/20 01/17/20 01/20/20 10:02 13:36 11:34 Wound Care Nurse 3 #1- R GROIN -Ulcer Cleansing Wound Cleanser Rinsed/ Wound Cleanser Irrigated with Saline -Foul Odor after Cleansing No No No -Negative Pressure Wound Therapy Continue Continue Continue -Setting (mmHg) 150 150 150 -Negative Pressure is Continuous Continuous Continuous -NPWT Application Charge ($) NPWT > 50 sq cm NPWT > 50 sq cm NPWT </= 50 sq cm #2- L GROIN -Ulcer Cleansing Wound Cleanser Rinsed/ Wound Cleanser Irrigated with Saline -Foul Odor after Cleansing No No No -Negative Pressure Wound Therapy Continue Continue Continue -Setting (mmHg) 150 150 150 -Negative Pressure is Continuous Continuous Continuous -NPWT Application Charge ($) NPWT > 50 sq cm NPWT > 50 sq cm NPWT </= 50 sq cm Aida-Wound Care Barrier Barrier Treatment Response Procedure Procedure Procedure Tolerated Well Tolerated Well Tolerated Well Vital Signs Temperature (97.8 F-99.1 F) 97.2 F L Temperature Source Temporal Pulse Rate (60-100) 111 H Pulse Location Monitor Respiratory Rate (12-18) 16 Respiratory rate source Observation Oxygen Delivery Method Room Air Blood Pressure (90/60-120/80) 128/78 H Blood Pressure Mean (mm Hg) 94 Source Monitor Position Sitting Blood Pressure Location Left Arm Pain Scale: 0-10 Numeric Is Patient Pain Free? Yes Yes WC - Visit Discharge Discharge Condition Stable Stable Stable Ambulatory Status Ambulatory Ambulatory Ambulatory Transportation Private Auto Private Auto Private Auto Notes: Pt to stop Vac when Dakins daily when available. Wound debrided: groin/vulva ulcer Laterality: Right Type of Debridement: Excisional debridement Anesthesia Used: 5% Lidocaine Gel Depth: Down to and including healthy tissue Percentage of wound debrided: 100 Instrument Used: 7mm curette Tissue Removed: Subcutaneous tissue and slough Severity: Fat Layer Exposed Amount of bleeding with debridement: Mild Bleeding Controlled with: Pressure, Compression and gauze Patient tolerated procedure well - Additional Wound Wound debrided: groin/vulva ulcer Laterality: Left Type of Debridement: Excisional debridement Anesthesia Used: 5% Lidocaine Gel Depth: Down to and including healthy tissue, in the subcutaneous layer Percentage of wound debrided: 100 Instrument Used: 5mm curette Tissue Removed: Subcutaneous tissue and slough Severity: Fat Layer Exposed Amount of bleeding with debridement: Mild Bleeding Controlled with: Pressure, Compression and gauze Patient tolerated procedure: Patient tolerated procedure well Assessment/Plan Active Problems (Last Reviewed 12/16/19 @ 02:[address] Kenneth Contreras MD) Open wound of vulva (Acute) Non-healing open wound of left groin (Acute) Non-healing open wound of right groin (Acute) MRSA (methicillin resistant Staphylococcus aureus) infection (Acute) Vulval hidradenitis suppurativa (Chronic) Diabetes (Chronic) Assessment: 1. Diabetic hidradenitis abscess bilateral inguinal areas with extension to vulval area involving the mons pubis and genitocrural crease. 2. Hidradenitis bilateral inguinal areas. 3. Vulval hidradenitis involving the mons pubis and genitocrural crease. 4. Left axillary hidradenitis, stable after I&D. 5. Diabetes mellitus. 6. MRSA. 7. Obesity. 8. Open surgical diabetic hidradenitis wounds bilateral inguinal areas with extension to vulval area involving the mons pubis and genitocrural crease. Plan: Continue wound VAC twice a week at 150 mmHg continuous suction to be changed at the Wound Center until wound supplies come in then start Dakin's 1/4 strength solution moistened gauze topped with ABD daily. Wash bilateral groin with antibacterial soap and water, and rinse well before dressing change. She has finished the Clindamycin for the MRSA and Streptococcus agalactiae. Prealbumin from 12/17/19 was 9.1. Encourage nutritional supplementation with protein to help the healing process. She has enough pain medication and spasm medication at home at this time. Followup one week.Follow-up sooner should new or concerning symptoms arise. [id number]: [id number] Global Visit
[2020-01-24 13:18] VITALS: BP 143/87; PULSE 105; RESP 18; TEMP 35.9; BMI 46.6
[2020-01-27 09:25] VITALS: BP 155/73; PULSE 101; RESP 16; TEMP 36.1; BMI 46.6
--- NOTE | 2020-01-27 15:59 | PN.PCM_ITS ---
Type of Wound Date of Service: 01/27/20 Chief Complaint: Nonhealing diabetic hidradenitis ulcers bilateral inguinal areas with extension to vulval area involving the mons pubis and genitocrural crease. History of Wound: Surgery 12/17/19 - 1. Surgical preparation bilateral inguinal areas with extension to vulval area involving the mons pubis and genitocrural crease with incision and drainage and excision diabetic hidradenitis abscesses, (216 cm2 on the left and 209 cm2 on the right). 2. Partial vulvectomy including deep subcutaneous tissue involving mons pubis and genitrocrural crease. Wound care - Dakin's. Operative cultures - MRSA and Streptococcus agalactiae. She was treated with Vancomycin in the hospital and had increased Creatinine and the Vancomycin was stopped. She was changed to Clindamycin and has finished them. Prealbumin from 12/17/19 was 9.1. Encourage nutritional s upplementation with protein to help the healing process. Today she denies fever. Her appetite is good. Progress of Wound: Improved. - Physical Exam Vital Signs Temp Pulse Resp BP 97 F L 101 H 16 155/73 H 01/27/20 09:25 01/27/20 09:25 01/27/20 09:25 01/27/20 09:25 Wound Measurements and Assessment WC - Nurse 1 - General Ulcer Measurement Start: 01/13/20 09:02 Freq: Status: Active Protocol: Activity Type Activity Date Activity User E-Sign Co-Sign Detail Recorded Client Recorded Date Recorded By Document 01/27/20 09:25 [facility] [id number] 01/27/20 09:30 [facility] 01/27/20 09:25 Wound Center Nurse 1 [Ulcer Assessment] #1- R GROIN -Combined with other wound No -Current Size (cm) - Length 17 -Current Size (cm) - Width 3.5 -Current Size (cm) - Depth 0.3 -Total Square Cm 59.5 -Photo Taken No -Epithelialization Small 1-33% -Tunneling No -Undermining/Tunneling No -Circular Undermining No -Exudate Amt Large -Exudate Type Serosanguineous -Wound Margin Distinct, Outline Attached -Granulation Amt Large (67-100%) -Granulation Quality Red -Slough/Fibrin Yes -Necrosis Amt Small (1-33%) -Necrotic Tissue Type Adherent Slough -Texture (Aida-wound Skin Appearance) Assessed, Scarring -Moisture (Aida-wound Skin Appearance Assessed ) -Color (Aida-wound Skin Appearance) Assessed -Temperature (Aida-wound Skin No Abnormality Appearance) (Pt Warm) -Tenderness on Palpation (Aida-wound No Skin Appearance) -Ulcer Cleansing Rinsed/ Irrigated with Saline -Foul Odor after Cleansing No -Anesthetic Used 4% Lidocaine Solution #2- L GROIN -Combined with other wound No -Current Size (cm) - Length 16.5 -Current Size (cm) - Width 4 -Current Size (cm) - Depth 0.1 -Total Square Cm 66.0 -Photo Taken No -Epithelialization Small 1-33% -Tunneling No -Undermining/Tunneling No -Circular Undermining No -Exudate Amt Medium -Exudate Type Serosanguineous -Wound Margin Distinct, Outline Attached -Granulation Amt Large (67-100%) -Granulation Quality Red -Slough/Fibrin Yes -Necrosis Amt Small (1-33%) -Necrotic Tissue Type Adherent Slough -Texture (Aida-wound Skin Appearance) Assessed, Scarring -Moisture (Aida-wound Skin Appearance Assessed ) -Color (Aida-wound Skin Appearance) Assessed -Temperature (Aida-wound Skin No Abnormality Appearance) (Pt Warm) -Tenderness on Palpation (Aida-wound No Skin Appearance) -Ulcer Cleansing Rinsed/ Irrigated with Saline -Foul Odor after Cleansing No -Anesthetic Used 4% Lidocaine Solution WC - Nurse 2 - General Ulcer CM Notes Start: 01/13/20 09:02 Freq: Status: Active Protocol: Activity Type Activity Date Activity User E-Sign Co-Sign Detail Recorded Client Recorded Date Recorded By Document 01/27/20 09:53 PAT [id number] 01/27/20 09:59 PAT 01/27/20 09:53 Wound Center Nurse 2 [Procedure/Treatment] #1- R GROIN -Time 09:56 -Correct Patient Yes -Correct Side, Site, Position Yes -Correct Procedure Yes -Procedure Performed Yes -Type of Procedure Debridement -Clinical Debridement Subcutaneous -Tissue Removed Subcutaneous -Post Debridement (cm) - Length 2.8 -Post Debridement (cm) - Width 16.0 -Post Debridement (cm) - Depth 0.2 -Total Square (Post) (cm) 44.80 -Area of Debridement (cm) - Length 2.8 -Area of Debridement (cm) - Width 16.0 -Total Square (Area) (cm) 44.80 -Tunneling No -Undermining/Tunneling No -Circular Undermining No -Wound/Ulcer Outcome Not Healed -Ulcer Cleansing Rinsed/ Irrigated with Saline -Foul Odor after Cleansing No -Bioengineered Tissue No -Bleeding Controlled with Pressure -Offloading No -Treatment Response Procedure Tolerated Well -Debridement - Subq, 1st 20sq cm No #2- L GROIN -Time 09:56 -Correct Patient Yes -Correct Side, Site, Position Yes -Correct Procedure Yes -Procedure Performed Yes -Type of Procedure Debridement -Clinical Debridement Subcutaneous -Tissue Removed Subcutaneous -Post Debridement (cm) - Length 19.0 -Post Debridement (cm) - Width 3.2 -Post Debridement (cm) - Depth 0.2 -Total Square (Post) (cm) 60.80 -Area of Debridement (cm) - Length 19.0 -Area of Debridement (cm) - Width 3.2 -Total Square (Area) (cm) 60.80 -Tunneling No -Undermining/Tunneling No -Circular Undermining No -Wound/Ulcer Outcome Not Healed -Ulcer Cleansing Rinsed/ Irrigated with Saline -Foul Odor after Cleansing No -Bioengineered Tissue No -Bleeding Controlled with Pressure -Offloading No -Treatment Response Procedure Tolerated Well -Debridement - Subq, 1st 20sq cm Yes -Debridement, SubQ, ea addt'l 20sq cm 5 or part thereof [See Physician Procedure note for Specifics] WC - Nurse 3 - General Ulcer D/C NN Start: 01/13/20 09:02 Freq: Status: Active Protocol: Activity Type Activity Date Activity User E-Sign Co-Sign Detail Recorded Client Recorded Date Recorded By Document 01/27/20 10:14 DL [id number] 01/27/20 10:15 DL 01/27/20 10:14 Wound Care Nurse 3 [Wound Dressing] #1- R GROIN -Ulcer Cleansing Rinsed/ Irrigated with Saline -Foul Odor after Cleansing No -Other Dressing dakins -Primary Dressing Covered/Secured Dry Gauze, with Secured with Tape #2- L GROIN -Ulcer Cleansing Wound Cleanser -Foul Odor after Cleansing No -Other Dressing dakins -Primary Dressing Covered/Secured Dry Gauze, with Secured with Tape [Post Procedure Tolerated] -Treatment Response Procedure Tolerated Well Pain Scale: 0-10 Numeric [Pain] -Is Patient Pain Free? Yes - Visit Discharge [Visit Discharge Information] -Discharge Condition Stable -Ambulatory Status Ambulatory -Transportation Private Auto Debridement Note Post-Debridement Measurements/Treatment - Nurse 2 - General Ulcer CM Notes Start: 01/13/20 09:02 Freq: Status: Active Protocol: Activity Type Activity Date Activity User E-Sign Co-Sign Detail Recorded Client Recorded Date Recorded By Document 01/13/20 09:27 [id number] 01/13/20 09:30 Document 01/20/20 09:44 [id number] 01/20/20 09:50 Document 01/27/20 09:53 [id number] 01/27/20 09:59 01/13/20 01/20/20 01/27/20 09:27 09:44 09:53 Wound Center Nurse 2 #1- R GROIN -Time 09:27 09:48 09:56 -Correct Patient Yes Yes Yes -Correct Side, Site, Position Yes Yes Yes -Correct Procedure Yes Yes Yes -Procedure Performed Yes Yes Yes -Type of Procedure Debridement Debridement Debridement -Clinical Debridement Subcutaneous Subcutaneous Subcutaneous -Tissue Removed Subcutaneous Subcutaneous Subcutaneous -Post Debridement (cm) - Length 4.0 2.2 2.8 -Post Debridement (cm) - Width 18.8 15.6 16.0 -Post Debridement (cm) - Depth 1.0 0.3 0.2 -Total Square (Post) (cm) 75.20 34.32 44.80 -Area of Debridement (cm) - Length 4.0 2.2 2.8 -Area of Debridement (cm) - Width 18.8 15.6 16.0 -Total Square (Area) (cm) 75.20 34.32 44.80 -Tunneling No No No -Undermining/Tunneling No No No -Circular Undermining No No No -Wound/Ulcer Outcome Not Healed Not Healed Not Healed -Ulcer Cleansing Rinsed/ Rinsed/ Rinsed/ Irrigated with Irrigated with Irrigated with Saline Saline Saline -Foul Odor after Cleansing No No No -Bioengineered Tissue No No No -Bleeding Controlled with Pressure Pressure Pressure -Offloading No No No -Treatment Response Procedure Procedure Procedure Tolerated Well Tolerated Well Tolerated Well -Debridement - Subq, 1st 20sq cm Yes No No -Debridement, SubQ, ea addt'l 20sq cm 7 or part thereof #2- L GROIN -Time 09:28 09:48 09:56 -Correct Patient Yes Yes Yes -Correct Side, Site, Position Yes Yes Yes -Correct Procedure Yes Yes Yes -Procedure Performed Yes Yes Yes -Type of Procedure Debridement Debridement Debridement -Clinical Debridement Subcutaneous Subcutaneous Subcutaneous -Tissue Removed Subcutaneous Subcutaneous Subcutaneous -Post Debridement (cm) - Length 3.3 4.3 19.0 -Post Debridement (cm) - Width 20.0 18.0 3.2 -Post Debridement (cm) - Depth 0.8 0.3 0.2 -Total Square (Post) (cm) 66.00 77.40 60.80 -Area of Debridement (cm) - Length 3.3 4.3 19.0 -Area of Debridement (cm) - Width 20.0 18 3.2 -Total Square (Area) (cm) 66.00 77.4 60.80 -Tunneling No No No -Undermining/Tunneling No No No -Circular Undermining No No No -Wound/Ulcer Outcome Not Healed Not Healed Not Healed -Ulcer Cleansing Rinsed/ Rinsed/ Rinsed/ Irrigated with Irrigated with Irrigated with Saline Saline Saline -Foul Odor after Cleansing No No No -Bioengineered Tissue No No No -Bleeding Controlled with Pressure Pressure Pressure -Offloading No No No -Treatment Response Procedure Procedure Procedure Tolerated Well Tolerated Well Tolerated Well -Debridement - Subq, 1st 20sq cm No Yes Yes -Debridement, SubQ, ea addt'l 20sq cm 0 5 5 or part thereof Pain Scale: 0-10 Numeric Is Patient Pain Free? Yes Yes - Nurse 3 - General Ulcer D/C NN Start: 01/13/20 09:02 Freq: Status: Active Protocol: Activity Type Activity Date Activity User E-Sign Co-Sign Detail Recorded Client Recorded Date Recorded By Document 01/13/20 10:02 DL [id number] 01/13/20 10:04 DL Document 01/17/20 13:36 BMF [id number] 01/17/20 13:38 BMF Document 01/20/20 11:34 DL [id number] 01/20/20 11:37 DL Document 01/24/20 13:18 RB [id number] 01/24/20 13:26 RB Document 01/27/20 10:14 DL [id number] 01/27/20 10:15 DL 01/13/20 01/17/20 01/20/20 10:02 13:36 11:34 Wound Care Nurse 3 #1- R GROIN -Ulcer Cleansing Wound Cleanser Rinsed/ Wound Cleanser Irrigated with Saline -Foul Odor after Cleansing No No No -Negative Pressure Wound Therapy Continue Continue Continue -Setting (mmHg) 150 150 150 -Negative Pressure is Continuous Continuous Continuous -Other Dressing -Primary Dressing Covered/Secured with -NPWT Application Charge ($) NPWT > 50 sq cm NPWT > 50 sq cm NPWT > 50 sq cm #2- L GROIN -Ulcer Cleansing Wound Cleanser Rinsed/ Wound Cleanser Irrigated with Saline -Foul Odor after Cleansing No No No -Negative Pressure Wound Therapy Continue Continue Continue -Setting (mmHg) 150 150 150 -Negative Pressure is Continuous Continuous Continuous -Other Dressing -Primary Dressing Covered/Secured with -NPWT Application Charge ($) NPWT > 50 sq cm NPWT > 50 sq cm NPWT > 50 sq cm Aida-Wound Care Barrier Barrier Treatment Response Procedure Procedure Procedure Tolerated Well Tolerated Well Tolerated Well Vital Signs Temperature (97.8 F-99.1 F) 97.2 F L Temperature Source Temporal Pulse Rate (60-100) 111 H Pulse Location Monitor Respiratory Rate (12-18) 16 Respiratory rate source Observation Oxygen Delivery Method Room Air Blood Pressure (90/60-120/80) 128/78 H Blood Pressure Mean (mm Hg) 94 Source Monitor Position Sitting Blood Pressure Location Left Arm Pain Scale: 0-10 Numeric Is Patient Pain Free? Yes Yes Teaching: Wound Center Dressing Your Wound -Person Taught -Teaching Method -Response to teaching WC - Visit Discharge Discharge Condition Stable Stable Stable Ambulatory Status Ambulatory Ambulatory Ambulatory Transportation Private Auto Private Auto Private Auto Medication Reconcilliation completed & provided to patient/care provider Clinical Summary of Care Provided Notes: Pt to stop Vac when Dakins daily when available. 01/24/20 01/27/20 13:18 10:14 Wound Care Nurse 3 #1- R GROIN -Ulcer Cleansing Rinsed/ Irrigated with Saline -Foul Odor after Cleansing No -Negative Pressure Wound Therapy -Setting (mmHg) -Negative Pressure is -Other Dressing 1/4strength dakins Dakins moistened gauze with abd -Primary Dressing Covered/Secured with Dry Gauze, Dry Gauze, Secured with Secured with Tape Tape -NPWT Application Charge ($) #2- L GROIN -Ulcer Cleansing Wound Cleanser -Foul Odor after Cleansing No -Negative Pressure Wound Therapy -Setting (mmHg) -Negative Pressure is -Other Dressing 1/4 strength dakins dakins moistened gauze -Primary Dressing Covered/Secured with Dry Gauze, Dry Gauze, Secured with Secured with Tape Tape -NPWT Application Charge ($) Aida-Wound Care Treatment Response Procedure Procedure Tolerated Well Tolerated Well Vital Signs Temperature (97.8 F-99.1 F) 96.7 F L Temperature Source Temporal Pulse Rate (60-100) 105 H Pulse Location Monitor Respiratory Rate (12-18) 18 Respiratory rate source Observation Oxygen Delivery Method Blood Pressure (90/60-120/80) 143/87 H Blood Pressure Mean (mm Hg) 105 Source Monitor Position Sitting Blood Pressure Location Left Arm Pain Scale: 0-10 Numeric Is Patient Pain Free? Yes Yes Teaching: Wound Center Dressing Your Wound -Person Taught Patient,Family -Teaching Method Discussion, Demonstration -Response to teaching Verbalize understanding WC - Visit Discharge Discharge Condition Stable Stable Ambulatory Status Ambulatory Ambulatory Transportation Private Auto Private Auto Medication Reconcilliation completed & No provided to patient/care provider Clinical Summary of Care Provided Yes Notes: Wound debrided: #1 Right inguinal area with extension to vulva. Laterality: Right Wound Grade/Stage: 2. Type of Debridement: Excisional debridement Anesthesia Used: 4% Lidocaine Solution Depth: Down to and including healthy tissue, in the subcutaneous layer Percentage of wound debrided: 100 Instrument Used: 5mm curette Tissue Removed: subcutaneous tissue. Severity: Fat Layer Exposed Amount of bleeding with debridement: Mild Bleeding Controlled with: Pressure Patient tolerated procedure well - Additional Wound Wound debrided: #2 Left inguinal area with extension to vulva. Laterality: Left Wound Grade/Stage: 2. Type of Debridement: Excisional debridement Anesthesia Used: 4% Lidocaine Solution Depth: Down to and including healthy tissue, in the subcutaneous layer Percentage of wound debrided: 100 Instrument Used: 5mm curette Tissue Removed: subcutaneous tissue. Severity: Fat Layer Exposed Amount of bleeding with debridement: Mild Bleeding Controlled with: Pressure Patient tolerated procedure: Patient tolerated procedure well Assessment/Plan Active Problems (Last Reviewed 12/16/19 @ 02:[address] Kenneth Contreras MD) Open wound of vulva (Acute) Non-healing open wound of left groin (Acute) Non-healing open wound of right groin (Acute) MRSA (methicillin resistant Staphylococcus aureus) infection (Acute) Vulval hidradenitis suppurativa (Chronic) Diabetes (Chronic) Assessment: 1. Nonhealing diabetic hidradenitis ulcers bilateral inguinal areas with extension to vulval area involving the mons pubis and genitocrural crease. 2. Hidradenitis bilateral inguinal areas. 3. Vulval hidradenitis involving the mons pubis and genitocrural crease. 4. Left axillary hidradenitis, stable after I&D. 5. Diabetes mellitus. 6. MRSA. 7. Obesity. Plan: Continue Dakfemi's dressing changes daily. She has finished the Clindamycin for the MRSA and Streptococcus agalactiae. Prealbumin from 12/17/19 was 9.1. Encourage nutritional supplementation with protein to help the healing process. Followup one week. [id number]: [id number] Global Visit - ICD-10 - Z48.89, L98.492, N76.6, L02.214, N76.4, L73.2, E11.9, A49.02, E66.01
[2020-02-03 10:16] VITALS: BP 140/78; PULSE 107; RESP 16; TEMP 36.6; BMI 46.6
--- NOTE | 2020-02-03 13:07 | PCM.WC.PN ---
(1) Ulcer of left groin with fat layer exposed Status: Chronic Code(s): L98.492 - Non-pressure chronic ulcer of skin of other sites with fat layer exposed (2) Ulcer of right groin with fat layer exposed Status: Chronic Code(s): L98.492 - Non-pressure chronic ulcer of skin of other sites with fat layer exposed (3) Ulceration of vulva Status: Chronic Code(s): N76.6 - Ulceration of vulva (4) Non-healing open wound of left groin Status: Acute Code(s): S31.104A - Unspecified open wound of abdominal wall, left lower quadrant without penetration into peritoneal cavity, initial encounter (5) Vulval hidradenitis suppurativa Status: Chronic Code(s): L73.2 - Hidradenitis suppurativa (6) Diabetes Status: Chronic Qualifiers: Diabetes mellitus type: type 2 Diabetes mellitus correction insulin use: with manager long term care use Diabetes mellitus complication status: with hyperglycemia Qualified Code(s): E11.65 - Type 2 diabetes mellitus with hyperglycemia; Z79.4 - manager long term care (current) use of insulin Code(s): E11.9 - Type 2 diabetes mellitus without complications Type of Wound Date of Service: 02/03/20 Chief Complaint: Nonhealing diabetic hidradenitis ulcers bilateral inguinal areas with extension to vulval area involving the mons pubis and genitocrural crease. History of Wound: Surgery 12/17/19 - 1. Surgical preparation bilateral inguinal areas with extension to vulval area involving the mons pubis and genitocrural crease with incision and drainage and excision diabetic hidradenitis abscesses, (216 cm2 on the left and 209 cm2 on the right). 2. Partial vulvectomy including deep subcutaneous tissue involving mons pubis and genitrocrural crease. Wound care - Dakin's. Operative cultures - MRSA and Streptococcus agalactiae. She was treated with Vancomycin in the hospital and had increased Creatinine and the Vancomycin was stopped. She was changed to Clindamycin and has finished them. Prealbumin from 12/17/19 was 9.1. Encourage nutritional supplementation with protein to help the healing process. Wound culture obtained today 02/03/20, due to redness and warmth of her mons pubis and her left posterior leg. She is complaining of left posterior leg pain and feeling cold. Today she denies fever. Her appetite is good. Progress of Wound: Improved. - Physical Exam Vital Signs Temp Pulse Resp BP 97.8 F 107 H 16 140/78 H 02/03/20 10:16 02/03/20 10:16 02/03/20 10:16 02/03/20 10:16 General: Alert, Oriented x3, Cooperative HEENT: Atraumatic Oral: Moist Mucosa Lungs: Normal air movement Cardiovascular: Regular rate Abdomen: Obese Extremities: Capillary Refill Less than 3 Seconds, Tenderness - Left posterior leg tender with redness and warmth to palpation. The area was marked with a pen. The area of redness is her entire posterior thigh. Skin: Ulcer/ Wound - Bilateral groin ulcers that are beefy pink. There is an odor present today that she doesn't typically have. Her mons pubis is also warm and red. Wound Measurements and Assessment WC - Nurse 1 - General Ulcer Measurement Start: 01/13/20 09:02 Freq: Status: Active Protocol: Activity Type Activity Date Activity User E-Sign Co-Sign Detail Recorded Client Recorded Date Recorded By Document 02/03/20 10:16 [facility] [id number] 02/03/20 10:25 [facility] 02/03/20 10:16 Wound Center Nurse 1 [Ulcer Assessment] #1- R GROIN -Combined with other wound No -Current Size (cm) - Length 2 -Current Size (cm) - Width 18 -Current Size (cm) - Depth 0.1 -Total Square Cm 36 -Photo Taken No -Epithelialization Small 1-33% -Tunneling No -Undermining/Tunneling No -Circular Undermining No -Exudate Amt Large -Exudate Type Serosanguineous -Wound Margin Distinct, Outline Attached -Granulation Amt Large (67-100%) -Granulation Quality Red -Slough/Fibrin Yes -Necrosis Amt Small (1-33%) -Necrotic Tissue Type Adherent Slough -Texture (Aida-wound Skin Appearance) Assessed, Scarring -Moisture (Aida-wound Skin Appearance Assessed, ) Maceration -Color (Aida-wound Skin Appearance) Assessed -Temperature (Aida-wound Skin No Abnormality Appearance) (Pt Warm) -Tenderness on Palpation (Aida-wound No Skin Appearance) -Ulcer Cleansing soapy water -Foul Odor after Cleansing No -Anesthetic Used 4% Lidocaine Solution #2- L GROIN -Combined with other wound No -Current Size (cm) - Length 2.5 -Current Size (cm) - Width 18.7 -Current Size (cm) - Depth 0.1 -Total Square Cm 46.75 -Photo Taken No -Epithelialization Small 1-33% -Tunneling No -Undermining/Tunneling No -Circular Undermining No -Exudate Amt Large -Exudate Type Serosanguineous -Wound Margin Distinct, Outline Attached -Granulation Amt Large (67-100%) -Granulation Quality Red -Slough/Fibrin Yes -Necrosis Amt Small (1-33%) -Necrotic Tissue Type Adherent Slough -Texture (Aida-wound Skin Appearance) Assessed, Scarring -Moisture (Aida-wound Skin Appearance Assessed, ) Maceration -Color (Aida-wound Skin Appearance) Assessed -Temperature (Aida-wound Skin No Abnormality Appearance) (Pt Warm) -Tenderness on Palpation (Aida-wound No Skin Appearance) -Ulcer Cleansing soapy water -Foul Odor after Cleansing No -Anesthetic Used 4% Lidocaine Solution WC - Nurse 2 - General Ulcer CM Notes Start: 01/13/20 09:02 Freq: Status: Active Protocol: Activity Type Activity Date Activity User E-Sign Co-Sign Detail Recorded Client Recorded Date Recorded By Document 02/03/20 11:22 PAT [id number] 02/03/20 11:24 PAT 02/03/20 11:22 Wound Center Nurse 2 [Procedure/Treatment] #1- R GROIN -Time 11:22 -Correct Patient Yes -Correct Side, Site, Position Yes -Correct Procedure Yes -Procedure Performed Yes -Type of Procedure Debridement -Clinical Debridement Subcutaneous -Tissue Removed Subcutaneous -Post Debridement (cm) - Length 15.4 -Post Debridement (cm) - Width 2.0 -Post Debridement (cm) - Depth 0.2 -Total Square (Post) (cm) 30.80 -Area of Debridement (cm) - Length 15.4 -Area of Debridement (cm) - Width 2.0 -Total Square (Area) (cm) 30.80 -Tunneling No -Undermining/Tunneling No -Circular Undermining No -Wound/Ulcer Outcome Not Healed -Ulcer Cleansing Rinsed/ Irrigated with Saline -Foul Odor after Cleansing No -Bioengineered Tissue No -Bleeding Controlled with Pressure -Offloading No -Treatment Response Procedure Tolerated Well -Debridement - Subq, 1st 20sq cm Yes -Debridement, SubQ, ea addt'l 20sq cm 3 or part thereof #2- L GROIN -Time 11:22 -Correct Patient Yes -Correct Side, Site, Position Yes -Correct Procedure Yes -Procedure Performed Yes -Type of Procedure Debridement -Clinical Debridement Subcutaneous -Tissue Removed Subcutaneous -Post Debridement (cm) - Length 2.0 -Post Debridement (cm) - Width 17.0 -Post Debridement (cm) - Depth 0.2 -Total Square (Post) (cm) 34.00 -Area of Debridement (cm) - Length 2.0 -Area of Debridement (cm) - Width 17.0 -Total Square (Area) (cm) 34.00 -Tunneling No -Undermining/Tunneling No -Circular Undermining No -Wound/Ulcer Outcome Not Healed -Ulcer Cleansing Rinsed/ Irrigated with Saline -Foul Odor after Cleansing No -Bioengineered Tissue No -Bleeding Controlled with Pressure -Offloading No -Treatment Response Procedure Tolerated Well -Debridement - Subq, 1st 20sq cm No [See Physician Procedure note for Specifics] WC - Nurse 3 - General Ulcer D/C NN Start: 01/13/20 09:02 Freq: Status: Active Protocol: Activity Type Activity Date Activity User E-Sign Co-Sign Detail Recorded Client Recorded Date Recorded By Document 02/03/20 11:35 MW [id number] 02/03/20 11:36 MW 02/03/20 11:35 Wound Care Nurse 3 [Wound Dressing] #1- R GROIN -Ulcer Cleansing Rinsed/ Irrigated with Saline -Foul Odor after Cleansing No -Negative Pressure Wound Therapy N/A -Other Dressing dakins wet to dry -Primary Dressing Covered/Secured Dry Gauze, with Secured with Tape -Other Covering ABD pad #2- L GROIN -Ulcer Cleansing Rinsed/ Irrigated with Saline -Foul Odor after Cleansing No -Negative Pressure Wound Therapy N/A -Other Dressing Dakins wet to dry -Primary Dressing Covered/Secured Dry Gauze, with Secured with Tape -Other Covering ABD pad [Post Procedure Tolerated] -Treatment Response Procedure Tolerated Well Pain Scale: 0-10 Numeric [Pain] -Is Patient Pain Free? Yes Teaching: Wound Center [Wound Center Education] (Items with an * have Printed Materials Available- Please identify what is given to patient under the Teaching materials given to patient and caregiver Section. *Wound/Skin Impairment -Person Taught Patient -Teaching Method Discussion -Response to teaching Verbalize understanding WC - Visit Discharge [Visit Discharge Information] -Discharge Condition Stable -Ambulatory Status Ambulatory -Transportation Private Auto -Accompanied by self -Medication Reconcilliation completed No & provided to patient/care provider -Clinical Summary of Care Provided Yes Musculoskeletal: No Tenderness to Palpation of Joints or Extremities Neurological: Cranial nerves II-XII grossly intact Psych/Mental Status: Normal Affect, Appropriate Debridement Note Post-Debridement Measurements/Treatment - Nurse 2 - General Ulcer CM Notes Start: 01/13/20 09:02 Freq: Status: Active Protocol: Activity Type Activity Date Activity User E-Sign Co-Sign Detail Recorded Client Recorded Date Recorded By Document 01/13/20 09:27 [id number] 01/13/20 09:30 Document 01/20/20 09:44 [id number] 01/20/20 09:50 Document 01/27/20 09:53 [id number] 01/27/20 09:59 Document 02/03/20 11:22 [id number] 02/03/20 11:24 01/13/20 01/20/20 01/27/20 09:27 09:44 09:53 Wound Center Nurse 2 #1- R GROIN -Time 09: 09:48 09:56 -Correct Patient Yes Yes Yes -Correct Side, Site, Position Yes Yes Yes -Correct Procedure Yes Yes Yes -Procedure Performed Yes Yes Yes -Type of Procedure Debridement Debridement Debridement -Clinical Debridement Subcutaneous Subcutaneous Subcutaneous -Tissue Removed Subcutaneous Subcutaneous Subcutaneous -Post Debridement (cm) - Length 4.0 2.2 2.8 -Post Debridement (cm) - Width 18.8 15.6 16.0 -Post Debridement (cm) - Depth 1.0 0.3 0.2 -Total Square (Post) (cm) 75.20 34.32 44.80 -Area of Debridement (cm) - Length 4.0 2.2 2.8 -Area of Debridement (cm) - Width 18.8 15.6 16.0 -Total Square (Area) (cm) 75.20 34.32 44.80 -Tunneling No No No -Undermining/Tunneling No No No -Circular Undermining No No No -Wound/Ulcer Outcome Not Healed Not Healed Not Healed -Ulcer Cleansing Rinsed/ Rinsed/ Rinsed/ Irrigated with Irrigated with Irrigated with Saline Saline Saline -Foul Odor after Cleansing No No No -Bioengineered Tissue No No No -Bleeding Controlled with Pressure Pressure Pressure -Offloading No No No -Treatment Response Procedure Procedure Procedure Tolerated Well Tolerated Well Tolerated Well -Debridement - Subq, 1st 20sq cm Yes No No -Debridement, SubQ, ea addt'l 20sq cm 7 or part thereof #2- L GROIN -Time 09:28 09:48 09:56 -Correct Patient Yes Yes Yes -Correct Side, Site, Position Yes Yes Yes -Correct Procedure Yes Yes Yes -Procedure Performed Yes Yes Yes -Type of Procedure Debridement Debridement Debridement -Clinical Debridement Subcutaneous Subcutaneous Subcutaneous -Tissue Removed Subcutaneous Subcutaneous Subcutaneous -Post Debridement (cm) - Length 3.3 4.3 19.0 -Post Debridement (cm) - Width 20.0 18.0 3.2 -Post Debridement (cm) - Depth 0.8 0.3 0.2 -Total Square (Post) (cm) 66.00 77.40 60.80 -Area of Debridement (cm) - Length 3.3 4.3 19.0 -Area of Debridement (cm) - Width 20.0 18 3.2 -Total Square (Area) (cm) 66.00 77.4 60.80 -Tunneling No No No -Undermining/Tunneling No No No -Circular Undermining No No No -Wound/Ulcer Outcome Not Healed Not Healed Not Healed -Ulcer Cleansing Rinsed/ Rinsed/ Rinsed/ Irrigated with Irrigated with Irrigated with Saline Saline Saline -Foul Odor after Cleansing No No No -Bioengineered Tissue No No No -Bleeding Controlled with Pressure Pressure Pressure -Offloading No No No -Treatment Response Procedure Procedure Procedure Tolerated Well Tolerated Well Tolerated Well -Debridement - Subq, 1st 20sq cm No Yes Yes -Debridement, SubQ, ea addt'l 20sq cm 0 5 5 or part thereof Pain Scale: 0-10 Numeric Is Patient Pain Free? Yes Yes 02/03/20 11:22 Wound Center Nurse 2 #1- R GROIN -Time 11:22 -Correct Patient Yes -Correct Side, Site, Position Yes -Correct Procedure Yes -Procedure Performed Yes -Type of Procedure Debridement -Clinical Debridement Subcutaneous -Tissue Removed Subcutaneous -Post Debridement (cm) - Length 15.4 -Post Debridement (cm) - Width 2.0 -Post Debridement (cm) - Depth 0.2 -Total Square (Post) (cm) 30.80 -Area of Debridement (cm) - Length 15.4 -Area of Debridement (cm) - Width 2.0 -Total Square (Area) (cm) 30.80 -Tunneling No -Undermining/Tunneling No -Circular Undermining No -Wound/Ulcer Outcome Not Healed -Ulcer Cleansing Rinsed/ Irrigated with Saline -Foul Odor after Cleansing No -Bioengineered Tissue No -Bleeding Controlled with Pressure -Offloading No -Treatment Response Procedure Tolerated Well -Debridement - Subq, 1st 20sq cm Yes -Debridement, SubQ, ea addt'l 20sq cm 3 or part thereof #2- L GROIN -Time 11:22 -Correct Patient Yes -Correct Side, Site, Position Yes -Correct Procedure Yes -Procedure Performed Yes -Type of Procedure Debridement -Clinical Debridement Subcutaneous -Tissue Removed Subcutaneous -Post Debridement (cm) - Length 2.0 -Post Debridement (cm) - Width 17.0 -Post Debridement (cm) - Depth 0.2 -Total Square (Post) (cm) 34.00 -Area of Debridement (cm) - Length 2.0 -Area of Debridement (cm) - Width 17.0 -Total Square (Area) (cm) 34.00 -Tunneling No -Undermining/Tunneling No -Circular Undermining No -Wound/Ulcer Outcome Not Healed -Ulcer Cleansing Rinsed/ Irrigated with Saline -Foul Odor after Cleansing No -Bioengineered Tissue No -Bleeding Controlled with Pressure -Offloading No -Treatment Response Procedure Tolerated Well -Debridement - Subq, 1st 20sq cm No -Debridement, SubQ, ea addt'l 20sq cm or part thereof Pain Scale: 0-10 Numeric Is Patient Pain Free? WC - Nurse 3 - General Ulcer D/C NN Start: 01/13/20 09:02 Freq: Status: Active Protocol: Activity Type Activity Date Activity User E-Sign Co-Sign Detail Recorded Client Recorded Date Recorded By Document 01/13/20 10:02 DL [id number] 01/13/20 10:04 DL Document 01/17/20 13:36 BM [id number] 01/17/20 13:38 BMF Document 01/20/20 11:34 DL [id number] 01/20/20 11:37 DL Document 01/24/20 13:18 RB [id number] 01/24/20 13:26 RB Document 01/27/20 10:14 DL [id number] 01/27/20 10:15 DL Document 02/03/20 11:35 MW [id number] 02/03/20 11:36 MW 01/13/20 01/17/20 01/20/20 10:02 13:36 11:34 Wound Care Nurse 3 #1- R GROIN -Ulcer Cleansing Wound Cleanser Rinsed/ Wound Cleanser Irrigated with Saline -Foul Odor after Cleansing No No No -Negative Pressure Wound Therapy Continue Continue Continue -Setting (mmHg) 150 150 150 -Negative Pressure is Continuous Continuous Continuous -Other Dressing -Primary Dressing Covered/Secured with -Other Covering -NPWT Application Charge ($) NPWT > 50 sq cm NPWT > 50 sq cm NPWT > 50 sq cm #2- L GROIN -Ulcer Cleansing Wound Cleanser Rinsed/ Wound Cleanser Irrigated with Saline -Foul Odor after Cleansing No No No -Negative Pressure Wound Therapy Continue Continue Continue -Setting (mmHg) 150 150 150 -Negative Pressure is Continuous Continuous Continuous -Other Dressing -Primary Dressing Covered/Secured with -Other Covering -NPWT Application Charge ($) NPWT > 50 sq cm NPWT > 50 sq cm NPWT > 50 sq cm Aida-Wound Care Barrier Barrier Treatment Response Procedure Procedure Procedure Tolerated Well Tolerated Well Tolerated Well Vital Signs Temperature (97.8 F-99.1 F) 97.2 F L Temperature Source Temporal Pulse Rate (60-100) 111 H Pulse Location Monitor Respiratory Rate (12-18) 16 Respiratory rate source Observation Oxygen Delivery Method Room Air Blood Pressure (90/60-120/80) 128/78 H Blood Pressure Mean (mm Hg) 94 Source Monitor Position Sitting Blood Pressure Location Left Arm Pain Scale: 0-10 Numeric Is Patient Pain Free? Yes Yes Teaching: Wound Center *Wound/Skin Impairment -Person Taught -Teaching Method -Response to teaching Dressing Your Wound -Person Taught -Teaching Method -Response to teaching WC - Visit Discharge Discharge Condition Stable Stable Stable Ambulatory Status Ambulatory Ambulatory Ambulatory Transportation Private Auto Private Auto Private Auto Accompanied by Medication Reconcilliation completed & provided to patient/care provider Clinical Summary of Care Provided Notes: Pt to stop Vac when Dakins daily when available. 11/01/27/20 02/03/20 13:18 10:14 11:35 Wound Care Nurse 3 #1- R GROIN -Ulcer Cleansing Rinsed/ Rinsed/ Irrigated with Irrigated with Saline Saline -Foul Odor after Cleansing No No -Negative Pressure Wound Therapy N/A -Setting (mmHg) -Negative Pressure is -Other Dressing 1/4strength dakins dakins wet to Dakins dry moistened gauze with abd -Primary Dressing Covered/Secured with Dry Gauze, Dry Gauze, Dry Gauze, Secured with Secured with Secured with Tape Tape Tape -Other Covering ABD pad -NPWT Application Charge ($) #2- L GROIN -Ulcer Cleansing Wound Cleanser Rinsed/ Irrigated with Saline -Foul Odor after Cleansing No No -Negative Pressure Wound Therapy N/A -Setting (mmHg) -Negative Pressure is -Other Dressing 1/4 strength dakins Dakins wet to dakins dry moistened gauze -Primary Dressing Covered/Secured with Dry Gauze, Dry Gauze, Dry Gauze, Secured with Secured with Secured with Tape Tape Tape -Other Covering ABD pad -NPWT Application Charge ($) Aida-Wound Care Treatment Response Procedure Procedure Procedure Tolerated Well Tolerated Well Tolerated Well Vital Signs Temperature (97.8 F-99.1 F) 96.7 F L Temperature Source Temporal Pulse Rate (60-100) 105 H Pulse Location Monitor Respiratory Rate (12-18) 18 Respiratory rate source Observation Oxygen Delivery Method Blood Pressure (90/60-120/80) 143/87 H Blood Pressure Mean (mm Hg) 105 Source Monitor Position Sitting Blood Pressure Location Left Arm Pain Scale: 0-10 Numeric Is Patient Pain Free? Yes Yes Yes Teaching: Wound Center *Wound/Skin Impairment -Person Taught Patient -Teaching Method Discussion -Response to teaching Verbalize understanding Dressing Your Wound -Person Taught Patient,Family -Teaching Method Discussion, Demonstration -Response to teaching Verbalize understanding WC - Visit Discharge Discharge Condition Stable Stable Stable Ambulatory Status Ambulatory Ambulatory Ambulatory Transportation Private Auto Private Auto Private Auto Accompanied by self Medication Reconcilliation completed & No No provided to patient/care provider Clinical Summary of Care Provided Yes Yes Notes: Wound debrided: Groin ulcer Laterality: Right Type of Debridement: Excisional debridement Anesthesia Used: 5% Lidocaine Gel Depth: Down to and including healthy tissue, in the subcutaneous layer Percentage of wound debrided: 100 Instrument Used: 5mm curette Tissue Removed: Subcutaneous tissue and slough Severity: Fat Layer Exposed Amount of bleeding with debridement: Moderate Bleeding Controlled with: Pressure, Compression and gauze Patient tolerated procedure well - Additional Wound Wound debrided: groin ulcer Laterality: Left Type of Debridement: Excisional debridement Anesthesia Used: 5% Lidocaine Gel Depth: Down to and including healthy tissue, in the subcutaneous layer Percentage of wound debrided: 100 Instrument Used: 5mm curette Tissue Removed: Subcutaneous tissue and slough Severity: Fat Layer Exposed Amount of bleeding with debridement: Moderate Bleeding Controlled with: Pressure, Compression and gauze Patient tolerated procedure: Patient tolerated procedure well Assessment/Plan Active Problems (Last Reviewed 12/16/19 @ 02:[address] Kenneth Contreras MD) Open wound of vulva (Acute) Non-healing open wound of left groin (Acute) Non-healing open wound of right groin (Acute) MRSA (methicillin resistant Staphylococcus aureus) infection (Acute) Vulval hidradenitis suppurativa (Chronic) Diabetes (Chronic) Assessment: 1. Nonhealing diabetic hidradenitis ulcers bilateral inguinal areas with extension to vulval area involving the mons pubis and genitocrural crease. 2. Hidradenitis bilateral inguinal areas. 3. Vulval hidradenitis involving the mons pubis and genitocrural crease. 4. Left axillary hidradenitis, stable after I&D. 5. Diabetes mellitus. 6. MRSA. 7. Obesity. Plan: Continue Dakin's dressing changes daily. She has finished the Clindamycin for the MRSA and Streptococcus agalactiae. Prealbumin from 12/17/19 was 9.1. Encourage nutritional supplementation with protein to help the healing process. Wound culture obtained today due to the increase odor. Due to redness/cellulitis she has on her left posterior thigh and her mons pubis, will start her on Clindamycin and a probiotic. A positive of culture may necessitate a change in her antibiotics. The left posterior thigh was marked with a pen. Instructed the patient that if the redness, pain, fever worsens, then she needs to go to the ED for further evaluation and posible IV antibiotics. Followup one week. [id number]: [id number] Global Visit
[2020-02-10 08:09] VITALS: BP 126/79; PULSE 105; RESP 20; TEMP 36.1; BMI 46.6
--- NOTE | 2020-02-10 09:04 | PN.PCM_ITS ---
(1) Ulcer of left groin with fat layer exposed Status: Chronic Code(s): L98.492 - Non-pressure chronic ulcer of skin of other sites with fat layer exposed (2) Ulcer of right groin with fat layer exposed Status: Chronic Code(s): L98.492 - Non-pressure chronic ulcer of skin of other sites with fat layer exposed (3) Ulceration of vulva Status: Chronic Code(s): N76.6 - Ulceration of vulva (4) Vulval hidradenitis suppurativa Status: Chronic Code(s): L73.2 - Hidradenitis suppurativa (5) Diabetes Status: Chronic Qualifiers: Diabetes mellitus type: type 2 Diabetes mellitus senior care insulin use: with manager long term care use Diabetes mellitus complication status: with hyperglycemia Qualified Code(s): E11.65 - Type 2 diabetes mellitus with hyperglycemia; Z79.4 - group home (current) use of insulin Code(s): E11.9 - Type 2 diabetes mellitus without complications (6) Cellulitis of left thigh Status: Acute Code(s): L03.116 - Cellulitis of left lower limb Type of Wound Date of Service: 02/10/20 Chief Complaint: Nonhealing diabetic hidradenitis ulcers bilateral inguinal areas with extension to vulval area involving the mons pubis and genitocrural crease. History of Wound: Surgery 12/17/19 - 1. Surgical preparation bilateral inguinal areas with extension to vulval area involving the mons pubis and genitocrural crease with incision and drainage and excision diabetic hidradenitis abscesses, (216 cm2 on the left and 209 cm2 on the right). 2. Partial vulvectomy including deep subcutaneous tissue involving mons pubis and genitrocrural crease. Wound care - Will stop the Dakin's and start daily Silvercell covered by gauze. Operative cultures - MRSA and Streptococcus agalactiae. She was treated with Vancomycin in the hospital and had increased Creatinine and the Vancomycin was stopped. She was changed to Clindamycin and has finished them. Prealbumin from 12/17/19 was 9.1. Encourage nutritional supplementation with protein to help the healing process. Wound culture from 02/03/20 positive for Pseudomonas aeroginosa #1 & #2, Staphylococcus aureus, MRSE, Corynebacterium amycolatum and Streptococcus group A, Anaerobic cocci and Gram negative zachary. She has been on Clindamycin and Levaquin. Will consult ID. Today she denies fever. Her appetite is good. Progress of Wound: Improved. - Physical Exam Vital Signs Temp Pulse Resp BP 97 F L 105 H 20 H 126/79 H 02/10/20 08:09 02/10/20 08:09 02/10/20 08:09 02/10/20 08:09 General: Alert, Oriented x3, Cooperative HEENT: Atraumatic Oral: Moist Mucosa Lungs: Normal air movement Cardiovascular: Regular rate Abdomen: Soft, Obese Extremities: Capillary Refill Less than 3 Seconds Skin: Ulcer/ Wound - Right groin ulcer and left groin ulcer, both are beefy pink, bleed easily., - - Left posterior thigh cellultis much improved and the mons pubis redness resolved. Wound Measurements and Assessment WC - Nurse 1 - General Ulcer Measurement Start: 01/13/20 09:02 Freq: Status: Active Protocol: Activity Type Activity Date Activity User E-Sign Co-Sign Detail Recorded Client Recorded Date Recorded By Document 02/10/20 08:09 DL [id number] 02/10/20 08:17 DL 02/10/20 08:09 Wound Center Nurse 1 [Ulcer Assessment] #1- R GROIN -Current Size (cm) - Length 15 -Current Size (cm) - Width 1.7 -Current Size (cm) - Depth 0.1 -Total Square Cm 25.5 -Photo Taken No -Exudate Amt Small -Exudate Type Serosanguineous -Wound Margin Distinct, Outline Attached -Granulation Amt Large (67-100%) -Granulation Quality Red -Necrosis Amt None Present (0 %) -Structure Exposed N/A -Texture (Aida-wound Skin Appearance) Scarring -Moisture (Aida-wound Skin Appearance No Abnormality ) -Color (Aida-wound Skin Appearance) No Abnormality -Ulcer Cleansing Rinsed/ Irrigated with Saline -Anesthetic Used 4% Lidocaine Solution #2- L GROIN -Current Size (cm) - Length 16 -Current Size (cm) - Width 1.5 -Current Size (cm) - Depth 0.1 -Total Square Cm 24.0 -Photo Taken No -Exudate Amt Small -Exudate Type Serosanguineous -Wound Margin Distinct, Outline Attached -Granulation Amt Large (67-100%) -Granulation Quality Red -Necrosis Amt None Present (0 %) -Structure Exposed N/A -Texture (Aida-wound Skin Appearance) Scarring -Moisture (Aida-wound Skin Appearance No Abnormality ) -Color (Aida-wound Skin Appearance) No Abnormality -Ulcer Cleansing Wound Cleanser -Foul Odor after Cleansing No -Anesthetic Used 4% Lidocaine Solution WC - Nurse 2 - General Ulcer CM Notes Start: 01/13/20 09:02 Freq: Status: Active Protocol: Activity Type Activity Date Activity User E-Sign Co-Sign Detail Recorded Client Recorded Date Recorded By Document 02/10/20 08:30 PAT [email or web address] 02/10/20 08:45 PAT 02/10/20 08:30 Wound Center Nurse 2 [Procedure/Treatment] #1- R GROIN -Time 08:34 -Correct Patient Yes -Correct Side, Site, Position Yes -Correct Procedure Yes -Procedure Performed Yes -Type of Procedure Debridement -Clinical Debridement Subcutaneous -Tissue Removed Subcutaneous -Post Debridement (cm) - Length 1.5 -Post Debridement (cm) - Width 18 -Post Debridement (cm) - Depth 0.1 -Total Square (Post) (cm) 27.0 -Area of Debridement (cm) - Length 1.5 -Area of Debridement (cm) - Width 18 -Total Square (Area) (cm) 27.0 -Tunneling No -Undermining/Tunneling No -Circular Undermining No -Wound/Ulcer Outcome Not Healed -Ulcer Cleansing Rinsed/ Irrigated with Saline -Foul Odor after Cleansing Yes -Bioengineered Tissue No -Bleeding Controlled with NA -Offloading No -Treatment Response Procedure Tolerated Well -Debridement - Subq, 1st 20sq cm No #2- L GROIN -Time 08:36 -Correct Patient Yes -Correct Side, Site, Position Yes -Correct Procedure Yes -Procedure Performed Yes -Type of Procedure Debridement -Clinical Debridement Subcutaneous -Tissue Removed Subcutaneous -Post Debridement (cm) - Length 2 -Post Debridement (cm) - Width 15 -Post Debridement (cm) - Depth 0.1 -Total Square (Post) (cm) 30 -Area of Debridement (cm) - Length 2 -Area of Debridement (cm) - Width 18 -Total Square (Area) (cm) 36 -Tunneling No -Undermining/Tunneling No -Circular Undermining No -Wound/Ulcer Outcome Not Healed -Ulcer Cleansing Rinsed/ Irrigated with Saline -Foul Odor after Cleansing No -Bioengineered Tissue No -Offloading No -Treatment Response Procedure Tolerated Well -Debridement - Subq, 1st 20sq cm Yes -Debridement, SubQ, ea addt'l 20sq cm 1 or part thereof [See Physician Procedure note for Specifics] Pain Scale: 0-10 Numeric [Pain] -Is Patient Pain Free? Yes - Nurse 3 - General Ulcer D/C NN Start: 01/13/20 09:02 Freq: Status: Active Protocol: Activity Type Activity Date Activity User E-Sign Co-Sign Detail Recorded Client Recorded Date Recorded By Document 02/10/20 08:58 DL [id number] 02/10/20 08:59 DL 02/10/20 08:58 Wound Care Nurse 3 [Wound Dressing] #1- R GROIN -Ulcer Cleansing Wound Cleanser -Foul Odor after Cleansing No -Primary Dressing Applied Silvercel -Primary Dressing Covered/Secured Dry Gauze, with Secured with Tape -Silvercel 1 #2- L GROIN -Ulcer Cleansing Wound Cleanser -Foul Odor after Cleansing No -Primary Dressing Covered/Secured Dry Gauze, with Secured with Tape [Post Procedure Tolerated] -Treatment Response Procedure Tolerated Well Pain Scale: 0-10 Numeric [Pain] -Is Patient Pain Free? Yes - Visit Discharge [Visit Discharge Information] -Discharge Condition Stable -Ambulatory Status Ambulatory Musculoskeletal: No Tenderness to Palpation of Joints or Extremities Neurological: Cranial nerves II-XII grossly intact Psych/Mental Status: Normal Affect, Appropriate Debridement Note Post-Debridement Measurements/Treatment - Nurse 2 - General Ulcer CM Notes Start: 01/13/20 09:02 Freq: Status: Active Protocol: Activity Type Activity Date Activity User E-Sign Co-Sign Detail Recorded Client Recorded Date Recorded By Document 01/13/20 09:27 [id number] 01/13/20 09:30 Document 01/20/20 09:44 [id number] 01/20/20 09:50 JF Document 01/27/20 09:53 JF [id number] 01/27/20 09:59 JF Document 02/03/20 11:22 JF [id number] 02/03/20 11:24 JF Document 02/10/20 08:30 JF [id number] 02/10/20 08:45 JF 1101/20/20 01/27/20 09:27 09:44 09:53 Wound Center Nurse 2 #1- R GROIN -Time : 09:48 09:56 -Correct Patient Yes Yes Yes -Correct Side, Site, Position Yes Yes Yes -Correct Procedure Yes Yes Yes -Procedure Performed Yes Yes Yes -Type of Procedure Debridement Debridement Debridement -Clinical Debridement Subcutaneous Subcutaneous Subcutaneous -Tissue Removed Subcutaneous Subcutaneous Subcutaneous -Post Debridement (cm) - Length 4.0 2.2 2.8 -Post Debridement (cm) - Width 18.8 15.6 16.0 -Post Debridement (cm) - Depth 1.0 0.3 0.2 -Total Square (Post) (cm) 75.20 34.32 44.80 -Area of Debridement (cm) - Length 4.0 2.2 2.8 -Area of Debridement (cm) - Width 18.8 15.6 16.0 -Total Square (Area) (cm) 75.20 34.32 44.80 -Tunneling No No No -Undermining/Tunneling No No No -Circular Undermining No No No -Wound/Ulcer Outcome Not Healed Not Healed Not Healed -Ulcer Cleansing Rinsed/ Rinsed/ Rinsed/ Irrigated with Irrigated with Irrigated with Saline Saline Saline -Foul Odor after Cleansing No No No -Bioengineered Tissue No No No -Bleeding Controlled with Pressure Pressure Pressure -Offloading No No No -Treatment Response Procedure Procedure Procedure Tolerated Well Tolerated Well Tolerated Well -Debridement - Subq, 1st 20sq cm Yes No No -Debridement, SubQ, ea addt'l 20sq cm 7 or part thereof #2- L GROIN -Time 09:48 09:56 -Correct Patient Yes Yes Yes -Correct Side, Site, Position Yes Yes Yes -Correct Procedure Yes Yes Yes -Procedure Performed Yes Yes Yes -Type of Procedure Debridement Debridement Debridement -Clinical Debridement Subcutaneous Subcutaneous Subcutaneous -Tissue Removed Subcutaneous Subcutaneous Subcutaneous -Post Debridement (cm) - Length 3.3 4.3 19.0 -Post Debridement (cm) - Width 20.0 18.0 3.2 -Post Debridement (cm) - Depth 0.8 0.3 0.2 -Total Square (Post) (cm) 66.00 77.40 60.80 -Area of Debridement (cm) - Length 3.3 4.3 19.0 -Area of Debridement (cm) - Width 20.0 18 3.2 -Total Square (Area) (cm) 66.00 77.4 60.80 -Tunneling No No No -Undermining/Tunneling No No No -Circular Undermining No No No -Wound/Ulcer Outcome Not Healed Not Healed Not Healed -Ulcer Cleansing Rinsed/ Rinsed/ Rinsed/ Irrigated with Irrigated with Irrigated with Saline Saline Saline -Foul Odor after Cleansing No No No -Bioengineered Tissue No No No -Bleeding Controlled with Pressure Pressure Pressure -Offloading No No No -Treatment Response Procedure Procedure Procedure Tolerated Well Tolerated Well Tolerated Well -Debridement - Subq, 1st 20sq cm No Yes Yes -Debridement, SubQ, ea addt'l 20sq cm 0 5 5 or part thereof Pain Scale: 0-10 Numeric Is Patient Pain Free? Yes Yes 02/03/20 02/10/20 11:22 08:30 Wound Center Nurse 2 #1- R GROIN -Time 11: 08:34 -Correct Patient Yes Yes -Correct Side, Site, Position Yes Yes -Correct Procedure Yes Yes -Procedure Performed Yes Yes -Type of Procedure Debridement Debridement -Clinical Debridement Subcutaneous Subcutaneous -Tissue Removed Subcutaneous Subcutaneous -Post Debridement (cm) - Length 15.4 1.5 -Post Debridement (cm) - Width 2.0 18 -Post Debridement (cm) - Depth 0.2 0.1 -Total Square (Post) (cm) 30.80 27.0 -Area of Debridement (cm) - Length 15.4 1.5 -Area of Debridement (cm) - Width 2.0 18 -Total Square (Area) (cm) 30.80 27.0 -Tunneling No No -Undermining/Tunneling No No -Circular Undermining No No -Wound/Ulcer Outcome Not Healed Not Healed -Ulcer Cleansing Rinsed/ Rinsed/ Irrigated with Irrigated with Saline Saline -Foul Odor after Cleansing No Yes -Bioengineered Tissue No No -Bleeding Controlled with Pressure NA -Offloading No No -Treatment Response Procedure Procedure Tolerated Well Tolerated Well -Debridement - Subq, 1st 20sq cm Yes No -Debridement, SubQ, ea addt'l 20sq cm 3 or part thereof #2- L GROIN -Time 11: 08:36 -Correct Patient Yes Yes -Correct Side, Site, Position Yes Yes -Correct Procedure Yes Yes -Procedure Performed Yes Yes -Type of Procedure Debridement Debridement -Clinical Debridement Subcutaneous Subcutaneous -Tissue Removed Subcutaneous Subcutaneous -Post Debridement (cm) - Length 2.0 2 -Post Debridement (cm) - Width 17.0 15 -Post Debridement (cm) - Depth 0.2 0.1 -Total Square (Post) (cm) 34.00 30 -Area of Debridement (cm) - Length 2.0 2 -Area of Debridement (cm) - Width 17.0 18 -Total Square (Area) (cm) 34.00 36 -Tunneling No No -Undermining/Tunneling No No -Circular Undermining No No -Wound/Ulcer Outcome Not Healed Not Healed -Ulcer Cleansing Rinsed/ Rinsed/ Irrigated with Irrigated with Saline Saline -Foul Odor after Cleansing No No -Bioengineered Tissue No No -Bleeding Controlled with Pressure -Offloading No No -Treatment Response Procedure Procedure Tolerated Well Tolerated Well -Debridement - Subq, 1st 20sq cm No Yes -Debridement, SubQ, ea addt'l 20sq cm 1 or part thereof Pain Scale: 0-10 Numeric Is Patient Pain Free? Yes WC - Nurse 3 - General Ulcer D/C NN Start: 01/13/20 09:02 Freq: Status: Active Protocol: Activity Type Activity Date Activity User E-Sign Co-Sign Detail Recorded Client Recorded Date Recorded By Document 01/13/20 10:02 DL [id number] 01/13/20 10:04 DL Document 01/17/20 13:36 BMF [id number] 01/17/20 13:38 BMF Document 01/20/20 11:34 DL [id number] 01/20/20 11:37 DL Document 01/24/20 13:18 RB [id number] 01/24/20 13:26 RB Document 01/27/20 10:14 DL [id number] 01/27/20 10:15 DL Document 02/03/20 11:35 MW [id number] 02/03/20 11:36 MW Document 02/10/20 08:58 DL [id number] 02/10/20 08:59 DL 01/13/20 01/17/20 01/20/20 10:02 13:36 11:34 Wound Care Nurse 3 #1- R GROIN -Ulcer Cleansing Wound Cleanser Rinsed/ Wound Cleanser Irrigated with Saline -Foul Odor after Cleansing No No No -Negative Pressure Wound Therapy Continue Continue Continue -Setting (mmHg) 150 150 150 -Negative Pressure is Continuous Continuous Continuous -Primary Dressing Applied -Other Dressing -Primary Dressing Covered/Secured with -Other Covering -NPWT Application Charge ($) NPWT > 50 sq cm NPWT > 50 sq cm NPWT > 50 sq cm -Silvercel #2- L GROIN -Ulcer Cleansing Wound Cleanser Rinsed/ Wound Cleanser Irrigated with Saline -Foul Odor after Cleansing No No No -Negative Pressure Wound Therapy Continue Continue Continue -Setting (mmHg) 150 150 150 -Negative Pressure is Continuous Continuous Continuous -Other Dressing -Primary Dressing Covered/Secured with -Other Covering -NPWT Application Charge ($) NPWT > 50 sq cm NPWT > 50 sq cm NPWT > 50 sq cm Aida-Wound Care Barrier Barrier Treatment Response Procedure Procedure Procedure Tolerated Well Tolerated Well Tolerated Well Vital Signs Temperature (97.8 F-99.1 F) 97.2 F L Temperature Source Temporal Pulse Rate (60-100) 111 H Pulse Location Monitor Respiratory Rate (12-18) 16 Respiratory rate source Observation Oxygen Delivery Method Room Air Blood Pressure (90/60-120/80) 128/78 H Blood Pressure Mean (mm Hg) 94 Source Monitor Position Sitting Blood Pressure Location Left Arm Pain Scale: 0-10 Numeric Is Patient Pain Free? Yes Yes Teaching: Wound Center *Wound/Skin Impairment -Person Taught -Teaching Method -Response to teaching Dressing Your Wound -Person Taught -Teaching Method -Response to teaching WC - Visit Discharge Discharge Condition Stable Stable Stable Ambulatory Status Ambulatory Ambulatory Ambulatory Transportation Private Auto Private Auto Private Auto Accompanied by Medication Reconcilliation completed & provided to patient/care provider Clinical Summary of Care Provided Notes: Pt to stop Vac when Dakins daily when available. 01/24/20 01/27/20 02/03/20 13:18 10:14 11:35 Wound Care Nurse 3 #1- R GROIN -Ulcer Cleansing Rinsed/ Rinsed/ Irrigated with Irrigated with Saline Saline -Foul Odor after Cleansing No No -Negative Pressure Wound Therapy N/A -Setting (mmHg) -Negative Pressure is -Primary Dressing Applied -Other Dressing 1/4strength dakins dakins wet to Dakins dry moistened gauze with abd -Primary Dressing Covered/Secured with Dry Gauze, Dry Gauze, Dry Gauze, Secured with Secured with Secured with Tape Tape Tape -Other Covering ABD pad -NPWT Application Charge ($) -Silvercel #2- L GROIN -Ulcer Cleansing Wound Cleanser Rinsed/ Irrigated with Saline -Foul Odor after Cleansing No No -Negative Pressure Wound Therapy N/A -Setting (mmHg) -Negative Pressure is -Other Dressing 1/4 strength dakins Dakins wet to dakins dry moistened gauze -Primary Dressing Covered/Secured with Dry Gauze, Dry Gauze, Dry Gauze, Secured with Secured with Secured with Tape Tape Tape -Other Covering ABD pad -NPWT Application Charge ($) Aida-Wound Care Treatment Response Procedure Procedure Procedure Tolerated Well Tolerated Well Tolerated Well Vital Signs Temperature (97.8 F-99.1 F) 96.7 F L Temperature Source Temporal Pulse Rate (60-100) 105 H Pulse Location Monitor Respiratory Rate (12-18) 18 Respiratory rate source Observation Oxygen Delivery Method Blood Pressure (90/60-120/80) 143/87 H Blood Pressure Mean (mm Hg) 105 Source Monitor Position Sitting Blood Pressure Location Left Arm Pain Scale: 0-10 Numeric Is Patient Pain Free? Yes Yes Yes Teaching: Wound Center *Wound/Skin Impairment -Person Taught Patient -Teaching Method Discussion -Response to teaching Verbalize understanding Dressing Your Wound -Person Taught Patient,Family -Teaching Method Discussion, Demonstration -Response to teaching Verbalize understanding WC - Visit Discharge Discharge Condition Stable Stable Stable Ambulatory Status Ambulatory Ambulatory Ambulatory Transportation Private Auto Private Auto Private Auto Accompanied by self Medication Reconcilliation completed & No No provided to patient/care provider Clinical Summary of Care Provided Yes Yes Notes: 02/10/20 08:58 Wound Care Nurse 3 #1- R GROIN -Ulcer Cleansing Wound Cleanser -Foul Odor after Cleansing No -Negative Pressure Wound Therapy -Setting (mmHg) -Negative Pressure is -Primary Dressing Applied Silvercel -Other Dressing -Primary Dressing Covered/Secured with Dry Gauze, Secured with Tape -Other Covering -NPWT Application Charge ($) -Silvercel 1 #2- L GROIN -Ulcer Cleansing Wound Cleanser -Foul Odor after Cleansing No -Negative Pressure Wound Therapy -Setting (mmHg) -Negative Pressure is -Other Dressing -Primary Dressing Covered/Secured with Dry Gauze, Secured with Tape -Other Covering -NPWT Application Charge ($) Aida-Wound Care Treatment Response Procedure Tolerated Well Vital Signs Temperature (97.8 F-99.1 F) Temperature Source Pulse Rate (60-100) Pulse Location Respiratory Rate (12-18) Respiratory rate source Oxygen Delivery Method Blood Pressure (90/60-120/80) Blood Pressure Mean (mm Hg) Source Position Blood Pressure Location Pain Scale: 0-10 Numeric Is Patient Pain Free? Yes Teaching: Wound Center *Wound/Skin Impairment -Person Taught -Teaching Method -Response to teaching Dressing Your Wound -Person Taught -Teaching Method -Response to teaching WC - Visit Discharge Discharge Condition Stable Ambulatory Status Ambulatory Transportation Accompanied by Medication Reconcilliation completed & provided to patient/care provider Clinical Summary of Care Provided Notes: Wound debrided: groin ulcer cluster Laterality: Right Type of Debridement: Excisional debridement Anesthesia Used: 5% Lidocaine Gel Depth: Down to and including healthy tissue, in the subcutaneous layer Percentage of wound debrided: 100 Instrument Used: 3mm curette Tissue Removed: Subcutaneous tissue and slough Severity: Fat Layer Exposed Amount of bleeding with debridement: Moderate Bleeding Controlled with: Pressure, Compression and gauze Patient tolerated procedure well - Additional Wound Wound debrided: groin ulcer cluster Laterality: Left Type of Debridement: Excisional debridement Anesthesia Used: 5% Lidocaine Gel Depth: Down to and including healthy tissue, in the subcutaneous layer Percentage of wound debrided: 100 Instrument Used: 3mm curette Tissue Removed: Subcutaneous tissue and slough Severity: Fat Layer Exposed Amount of bleeding with debridement: Moderate Bleeding Controlled with: Pressure, Compression and gauze Patient tolerated procedure: Patient tolerated procedure well Assessment/Plan Active Problems (Last Reviewed 12/16/19 @ 02:[address] Kenneth Contreras MD) Cellulitis of left thigh (Acute) Ulceration of vulva (Chronic) Ulcer of right groin with fat layer exposed (Chronic) Ulcer of left groin with fat layer exposed (Chronic) Open wound of vulva (Acute) Non-healing open wound of left groin (Acute) Non-healing open wound of right groin (Acute) MRSA (methicillin resistant Staphylococcus aureus) infection (Acute) Vulval hidradenitis suppurativa (Chronic) Diabetes (Chronic) Assessment: 1. Nonhealing diabetic hidradenitis ulcers bilateral inguinal areas with extension to vulval area involving the mons pubis and genitocrural crease. 2. Hidradenitis bilateral inguinal areas. 3. Vulval hidradenitis involving the mons pubis and genitocrural crease. 4. Left axillary hidradenitis, stable after I&D. 5. Diabetes mellitus. 6. MRSA. 7. Obesity. Plan: Wound care: Stop Dakin's dressing changes and start daily Silvercel dressings. Prealbumin from 12/17/19 was 9.1. Encourage nutritional supplementation with protein to help the healing process. Wound culture obtained on 02/03/20 which was positive for Pseudomonal aeroginosa #1 and #2, Staphylococcus aureus, Staphylococcus epidermidis, Corynebacerium amycolatum, Streptococcus group A, Gram negative zachary and Anaerobic cocci. She is currently on Clindamycin which she will complete this week. Started her on Levaquin. Will start her on Flagyl for her Anaerobic culture. Will consult Dr. 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 It is sensitive to Zyvox but due to her being on SSRI, it is contraindicated. The redness/cellulitis she has on her left posterior thigh and her mons pubis, has started to resolve with her on Clindamycin and a probiotic. Followup one week. [id number]: [id number] [employer] Visit
== END 2020-02-10 23:59 ==
LOC: WC 08:15
PROVIDERS: PCP Family Medicine Geriatric Medicine; Referring Provider Surgery; Visit Provider Surgery
DX: L98.492 Non-pressure chronic ulcer of skin of other sites with fat layer exposed (principal); N76.6 Ulceration of vulva; L73.2 Hidradenitis suppurativa; E11.65 Type 2 diabetes mellitus with hyperglycemia; Z79.4 Long term (current) use of insulin; L03.116 Cellulitis of left lower limb; Z98.890 Other specified postprocedural states; E66.9 Obesity, unspecified; A49.02 Methicillin resistant Staphylococcus aureus infection, unspecified site
CPT/HCPCS: 11042; 11045; 87070; 87075; 87077; 87186; 87205; 97605; 97606; 99213; G0463

== ENCOUNTER 2020-03-02 14:15 | Outpatient (RCR) | payer MEDICAID, SELFPAY ==
[2020-02-11 00:35] VITALS: BP 126/79; PULSE 105; RESP 20; TEMP 36.1
[2020-02-17 10:06] VITALS: BP 151/92; PULSE 101; RESP 16; TEMP 36.8; BMI 46.6
--- NOTE | 2020-02-17 13:04 | PCM.WC.PN ---
(1) Ulcer of right groin with fat layer exposed Status: Chronic Code(s): L98.492 - Non-pressure chronic ulcer of skin of other sites with fat layer exposed (2) Ulcer of left groin with fat layer exposed Status: Chronic Code(s): L98.492 - Non-pressure chronic ulcer of skin of other sites with fat layer exposed (3) Ulceration of vulva Status: Chronic Code(s): N76.6 - Ulceration of vulva (4) Vulval hidradenitis suppurativa Status: Chronic Code(s): L73.2 - Hidradenitis suppurativa (5) Hidradenitis suppurativa Status: Chronic Code(s): L73.2 - Hidradenitis suppurativa Comment: bilateral inguinal hidradenitis (6) Morbid obesity Status: Chronic Code(s): E66.01 - Morbid (severe) obesity due to excess calories (7) Diabetes mellitus, type II Status: Chronic Qualifiers: Diabetes mellitus jail insulin use: with jail use Diabetes mellitus complication status: with hyperglycemia Qualified Code(s): E11.65 - Type 2 diabetes mellitus with hyperglycemia; Z79.4 - MCFP (current) use of insulin Code(s): E11.9 - Type 2 diabetes mellitus without complications Type of Wound Date of Service: 02/17/20 Chief Complaint: Nonhealing diabetic hidradenitis ulcers bilateral inguinal areas with extension to vulval area involving the mons pubis and genitocrural crease. History of Wound: Surgery 12/17/19 - 1. Surgical preparation bilateral inguinal areas with extension to vulval area involving the mons pubis and genitocrural crease with incision and drainage and excision diabetic hidradenitis abscesses, (216 cm2 on the left and 209 cm2 on the right). 2. Partial vulvectomy including deep subcutaneous tissue involving mons pubis and genitrocrural crease. Wound care - Daily Silvercell covered by gauze. Operative cultures - MRSA and Streptococcus agalactiae. She was treated with Vancomycin in the hospital and had increased Creatinine and the Vancomycin was stopped. She was changed to Clindamycin and has finished them. Prealbumin from 12/17/19 was 9.1. Encourage nutritional supplementation with protein to help the healing process. Wound culture from 02/03/20 positive for Pseudomonas aeroginosa #1 & #2, Staphylococcus aureus, MRSE, Corynebacterium amycolatum and Streptococcus group A, Anaerobic cocci and Gram negative zachary. She has completed the Clindamycin but still is taking Levaquin and Flagyl. Will consult ID. Today she denies fever. Her appetite is good. Progress of Wound: Improved. - Physical Exam Vital Signs Temp Pulse Resp BP 98.2 F 101 H 16 151/92 H 02/17/20 10:06 02/17/20 10:06 02/17/20 10:06 02/17/20 10:06 General: Alert, Oriented x3, Cooperative, No apparent distress HEENT: Atraumatic Oral: Moist Mucosa Lungs: Normal air movement Cardiovascular: Regular rate Abdomen: Obese Extremities: Capillary Refill Less than 3 Seconds Skin: Ulcer/ Wound - Right and left groin ulcers are beefy pink, bleed easily. No odor this week. Pain not as severe with palpation. Wound Measurements and Assessment WC - Nurse 1 - General Ulcer Measurement Start: 02/17/20 10:02 Freq: Status: Active Protocol: Activity Type Activity Date Activity User E-Sign Co-Sign Detail Recorded Client Recorded Date Recorded By Document 02/17/20 10:06 [facility] [id number] 02/17/20 10:11 [facility] 02/17/20 10:06 Wound Center Nurse 1 [Ulcer Assessment] #1- R GROIN -Combined with other wound No -Current Size (cm) - Length 11.8 -Current Size (cm) - Width 0.5 -Current Size (cm) - Depth 0.1 -Total Square Cm 5.90 -Photo Taken No -Epithelialization Medium 34-66% -Tunneling No -Undermining/Tunneling No -Circular Undermining No -Exudate Amt Medium -Exudate Type Serosanguineous -Wound Margin Distinct, Outline Attached -Granulation Amt Large (67-100%) -Granulation Quality Pale,Red -Slough/Fibrin Yes -Necrosis Amt Small (1-33%) -Necrotic Tissue Type Adherent Slough -Texture (Aida-wound Skin Appearance) Assessed, Scarring -Moisture (Aida-wound Skin Appearance Assessed ) -Color (Aida-wound Skin Appearance) Assessed -Temperature (Aida-wound Skin No Abnormality Appearance) (Pt Warm) -Tenderness on Palpation (Aida-wound No Skin Appearance) -Ulcer Cleansing soapy water -Foul Odor after Cleansing No -Anesthetic Used 4% Lidocaine Solution #2- L GROIN -Combined with other wound No -Current Size (cm) - Length 10 -Current Size (cm) - Width 1.2 -Current Size (cm) - Depth 0.1 -Total Square Cm 12.0 -Photo Taken No -Epithelialization Medium 34-66% -Tunneling No -Undermining/Tunneling No -Circular Undermining No -Exudate Amt Medium -Exudate Type Serosanguineous -Wound Margin Distinct, Outline Attached -Granulation Amt Large (67-100%) -Granulation Quality Pale,Red -Slough/Fibrin Yes -Necrosis Amt Small (1-33%) -Necrotic Tissue Type Adherent Slough -Texture (Aida-wound Skin Appearance) Assessed, Scarring -Moisture (Aida-wound Skin Appearance Assessed ) -Color (Aiad-wound Skin Appearance) Assessed -Temperature (Aida-wound Skin No Abnormality Appearance) (Pt Warm) -Tenderness on Palpation (Aida-wound No Skin Appearance) -Ulcer Cleansing soapy water -Foul Odor after Cleansing No -Anesthetic Used 4% Lidocaine Solution WC - Nurse 2 - General Ulcer CM Notes Start: 02/17/20 10:02 Freq: Status: Active Protocol: Activity Type Activity Date Activity User E-Sign Co-Sign Detail Recorded Client Recorded Date Recorded By Document 02/17/20 10:33 PAT [id number] 02/17/20 10:40 PAT 02/17/20 10:33 Wound Center Nurse 2 [Procedure/Treatment] #1- R GROIN -Time 10:34 -Correct Patient Yes -Correct Side, Site, Position Yes -Correct Procedure Yes -Procedure Performed Yes -Type of Procedure Debridement -Clinical Debridement Subcutaneous -Tissue Removed Subcutaneous -Post Debridement (cm) - Length 0.8 -Post Debridement (cm) - Width 12.0 -Post Debridement (cm) - Depth 0.1 -Total Square (Post) (cm) 9.60 -Area of Debridement (cm) - Length 0.8 -Area of Debridement (cm) - Width 12 -Total Square (Area) (cm) 9.6 -Tunneling No -Undermining/Tunneling No -Circular Undermining No -Wound/Ulcer Outcome Not Healed -Ulcer Cleansing Rinsed/ Irrigated with Saline -Foul Odor after Cleansing No -Bioengineered Tissue No -Bleeding Controlled with Pressure -Offloading No -Treatment Response Procedure Tolerated Well -Debridement - Subq, 1st 20sq cm No #2- L GROIN -Time 10:34 -Correct Patient Yes -Correct Side, Site, Position Yes -Correct Procedure Yes -Procedure Performed Yes -Type of Procedure Debridement -Clinical Debridement Subcutaneous -Tissue Removed Subcutaneous -Post Debridement (cm) - Length 1.5 -Post Debridement (cm) - Width 11.5 -Post Debridement (cm) - Depth 0.2 -Total Square (Post) (cm) 17.25 -Area of Debridement (cm) - Length 1.5 -Area of Debridement (cm) - Width 11.5 -Total Square (Area) (cm) 17.25 -Tunneling No -Undermining/Tunneling No -Circular Undermining No -Wound/Ulcer Outcome Not Healed -Ulcer Cleansing Rinsed/ Irrigated with Saline -Foul Odor after Cleansing No -Bioengineered Tissue No -Bleeding Controlled with Pressure -Offloading No -Treatment Response Procedure Tolerated Well -Debridement - Subq, 1st 20sq cm Yes [See Physician Procedure note for Specifics] Pain Scale: 0-10 Numeric [Pain] -Is Patient Pain Free? Yes - Nurse 3 - General Ulcer D/C NN Start: 02/17/20 10:02 Freq: Status: Active Protocol: Activity Type Activity Date Activity User E-Sign Co-Sign Detail Recorded Client Recorded Date Recorded By Document 02/17/20 10:48 [facility] [id number] 02/17/20 10:49 [facility] 02/17/20 10:48 Wound Care Nurse 3 [Wound Dressing] #1- R GROIN -Ulcer Cleansing Rinsed/ Irrigated with Saline -Foul Odor after Cleansing No -Primary Dressing Applied Aquacel AG 4x4 -Primary Dressing Covered/Secured Secured with with Tape,Other -Other Covering abd -Aquacel AG 4x4 1 #2- L GROIN -Ulcer Cleansing Rinsed/ Irrigated with Saline -Foul Odor after Cleansing No -Primary Dressing Applied Aquacel AG 4x4 -Primary Dressing Covered/Secured Secured with with Tape,Other -Other Covering abd -Aquacel AG 4x4 0 [Post Procedure Tolerated] -Treatment Response Procedure Tolerated Well Pain Scale: 0-10 Numeric [Pain] -Is Patient Pain Free? Yes - Visit Discharge [Visit Discharge Information] -Discharge Condition Stable -Ambulatory Status Ambulatory -Transportation Private Auto Musculoskeletal: No Tenderness to Palpation of Joints or Extremities Neurological: Cranial nerves II-XII grossly intact Psych/Mental Status: Normal Affect, Appropriate Debridement Note Post-Debridement Measurements/Treatment WC - Nurse 2 - General Ulcer CM Notes Start: 02/17/20 10:02 Freq: Status: Active Protocol: Activity Type Activity Date Activity User E-Sign Co-Sign Detail Recorded Client Recorded Date Recorded By Document 02/17/20 10:33 PAT [id number] 02/17/20 10:40 PAT 02/17/20 10:33 Wound Center Nurse 2 #1- R GROIN -Time 10:34 -Correct Patient Yes -Correct Side, Site, Position Yes -Correct Procedure Yes -Procedure Performed Yes -Type of Procedure Debridement -Clinical Debridement Subcutaneous -Tissue Removed Subcutaneous -Post Debridement (cm) - Length 0.8 -Post Debridement (cm) - Width 12.0 -Post Debridement (cm) - Depth 0.1 -Total Square (Post) (cm) 9.60 -Area of Debridement (cm) - Length 0.8 -Area of Debridement (cm) - Width 12 -Total Square (Area) (cm) 9.6 -Tunneling No -Undermining/Tunneling No -Circular Undermining No -Wound/Ulcer Outcome Not Healed -Ulcer Cleansing Rinsed/ Irrigated with Saline -Foul Odor after Cleansing No -Bioengineered Tissue No -Bleeding Controlled with Pressure -Offloading No -Treatment Response Procedure Tolerated Well -Debridement - Subq, 1st 20sq cm No #2- L GROIN -Time 10:34 -Correct Patient Yes -Correct Side, Site, Position Yes -Correct Procedure Yes -Procedure Performed Yes -Type of Procedure Debridement -Clinical Debridement Subcutaneous -Tissue Removed Subcutaneous -Post Debridement (cm) - Length 1.5 -Post Debridement (cm) - Width 11.5 -Post Debridement (cm) - Depth 0.2 -Total Square (Post) (cm) 17.25 -Area of Debridement (cm) - Length 1.5 -Area of Debridement (cm) - Width 11.5 -Total Square (Area) (cm) 17.25 -Tunneling No -Undermining/Tunneling No -Circular Undermining No -Wound/Ulcer Outcome Not Healed -Ulcer Cleansing Rinsed/ Irrigated with Saline -Foul Odor after Cleansing No -Bioengineered Tissue No -Bleeding Controlled with Pressure -Offloading No -Treatment Response Procedure Tolerated Well -Debridement - Subq, 1st 20sq cm Yes Pain Scale: 0-10 Numeric Is Patient Pain Free? Yes - Nurse 3 - General Ulcer D/C NN Start: 02/17/20 10:02 Freq: Status: Active Protocol: Activity Type Activity Date Activity User E-Sign Co-Sign Detail Recorded Client Recorded Date Recorded By Document 02/17/20 10:48 [facility] [id number] 02/17/20 10:49 [facility] 02/17/20 10:48 Wound Care Nurse 3 #1- R GROIN -Ulcer Cleansing Rinsed/ Irrigated with Saline -Foul Odor after Cleansing No -Primary Dressing Applied Aquacel AG 4x4 -Primary Dressing Covered/Secured with Secured with Tape,Other -Other Covering abd -Aquacel AG 4x4 1 #2- L GROIN -Ulcer Cleansing Rinsed/ Irrigated with Saline -Foul Odor after Cleansing No -Primary Dressing Applied Aquacel AG 4x4 -Primary Dressing Covered/Secured with Secured with Tape,Other -Other Covering abd -Aquacel AG 4x4 0 Treatment Response Procedure Tolerated Well Pain Scale: 0-10 Numeric Is Patient Pain Free? Yes WC - Visit Discharge Discharge Condition Stable Ambulatory Status Ambulatory Transportation Private Auto Wound debrided: groin ulcer Laterality: Right Type of Debridement: Excisional debridement Anesthesia Used: 5% Lidocaine Gel Depth: Down to and including healthy tissue, in the subcutaneous layer Percentage of wound debrided: 100 Instrument Used: 5mm curette Tissue Removed: Subcutaneous tissue and slough Severity: Fat Layer Exposed Amount of bleeding with debridement: Moderate Bleeding Controlled with: Pressure, Compression and gauze Patient tolerated procedure well - Additional Wound Wound debrided: groin ulcer Laterality: Left Type of Debridement: Excisional debridement Anesthesia Used: 5% Lidocaine Gel Depth: Down to and including healthy tissue, in the subcutaneous layer Percentage of wound debrided: 100 Instrument Used: 3mm curette Tissue Removed: Subcutaneous tissue and slough Severity: Fat Layer Exposed Amount of bleeding with debridement: Moderate Bleeding Controlled with: Pressure, Compression and gauze Patient tolerated procedure: Patient tolerated procedure well Assessment/Plan Assessment: 1. Nonhealing diabetic hidradenitis ulcers bilateral inguinal areas with extension to vulval area involving the mons pubis and genitocrural crease. 2. Hidradenitis bilateral inguinal areas. 3. Vulval hidradenitis involving the mons pubis and genitocrural crease. 4. Left axillary hidradenitis, stable after I&D. 5. Diabetes mellitus. 6. MRSA. 7. Obesity. Plan: Wound care: Stop Dakin's dressing changes and start daily Silvercel dressings. Prealbumin from 12/17/19 was 9.1. Encourage nutritional supplementation with protein to help the healing process. Wound culture obtained on 02/03/20 which was positive for Pseudomonal aeroginosa #1 and #2, Staphylococcus aureus, Staphylococcus epidermidis, Corynebacerium amycolatum, Streptococcus group A, Gram negative zachary and Anaerobic cocci. She has completed Clindamycin. She is on Levaquin and Flagyl for her Anaerobic culture. Will consult Dr. 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 It is sensitive to Zyvox but due to her being on SSRI, it is contraindicated. The redness/cellulitis she has on her left posterior thigh and her mons pubis, has resolved with her on Clindamycin and a probiotic. Followup one week. [id number]: [id number] Global Visit
[2020-02-24 11:00] VITALS: BP 139/95; PULSE 103; RESP 18; TEMP 36.5; BMI 46.6
--- NOTE | 2020-02-24 12:55 | PN.PCM_ITS ---
Type of Wound Date of Service: 02/24/20 Chief Complaint: Nonhealing diabetic hidradenitis ulcers bilateral inguinal areas with extension to vulval area involving the mons pubis and genitocrural crease. History of Wound: Surgery 12/17/19 - 1. Surgical preparation bilateral inguinal areas with extension to vulval area involving the mons pubis and genitocrural crease with incision and drainage and excision diabetic hidradenitis abscesses, (216 cm2 on the left and 209 cm2 on the right). 2. Partial vulvectomy including deep subcutaneous tissue involving mons pubis and genitrocrural crease. Wound care - Silver. Operative cultures - MRSA and Streptococcus agalactiae. She was treated with Vancomycin in the hospital and had increased Creatinine and the Vancomycin was stopped. She was changed to Clindamycin and has finished them. Prealbumin from 12/17/19 was 9.1. Encourage nutritional feldman pplementation with protein to help the healing process. Today she denies fever. Her appetite is good. Wound culture from 02/03/20 showed Pseudomonas aeroginosa #1 & #2, Staphylococcus aureus, MDR Staphylococcus epidermidis, Corynebacterium amycolatum and Streptococcus group A, Anaerobic cocci and Prevotella disiens. She was initially placed on Clindamycin and has finished them. She was then placed on Levaquin and Flagyl and has finished them. Progress of Wound: Improved. - Physical Exam Vital Signs Temp Pulse Resp BP 97.7 F L 103 H 18 139/95 H 02/24/20 11:00 02/24/20 11:00 02/24/20 11:00 02/24/20 11:00 Wound Measurements and Assessment WC - Nurse 1 - General Ulcer Measurement Start: 02/17/20 10:02 Freq: Status: Active Protocol: Activity Type Activity Date Activity User E-Sign Co-Sign Detail Recorded Client Recorded Date Recorded By Document 02/24/20 11:00 PAT [id number] 02/24/20 11:07 PAT 02/24/20 11:00 Wound Center Nurse 1 [Ulcer Assessment] #1- R GROIN -Combined with other wound No -Current Size (cm) - Length 1.2 -Current Size (cm) - Width 0.2 -Current Size (cm) - Depth 0.1 -Total Square Cm 0.24 -Photo Taken No -Epithelialization Large 67-100% -Tunneling No -Undermining/Tunneling No -Circular Undermining No -Exudate Amt Small -Exudate Type Sanguineous -Wound Margin Flat & Intact -Granulation Amt Large (67-100%) -Granulation Quality Red -Slough/Fibrin Yes -Necrosis Amt Small (1-33%) -Necrotic Tissue Type Adherent Slough -Structure Exposed N/A -Texture (Aida-wound Skin Appearance) Assessed -Color (Aida-wound Skin Appearance) Assessed -Temperature (Aida-wound Skin No Abnormality Appearance) (Pt Warm) -Tenderness on Palpation (Aida-wound No Skin Appearance) -Ulcer Cleansing Rinsed/ Irrigated with Saline -Foul Odor after Cleansing No -Anesthetic Used 4% Lidocaine Solution #2- L GROIN -Combined with other wound No -Current Size (cm) - Length 6 -Current Size (cm) - Width 0.3 -Current Size (cm) - Depth 0.1 -Total Square Cm 1.8 -Photo Taken No -Epithelialization Large 67-100% -Tunneling No -Undermining/Tunneling No -Circular Undermining No -Exudate Amt Small -Exudate Type Sanguineous -Wound Margin Flat & Intact -Granulation Amt Large (67-100%) -Granulation Quality Red -Slough/Fibrin Yes -Necrosis Amt Small (1-33%) -Necrotic Tissue Type Adherent Slough -Structure Exposed N/A -Texture (Aida-wound Skin Appearance) Assessed -Moisture (Aida-wound Skin Appearance Assessed ) -Color (Aida-wound Skin Appearance) No Abnormality, Assessed -Temperature (Aida-wound Skin No Abnormality Appearance) (Pt Warm) -Tenderness on Palpation (Aida-wound No Skin Appearance) -Ulcer Cleansing Rinsed/ Irrigated with Saline -Foul Odor after Cleansing No -Anesthetic Used 4% Lidocaine Solution [Edema Assessment] -Lower Limb Edema Present NA WC - Nurse 2 - General Ulcer CM Notes Start: 02/17/20 10:02 Freq: Status: Active Protocol: Activity Type Activity Date Activity User E-Sign Co-Sign Detail Recorded Client Recorded Date Recorded By Document 02/24/20 11:25 PAT [id number] 02/24/20 11:28 PAT 02/24/20 11:25 Wound Center Nurse 2 [Procedure/Treatment] #1- R GROIN -Time 11:26 -Correct Patient Yes -Correct Side, Site, Position Yes -Correct Procedure Yes -Procedure Performed Yes -Type of Procedure Debridement -Clinical Debridement Subcutaneous -Tissue Removed Subcutaneous -Post Debridement (cm) - Length 6.5 -Post Debridement (cm) - Width 0.8 -Post Debridement (cm) - Depth 0.1 -Total Square (Post) (cm) 5.20 -Area of Debridement (cm) - Length 6.5 -Area of Debridement (cm) - Width 0.8 -Total Square (Area) (cm) 5.20 -Tunneling No -Undermining/Tunneling No -Circular Undermining No -Wound/Ulcer Outcome Not Healed -Ulcer Cleansing Rinsed/ Irrigated with Saline -Foul Odor after Cleansing No -Bioengineered Tissue No -Bleeding Controlled with Pressure -Offloading No -Treatment Response Procedure Tolerated Well -Debridement - Subq, 1st 20sq cm Yes #2- L GROIN -Time 11:27 -Correct Patient Yes -Correct Side, Site, Position Yes -Correct Procedure Yes -Procedure Performed Yes -Type of Procedure Debridement -Clinical Debridement Subcutaneous -Tissue Removed Subcutaneous -Post Debridement (cm) - Length 8 -Post Debridement (cm) - Width 0.8 -Post Debridement (cm) - Depth 0.1 -Total Square (Post) (cm) 6.4 -Area of Debridement (cm) - Length 8 -Area of Debridement (cm) - Width 0.8 -Total Square (Area) (cm) 6.4 -Tunneling No -Undermining/Tunneling No -Circular Undermining No -Wound/Ulcer Outcome Not Healed -Ulcer Cleansing Rinsed/ Irrigated with Saline -Foul Odor after Cleansing No -Bioengineered Tissue No -Bleeding Controlled with Pressure -Offloading No -Treatment Response Procedure Tolerated Well -Debridement - Subq, 1st 20sq cm No [See Physician Procedure note for Specifics] Pain Scale: 0-10 Numeric [Pain] -Is Patient Pain Free? Yes WC - Nurse 3 - General Ulcer D/C NN Start: 02/17/20 10:02 Freq: Status: Active Protocol: Activity Type Activity Date Activity User E-Sign Co-Sign Detail Recorded Client Recorded Date Recorded By Document 02/24/20 11:43 [facility] [id number] 02/24/20 11:44 [facility] 02/24/20 11:43 Wound Care Nurse 3 [Wound Dressing] #1- R GROIN -Ulcer Cleansing Rinsed/ Irrigated with Saline -Foul Odor after Cleansing No -Primary Dressing Applied Aquacel AG 4x4 -Primary Dressing Covered/Secured Dry Gauze, with Secured with Tape -Aquacel AG 4x4 1 #2- L GROIN -Ulcer Cleansing Rinsed/ Irrigated with Saline -Foul Odor after Cleansing No -Primary Dressing Applied Aquacel AG 4x4 -Primary Dressing Covered/Secured Dry Gauze, with Secured with Tape -Aquacel AG 4x4 0 [Post Procedure Tolerated] -Treatment Response Procedure Tolerated Well Pain Scale: 0-10 Numeric [Pain] -Is Patient Pain Free? Yes - Visit Discharge [Visit Discharge Information] -Discharge Condition Stable -Ambulatory Status Ambulatory -Transportation Private Auto Debridement Note Post-Debridement Measurements/Treatment - Nurse 2 - General Ulcer CM Notes Start: 02/17/20 10:02 Freq: Status: Active Protocol: Activity Type Activity Date Activity User E-Sign Co-Sign Detail Recorded Client Recorded Date Recorded By Document 02/17/20 10:33 [id number] 02/17/20 10:40 Document 02/24/20 11:25 [id number] 02/24/20 11:28 02/17/20 02/24/20 10:33 11:25 Wound Center Nurse 2 #1- R GROIN -Time 10:34 11:26 -Correct Patient Yes Yes -Correct Side, Site, Position Yes Yes -Correct Procedure Yes Yes -Procedure Performed Yes Yes -Type of Procedure Debridement Debridement -Clinical Debridement Subcutaneous Subcutaneous -Tissue Removed Subcutaneous Subcutaneous -Post Debridement (cm) - Length 0.8 6.5 -Post Debridement (cm) - Width 12.0 0.8 -Post Debridement (cm) - Depth 0.1 0.1 -Total Square (Post) (cm) 9.60 5.20 -Area of Debridement (cm) - Length 0.8 6.5 -Area of Debridement (cm) - Width 12 0.8 -Total Square (Area) (cm) 9.6 5.20 -Tunneling No No -Undermining/Tunneling No No -Circular Undermining No No -Wound/Ulcer Outcome Not Healed Not Healed -Ulcer Cleansing Rinsed/ Rinsed/ Irrigated with Irrigated with Saline Saline -Foul Odor after Cleansing No No -Bioengineered Tissue No No -Bleeding Controlled with Pressure Pressure -Offloading No No -Treatment Response Procedure Procedure Tolerated Well Tolerated Well -Debridement - Subq, 1st 20sq cm No Yes #2- L GROIN -Time 10:34 11:27 -Correct Patient Yes Yes -Correct Side, Site, Position Yes Yes -Correct Procedure Yes Yes -Procedure Performed Yes Yes -Type of Procedure Debridement Debridement -Clinical Debridement Subcutaneous Subcutaneous -Tissue Removed Subcutaneous Subcutaneous -Post Debridement (cm) - Length 1.5 8 -Post Debridement (cm) - Width 11.5 0.8 -Post Debridement (cm) - Depth 0.2 0.1 -Total Square (Post) (cm) 17.25 6.4 -Area of Debridement (cm) - Length 1.5 8 -Area of Debridement (cm) - Width 11.5 0.8 -Total Square (Area) (cm) 17.25 6.4 -Tunneling No No -Undermining/Tunneling No No -Circular Undermining No No -Wound/Ulcer Outcome Not Healed Not Healed -Ulcer Cleansing Rinsed/ Rinsed/ Irrigated with Irrigated with Saline Saline -Foul Odor after Cleansing No No -Bioengineered Tissue No No -Bleeding Controlled with Pressure Pressure -Offloading No No -Treatment Response Procedure Procedure Tolerated Well Tolerated Well -Debridement - Subq, 1st 20sq cm Yes No -Debridement, SubQ, ea addt'l 20sq cm 1 or part thereof Pain Scale: 0-10 Numeric Is Patient Pain Free? Yes Yes WC - Nurse 3 - General Ulcer D/C NN Start: 02/17/20 10:02 Freq: Status: Active Protocol: Activity Type Activity Date Activity User E-Sign Co-Sign Detail Recorded Client Recorded Date Recorded By Document 02/17/20 10:48 [facility] [id number] 02/17/20 10:49 [facility] Document 02/24/20 11:43 [facility] [id number] 02/24/20 11:44 [facility] 02/17/20 02/24/20 10:48 11:43 Wound Care Nurse 3 #1- R GROIN -Ulcer Cleansing Rinsed/ Rinsed/ Irrigated with Irrigated with Saline Saline -Foul Odor after Cleansing No No -Primary Dressing Applied Aquacel AG 4x4 Aquacel AG 4x4 -Primary Dressing Covered/Secured with Secured with Dry Gauze, Tape,Other Secured with Tape -Other Covering abd -Aquacel AG 4x4 1 1 #2- L GROIN -Ulcer Cleansing Rinsed/ Rinsed/ Irrigated with Irrigated with Saline Saline -Foul Odor after Cleansing No No -Primary Dressing Applied Aquacel AG 4x4 Aquacel AG 4x4 -Primary Dressing Covered/Secured with Secured with Dry Gauze, Tape,Other Secured with Tape -Other Covering abd -Aquacel AG 4x4 0 0 Treatment Response Procedure Procedure Tolerated Well Tolerated Well Pain Scale: 0-10 Numeric Is Patient Pain Free? Yes Yes WC - Visit Discharge Discharge Condition Stable Stable Ambulatory Status Ambulatory Ambulatory Transportation Private Auto Private Auto Wound debrided: #1 Right inguinal area with extension to vulva. Laterality: Right Wound Grade/Stage: 2. Type of Debridement: Excisional debridement Anesthesia Used: 4% Lidocaine Solution Depth: Down to and including healthy tissue, in the subcutaneous layer Percentage of wound debrided: 100 Instrument Used: 3mm curette Tissue Removed: subcutaneous tissue. Severity: Fat Layer Exposed Amount of bleeding with debridement: Mild Bleeding Controlled with: Pressure Patient tolerated procedure well - Additional Wound Wound debrided: #2 Left inguinal area with extension to vulva. Laterality: Left Wound Grade/Stage: 2. Type of Debridement: Excisional debridement Anesthesia Used: 4% Lidocaine Solution Depth: Down to and including healthy tissue, in the subcutaneous layer Percentage of wound debrided: 100 Instrument Used: 3mm curette Tissue Removed: subcutaneous tissue. Severity: Fat Layer Exposed Amount of bleeding with debridement: Mild Bleeding Controlled with: Pressure Patient tolerated procedure: Patient tolerated procedure well Assessment/Plan Active Problems (Last Reviewed 12/16/19 @ 02:[address] Kenneth Contreras MD) Ulceration of vulva (Chronic) Ulcer of right groin with fat layer exposed (Chronic) Ulcer of left groin with fat layer exposed (Chronic) Vulval hidradenitis suppurativa (Chronic) Hidradenitis suppurativa (Chronic) bilateral inguinal hidradenitis Morbid obesity (Chronic) Diabetes mellitus, type II (Chronic) Assessment: 1. Nonhealing diabetic hidradenitis ulcers bilateral inguinal areas with extension to vulval area involving the mons pubis and genitocrural crease. 2. Hidradenitis bilateral inguinal areas. 3. Vulval hidradenitis involving the mons pubis and genitocrural crease. 4. Left axillary hidradenitis, stable after I&D. 5. Diabetes mellitus. 6. MRSA. 7. Obesity. Plan: Continue Silver dressing changes daily. Prealbumin from 12/17/19 was 9.1. Encourage nutritional supplementation with protein to help the healing process. Wound culture obtained on 02/03/20 showed Pseudomonas aeroginosa #1 and #2, Staphylococcus aureus, MDR Staphylococcus epidermidis, Corynebacerium amycolatum, Streptococcus group A, Prevotella disiens and Anaerobic cocci. Initially she was placed on Clindamycin and finished them. She was then placed on. Levaquin and Flagyl and has finished them. Followup 2 weeks. [id number]: [id number] Global Visit - ICD-10 - Z48.89, L98.492, N76.6, L02.214, N76.4, L73.2, E11.9, A49.02, E66.01
[2020-03-02 14:35] VITALS: BP 149/77; PULSE 98; TEMP 36.4; BMI 46.6
--- NOTE | 2020-03-02 15:57 | PCM.WC.PN ---
(1) Ulcer of right groin with fat layer exposed Status: Chronic Code(s): L98.492 - Non-pressure chronic ulcer of skin of other sites with fat layer exposed (2) Ulcer of left groin with fat layer exposed Status: Chronic Code(s): L98.492 - Non-pressure chronic ulcer of skin of other sites with fat layer exposed (3) Ulceration of vulva Status: Chronic Code(s): N76.6 - Ulceration of vulva (4) Vulval hidradenitis suppurativa Status: Chronic Code(s): L73.2 - Hidradenitis suppurativa (5) Hidradenitis suppurativa Status: Chronic Code(s): L73.2 - Hidradenitis suppurativa Comment: bilateral inguinal hidradenitis (6) Morbid obesity Status: Chronic Code(s): E66.01 - Morbid (severe) obesity due to excess calories (7) Diabetes mellitus, type II Status: Chronic Qualifiers: Diabetes mellitus intermediate designer insulin use: with residential use Diabetes mellitus complication status: with hyperglycemia Qualified Code(s): E11.65 - Type 2 diabetes mellitus with hyperglycemia; Z79.4 - 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 History of Wound: Surgery 12/17/19 - 1. Surgical preparation bilateral inguinal areas with extension to vulval area involving the mons pubis and genitocrural crease with incision and drainage and excision diabetic hidradenitis abscesses, (216 cm2 on the left and 209 cm2 on the right). 2. Partial vulvectomy including deep subcutaneous tissue involving mons pubis and genitrocrural crease. Wound care - Silver to the right groin. The left groin is healed. Operative cultures - MRSA and Streptococcus agalactiae. She was treated with Vancomycin in the hospital and had increased Creatinine and the Vancomycin was stopped. She was changed to Clindamycin and has finished them. Prealbumin from 12/17/19 was 9.1. Encourage nutritional supplementation with protein to help the healing process. Today she denies fever. Her appetite is good. Wound culture from 02/03/20 showed Pseudomonas aeroginosa #1 & #2, Staphylococcus aureus, MDR Staphylococcus epidermidis, Corynebacterium amycolatum and Streptococcus group A, Anaerobic cocci and Prevotella disiens. She was initially placed on Clindamycin and has finished them. She was then placed on Levaquin and Flagyl and has finished them. Progress of Wound: Left groin is healed. Right groin is improving. - Physical Exam Vital Signs Temp Pulse Resp BP 97.5 F L 98 18 149/77 H 03/02/20 14:35 03/02/20 14:35 02/24/20 11:00 03/02/20 14:35 General: Alert, Oriented x3, Cooperative HEENT: Atraumatic Oral: Moist Mucosa Lungs: Normal air movement Cardiovascular: Regular rate Abdomen: Obese Extremities: Capillary Refill Less than 3 Seconds Skin: Ulcer/ Wound - Right groin ulcer is pink and improving in size. Left groin ucler is healed today. Wound Measurements and Assessment WC - Nurse 1 - General Ulcer Measurement Start: 02/17/20 10:02 Freq: Status: Active Protocol: Activity Type Activity Date Activity User E-Sign Co-Sign Detail Recorded Client Recorded Date Recorded By Document 03/02/20 14:35 [id number] 03/02/20 14:43 KR 03/02/20 14:35 Wound Center Nurse 1 [Ulcer Assessment] #1- R GROIN -Current Size (cm) - Length 0.1 -Current Size (cm) - Width 0.1 -Current Size (cm) - Depth 0.1 -Total Square Cm 0.01 -Undermining/Tunneling No -Exudate Amt None Present -Wound Margin Distinct, Outline Attached -Granulation Amt Small (1-33%) -Granulation Quality [place] -Necrosis Amt None Present (0 %) -Texture (Aida-wound Skin Appearance) Assessed, Scarring -Moisture (Aida-wound Skin Appearance No Abnormality, ) Assessed -Color (Aida-wound Skin Appearance) No Abnormality, Assessed -Temperature (Aida-wound Skin No Abnormality Appearance) (Pt Warm) -Tenderness on Palpation (Aida-wound No Skin Appearance) -Ulcer Cleansing Rinsed/ Irrigated with Saline -Foul Odor after Cleansing No -Anesthetic Used 4% Lidocaine Solution #2- L GROIN -Current Size (cm) - Length 0.1 -Current Size (cm) - Width 0.1 -Current Size (cm) - Depth 0.1 -Total Square Cm 0.01 -Exudate Amt None Present -Wound Margin Distinct, Outline Attached -Granulation Amt Small (1-33%) -Granulation Quality [place] -Necrosis Amt None Present (0 %) -Texture (Aida-wound Skin Appearance) Assessed, Scarring -Moisture (Aida-wound Skin Appearance No Abnormality, ) Assessed -Color (Aida-wound Skin Appearance) No Abnormality, Assessed -Temperature (Aida-wound Skin No Abnormality Appearance) (Pt Warm) -Tenderness on Palpation (Aida-wound No Skin Appearance) -Ulcer Cleansing Rinsed/ Irrigated with Saline -Foul Odor after Cleansing No -Anesthetic Used 4% Lidocaine Solution WC - Nurse 2 - General Ulcer CM Notes Start: 02/17/20 10:02 Freq: Status: Active Protocol: Activity Type Activity Date Activity User E-Sign Co-Sign Detail Recorded Client Recorded Date Recorded By Document 03/02/20 15:03 PAT [id number] 03/02/20 15:06 PAT 03/02/20 15:03 Wound Center Nurse 2 [Procedure/Treatment] #1- R GROIN -Time 15:03 -Correct Patient Yes -Correct Side, Site, Position Yes -Correct Procedure Yes -Procedure Performed Yes -Type of Procedure Debridement -Clinical Debridement Subcutaneous -Tissue Removed Subcutaneous -Post Debridement (cm) - Length 0.5 -Post Debridement (cm) - Width 9 -Post Debridement (cm) - Depth 0.1 -Total Square (Post) (cm) 4.5 -Area of Debridement (cm) - Length 0.5 -Area of Debridement (cm) - Width 9 -Total Square (Area) (cm) 4.5 -Tunneling No -Undermining/Tunneling No -Circular Undermining No -Wound/Ulcer Outcome Not Healed -Ulcer Cleansing Rinsed/ Irrigated with Saline -Foul Odor after Cleansing No -Bioengineered Tissue No -Bleeding Controlled with Pressure -Offloading No -Treatment Response Procedure Tolerated Well -Debridement - Subq, 1st 20sq cm Yes #2- L GROIN -Correct Patient No -Correct Side, Site, Position No -Correct Procedure No -Procedure Performed No -Post Debridement (cm) - Length 0 -Post Debridement (cm) - Width 0 -Post Debridement (cm) - Depth 0 -Total Square (Post) (cm) 0 -Area of Debridement (cm) - Length 0 -Area of Debridement (cm) - Width 0 -Total Square (Area) (cm) 0 -Wound/Ulcer Outcome Healed- Epithelialized [See Physician Procedure note for Specifics] Pain Scale: 0-10 Numeric [Pain] -Is Patient Pain Free? Yes - Nurse 3 - General Ulcer D/C NN Start: 02/17/20 10:02 Freq: Status: Active Protocol: Activity Type Activity Date Activity User E-Sign Co-Sign Detail Recorded Client Recorded Date Recorded By Document 03/02/20 15:24 KR [id number] 03/02/20 15:24 03/02/20 15:24 Wound Care Nurse 3 [Wound Dressing] #1- R GROIN -Primary Dressing Applied Aquacel AG 2x2 -Primary Dressing Covered/Secured Dry Gauze, with Secured with Tape -Aquacel AG 2x2 1 Pain Scale: 0-10 Numeric [Pain] -Is Patient Pain Free? Yes - Visit Discharge [Visit Discharge Information] -Discharge Condition Stable -Ambulatory Status Ambulatory -Transportation Private Auto Musculoskeletal: No Tenderness to Palpation of Joints or Extremities Neurological: Cranial nerves II-XII grossly intact Psych/Mental Status: Normal Affect, Appropriate Debridement Note Post-Debridement Measurements/Treatment - Nurse 2 - General Ulcer CM Notes Start: 02/17/20 10:02 Freq: Status: Active Protocol: Activity Type Activity Date Activity User E-Sign Co-Sign Detail Recorded Client Recorded Date Recorded By Document 02/17/20 10:33 [id number] 02/17/20 10:40 Document 02/24/20 11:25 [id number] 02/24/20 11:28 Document 03/02/20 15:03 [id number] 03/02/20 15:06 02/17/20 02/24/20 03/02/20 10:33 11:25 15:03 Wound Center Nurse 2 #1- R GROIN -Time 10:34 11:26 15:03 -Correct Patient Yes Yes Yes -Correct Side, Site, Position Yes Yes Yes -Correct Procedure Yes Yes Yes -Procedure Performed Yes Yes Yes -Type of Procedure Debridement Debridement Debridement -Clinical Debridement Subcutaneous Subcutaneous Subcutaneous -Tissue Removed Subcutaneous Subcutaneous Subcutaneous -Post Debridement (cm) - Length 0.8 6.5 0.5 -Post Debridement (cm) - Width 12.0 0.8 9 -Post Debridement (cm) - Depth 0.1 0.1 0.1 -Total Square (Post) (cm) 9.60 5.20 4.5 -Area of Debridement (cm) - Length 0.8 6.5 0.5 -Area of Debridement (cm) - Width 12 0.8 9 -Total Square (Area) (cm) 9.6 5.20 4.5 -Tunneling No No No -Undermining/Tunneling No No No -Circular Undermining No No No -Wound/Ulcer Outcome Not Healed Not Healed Not Healed -Ulcer Cleansing Rinsed/ Rinsed/ Rinsed/ Irrigated with Irrigated with Irrigated with Saline Saline Saline -Foul Odor after Cleansing No No No -Bioengineered Tissue No No No -Bleeding Controlled with Pressure Pressure Pressure -Offloading No No No -Treatment Response Procedure Procedure Procedure Tolerated Well Tolerated Well Tolerated Well -Debridement - Subq, 1st 20sq cm No Yes Yes #2- L GROIN -Time 10:34 11:27 -Correct Patient Yes Yes No -Correct Side, Site, Position Yes Yes No -Correct Procedure Yes Yes No -Procedure Performed Yes Yes No -Type of Procedure Debridement Debridement -Clinical Debridement Subcutaneous Subcutaneous -Tissue Removed Subcutaneous Subcutaneous -Post Debridement (cm) - Length 1.5 8 0 -Post Debridement (cm) - Width 11.5 0.8 0 -Post Debridement (cm) - Depth 0.2 0.1 0 -Total Square (Post) (cm) 17.25 6.4 0 -Area of Debridement (cm) - Length 1.5 8 0 -Area of Debridement (cm) - Width 11.5 0.8 0 -Total Square (Area) (cm) 17.25 6.4 0 -Tunneling No No -Undermining/Tunneling No No -Circular Undermining No No -Wound/Ulcer Outcome Not Healed Not Healed Healed- Epithelialized -Ulcer Cleansing Rinsed/ Rinsed/ Irrigated with Irrigated with Saline Saline -Foul Odor after Cleansing No No -Bioengineered Tissue No No -Bleeding Controlled with Pressure Pressure -Offloading No No -Treatment Response Procedure Procedure Tolerated Well Tolerated Well -Debridement - Subq, 1st 20sq cm Yes No -Debridement, SubQ, ea addt'l 20sq cm 1 or part thereof Pain Scale: 0-10 Numeric Is Patient Pain Free? Yes Yes Yes - Nurse 3 - General Ulcer D/C NN Start: 02/17/20 10:02 Freq: Status: Active Protocol: Activity Type Activity Date Activity User E-Sign Co-Sign Detail Recorded Client Recorded Date Recorded By Document 02/17/20 10:48 [email or web address] [id number] 02/17/20 10:49 BM Document 02/24/20 11:43 BM [id number] 02/24/20 11:44 BM Document 03/02/20 15:24 KR [id number] 03/02/20 15:24 KR 02/17/20 02/24/20 03/02/20 10:48 11:43 15:24 Wound Care Nurse 3 #1- R GROIN -Ulcer Cleansing Rinsed/ Rinsed/ Irrigated with Irrigated with Saline Saline -Foul Odor after Cleansing No No -Primary Dressing Applied Aquacel AG 4x4 Aquacel AG 4x4 Aquacel AG 2x2 -Primary Dressing Covered/Secured with Secured with Dry Gauze, Dry Gauze, Tape,Other Secured with Secured with Tape Tape -Other Covering abd -Aquacel AG 4x4 1 1 -Aquacel AG 2x2 1 #2- L GROIN -Ulcer Cleansing Rinsed/ Rinsed/ Irrigated with Irrigated with Saline Saline -Foul Odor after Cleansing No No -Primary Dressing Applied Aquacel AG 4x4 Aquacel AG 4x4 -Primary Dressing Covered/Secured with Secured with Dry Gauze, Tape,Other Secured with Tape -Other Covering abd -Aquacel AG 4x4 0 0 Treatment Response Procedure Procedure Tolerated Well Tolerated Well Pain Scale: 0-10 Numeric Is Patient Pain Free? Yes Yes Yes - Visit Discharge Discharge Condition Stable Stable Stable Ambulatory Status Ambulatory Ambulatory Ambulatory Transportation Private Auto Private Auto Private Auto Wound debrided: groin ulcer Laterality: Right Type of Debridement: Excisional debridement Anesthesia Used: 5% Lidocaine Gel Depth: Down to and including healthy tissue, in the subcutaneous layer Percentage of wound debrided: 100 Instrument Used: 3mm curette Tissue Removed: Subcutaneous tissue and slough Severity: Limited To Skin Breakdown Amount of bleeding with debridement: Moderate Bleeding Controlled with: Pressure, Compression and gauze Patient tolerated procedure well Assessment/Plan Active Problems (Last Reviewed 12/16/19 @ 02:[address] Kenneth Contreras MD) Ulceration of vulva (Chronic) Ulcer of right groin with fat layer exposed (Chronic) Ulcer of left groin with fat layer exposed (Chronic) Vulval hidradenitis suppurativa (Chronic) Hidradenitis suppurativa (Chronic) bilateral inguinal hidradenitis Morbid obesity (Chronic) Diabetes mellitus, type II (Chronic) Assessment: 1. Nonhealing diabetic hidradenitis ulcers bilateral inguinal areas with extension to vulval area involving the mons pubis and genitocrural crease. 2. Hidradenitis bilateral inguinal areas. 3. Vulval hidradenitis involving the mons pubis and genitocrural crease. 4. Left axillary hidradenitis, stable after I&D. 5. Diabetes mellitus. 6. MRSA. 7. Obesity. Plan: Continue Silver dressing changes daily to the right right groin ulcer. The left groin ucler is healed today. Encouraged her to place intradry or gauze into her groin creases to prevent moisture buildup and potential break down. Prealbumin from 12/17/19 was 9.1. Encourage nutritional supplementation with protein to help the healing process. Wound culture obtained on 02/03/20 showed Pseudomonas aeroginosa #1 and #2, Staphylococcus aureus, MDR Staphylococcus epidermidis, Corynebacerium amycolatum, Streptococcus group A, Prevotella disiens and Anaerobic cocci. Initially she was placed on Clindamycin and finished them. She was then placed on. Levaquin and Flagyl and has finished them. She was seen last week by ID for a follow up from her hospitalization and she had developed a cellulitis of her mons pubis and Dr. Martínez treated her with a Cephalorsporin. Followup 2 weeks. [id number]: [id number] Global Visit
== END 2020-03-12 23:59 ==
LOC: WC 14:15
PROVIDERS: PCP Family Medicine Geriatric Medicine; Referring Provider Surgery; Visit Provider Surgery
DX: L98.492 Non-pressure chronic ulcer of skin of other sites with fat layer exposed (principal); N76.6 Ulceration of vulva; L73.2 Hidradenitis suppurativa; E66.01 Morbid (severe) obesity due to excess calories; Z98.890 Other specified postprocedural states; Z79.4 Long term (current) use of insulin; E11.65 Type 2 diabetes mellitus with hyperglycemia; A49.02 Methicillin resistant Staphylococcus aureus infection, unspecified site
CPT/HCPCS: 11042; 11045

== ENCOUNTER 2020-03-23 10:15 | Outpatient (RCR) | payer MEDICAID, SELFPAY ==
[2020-03-13 00:30] VITALS: BP 149/77; PULSE 98; RESP 18; TEMP 36.4
[2020-03-23 10:16] VITALS: BP 130/70; PULSE 101; TEMP 35.6; BMI 46.6
--- NOTE | 2020-03-23 13:13 | PCM.WC.PN ---
(1) Ulcer of right groin with fat layer exposed Status: Chronic Code(s): L98.492 - Non-pressure chronic ulcer of skin of other sites with fat layer exposed (2) Ulcer of left groin with fat layer exposed Status: Chronic Code(s): L98.492 - Non-pressure chronic ulcer of skin of other sites with fat layer exposed (3) Hidradenitis suppurativa Status: Chronic Code(s): L73.2 - Hidradenitis suppurativa Comment: bilateral inguinal hidradenitis (4) Diabetes Status: Chronic Qualifiers: Diabetes mellitus type: type 2 Diabetes mellitus assisted insulin use: with assisted use Diabetes mellitus complication status: with hyperglycemia Qualified Code(s): E11.65 - Type 2 diabetes mellitus with hyperglycemia; 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 History of Wound: Surgery 12/17/19 - 1. Surgical preparation bilateral inguinal areas with extension to vulval area involving the mons pubis and genitocrural crease with incision and drainage and excision diabetic hidradenitis abscesses, (216 cm2 on the left and 209 cm2 on the right). 2. Partial vulvectomy including deep subcutaneous tissue involving mons pubis and genitrocrural crease. Wound care - Silver to the right groin. The left groin is healed. Operative cultures - MRSA and Streptococcus agalactiae. She was treated with Vancomycin in the hospital and had increased Creatinine and the Vancomycin was stopped. She was changed to Clindamycin and has finished them. Prealbumin from 12/17/19 was 9.1. Encourage nutritional supplementation with protein to help the healing process. Today she denies fever. Her appetite is good. Wound culture from 02/03/20 showed Pseudomonas aeroginosa #1 & #2, Staphylococcus aureus, MDR Staphylococcus epidermidis, Corynebacterium amycolatum and Streptococcus group A, Anaerobic cocci and Prevotella disiens. She was initially placed on Clindamycin and has finished them. She was then placed on Levaquin and Flagyl and has finished them. Progress of Wound: Left groin remains healed. Right groin is healed today. - Physical Exam Vital Signs Temp Pulse Resp BP 96.0 F L 101 H 18 130/70 H 03/23/20 10:16 03/23/20 10:16 03/13/20 00:30 03/23/20 10:16 General: Alert, Oriented x3, Cooperative HEENT: Atraumatic Oral: Moist Mucosa Lungs: Normal air movement Cardiovascular: Regular rate Abdomen: Obese Extremities: Capillary Refill Less than 3 Seconds Skin: Ulcer/ Wound - Bilateral groin ulcers are healed. Wound Measurements and Assessment WC - Nurse 1 - General Ulcer Measurement Start: 03/23/20 10:15 Freq: Status: Discharge Protocol: Activity Type Activity Date Activity User E-Sign Co-Sign Detail Recorded Client Recorded Date Recorded By Document 03/23/20 10:16 KHUSHI [id number] 03/23/20 10:20 KHUSHI Edit Status 03/23/20 10:38 BKG DAEMON Active=>Discharge [id number] 03/23/20 10:38 BKG DAEMON 03/23/20 10:16 Wound Center Nurse 1 [Ulcer Assessment] #1- R GROIN -Current Size (cm) - Length 0.1 -Current Size (cm) - Width 0.1 -Current Size (cm) - Depth 0.1 -Total Square Cm 0.01 -Exudate Amt None Present -Wound Margin Distinct, Outline Attached -Granulation Amt Small (1-33%) -Granulation Quality [place] -Necrosis Amt None Present (0 %) -Texture (Aida-wound Skin Appearance) Assessed, Scarring -Moisture (Aida-wound Skin Appearance No Abnormality, ) Assessed -Color (Aida-wound Skin Appearance) No Abnormality, Assessed -Temperature (Aida-wound Skin No Abnormality Appearance) (Pt Warm) -Tenderness on Palpation (Aida-wound No Skin Appearance) -Ulcer Cleansing Rinsed/ Irrigated with Saline -Foul Odor after Cleansing No -Anesthetic Used 4% Lidocaine Solution - Nurse 2 - General Ulcer CM Notes Start: 03/23/20 10:15 Freq: Status: Discharge Protocol: Activity Type Activity Date Activity User E-Sign Co-Sign Detail Recorded Client Recorded Date Recorded By Document 03/23/20 10:25 PAT [id number] 03/23/20 10:27 APT Edit Status 03/23/20 10:38 BKG DAEMON Active=>Discharge [facility] 03/23/20 10:38 BKG DAEMON 03/23/20 10:25 Wound Center Nurse 2 [Procedure/Treatment] -Correct Patient No -Correct Side, Site, Position No -Correct Procedure No -Procedure Performed No -Post Debridement (cm) - Length 0 -Post Debridement (cm) - Width 0 -Post Debridement (cm) - Depth 0 -Total Square (Post) (cm) 0 -Area of Debridement (cm) - Length 0 -Area of Debridement (cm) - Width 0 -Total Square (Area) (cm) 0 -Wound/Ulcer Outcome Healed- Epithelialized [See Physician Procedure note for Specifics] Pain Scale: 0-10 Numeric [Pain] -Is Patient Pain Free? Yes - Nurse 3 - General Ulcer D/C NN Start: 03/23/20 10:15 Freq: Status: Discharge Protocol: Activity Type Activity Date Activity User E-Sign Co-Sign Detail Recorded Client Recorded Date Recorded By Document 03/23/20 10:28 PAT [id number] 03/23/20 10:29 Edit Status 03/23/20 10:38 [facility]ON [facility] 10:38 BKG DAEMON 03/23/20 10:28 -Is Patient Pain Free? Yes - Visit Discharge [Visit Discharge Information] -Discharge Condition Stable -Ambulatory Status Ambulatory -Transportation Private Auto -Medication Reconcilliation completed Yes & provided to patient/care provider -Clinical Summary of Care Provided Yes -Notes: HEALED AND DISCAHARGED. Musculoskeletal: No Tenderness to Palpation of Joints or Extremities Neurological: Cranial nerves II-XII grossly intact Psych/Mental Status: Normal Affect, Appropriate Debridement Note Post-Debridement Measurements/Treatment - Nurse 2 - General Ulcer CM Notes Start: 03/23/20 10:15 Freq: Status: Discharge Protocol: Activity Type Activity Date Activity User E-Sign Co-Sign Detail Recorded Client Recorded Date Recorded By Document 03/23/20 10:25 PAT [id number] 03/23/20 10:27 PAT 03/23/20 10:25 Wound Center Nurse 2 #1- R GROIN -Correct Patient No -Correct Side, Site, Position No -Correct Procedure No -Procedure Performed No -Post Debridement (cm) - Length 0 -Post Debridement (cm) - Width 0 -Post Debridement (cm) - Depth 0 -Total Square (Post) (cm) 0 -Area of Debridement (cm) - Length 0 -Area of Debridement (cm) - Width 0 -Total Square (Area) (cm) 0 -Wound/Ulcer Outcome Healed- Epithelialized Pain Scale: 0-10 Numeric Is Patient Pain Free? Yes - Nurse 3 - General Ulcer D/C NN Start: 03/23/20 10:15 Freq: Status: Discharge Protocol: Activity Type Activity Date Activity User E-Sign Co-Sign Detail Recorded Client Recorded Date Recorded By Document 03/23/20 10:28 PAT [id number] 03/23/20 10:29 PAT 03/23/20 10:28 Is Patient Pain Free? Yes WC - Visit Discharge Discharge Condition Stable Ambulatory Status Ambulatory Transportation Private Auto Medication Reconcilliation completed & Yes provided to patient/care provider Clinical Summary of Care Provided Yes Notes: HEALED AND DISCAHARGED. No debridement was completed today Assessment/Plan Assessment: 1. Nonhealing diabetic hidradenitis ulcers bilateral inguinal areas with extension to vulval area involving the mons pubis and genitocrural crease. 2. Hidradenitis bilateral inguinal areas. 3. Vulval hidradenitis involving the mons pubis and genitocrural crease. 4. Left axillary hidradenitis, stable after I&D. 5. Diabetes mellitus. 6. MRSA. 7. Obesity. Plan: Right groin is healed today. The left groin ulcer remains healed. Encouraged her to place intradry or gauze into her groin creases to prevent moisture buildup and potential break down. Encouraged to massage the scars to help soften them. Continue to get blood sugars under control. Follow up as needed. Office Visits / Consults: [id number] OV L3 Est
== END 2020-03-23 10:38 | disposition home or self-care (01) ==
LOC: WC 10:15
PROVIDERS: PCP Family Medicine Geriatric Medicine; Referring Provider Surgery; Visit Provider Surgery
DX: L98.492 Non-pressure chronic ulcer of skin of other sites with fat layer exposed (principal); L73.2 Hidradenitis suppurativa; E11.65 Type 2 diabetes mellitus with hyperglycemia; Z79.4 Long term (current) use of insulin; E66.9 Obesity, unspecified; Z98.890 Other specified postprocedural states; A49.02 Methicillin resistant Staphylococcus aureus infection, unspecified site
CPT/HCPCS: 99213; G0463

== ENCOUNTER → 2020-05-12 14:07 | Outpatient (CLI) | payer MEDICAID, SELFPAY ==
[2020-05-12 16:46] LABS: Absolute Lymphocyte Count 2.26 X10^3/uL (0.83-4.51); Absolute Neutrophil Count 3.6 X10^3/uL (2.0-7.7); Basophil# 0.07 X10^3/uL; Basophil% 1.1 % (0-1); Eosinophil# 0.18 X10^3/uL; Eosinophils% 2.7 % (0-5); Hemoglobin 13.2 g/dL (12.0-15.0); Lymphocyte # 2.26 X10^3/ul (4.0); Lymphocyte % 34.5 % (19-41); Mean Corp Hgb Conc 33.8 g/dL (32-36); Mean Corpuscular Hgb 28.3 pg (27.0-32.0); Mean Corpuscular Volume 83.5 fL (81-99); Mean Platelet Vol. 10.7 fl (6.2-12.0); Monocyte# 0.38 X10^3/uL; Monocyte% 5.8 % (0-10); NRBC Flagged by Analyzer 0 % (0-5); Neutrophil # 3.64 X10^3/uL (2.7-7.7); Neutrophil % 55.4 % (47-70); Platelet Count 318 K/mm3 (150-450); RBC Distribution Width CV 12.8 % (11.6-14.6); RBC Distribution Width SD 38.7 fl (35.1-43.9); Red Blood Count 4.67 M/mm3 (4.2-5.4); White Blood Count 6.6 K/mm3 (4.4-11.0)
[2020-05-12 17:18] LABS: ALB/GLOB Ratio 0.8 RATIO (0.9-2.4); AST(SGOT) 6 U/L (15-37); Alanine Aminotransfer ALT/SGPT 18 U/L (13-56); Albumin, Serum 3.4 g/dL (3.2-5.0); Alkaline Phosphatase 133 U/L (45-117); Anion Gap 9 (5-15); BUN 14 mg/dL (7-18); BUN/Creat Ratio 11.8 RATIO (10-20); Chloride 100 mmol/L (98-107); Creatinine, Serum 1.19 mg/dL (0.55-1.02); EST Glomerular Filtration Rate 54 mL/min (>60); Est Glom Filt Rate - Afr Amer 65 mL/min (>60); Globulin 4.1 g/dL (2.2-4.2); Glucose 455 mg/dL (74-106); Potassium 4.2 mmol/L (3.5-5.1); Protein, Total 7.5 g/dL (6.4-8.2); Sodium Level 134 mmol/L (136-145); Thyroid Stim Hormone (TSH) 1.53 uIU/mL (0.358-3.74)
== END ==
PROVIDERS: PCP Family Medicine Geriatric Medicine; Visit Provider Family Medicine Geriatric Medicine
DX: E11.9 Type 2 diabetes mellitus without complications (principal); I10 Essential (primary) hypertension
CPT/HCPCS: 36415; 80053; 84443; 85025

== ENCOUNTER → 2020-09-01 09:46 | Outpatient (CLI) | payer MEDICAID, SELFPAY ==
[2020-08-14 15:07] VITALS: BMI 51.0
[2020-09-01 18:02] LABS: Absolute Lymphocyte Count 2.62 X10^3/uL (0.83-4.51); Absolute Neutrophil Count 5.2 X10^3/uL (2.0-7.7); Basophil# 0.07 X10^3/uL; Basophil% 0.8 % (0-1); Eosinophils% 2.3 % (0-5); Hematocrit 38.6 % (37-47); Hemoglobin 12.7 g/dL (12.0-15.0); Lymphocyte # 2.62 X10^3/ul (0.83-4.51); Lymphocyte % 30.4 % (19-41); Mean Corp Hgb Conc 32.9 g/dL (32-36); Mean Corpuscular Hgb 28.2 pg (27.0-32.0); Mean Corpuscular Volume 85.8 fL (81-99); Mean Platelet Vol. 10.3 fl (6.2-12.0); Monocyte# 0.53 X10^3/uL; Monocyte% 6.1 % (0-10); NRBC Flagged by Analyzer 0 % (0-5); Neutrophil # 5.18 X10^3/uL (2.7-7.7); Neutrophil % 60.1 % (47-70); Platelet Count 325 K/mm3 (150-450); RBC Distribution Width CV 12.8 % (11.6-14.6); RBC Distribution Width SD 39.9 fl (35.1-43.9); White Blood Count 8.6 K/mm3 (4.4-11.0)
[2020-09-01 18:26] LABS: ALB/GLOB Ratio 0.8 RATIO (0.9-2.4); AST(SGOT) 7 U/L (15-37); Alanine Aminotransfer ALT/SGPT 13 U/L (13-56); Albumin, Serum 3.2 g/dL (3.2-5.0); Alkaline Phosphatase 124 U/L (45-117); Anion Gap 9 (5-15); BUN 14 mg/dL (7-18); BUN/Creat Ratio 13.3 RATIO (10-20); Calcium,Total 8.7 mg/dL (8.5-10.1); Chloride 108 mmol/L (98-107); Creatinine, Serum 1.05 mg/dL (0.55-1.02); EST Glomerular Filtration Rate 62 mL/min (>60); Est Glom Filt Rate - Afr Amer 75 mL/min (>60); Globulin 4.1 g/dL (2.2-4.2); Glucose 140 mg/dL (74-106); Potassium 3.8 mmol/L (3.5-5.1); Protein, Total 7.3 g/dL (6.4-8.2); Sodium Level 138 mmol/L (136-145); Thyroid Stim Hormone (TSH) 1.61 uIU/mL (0.358-3.74)
== END ==
PROVIDERS: PCP Family Medicine Geriatric Medicine; Referring Provider Family Medicine Geriatric Medicine; Visit Provider Family Medicine Geriatric Medicine
DX: E11.65 Type 2 diabetes mellitus with hyperglycemia (principal); I10 Essential (primary) hypertension
CPT/HCPCS: 36415; 80053; 84443; 85025

== ENCOUNTER → 2020-11-30 15:25 | Outpatient (CLI) | payer MEDICAID, SELFPAY ==
[2020-11-30 17:38] LABS: Absolute Lymphocyte Count 1.94 X10^3/uL (0.83-4.51); Absolute Neutrophil Count 4.4 X10^3/uL (2.0-7.7); Basophil# 0.06 X10^3/uL; Basophil% 0.9 % (0-1); Eosinophil# 0.13 X10^3/uL; Eosinophils% 1.9 % (0-5); Hematocrit 36.3 % (37-47); Hemoglobin 12.1 g/dL (12.0-15.0); Lymphocyte # 1.94 X10^3/ul (0.83-4.51); Lymphocyte % 27.8 % (19-41); Mean Corp Hgb Conc 33.3 g/dL (32-36); Mean Corpuscular Volume 87.1 fL (81-99); Mean Platelet Vol. 10.3 fl (6.2-12.0); Monocyte# 0.46 X10^3/uL; Monocyte% 6.6 % (0-10); NRBC Flagged by Analyzer 0 % (0-5); Neutrophil # 4.37 X10^3/uL (2.7-7.7); Neutrophil % 62.5 % (47-70); Platelet Count 292 K/mm3 (150-450); RBC Distribution Width CV 13.2 % (11.6-14.6); RBC Distribution Width SD 41.7 fl (35.1-43.9); Red Blood Count 4.17 M/mm3 (4.2-5.4)
[2020-11-30 18:07] LABS: ALB/GLOB Ratio 0.8 RATIO (0.9-2.4); AST(SGOT) 11 U/L (15-37); Alanine Aminotransfer ALT/SGPT 19 U/L (13-56); Albumin, Serum 3.1 g/dL (3.2-5.0); Alkaline Phosphatase 98 U/L (45-117); Anion Gap 8 (5-15); BUN 15 mg/dL (7-18); BUN/Creat Ratio 15.2 RATIO (10-20); Calcium,Total 8.5 mg/dL (8.5-10.1); Chloride 104 mmol/L (98-107); Creatinine, Serum 0.98 mg/dL (0.55-1.02); EST Glomerular Filtration Rate 66 mL/min (>60); Est Glom Filt Rate - Afr Amer 80 mL/min (>60); Globulin 3.9 g/dL (2.2-4.2); Glucose 215 mg/dL (74-106); Sodium Level 137 mmol/L (136-145); Thyroid Stim Hormone (TSH) 1.66 uIU/mL (0.358-3.74)
== END ==
PROVIDERS: PCP Family Medicine Geriatric Medicine; Visit Provider Family Medicine Geriatric Medicine
DX: I10 Essential (primary) hypertension (principal); E11.9 Type 2 diabetes mellitus without complications
CPT/HCPCS: 36415; 80053; 84443; 85025

== ENCOUNTER → 2020-12-17 08:40 | Outpatient (CLI) | payer MEDICAID, SELFPAY | PROVIDERS: PCP Family Medicine Geriatric Medicine; Referring Provider Family Medicine Geriatric Medicine; Visit Provider Family Medicine Geriatric Medicine | DX: E24.9 Cushing's syndrome, unspecified (principal) | CPT/HCPCS: 36415; 82533 ==

== ENCOUNTER → 2021-01-20 15:30 | Outpatient (CLI) | payer MEDICAID, SELFPAY ==
[2021-01-20 17:21] LABS: Absolute Lymphocyte Count 2.41 X10^3/uL (0.83-4.51); Absolute Neutrophil Count 5.2 X10^3/uL (2.0-7.7); Basophil# 0.08 X10^3/uL; Basophil% 0.9 % (0-1); Eosinophil# 0.22 X10^3/uL; Eosinophils% 2.6 % (0-5); Hematocrit 38.8 % (37-47); Hemoglobin 13.3 g/dL (12.0-15.0); Lymphocyte # 2.41 X10^3/ul (0.83-4.51); Mean Corp Hgb Conc 34.3 g/dL (32-36); Mean Corpuscular Hgb 28.9 pg (27.0-32.0); Mean Corpuscular Volume 84.2 fL (81-99); Mean Platelet Vol. 10.9 fl (6.2-12.0); Monocyte# 0.65 X10^3/uL; Monocyte% 7.6 % (0-10); NRBC Flagged by Analyzer 0 % (0-5); Neutrophil # 5.21 X10^3/uL (2.7-7.7); Neutrophil % 60.6 % (47-70); Platelet Count 302 K/mm3 (150-450); RBC Distribution Width CV 12.7 % (11.6-14.6); RBC Distribution Width SD 38.5 fl (35.1-43.9); Red Blood Count 4.61 M/mm3 (4.2-5.4); White Blood Count 8.6 K/mm3 (4.4-11.0)
[2021-01-20 17:48] LABS: ALB/GLOB Ratio 0.8 RATIO (0.9-2.4); AST(SGOT) 10 U/L (15-37); Alanine Aminotransfer ALT/SGPT 24 U/L (13-56); Albumin, Serum 3.4 g/dL (3.2-5.0); Alkaline Phosphatase 128 U/L (45-117); Anion Gap 13 (5-15); BUN 11 mg/dL (7-18); BUN/Creat Ratio 9.2 RATIO (10-20); Calcium,Total 8.7 mg/dL (8.5-10.1); Chloride 99 mmol/L (98-107); EST Glomerular Filtration Rate 53 mL/min (>60); Est Glom Filt Rate - Afr Amer 64 mL/min (>60); Glucose 404 mg/dL (74-106); Potassium 3.9 mmol/L (3.5-5.1); Protein, Total 7.4 g/dL (6.4-8.2); Sodium Level 133 mmol/L (136-145); Thyroid Stim Hormone (TSH) 1.54 uIU/mL (0.358-3.74)
== END ==
PROVIDERS: PCP Family Medicine Geriatric Medicine; Visit Provider Family Medicine Geriatric Medicine
DX: E11.9 Type 2 diabetes mellitus without complications (principal); I10 Essential (primary) hypertension; N39.0 Urinary tract infection, site not specified
CPT/HCPCS: 36415; 80053; 84443; 85025; 87086; 87088

== ENCOUNTER 2021-04-20 14:44 | Outpatient (CLI) | payer MEDICAID, SELFPAY ==
[2021-04-20 16:46] LABS: Absolute Lymphocyte Count 2.61 X10^3/uL (0.83-4.51); Absolute Neutrophil Count 5.6 X10^3/uL (2.0-7.7); Basophil# 0.09 X10^3/uL; Eosinophils% 2.2 % (0-5); Hematocrit 40.7 % (37-47); Hemoglobin 13.6 g/dL (12.0-15.0); Lymphocyte # 2.61 X10^3/ul (0.83-4.51); Lymphocyte % 28.9 % (19-41); Mean Corp Hgb Conc 33.4 g/dL (32-36); Mean Corpuscular Hgb 28.1 pg (27.0-32.0); Mean Corpuscular Volume 84.1 fL (81-99); Mean Platelet Vol. 10.4 fl (6.2-12.0); Monocyte# 0.53 X10^3/uL; Monocyte% 5.9 % (0-10); NRBC Flagged by Analyzer 0 % (0-5); Neutrophil # 5.56 X10^3/uL (2.7-7.7); Neutrophil % 61.7 % (47-70); Platelet Count 293 K/mm3 (150-450); RBC Distribution Width CV 12.9 % (11.6-14.6); RBC Distribution Width SD 39.1 fl (35.1-43.9); Red Blood Count 4.84 M/mm3 (4.2-5.4)
[2021-04-20 17:06] LABS: ALB/GLOB Ratio 0.7 RATIO (0.9-2.4); AST(SGOT) 5 U/L (15-37); Alanine Aminotransfer ALT/SGPT 19 U/L (13-56); Albumin, Serum 3.5 g/dL (3.2-5.0); Alkaline Phosphatase 152 U/L (45-117); BUN 19 mg/dL (7-18); BUN/Creat Ratio 16.4 RATIO (10-20); Calcium,Total 9.2 mg/dL (8.5-10.1); Chloride 98 mmol/L (98-107); Creatinine, Serum 1.16 mg/dL (0.55-1.02); EST Glomerular Filtration Rate 55 mL/min (>60); Est Glom Filt Rate - Afr Amer 66 mL/min (>60); Globulin 4.7 g/dL (2.2-4.2); Glucose 341 mg/dL (74-106); Potassium 3.8 mmol/L (3.5-5.1); Protein, Total 8.2 g/dL (6.4-8.2); Sodium Level 133 mmol/L (136-145)
[2021-04-20 17:07] LABS: Anion Gap 9 (5-15); Thyroid Stim Hormone (TSH) 1.53 uIU/mL (0.358-3.74)
== END 2021-04-20 23:59 | disposition home or self-care (01) ==
LOC: POLAB3 14:46
PROVIDERS: PCP Family Medicine Geriatric Medicine; Visit Provider Family Medicine Geriatric Medicine
DX: E78.5 Hyperlipidemia, unspecified (principal)
CPT/HCPCS: 36415; 80053; 84443; 85025

== ENCOUNTER 2021-04-23 13:05 | Emergency (ER) | payer MEDICAID, SELFPAY ==
[2021-04-23 13:07] VITALS: BP 140/89; PULSE 103; RESP 18; TEMP 36; O2SAT 100; BMI 36.1
--- NOTE | 2021-04-23 13:17 | EDS_ITS ---
HPI History of Present Illness Chief Complaint: Abscess Narrative Narrative: Patient with past medical history of diabetes and previous MRSA infection presents with abscess on her right labia majora. She states has been there for few days. She had fever yesterday. Is very sore and painful to the touch and swollen. She cannot see her urogynecologist until next week. She states last time they put her on Omnicef which resolved her abscess. She has not had incision and drainage on it. She denies any drainage from the area, no other symptoms. [facility] Medical History Anxiety and depression Asthma CKD (chronic kidney disease) Diabetes Fatigue Hx of allergic drug reaction Hypertension Incontinence Obesity OCD (obsessive compulsive disorder) Thyroid disease Home Medications alprazolam 1 mg PO TID PRN PRN 04/02/18 [History Last Taken 03/28/18 15:00] aripiprazole 10 mg tablet 10 tab PO DAILY 09/16/19 [History Last Taken Unknown] buspirone 30 mg tablet 30 tab PO BID 09/16/19 [History Last Taken Unknown] pantoprazole 40 mg tablet,delayed release 40 tab PO DAILY 09/16/19 [History Last Taken Unknown] venlafaxine 150 mg capsule,extended release 24 hr 300 mg PO QHS 09/16/19 [History Last Taken Unknown] albuterol sulfate 2 puff IH PRN PRN 12/15/19 [History Last Taken Unknown] budesonide-formoterol 6 g IH BID 12/16/19 [History Last Taken Unknown] bupropion HCl 300 mg PO DAILY 12/16/19 [History Last Taken Unknown] loratadine 10 mg PO DAILY 12/16/19 [History Last Taken Unknown] tolterodine 1 tab PO BID 12/16/19 [History Last Taken Unknown] lisinopril 20 mg PO DAILY #0 12/21/19 [Rx Last Taken Unknown] pioglitazone 30 mg PO DAILY #0 12/21/19 [Rx Last Taken Unknown] OneTouch Verio test strips #150 ea NS 08/14/20 [Rx Last Taken Unknown] atorvastatin 40 mg tablet 40 tablet PO QHS 08/14/20 [History Last Taken Unknown] bupropion HCl 150 mg 24 hr tablet, extended release 150 mg PO DAILY tab 08/14 [History Last Taken Unknown] lancets 28 gauge #100 ea 08/14/20 [History Last Taken Unknown] levothyroxine 50 mcg tablet 50 mcg PO DAILY tab 08/14/20 [History Last Taken Unknown] pen needle, diabetic 31 gauge x 5/16 #1200 ea 08/14/20 [History Last Taken Unknown] flash glucose sensor #2 ea 11/17/20 [Rx Last Taken Unknown] lancets 33 gauge #200 ea 11/17/20 [Rx Last Taken Unknown] flash glucose scanning reader #1 ea 11/18/20 [Rx Last Taken Unknown] doxycycline monohydrate 100 mg PO BID #14 tab 04/23/21 [Rx Last Taken Unknown] insulin glargine 80 units SC DAILY 04/23/21 [History Last Taken Unknown] insulin lispro 34 unit SC TIDCM 04/23/21 [History Last Taken Unknown] Allergy/AdvReac Type Severity Reaction Status Date / Time loracarbef [From Lorabid] Allergy Unknown Verified 04/23/21 13:08 Penicillins Allergy Unknown Verified 04/23/21 13:08 Sulfa (Sulfonamide AdvReac Upset Verified 04/23/21 13:08 Antibiotics) Stomach Family History Other Arthritis Diabetes Heart disease Surgical History History of tonsillectomy Hx of cholecystectomy Social History Smoking Status: Never smoker alcohol intake: never substance use type: does not use caffeine: Yes what type of physical activity do you participate in: walking frequency: 1-2 times per week seatbelt use: always do you feel safe at home: Yes additional social history: single- ROS ROS ED ROS Narrative Constitutional: No fever, no chills. HEENT: No sore throat. No neck pain. No loss of vision. No rhinorrhea. Cardiovascular: No chest pain. No palpitations. No pedal edema. Respiratory: No cough, no shortness of breath. Abdominal: No abdominal pain. No nausea. No vomiting. Genitourinary: No dysuria. No hematuria. Positive abscess on right labia majora. Musculoskeletal: No myalgias. No arthralgias. Neurologic: No headaches. No dizziness. No lightheadedness. Skin: No rash. No change in color. Psychiatric: No depression. No anxiety. EXAM Physical Exam Narrative Exam Narrative: Afebrile. Vital signs noted. HEENT: Normocephalic. Atraumatic. PERRL, EOMI. Neck soft and supple. No point tenderness or step off. Cardiovascular: Regular rate and rhythm. No murmurs, rubs, or gallops appreciated. Respiratory: No tachypnea. Lungs clear to auscultation bilaterally. Gastrointestinal: Abdomen soft, nontender, with normoactive bowel sounds. No rebound or guarding. Neurological: Awake. Alert. Nonfocal, nonlateralizing. Skin: No rash. Normal color. No pallor. Musculoskeletal: No pedal edema. Full range of motion extremities. Genitourinary: Const Vital Signs: 04/23/21 13:07 04/23/21 13:45 Temperature 96.8 F L 98.7 F Temperature Source Temporal Temporal Pulse Rate 103 H 99 Respiratory Rate 18 16 Blood Pressure 140/89 H 120/72 Blood Pressure Mean 106 88 Pulse Ox 100 99 Oxygen Delivery Method Room Air Room Air MDM MDM MDM Narrative Medical decision making narrative: Patient was consented for incision and drainage of her abscess. She was told of the risk of return of blood, continued bleeding, poor wound healing and acknowledges understanding, stating that she has had incision and drainage performed previously. She was given Ativan 1 mg orally for anxiety as she usually takes Xanax 1 mg. She was given 1 Castella tablet for analgesia. Incision and drainage was performed. Area was cleansed with chlorhexidine. Lidocaine 1% was used as a local anesthetic. Cruciate incision was made with a #11 blade with return of blood and purulent material. Cavity was deloculated and rinsed with normal saline. Double tailed half inch packing was inserted lightly to keep the wound open. She was also given her first dose of doxycycline here in the emergency department. Wound culture is currently pending. She is given a prescription for doxycycline for the next week. She will follow-up with her primary care physician or her [employer]ESS SET UP OPERATOR. She was told to remove the packing in 48 hours, or return to the emergency department, or see one of her outpatient physicians for packing removal. I feel she can be discharged home in stable condition. Return instructions were reviewed. Discharge Plan Triage Chief Complaint: Abscess ED Provider: Layo Oliveros Dx/Rx/DC Orders Clinical Impression: Abscess of labia majora Instructions: ED Abscess Incision And Drainage Prescriptions: New doxycycline monohydrate 100 mg tablet 100 mg PO BID Qty: 14 RF: 0 No Action aripiprazole 10 mg tablet 10 tab PO DAILY RF: 0 buspirone 30 mg tablet 30 tab PO BID RF: 0 pantoprazole 40 mg tablet,delayed release (DR/EC) 40 tab PO DAILY RF: 0 bupropion HCl 150 mg tablet extended release 24 hr 150 mg PO DAILY RF: 0 atorvastatin 40 mg tablet 40 tablet PO QHS RF: 0 (DME) lancets 28 gauge misc See Rx Instructions gauge .ROUTE .MEDSUPPLY Qty: 100 RF: 0 (DME) pen needle, diabetic 31 gauge x 5/16 needle See Rx Instructions ea .ROUTE .MEDSUPPLY Qty: 1200 RF: 0 levothyroxine 50 mcg tablet 50 mcg PO DAILY RF: 0 (DME) OneTouch Verio test strips Strip See Rx Instructions .ROUTE .MEDSUPPLY Qty: 150 RF: 6 (DME) lancets [OneTouch Delica Lancets] 33 gauge misc See Rx Instructions .ROUTE .MEDSUPPLY Qty: 200 RF: 1 (DME) FreeStyle Darren 14 Day Sensor Kit See Rx Instructions .ROUTE .MEDSUPPLY Qty: 2 RF: 6 (DME) FreeStyle Darren 14 Day [place] Misc See Rx Instructions .ROUTE .MEDSUPPLY Qty: 1 RF: 0 alprazolam 1 MG tablet 1 mg PO TID PRN PRN (Reason: panic attacks) RF: 0 venlafaxine 150 mg capsule,extended release 24hr 300 mg PO QHS RF: 0 albuterol sulfate 90 mcg/actuation HFA aerosol inhaler 2 puff IH PRN PRN (Reason: Asthma) RF: 0 tolterodine 2 MG tablet 1 tab PO BID RF: 0 loratadine 10 MG tablet 10 mg PO DAILY RF: 0 budesonide-formoterol 6 GM HFA aerosol inhaler 6 g IH BID RF: 0 bupropion HCl 300 MG tablet extended release 24 hr 300 mg PO DAILY RF: 0 lisinopril 20 MG tablet 20 mg PO DAILY Qty: 0 RF: 0 pioglitazone 30 MG tablet 30 mg PO DAILY Qty: 0 RF: 0 insulin lispro 100 UNIT/ML cartridge 34 unit SC TIDCM RF: 0 insulin glargine 100 unit/mL (3 mL) insulin pen 80 units SC DAILY RF: 0 Primary Care Provider: Nahun Martin Chi Referrals: Nahun Martin Chi, MD [Primary Care Provider] - Activity Restrictions/Additional Instructions: Remove packing from your wound in 48 hours, or return to the emergency department to have it removed versus following up with your primary care physician/FLEXOGRAPHIC PRESS SET UP OPERATOR. Disposition Disposition: Home, Self Care
[2021-04-23 13:45] VITALS: BP 120/72; PULSE 99; RESP 16; TEMP 37.1; O2SAT 99
[2021-04-23] MEDS: Doxycycline 100 MG CAPSULE PO (13:48)
[2021-04-23] MEDS: HYDROcodone Bitartrate/Apap 5/325 Tablet PO (13:48)
[2021-04-23] MEDS: LORazepam 1 MG Tablet PO (13:48)
[2021-04-23] MEDS: Lidocaine 1% (20 ml mdv) 20 ML Vial INFILT (15:00)
[2021-04-23 15:08] VITALS: BP 134/69; PULSE 71; RESP 15; O2SAT 98
== END 2021-04-23 15:09 | disposition home or self-care (01) ==
PROVIDERS: Emergency Provider Emergency Medicine; PCP Family Medicine Geriatric Medicine; Visit Provider Emergency Medicine
DX: N76.4 Abscess of vulva (principal); E11.22 Type 2 diabetes mellitus with diabetic chronic kidney disease; Z79.4 Long term (current) use of insulin; F41.9 Anxiety disorder, unspecified; I12.9 Hypertensive chronic kidney disease with stage 1 through stage 4 chronic kidney disease, or unspecified chronic kidney disease; N18.9 Chronic kidney disease, unspecified; F32.A Depression, unspecified; Z86.14 Personal history of Methicillin resistant Staphylococcus aureus infection; J45.909 Unspecified asthma, uncomplicated; E07.9 Disorder of thyroid, unspecified; E66.9 Obesity, unspecified; Z68.36 Body mass index [BMI] 36.0-36.9, adult; R32 Unspecified urinary incontinence; Z79.899 Other long term (current) drug therapy; F42.9 Obsessive-compulsive disorder, unspecified
CPT/HCPCS: 10061; 87070; 87077; 87186; 87205; 99283

== ENCOUNTER → 2021-07-20 | Outpatient (CLI) | payer MEDICAID, SELFPAY ==
[2021-07-20 17:15] LABS: Absolute Neutrophil Count 5.8 X10^3/uL (2.0-7.7); Basophil# 0.07 X10^3/uL; Basophil% 0.8 % (0-1); Eosinophil# 0.24 X10^3/uL; Eosinophils% 2.7 % (0-5); Hematocrit 37.4 % (37-47); Hemoglobin 12.4 g/dL (12.0-15.0); Lymphocyte % 24.8 % (19-41); Mean Corp Hgb Conc 33.2 g/dL (32-36); Mean Corpuscular Hgb 28.7 pg (27.0-32.0); Mean Corpuscular Volume 86.6 fL (81-99); Mean Platelet Vol. 9.9 fl (6.2-12.0); Monocyte% 5.6 % (0-10); NRBC Flagged by Analyzer 0 % (0-5); Neutrophil # 5.82 X10^3/uL (2.7-7.7); Neutrophil % 65.8 % (47-70); Platelet Count 287 K/mm3 (150-450); RBC Distribution Width CV 12.6 % (11.6-14.6); RBC Distribution Width SD 39.9 fl (35.1-43.9); Red Blood Count 4.32 M/mm3 (4.2-5.4); White Blood Count 8.9 K/mm3 (4.4-11.0)
[2021-07-20 17:31] LABS: ALB/GLOB Ratio 0.8 RATIO (0.9-2.4); AST(SGOT) 7 U/L (15-37); Alanine Aminotransfer ALT/SGPT 19 U/L (13-56); Albumin, Serum 3.2 g/dL (3.2-5.0); Alkaline Phosphatase 104 U/L (45-117); Anion Gap 7 (5-15); BUN 10 mg/dL (7-18); BUN/Creat Ratio 11.3 RATIO (10-20); Chloride 105 mmol/L (98-107); Creatinine, Serum 0.88 mg/dL (0.55-1.02); EST Glomerular Filtration Rate 75 mL/min (>60); Est Glom Filt Rate - Afr Amer 91 mL/min (>60); Globulin 4.1 g/dL (2.2-4.2); Glucose 198 mg/dL (74-106); Protein, Total 7.3 g/dL (6.4-8.2); Sodium Level 139 mmol/L (136-145); Thyroid Stim Hormone (TSH) 2.33 uIU/mL (0.358-3.74)
== END | disposition home or self-care (01) ==
LOC: POLAB3 15:47
PROVIDERS: PCP Family Medicine Geriatric Medicine; Visit Provider Family Medicine Geriatric Medicine
DX: E11.9 Type 2 diabetes mellitus without complications (principal); I10 Essential (primary) hypertension
CPT/HCPCS: 36415; 80053; 84443; 85025

== ENCOUNTER → 2021-07-23 | Outpatient (CLI) | payer MEDICAID, SELFPAY ==
[2021-07-23 13:44] LABS: M R Staph aureus DNA By PCR Negative (Negative); Probe Check PASS; Specimen Processing Control PASS; Staph aureus DNA By PCR POSITIVE (Negative)
== END | disposition home or self-care (01) ==
LOC: POLAB3 11:45
PROVIDERS: PCP Family Medicine Geriatric Medicine; Visit Provider Family Medicine Geriatric Medicine
DX: L03.90 Cellulitis, unspecified (principal); B95.62 Methicillin resistant Staphylococcus aureus infection as the cause of diseases classified elsewhere
CPT/HCPCS: 87070; 87077; 87186; 87205; 87640

== ENCOUNTER → 2021-09-28 | Outpatient (CLI) | payer MEDICAID, SELFPAY ==
[2021-09-28 20:10] LABS: M R Staph aureus DNA By PCR Negative (Negative); Probe Check PASS; Staph aureus DNA By PCR POSITIVE (Negative)
== END | disposition home or self-care (01) ==
LOC: LABSPEC 13:36
PROVIDERS: PCP Family Medicine Geriatric Medicine; Visit Provider Family Medicine Geriatric Medicine
DX: L03.90 Cellulitis, unspecified (principal)
CPT/HCPCS: 87070; 87077; 87186; 87205; 87640

== ENCOUNTER → 2021-11-04 | Outpatient (CLI) | payer MEDICAID, SELFPAY ==
[2021-11-11 17:30] LABS: HPV APTIMA, High Risk Positive (Negative)
== END | disposition home or self-care (01) ==
LOC: LABSPEC 15:48
PROVIDERS: PCP Family Medicine Geriatric Medicine; Visit Provider Obstetrics & Gynecology
DX: Z12.4 Encounter for screening for malignant neoplasm of cervix (principal)
CPT/HCPCS: 87624; 88175; G0145

== ENCOUNTER → 2021-11-23 | Outpatient (CLI) | payer MEDICAID, SELFPAY ==
--- NOTE | 2021-11-23 15:58 | BI_ITS ---
MAMMOGRAPHY - BILATERAL SCREENING REASON FOR EXAM: Female, 41 years old. Routine annual screening examination. PERTINENT HISTORY: Aunt with breast cancer. TECHNIQUE: Digital bilateral breast enrique (3D mammographic acquisition) in the CC and MLO projections. 2-D mediolateral oblique (MLO) and craniocaudad (CC) views of both breasts were obtained. CAD: Full Field Digital Mammography with Computer Added Detection was performed. COMPARISON: None. Baseline examination. FINDINGS: Breast Composition: The breasts are almost entirely fatty. There are no dominant masses or suspicious calcifications. No other significant abnormalities are identified. BI/SCRN MAMM (CAD)W/ENRIQUE BILAT IMPRESSION: Negative screening mammogram. Yearly followup mammogram recommended. (A) ASSESSMENT CATEGORY: BIRADS Category 1: Negative. A letter regarding these results will be sent to the patient by the facility within 30 days. Approximately 10% of breast cancers are not detected by mammography. A normal mammogram should not delay biopsy of a clinically suspicious abnormality. [id number] Electronically Signed: Yanick Guerrero MD at 8:25 EDT ,
== END | disposition home or self-care (01) ==
LOC: OPBI 15:57
PROVIDERS: PCP Family Medicine Geriatric Medicine; Referring Provider Obstetrics & Gynecology; Visit Provider Obstetrics & Gynecology
DX: Z12.31 Encounter for screening mammogram for malignant neoplasm of breast (principal)
CPT/HCPCS: 77063; 77067

== ENCOUNTER → 2021-12-02 | Outpatient (CLI) | payer MEDICAID, SELFPAY ==
--- NOTE | 2021-12-02 | IMM_PTH ---
PATIENT: KRISTEN ANDRADE LOC: [facility] U#:[id number] AGE/SX: 41/F ROOM: RE12/02/[address]: Dr. Diandra Payan DO : 1980 BED: DIS: 12/02/2021 SPEC #: [id number] RECD: 12/03/21 12:44 STATUS: AAKASH REAlla #: [id number] ANNABELLA: 12/02/21 00:[address]: Diandra Payan DEPT: IMMUNOHISTOCHEMISTRY RECD BY: Buffy Marin ENTERED: 12/03/21 12:46 SP TYPE: IMMUNO OTHR DR: Dr. Nahun Martin MD Tissues: A - Endocervical B - Uterine cervix, NOS Procedures: p16 (initial) KI-67 (add) PHYSICIAN & INSTITUTION [place] [phone] SPECIMEN INFORMATION: Tissue Source: A ? ECC, B ? Cervix 12 o?clock Clinical Info: ASCUS/HPV positive Specimen Number: [id number] A & B CPT code: 17777 x2, 35441 x2 METHODOLOGY: Deparaffinized sections of prefer/formalin-fixed tissue or PAP/DQ stained slides are incubated with monoclonal/polyclonal antibodies/oligonucleotide probes. Localization is made via biotin free immunoperoxidase method. Appropriate controls are performed and reacted as expected. Results on target cell population are indicated in the following table: RESULTS: ANTIBODY / CLONE RESULT Block A P16 (E6H4) negative Ki-67 (30-9) negative Block B P16 (E6H4) negative Ki-67 (30-9) negative These tests were developed and their performance characteristics determined by [facility]. They may not have been cleared or approved by the U.S. Food and Drug Administration. The FDA has determined that such clearance or approval is not necessary. The above immunohistochemical/dualISH markers are ordered and reviewed by the Pathologist. INTERPRETATION: A. Endocervix, curettings: No evidence of dysplasia. B. Cervix, 12 o?clock, biopsy: No evidence of dysplasia. AM:von 12/06/2021
--- NOTE | 2021-12-02 10:00 | ECC_PTH ---
PATIENT: KRISTEN ANDRADE LOC: [facility] U#:[id number] AGE/SX: 41/F ROOM: RE12/02/[address]: Dr. Diandra Payan DO : 1980 BED: DIS: 12/02/2021 SPEC #: [id number] RECD: 12/02/21 10:56 STATUS: AAKASH TURNERAlla #: [id number] ANNABELLA: 12/02/21 10:[address]: Diandra Payan DEPT: SURGICAL PATHOLOGY RECD BY: Bob Moreno ENTERED: 12/02/21 12:21 SP TYPE: ECC [place]ANF[place] DR: Dr. Nahun Martin MD Tissues: A - Endocervical B - Endocervical Procedures: Surgery Specimen Level IV HEADER OPERATION: Colposcopy PRE-OP DIAGNOSIS: ASCUS HPV positive TISSUE SUBMITTED: A ? ECC, B ? 12 o?clock MICROSCOPIC DIAGNOSIS A. Endocervix, curettings: Fragments of squamous mucosa with no pathologic change. Scant benign endocervical tissue. See comment. B. Cervix at 12 o?clock, biopsy: Fragments of squamous mucosa with no pathologic change. See comment. AM:von 12/03/2021 COMMENT A & B. Results from immunohistochemistry ([id number]) for surrogate HPV marker (p16) will be reported separately. MICROSCOPIC DESCRIPTION Slides are reviewed. GROSS DESCRIPTION A - Received in fixative is one container labeled with the patient's name and designated ECC. The specimen consists of multiple irregular fragments of kwong mucoid tissue that in aggregate measure 1.5 x 1 x 0.1 cm. The specimen is totally submitted in one cassette. B - Received in fixative is one container labeled with the patient's name and designated 12 o'clock. The specimen consists of one irregular fragment of light kwong soft tissue that measures 0.5 x 0.4 x 0.1 cm. The specimen is totally submitted in one cassette. / VAISHNAVI:von 12/02/2021 TC:3 CPT: 07371 x2
== END | disposition home or self-care (01) ==
LOC: LABSPEC 10:57
PROVIDERS: PCP Family Medicine Geriatric Medicine; Referring Provider Obstetrics & Gynecology; Visit Provider Obstetrics & Gynecology
DX: Z11.51 Encounter for screening for human papillomavirus (HPV) (principal)
CPT/HCPCS: 88305; 88341; 88342

== ENCOUNTER → 2021-12-14 | Outpatient (CLI) | payer MEDICAID, SELFPAY ==
[2021-12-14 17:18] LABS: Absolute Neutrophil Count 3.2 X10^3/uL (2.0-7.7); Basophil# 0.05 X10^3/uL; Basophil% 0.8 % (0-1); Eosinophil# 0.11 X10^3/uL; Eosinophils% 1.7 % (0-5); Hematocrit 40.3 % (37-47); Hemoglobin 13.4 g/dL (12.0-15.0); Lymphocyte % 39.7 % (19-41); Mean Corp Hgb Conc 33.3 g/dL (32-36); Mean Corpuscular Hgb 28.6 pg (27.0-32.0); Mean Corpuscular Volume 85.9 fL (81-99); Mean Platelet Vol. 10.5 fl (6.2-12.0); Monocyte# 0.43 X10^3/uL; Monocyte% 6.8 % (0-10); NRBC Flagged by Analyzer 0 % (0-5); Neutrophil # 3.19 X10^3/uL (2.7-7.7); Neutrophil % 50.7 % (47-70); Platelet Count 295 K/mm3 (150-450); RBC Distribution Width CV 12.7 % (11.6-14.6); RBC Distribution Width SD 39.7 fl (35.1-43.9); Red Blood Count 4.69 M/mm3 (4.2-5.4); White Blood Count 6.3 K/mm3 (4.4-11.0)
[2021-12-14 17:45] LABS: ALB/GLOB Ratio 0.8 RATIO (0.9-2.4); AST(SGOT) 6 U/L (15-37); Alanine Aminotransfer ALT/SGPT 17 U/L (13-56); Albumin, Serum 3.3 g/dL (3.2-5.0); Alkaline Phosphatase 103 U/L (45-117); Anion Gap 9 (5-15); BUN 18 mg/dL (7-18); BUN/Creat Ratio 18.4 RATIO (10-20); Chloride 108 mmol/L (98-107); Creatinine, Serum 0.98 mg/dL (0.55-1.02); EST Glomerular Filtration Rate 66 mL/min (>60); Est Glom Filt Rate - Afr Amer 80 mL/min (>60); Globulin 4.3 g/dL (2.2-4.2); Glucose 223 mg/dL (74-106); Potassium 4.1 mmol/L (3.5-5.1); Protein, Total 7.6 g/dL (6.4-8.2); Sodium Level 137 mmol/L (136-145); Thyroid Stim Hormone (TSH) 1.69 uIU/mL (0.358-3.74)
== END | disposition home or self-care (01) ==
LOC: POLAB3 09:14
PROVIDERS: PCP Family Medicine Geriatric Medicine; Visit Provider Family Medicine Geriatric Medicine
DX: I10 Essential (primary) hypertension (principal); E11.9 Type 2 diabetes mellitus without complications
CPT/HCPCS: 36415; 80053; 84443; 85025

== ENCOUNTER → 2021-12-24 | Outpatient (CLI) | payer MEDICAID, SELFPAY ==
--- NOTE | 2021-12-24 07:37 | ART_ITS ---
Reason For Study: CLAUDICATION Procedure A bilateral lower extremity continuous wave Doppler with analog waveform analysis,segmental pressures,and ankle brachial indexes with exercise. Left Segmental Pressures Left brachial= 134mmHg. Left posterior tibial artery = 157mmHg. Left dorsalis pedis artery = 121mmHg. Left digit = 122 mmHg. The left posterior tibial artery waveforms are triphasic. The left dorsalis pedis waveforms are triphasic. Right Segmental Pressures Right brachial= 135mmHg. Right posterior tibial artery = 143mmHg. Right dorsalis pedis artery = 130mmHg. Right digit = 100 mmHg. The right posterior tibial artery waveforms are triphasic. The right dorsalis pedis waveforms are triphasic. Indices The right ankle brachial index by the posterior tibial artery is 1.06. The right ankle brachial index by the dorsalis pedis is 0.96. The right digital-brachial index is 0.74. The right ankle brachial index by the posterior tibial artery post exercise is 0.98. The left ankle brachial index by the posterior tibial artery is 1.16. The left ankle brachial index by the dorsalis pedis is 0.90. The left digital-brachial index is 0.90. The left posterior tibial artery index post exercise is 1.03. VL/Lower Ext Art Exam w/ Exercise Interpretation Summary Triphasic Doppler waveforms are noted at ankle level bilaterally. Pulse-volume recordings appear diminished at digital level bilaterally, but satisfactory at all other levels b ilaterally. Resting ankle-brachial indices are normal bilaterally. Digital-brachial indices are nor mal bilaterally. Following a period of exercise, ankle pressures augment bilaterally, a normal p hysiological response. There is no evidence of significant arterial occlusive disease in the lower ext remities bilaterally. Ordering Physician: Franky Cleary Referring Physician: FRANKY CLEARY DPM Performed By: [facility]
== END | disposition home or self-care (01) ==
LOC: CVS 07:36
PROVIDERS: PCP Family Medicine Geriatric Medicine; Visit Provider Podiatrist
DX: I73.9 Peripheral vascular disease, unspecified (principal)
CPT/HCPCS: 93924

== ENCOUNTER → 2022-01-27 | Outpatient (CLI) | payer MEDICAID, SELFPAY ==
[2022-01-27 17:14] LABS: Absolute Lymphocyte Count 1.44 X10^3/uL (0.83-4.51); Absolute Neutrophil Count 2.5 X10^3/uL (2.0-7.7); Basophil# 0.04 X10^3/uL; Basophil% 0.9 % (0-1); Eosinophil# 0.13 X10^3/uL; Eosinophils% 2.8 % (0-5); Hematocrit 39.2 % (37-47); Hemoglobin 13.3 g/dL (12.0-15.0); Lymphocyte # 1.44 X10^3/ul (0.83-4.51); Lymphocyte % 30.8 % (19-41); Mean Corp Hgb Conc 33.9 g/dL (32-36); Mean Corpuscular Hgb 29.2 pg (27.0-32.0); Mean Corpuscular Volume 86.2 fL (81-99); Mean Platelet Vol. 10.5 fl (6.2-12.0); Monocyte# 0.59 X10^3/uL; Monocyte% 12.6 % (0-10); NRBC Flagged by Analyzer 0 % (0-5); Neutrophil # 2.45 X10^3/uL (2.7-7.7); Neutrophil % 52.5 % (47-70); Platelet Count 266 K/mm3 (150-450); RBC Distribution Width CV 12.9 % (11.6-14.6); RBC Distribution Width SD 40.4 fl (35.1-43.9); Red Blood Count 4.55 M/mm3 (4.2-5.4); White Blood Count 4.7 K/mm3 (4.4-11.0)
[2022-01-27 17:56] LABS: ALB/GLOB Ratio 0.8 RATIO (0.9-2.4); AST(SGOT) 10 U/L (15-37); Alanine Aminotransfer ALT/SGPT 19 U/L (13-56); Albumin, Serum 3.1 g/dL (3.2-5.0); Alkaline Phosphatase 135 U/L (45-117); Anion Gap 10 (5-15); BUN 13 mg/dL (7-18); BUN/Creat Ratio 12.6 RATIO (10-20); Calcium,Total 7.6 mg/dL (8.5-10.1); Chloride 104 mmol/L (98-107); Creatinine, Serum 1.03 mg/dL (0.55-1.02); EST Glomerular Filtration Rate 63 mL/min (>60); Est Glom Filt Rate - Afr Amer 76 mL/min (>60); Globulin 3.7 g/dL (2.2-4.2); Glucose 369 mg/dL (74-106); Potassium 3.7 mmol/L (3.5-5.1); Protein, Total 6.8 g/dL (6.4-8.2); Sodium Level 134 mmol/L (136-145); Thyroid Stim Hormone (TSH) 1.48 uIU/mL (0.358-3.74)
== END | disposition home or self-care (01) ==
LOC: POLAB3 16:01
PROVIDERS: PCP Family Medicine Geriatric Medicine; Visit Provider Family Medicine Geriatric Medicine
DX: I10 Essential (primary) hypertension (principal); E11.65 Type 2 diabetes mellitus with hyperglycemia
CPT/HCPCS: 36415; 80053; 84443; 85025

== ENCOUNTER → 2022-05-11 | Outpatient (CLI) | payer MEDICAID, SELFPAY ==
[2022-05-11 17:22] LABS: Absolute Lymphocyte Count 2.15 X10^3/uL (0.83-4.51); Absolute Neutrophil Count 4.2 X10^3/uL (2.0-7.7); Basophil# 0.06 X10^3/uL; Basophil% 0.8 % (0-1); Eosinophils% 2.8 % (0-5); Hematocrit 37.6 % (37-47); Lymphocyte # 2.15 X10^3/ul (0.83-4.51); Lymphocyte % 30.1 % (19-41); Mean Corp Hgb Conc 34.6 g/dL (32-36); Mean Corpuscular Hgb 29.1 pg (27.0-32.0); Mean Corpuscular Volume 84.1 fL (81-99); Mean Platelet Vol. 10.3 fl (6.2-12.0); Monocyte# 0.53 X10^3/uL; Monocyte% 7.4 % (0-10); NRBC Flagged by Analyzer 0 % (0-5); Neutrophil # 4.17 X10^3/uL (2.7-7.7); Neutrophil % 58.5 % (47-70); Platelet Count 294 K/mm3 (150-450); RBC Distribution Width CV 12.8 % (11.6-14.6); RBC Distribution Width SD 38.5 fl (35.1-43.9); Red Blood Count 4.47 M/mm3 (4.2-5.4); White Blood Count 7.1 K/mm3 (4.4-11.0)
[2022-05-11 17:46] LABS: ALB/GLOB Ratio 0.8 RATIO (0.9-2.4); AST(SGOT) 8 U/L (15-37); Alanine Aminotransfer ALT/SGPT 17 U/L (13-56); Albumin, Serum 3.2 g/dL (3.2-5.0); Alkaline Phosphatase 130 U/L (45-117); Anion Gap 11 (5-15); BUN 16 mg/dL (7-18); BUN/Creat Ratio 14.8 RATIO (10-20); Calcium,Total 8.7 mg/dL (8.5-10.1); Chloride 103 mmol/L (98-107); Creatinine, Serum 1.08 mg/dL (0.55-1.02); EST Glomerular Filtration Rate 59 mL/min (>60); Est Glom Filt Rate - Afr Amer 72 mL/min (>60); Globulin 3.8 g/dL (2.2-4.2); Glucose 354 mg/dL (74-106); Sodium Level 134 mmol/L (136-145); Thyroid Stim Hormone (TSH) 1.34 uIU/mL (0.358-3.74)
== END | disposition home or self-care (01) ==
LOC: POLAB3 13:34
PROVIDERS: PCP Family Medicine Geriatric Medicine; Visit Provider Family Medicine Geriatric Medicine
DX: E11.65 Type 2 diabetes mellitus with hyperglycemia (principal); I10 Essential (primary) hypertension
CPT/HCPCS: 36415; 80053; 84443; 85025

== ENCOUNTER → 2022-08-17 | Outpatient (CLI) | payer MEDICAID, SELFPAY ==
--- NOTE | 2022-08-17 16:55 | RAD_ITS ---
STUDY: X-RAY - THORACIC SPINE REASON FOR EXAM: Female, 41 years old. BACK PAIN TECHNIQUE: 3 view(s) of the thoracic spine were obtained. COMPARISON: None. FINDINGS: Normal kyphosis of the thoracic spine. There is no substantial scoliosis. Normal thoracic vertebrae and endplates. Normal disc space heights. The soft tissue structures are unremarkable. RAD/Thoracic Spine 3 Views IMPRESSION: Normal x-ray examination of the thoracic spine. Electronically Signed: Sterling Luo MD at 19:38 EDT ,
[2022-08-17 17:37] LABS: Absolute Lymphocyte Count 2.46 X10^3/uL (0.83-4.51); Absolute Neutrophil Count 4.3 X10^3/uL (2.0-7.7); Basophil# 0.09 X10^3/uL; Basophil% 1.2 % (0-1); Eosinophil# 0.15 X10^3/uL; Hematocrit 36.6 % (37-47); Hemoglobin 12.2 g/dL (12.0-15.0); Lymphocyte # 2.46 X10^3/ul (0.83-4.51); Lymphocyte % 32.4 % (19-41); Mean Corp Hgb Conc 33.3 g/dL (32-36); Mean Corpuscular Hgb 28.7 pg (27.0-32.0); Mean Corpuscular Volume 86.1 fL (81-99); Monocyte# 0.54 X10^3/uL; Monocyte% 7.1 % (0-10); NRBC Flagged by Analyzer 0 % (0-5); Neutrophil # 4.34 X10^3/uL (2.7-7.7); Platelet Count 285 K/mm3 (150-450); RBC Distribution Width CV 12.6 % (11.6-14.6); RBC Distribution Width SD 39.4 fl (35.1-43.9); Red Blood Count 4.25 M/mm3 (4.2-5.4); White Blood Count 7.6 K/mm3 (4.4-11.0)
[2022-08-17 18:21] LABS: Hemoglobin A1c 9.9 % (3.8-5.6)
[2022-08-17 18:36] LABS: ALB/GLOB Ratio 0.9 RATIO (0.9-2.4); AST(SGOT) 8 U/L (15-37); Alanine Aminotransfer ALT/SGPT 16 U/L (13-56); Albumin, Serum 3.4 g/dL (3.2-5.0); Alkaline Phosphatase 122 U/L (45-117); Anion Gap 6 (5-15); BUN 17 mg/dL (7-18); BUN/Creat Ratio 14.2 RATIO (10-20); Calcium,Total 8.3 mg/dL (8.5-10.1); Chloride 105 mmol/L (98-107); Cholesterol 112 mg/dL (200); EST Glomerular Filtration Rate 52 mL/min (>60); Est Glom Filt Rate - Afr Amer 63 mL/min (>60); Globulin 3.7 g/dL (2.2-4.2); Glucose 325 mg/dL (74-106); High Density Lipoprotein 56 mg/dL; Potassium 3.9 mmol/L (3.5-5.1); Protein, Total 7.1 g/dL (6.4-8.2); Sodium Level 135 mmol/L (136-145); Thyroid Stim Hormone (TSH) 1.31 uIU/mL (0.358-3.74); Triglycerides 130 mg/dL; Very Low Density Lipoprotein 26 mg/dL (5-40)
== END | disposition home or self-care (01) ==
LOC: RAD 16:49
PROVIDERS: PCP Family Medicine Geriatric Medicine; Referring Provider Family Medicine Geriatric Medicine; Visit Provider Family Medicine Geriatric Medicine
DX: M54.6 Pain in thoracic spine (principal); E11.65 Type 2 diabetes mellitus with hyperglycemia; I10 Essential (primary) hypertension
CPT/HCPCS: 36415; 72072; 80053; 80061; 83036; 84443; 85025

== ENCOUNTER → 2022-11-08 | Outpatient (CLI) | payer MEDICAID, SELFPAY ==
[2022-11-16 14:08] LABS: HPV APTIMA, High Risk Positive (Negative)
== END | disposition home or self-care (01) ==
LOC: LABSPEC 16:57
PROVIDERS: PCP Family Medicine Geriatric Medicine; Referring Provider Obstetrics & Gynecology; Visit Provider Obstetrics & Gynecology
DX: Z12.4 Encounter for screening for malignant neoplasm of cervix (principal)
CPT/HCPCS: 87624; 88175; G0145

== ENCOUNTER → 2022-12-05 | Outpatient (CLI) | payer MEDICAID, SELFPAY ==
--- NOTE | 2022-12-05 14:08 | BI_ITS ---
MAMMOGRAPHY - BILATERAL SCREENING REASON FOR EXAM: Female, 42 years old. Routine annual screening examination. PERTINENT HISTORY: Non-contributory. Chronic inversion of the left nipple. TECHNIQUE: Digital bilateral breast enrique (3D mammographic acquisition) in the CC and MLO projections. 2-D mediolateral oblique (MLO) and craniocaudad (CC) views of both breasts were obtained. CAD: Full Field Digital Mammography with Computer Added Detection was performed. COMPARISON: Comparison is made with prior study dated November 23, 2021 FINDINGS: Breast Composition: The breasts are almost entirely fatty. There are no dominant masses or suspicious calcifications. No other significant abnormalities are identified. There has been no significant change since the prior study. BI/SCRN MAMM (CAD)W/ENRIQUE BILAT IMPRESSION: Stable bilateral screening mammogram. Yearly follow-up mammogram recommended. (A) ASSESSMENT CATEGORY: BIRADS Category 1: Negative. A letter regarding these results will be sent to the patient by the facility within 30 days. Approximately 10% of breast cancers are not detected by mammography. A normal mammogram should not delay biopsy of a clinically suspicious abnormality. [id number] Electronically Signed: Yanick Guerrero MD at 15:27 EDT ,
== END | disposition home or self-care (01) ==
LOC: OPBI 14:07
PROVIDERS: PCP Family Medicine Geriatric Medicine; Referring Provider Obstetrics & Gynecology; Visit Provider Obstetrics & Gynecology
DX: Z12.31 Encounter for screening mammogram for malignant neoplasm of breast (principal)
CPT/HCPCS: 77063; 77067

== ENCOUNTER → 2023-01-30 | Outpatient (CLI) | payer MEDICAID, SELFPAY ==
[2023-01-30 14:53] LABS: Absolute Neutrophil Count 5.8 X10^3/uL (2.0-7.7); Basophil# 0.05 X10^3/uL; Basophil% 0.6 % (0-1); Eosinophil# 0.22 X10^3/uL; Eosinophils% 2.5 % (0-5); Hematocrit 40.2 % (37-47); Lymphocyte % 25.6 % (19-41); Mean Corp Hgb Conc 32.3 g/dL (32-36); Mean Corpuscular Hgb 28.9 pg (27.0-32.0); Mean Corpuscular Volume 89.3 fL (81-99); Mean Platelet Vol. 10.1 fl (6.2-12.0); Monocyte# 0.62 X10^3/uL; Monocyte% 6.9 % (0-10); NRBC Flagged by Analyzer 0 % (0-5); Neutrophil # 5.75 X10^3/uL (2.7-7.7); Neutrophil % 64.1 % (47-70); Platelet Count 271 K/mm3 (150-450); RBC Distribution Width CV 12.5 % (11.6-14.6); RBC Distribution Width SD 40.9 fl (35.1-43.9)
[2023-01-30 15:10] LABS: Hemoglobin A1c 11.7 % (3.8-5.6)
[2023-01-30 15:16] LABS: ALB/GLOB Ratio 0.8 RATIO (0.9-2.4); AST(SGOT) 9 U/L (15-37); Alanine Aminotransfer ALT/SGPT 16 U/L (13-56); Albumin, Serum 3.3 g/dL (3.2-5.0); Alkaline Phosphatase 121 U/L (45-117); Anion Gap 10 (5-15); BUN 18 mg/dL (7-18); BUN/Creat Ratio 16.7 RATIO (10-20); Calcium,Total 8.4 mg/dL (8.5-10.1); Chloride 105 mmol/L (98-107); Cholesterol 112 mg/dL (200); Creatinine, Serum 1.08 mg/dL (0.55-1.02); EST Glomerular Filtration Rate 59 mL/min (>60); Est Glom Filt Rate - Afr Amer 71 mL/min (>60); Glucose 227 mg/dL (74-106); High Density Lipoprotein 52 mg/dL; Potassium 3.9 mmol/L (3.5-5.1); Protein, Total 7.3 g/dL (6.4-8.2); Sodium Level 138 mmol/L (136-145); Thyroid Stim Hormone (TSH) 2.72 uIU/mL (0.358-3.74); Triglycerides 175 mg/dL; Very Low Density Lipoprotein 35 mg/dL (5-40)
== END | disposition home or self-care (01) ==
LOC: POLAB3 13:15
PROVIDERS: PCP Family Medicine Geriatric Medicine; Visit Provider Family Medicine Geriatric Medicine
DX: I10 Essential (primary) hypertension (principal); E11.65 Type 2 diabetes mellitus with hyperglycemia
CPT/HCPCS: 36415; 80053; 80061; 82043; 83036; 84443; 85025

== ENCOUNTER → 2023-04-17 | Outpatient (CLI) | payer MEDICAID, SELFPAY ==
--- NOTE | 2023-04-17 | IMM_PTH ---
PATHOLOGY RESULTS PATIENT: KRISTEN ANDRADE LOC: [facility] U#:[id number] AGE/SX: 42/F ROOM: RE04/17/[address]: Dr. Diandra Payan DO : 1980 BED: DIS: 04/17/2023 SPEC #: [id number] RECD: 04/19/23 13:57 STATUS: AAKASH REAlla #: [id number] ANNABELLA: 04/17/23 00:[address]: Diandra Payan DEPT: IMMUNOHISTOCHEMISTRY RECD BY: Buffy Marin ENTERED: 04/19/23 13:58 SP TYPE: IMMUNO OTHR DR: Dr. Nahun Martin MD Tissues: Uterine cervix, NOS Procedures: p16 (initial) KI-67 (add) PHYSICIAN & INSTITUTION [place] [phone] SPECIMEN INFORMATION: Tissue Source: B - Cervix at 7 o'clock Clinical Info: ASCUS, HPV positive Specimen Number: [id number] CPT code: 95863, 69433 METHODOLOGY: Deparaffinized sections of prefer/formalin-fixed tissue or PAP/DQ stained slides are incubated with monoclonal/polyclonal antibodies/oligonucleotide probes. Localization is made via biotin free immunoperoxidase method. Appropriate controls are performed and reacted as expected. Results on target cell population are indicated in the following table: RESULTS: ANTIBODY / CLONE RESULT Block B P16 (E6H4) positive, focal, patchy Ki-67 (30-9) positive, low These tests were developed and their performance characteristics determined by [facility]. They may not have been cleared or approved by the U.S. Food and Drug Administration. The FDA has determined that such clearance or approval is not necessary. The above immunohistochemical/dualISH markers are ordered and reviewed by the Pathologist. INTERPRETATION: B. Cervix at 7 o'clock, biopsy: Focal HPV change present. AM:von 04/20/2023
--- NOTE | 2023-04-17 | CER_PTH ---
PATHOLOGY RESULTS PATIENT: KRISTEN ANDRADE LOC: [facility]#:[id number] AGE/SX: 42/F ROOM: RE04/17/[address]: Dr. Diandra Payan DO : 1980 BED: DIS: 04/17/2023 SPEC #: [id number] RECD: 04/17/23 17:18 STATUS: AAKASH GURROLA #: [id number] ANNABELLA: 04/17/23 00:[address]: Diandra Payan DEPT: SURGICAL PATHOLOGY RECD BY: Magdaleno Gross ENTERED: 04/18/23 07:24 SP TYPE: CERV OTHR DR: Dr. Nahun Martin MD Tissues: Endocervical Uterine cervix, NOS Procedures: Surgery Specimen Level IV HEADER OPERATION: Colposcopy PRE-OP DIAGNOSIS: ASCUS, HPV positive TISSUE SUBMITTED: A - Endocervical curettings, B - Cervix 7 o'clock MICROSCOPIC DIAGNOSIS A. Endocervix, curettings: Rare strips of benign superficial endocervix. See comment. B. Cervix at 7 o'clock, biopsy: Focal HPV change. Mild chronic inflammation. See comment. AM:von 04/19/2023 COMMENT A. The specimen primarily consists of amorphous mucoid/proteinaceous debris. Clinical correlation is suggested. B. Results from immunohistochemistry ([id number]) for surrogate HPV marker (p16) will be reported separately. Case has been reviewed in consultation with Dr. Cotto who concurs with the above diagnosis. IDC:[email or web address] MICROSCOPIC DESCRIPTION Slides are reviewed. GROSS DESCRIPTION A - Received in fixative is one container labeled with the patient's name and designated ECC. The specimen consists of a scant amount of soft tissue. The entire specimen is submitted in two cassettes. B - Received in fixative is one container labeled with the patient's name and designated 7 o'clock. The specimen consists of multiple irregular fragments of light kwong soft tissue that in aggregate measure 1.0 x 0.5 x 0.1 cm. The specimen is totally submitted in one cassette. / SJ:von 04/18/2023 TC:3 CPT: 37424 x2
== END | disposition home or self-care (01) ==
PROVIDERS: PCP Family Medicine Geriatric Medicine; Visit Provider Obstetrics & Gynecology
DX: R87.610 Atypical squamous cells of undetermined significance on cytologic smear of cervix (ASC-US) (principal); N72 Inflammatory disease of cervix uteri
CPT/HCPCS: 88305; 88341; 88342

== ENCOUNTER 2023-04-21 07:04 | Emergency (ER) | payer MEDICAID, SELFPAY ==
[2023-04-21 07:05] VITALS: BP 171/88; PULSE 102; RESP 16; TEMP 36.4; O2SAT 100; BMI 53.1
--- NOTE | 2023-04-21 07:37 | EDS_ITS ---
HPI History of Present Illness Chief Complaint: Abscess Informant: patient Onset/Context/Timing Onset: Days (4-5) Context: Gradual Onset Timing: Continuous Quality: sore Location: lower abd wall Current Severity: Moderate Maximum Severity: Moderate Narrative Narrative: 42-year-old female with history of hidradenitis suppurativa and chronic kidney disease who states she is having another abscess that is occurring on her lower abdominal wall. No systemic symptoms. No spontaneous drainage. Has a history of these with her hidradenitis including in this region. [facility] Medical History Anxiety and depression ASCUS with positive high risk HPV Asthma CKD (chronic kidney disease) Diabetes Fatigue Hx of allergic drug reaction Hypertension Incontinence Obesity OCD (obsessive compulsive disorder) Thyroid disease Home Medications alprazolam 1 mg tablet 1 mg PO TID PRN PRN panic attacks 04/02/18 [History Last Taken 03/28/18 15:00] aripiprazole 10 mg tablet 10 tab PO DAILY depression 09/16/19 [History Last Taken Unknown] buspirone 30 mg tablet 30 tab PO BID anxiety 09/16/19 [History Last Taken Unknown] pantoprazole 40 mg tablet,delayed release 40 tab PO DAILY gerd 09/16/19 [History Last Taken Unknown] venlafaxine 150 mg capsule,extended release 24 hr 300 mg PO QHS depression 09/16/19 [History Last Taken Unknown] albuterol sulfate 90 mcg/actuation aerosol inhaler 2 puff IH PRN PRN Asthma 12/15/19 [History Last Taken Unknown] bupropion HCl 300 mg 24 hr tablet, extended release 300 mg PO DAILY depression 12/16/19 [History Last Taken Unknown] loratadine 10 mg tablet 10 mg PO DAILY allergies 12/16/19 [History Last Taken Unknown] lisinopril 20 mg tablet 20 mg PO DAILY bp ##0 12/21/19 [Rx Last Taken Unknown] OneTouch Verio test strips (blood sugar diagnostic) #150 ea 08/14/20 [Rx Last Taken Unknown] atorvastatin 40 mg tablet 40 tablet PO QHS 08/14/20 [History Last Taken Unknown] bupropion HCl 150 mg 24 hr tablet, extended release 150 mg PO DAILY 08/14/20 [History Last Taken Unknown] lancets 28 gauge #100 ea 08/14/20 [History Last Taken Unknown] levothyroxine 50 mcg tablet 50 mcg PO DAILY 08/14/20 [History Last Taken Unknown] pen needle, diabetic 31 gauge x 5/16 #1,200 ea 08/14/20 [History Last Taken Unknown] lancets 33 gauge (OneTouch Delica Lancets) #200 ea 11/17/20 [Rx Last Taken Unknown] flash glucose scanning reader (Cherry BirdStyle Darren 14 Day [place]) #1 ea 11/18/20 [Rx Last Taken Unknown] etonogestrel 68 mg subdermal implant (Nexplanon) 1 implant subdermal ONCE 11/04/21 [History Last Taken Unknown] mirabegron 25 mg tablet,extended release 24 hr (Myrbetriq) 25 mg PO DAILY 11/04/21 [History Last Taken Unknown] flash glucose sensor (FreeStyle Darren 14 Day Sensor kit) #2 ea 01/30/23 [Rx Last Taken Unknown] insulin lispro 100 unit/mL subcutaneous pen 50 unit (0.5 mL) subcut TID #45 mL 02/07/23 [Rx Last Taken Unknown] insulin glargine 100 unit/mL (3 mL) subcutaneous pen 60 unit (0.6 mL) subcut DAILY dm #54 mL 03/15/23 [Rx Last Taken Unknown] tirzepatide 2.5 mg/0.5 mL subcutaneous pen injector (Mounjaro) 2.5 mg (0.5 mL) subcut QWEEK 4 weeks #2 mL 03/22/23 [Rx Last Taken Unknown] pen needle,diabetic, disp unit 32 gauge x 1/4 , remover and disposal unit ([facility] SafePack-Pen Needle) #100 ea 03/30/23 [Rx Last Taken Unknown] glimepiride 4 mg tablet 4 mg PO BID #60 tabs 04/10/23 [Rx Last Taken Unknown] doxycycline monohydrate 100 mg capsule 100 mg PO BID #20 CAPSULES 04/21/23 [Rx Last Taken Unknown] Allergy/AdvReac Type Severity Reaction Status Date / Time loracarbef [From Lorabid] Allergy Unknown Verified 04/21/23 07:17 Penicillins Allergy Unknown Verified 04/21/23 07:17 Sulfa (Sulfonamide AdvReac Upset Verified 04/21/23 07:17 Antibiotics) Stomach Family History Other Arthritis Diabetes Heart disease Surgical History History of tonsillectomy Hx of cholecystectomy Social History Smoking Status: Never smoker alcohol intake: never substance use type: does not use caffeine: Yes what type of physical activity do you participate in: swimming frequency: 1-2 times per week seatbelt use: always do you feel safe at home: Yes additional social history: single- ROS ROS ED Constitutional Constitutional ED: Denies chills or fever(s) Gastrointestinal Gastrointestinal: Denies nausea or vomiting Integumentary Reports abscess EXAM Physical Exam Const Vital Signs: 04/21/23 07:05 Temperature 97.5 F L Temperature Source Temporal Pulse Rate 102 H Respiratory Rate 16 Blood Pressure 171/88 H Blood Pressure Mean 115 Pulse Ox 100 Oxygen Delivery Method Room Air Positive well nourished, well developed and obese General Appearance ED: well developed and NAD Nutritional Appearance: obese GI GI Narrative: Tender pointing indurated abscess in the area of the mons pubis approximately 3 cm in diameter with some surrounding cellulitis. Neuro oriented x3, CN's II-XII intact bilaterally, no sensory deficits noted and gait normal Motor Exam: strength 5/5 throughout Psych mental status grossly normal Skin Skin Narrative: Abscess lower abdominal wall see above. No rashes otherwise. MDM MDM MDM Narrative Medical decision making narrative: Patient states she has an intolerance to sulfa drugs and that she is allergic to clindamycin. 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 For this reason I am sending a culture and placing her on doxycycline empirically. See the procedure note the abscess was incised and drained and a large amount of pus was removed. Procedures Other Procedures Procedure(s): Simple abscess incision and drainage: After informed consent verbally from the patient, locally prepped with chlorhexidine and anesthetized with 3 cc of plain 1% lidocaine lower abdominal wall cutaneous abscess, incised with a #10 blade, a large amount of purulent material was obtained/expressed, including necrotic plug. This was sent for culture. I deloculated the abscess cavity and irrigated it from the inside gently with sterile water, and dressed with gauze. Tolerated well no complications. Discharge Plan Triage Chief Complaint: Abscess ED Provider: Tucker Marks Dx/Rx/DC Orders Clinical Impression: Cutaneous abscess of abdominal wall, Hidradenitis suppurativa Instructions: ED Abscess Incision And Drainage Prescriptions: New doxycycline monohydrate 100 mg capsule 100 mg PO BID Qty: 20 0RF No Action aripiprazole 10 mg tablet 10 tab PO DAILY buspirone 30 mg tablet 30 tab PO BID pantoprazole 40 mg tablet,delayed release (DR/EC) 40 tab PO DAILY bupropion HCl 150 mg tablet extended release 24 hr 150 mg PO DAILY atorvastatin 40 mg tablet 40 tablet PO QHS (DME) lancets 28 gauge misc See Rx Instructions .ROUTE .MEDSUPPLY Qty: 100 Rx Instructions: As directed (DME) pen needle, diabetic 31 gauge x 5/16 needle See Rx Instructions .ROUTE .MEDSUPPLY Qty: 1200 Rx Instructions: As directed levothyroxine 50 mcg tablet 50 mcg PO DAILY (DME) OneTouch Verio test strips Strip See Rx Instructions .ROUTE .MEDSUPPLY Qty: 150 6RF Rx Instructions: 3x/day (DME) lancets [OneTouch Delica Lancets] 33 gauge misc See Rx Instructions .ROUTE .MEDSUPPLY Qty: 200 1RF Rx Instructions: As directed (DME) FreeStyle Darren 14 Day [place] Misc See Rx Instructions .ROUTE .MEDSUPPLY Qty: 1 0RF Rx Instructions: As directed Myrbetriq 25 mg tablet extended release 24 hr 25 mg PO DAILY Nexplanon 68 mg implant 1 implant subdermal ONCE Rx Instructions: as a single dose alprazolam 1 MG tablet 1 mg PO TID PRN PRN (Reason: panic attacks) venlafaxine 150 mg capsule,extended release 24hr 300 mg PO QHS albuterol sulfate 90 mcg/actuation HFA aerosol inhaler 2 puff IH PRN PRN (Reason: Asthma) Patient Comments: INHALE 2 PUFFS BY MOUTH EVERY FOUR HOURS NEEDED loratadine 10 MG tablet 10 mg PO DAILY bupropion HCl 300 MG tablet extended release 24 hr 300 mg PO DAILY lisinopril 20 MG tablet 20 mg PO DAILY Qty: 0 0RF Rx Instructions: Hold for 7 days, start 10 mg daily for 3 days and then full dose 20 mg daily. (DME) FreeStyle Darren 14 Day Sensor Kit See Rx Instructions .ROUTE .MEDSUPPLY Qty: 2 5RF Rx Instructions: 1 sensor q 14 days insulin lispro 100 unit/mL insulin pen 50 unit subcut TID Qty: 45 5RF insulin glargine 100 unit/mL (3 mL) insulin pen 60 unit SC DAILY Qty: 54 1RF Mounjaro 2.5 mg/0.5 mL pen injector 2.5 mg subcut QWEEK 28 Days Qty: 2 3RF (DME) UltiGuard SafePack-Pen Needle 32 gauge x 1/4 needle See Rx Instructions .Route Qty: 100 5RF Rx Instructions: As directed glimepiride 4 mg tablet 4 mg PO BID Qty: 60 6RF Primary Care Provider: Nahun Martin Chi Referrals: Nahun Martin Chi, MD [Primary Care Provider] - As Needed Disposition Disposition: Home, Self Care
[2023-04-21] MEDS: Doxycycline 100 MG CAPSULE PO (10:06)
== END 2023-04-21 10:07 | disposition home or self-care (01) ==
PROVIDERS: Emergency Provider Emergency Medicine; PCP Family Medicine Geriatric Medicine; Visit Provider Emergency Medicine
DX: L02.211 Cutaneous abscess of abdominal wall (principal); E11.22 Type 2 diabetes mellitus with diabetic chronic kidney disease; L73.2 Hidradenitis suppurativa; I12.9 Hypertensive chronic kidney disease with stage 1 through stage 4 chronic kidney disease, or unspecified chronic kidney disease; N18.9 Chronic kidney disease, unspecified; Z86.14 Personal history of Methicillin resistant Staphylococcus aureus infection
CPT/HCPCS: 10060; 87070; 87205; 99282

== ENCOUNTER → 2023-08-14 | Outpatient (CLI) | payer MEDICAID, SELFPAY ==
[2023-08-14 14:55] LABS: Absolute Lymphocyte Count 2.31 X10^3/uL (0.83-4.51); Absolute Neutrophil Count 4.5 X10^3/uL (2.0-7.7); Basophil# 0.06 X10^3/uL; Basophil% 0.8 % (0-1); Eosinophil# 0.19 X10^3/uL; Eosinophils% 2.5 % (0-5); Hematocrit 38.6 % (37-47); Hemoglobin 12.8 g/dL (12.0-15.0); Lymphocyte # 2.31 X10^3/ul (0.83-4.51); Lymphocyte % 30.8 % (19-41); Mean Corp Hgb Conc 33.2 g/dL (32-36); Mean Corpuscular Hgb 28.5 pg (27.0-32.0); Monocyte# 0.46 X10^3/uL; Monocyte% 6.1 % (0-10); NRBC Flagged by Analyzer 0 % (0-5); Neutrophil # 4.45 X10^3/uL (2.7-7.7); Neutrophil % 59.5 % (47-70); Platelet Count 237 K/mm3 (150-450); RBC Distribution Width SD 40.6 fl (35.1-43.9); Red Blood Count 4.49 M/mm3 (4.2-5.4); White Blood Count 7.5 K/mm3 (4.4-11.0)
[2023-08-14 15:38] LABS: ALB/GLOB Ratio 0.8 RATIO (0.9-2.4); AST(SGOT) 10 U/L (15-37); Alanine Aminotransfer ALT/SGPT 14 U/L (13-56); Albumin, Serum 3.3 g/dL (3.2-5.0); Alkaline Phosphatase 105 U/L (45-117); Anion Gap 8 (5-15); BUN 20 mg/dL (7-18); Calcium,Total 8.7 mg/dL (8.5-10.1); Chloride 108 mmol/L (98-107); Cholesterol 105 mg/dL (200); Creatinine, Serum 1.05 mg/dL (0.55-1.02); EST Glomerular Filtration Rate 61 mL/min (>60); Est Glom Filt Rate - Afr Amer 74 mL/min (>60); Globulin 4.1 g/dL (2.2-4.2); Glucose 170 mg/dL (74-106); High Density Lipoprotein 57 mg/dL; Potassium 3.8 mmol/L (3.5-5.1); Protein, Total 7.4 g/dL (6.4-8.2); Sodium Level 135 mmol/L (136-145); Thyroid Stim Hormone (TSH) 1.89 uIU/mL (0.358-3.74); Triglycerides 93 mg/dL; Very Low Density Lipoprotein 19 mg/dL (5-40)
[2023-08-14 16:03] LABS: Hemoglobin A1c 7.4 % (3.8-5.6)
== END | disposition home or self-care (01) ==
LOC: LABSPEC 14:21
PROVIDERS: PCP Family Medicine Geriatric Medicine; Visit Provider Family Medicine Geriatric Medicine
DX: I10 Essential (primary) hypertension (principal); E11.65 Type 2 diabetes mellitus with hyperglycemia; E78.5 Hyperlipidemia, unspecified
CPT/HCPCS: 36415; 80053; 80061; 83036; 84443; 85025

== ENCOUNTER → 2024-01-08 | Outpatient (CLI) | payer MEDICAID, SELFPAY ==
[2024-01-18 00:07] LABS: HPV APTIMA, High Risk Positive (Negative); HPV Genotype 16, Aptima Negative (Negative); HPV Genotype 18,45 Aptima Positive (Negative)
== END | disposition home or self-care (01) ==
LOC: LABSPEC 14:51
PROVIDERS: PCP Family Medicine Geriatric Medicine; Referring Provider Obstetrics & Gynecology; Visit Provider Obstetrics & Gynecology
DX: Z12.4 Encounter for screening for malignant neoplasm of cervix (principal)
CPT/HCPCS: 87624; 88175; G0145

== ENCOUNTER → 2024-01-29 | Outpatient (CLI) | payer MEDICAID, SELFPAY ==
[2024-01-29 17:52] LABS: CREATININE FINGERSTICK < 1.0 mg/dL (0.55-1.02); EGFR FINGERSTICK > 60.0000 mL/min (>60)
== END | disposition home or self-care (01) ==
PROVIDERS: PCP Family Medicine Geriatric Medicine; Referring Provider Family Medicine Geriatric Medicine; Visit Provider Family Medicine Geriatric Medicine
DX: R06.02 Shortness of breath (principal); R68.83 Chills (without fever)
CPT/HCPCS: 87631

== ENCOUNTER → 2024-01-31 | Outpatient (CLI) | payer MEDICAID, SELFPAY ==
--- NOTE | 2024-01-31 09:32 | CT_ITS ---
STUDY: CTA CHEST REASON FOR EXAM: Female, 43 years old. SOB RADIATION DOSAGE (If Supplied By Facility): CTDIvol = ( 18.05 ) mGy, DLP = ( 770.75 ) mGycm TECHNIQUE: The examination was performed with the intravenous administration of IV 100mL Isovue-370. Post-processing of the angiographic images was performed, with multiplanar reformation and 3D reconstruction. Individualized dose optimization techniques were used for this CT. COMPARISON: None. FINDINGS: Normal enhancement of the main pulmonary artery and right and left pulmonary arteries. Normal enhancement of the bilateral peripheral pulmonary arteries. There is no demonstrated pulmonary embolism. Normal thoracic aorta and visualized great vessels. There is no demonstrated aortic dissection. Normal heart and pericardium. Normal mediastinum. Normal hilar regions. Normal visualized trachea and bronchi. The lungs are well expanded. Some linear scarring in the lingula adjacent to the left heart border. No noncalcified nodule or mass. Normal pleura. Normal chest wall structures. Normal osseous structures. Status post cholecystectomy. CT/CTA Chest W/WO Contrast IMPRESSION: Normal CTA chest examination, without a demonstrated pulmonary embolism or arterial dissection. Electronically Signed: Cordell Wiley MD at 11:39 EST ,
== END | disposition home or self-care (01) ==
LOC: CT 09:31
PROVIDERS: PCP Family Medicine Geriatric Medicine; Referring Provider Family Medicine Geriatric Medicine; Visit Provider Family Medicine Geriatric Medicine
DX: R06.02 Shortness of breath (principal)
CPT/HCPCS: 71275; Q9967

== ENCOUNTER → 2024-02-06 | Outpatient (CLI) | payer MEDICAID, SELFPAY ==
[2024-02-06 14:42] LABS: Absolute Lymphocyte Count 2.93 X10^3/uL (0.83-4.51); Absolute Neutrophil Count 6.9 X10^3/uL (2.0-7.7); Basophil# 0.07 X10^3/uL; Basophil% 0.7 % (0-1); Eosinophil# 0.06 X10^3/uL; Eosinophils% 0.6 % (0-5); Hematocrit 35.7 % (37-47); Hemoglobin 11.9 g/dL (12.0-15.0); Lymphocyte # 2.93 X10^3/ul (0.83-4.51); Lymphocyte % 27.5 % (19-41); Mean Corp Hgb Conc 33.3 g/dL (32-36); Mean Corpuscular Hgb 28.9 pg (27.0-32.0); Mean Corpuscular Volume 86.7 fL (81-99); Mean Platelet Vol. 9.8 fl (6.2-12.0); Monocyte# 0.56 X10^3/uL; Monocyte% 5.3 % (0-10); NRBC Flagged by Analyzer 0 % (0-5); Neutrophil # 6.93 X10^3/uL (2.7-7.7); Platelet Count 318 K/mm3 (150-450); RBC Distribution Width CV 13.3 % (11.6-14.6); RBC Distribution Width SD 41.4 fl (35.1-43.9); Red Blood Count 4.12 M/mm3 (4.2-5.4); White Blood Count 10.7 K/mm3 (4.4-11.0)
[2024-02-06 15:09] LABS: ALB/GLOB Ratio 0.8 RATIO (0.9-2.4); AST(SGOT) 9 U/L (15-37); Alanine Aminotransfer ALT/SGPT 24 U/L (13-56); Albumin, Serum 3.1 g/dL (3.2-5.0); Alkaline Phosphatase 108 U/L (45-117); Anion Gap 7 (5-15); BUN 15 mg/dL (7-18); BUN/Creat Ratio 17.5 RATIO (10-20); Calcium,Total 8.4 mg/dL (8.5-10.1); Chloride 108 mmol/L (98-107); Cholesterol 104 mg/dL (200); Creatinine, Serum 0.86 mg/dL (0.55-1.02); EST Glomerular Filtration Rate 77 mL/min (>60); Est Glom Filt Rate - Afr Amer 93 mL/min (>60); Globulin 3.9 g/dL (2.2-4.2); Glucose 151 mg/dL (74-106); High Density Lipoprotein 61 mg/dL; Potassium 3.2 mmol/L (3.5-5.1); Sodium Level 142 mmol/L (136-145); Triglycerides 78 mg/dL; Very Low Density Lipoprotein 16 mg/dL (5-40)
[2024-02-06 15:15] LABS: Microalbumin,Random Urine 14.7 mg/L (NO RANGE EST.)
== END | disposition home or self-care (01) ==
LOC: POLAB3 14:25
PROVIDERS: PCP Family Medicine Geriatric Medicine; Visit Provider Family Medicine Geriatric Medicine
DX: E11.65 Type 2 diabetes mellitus with hyperglycemia (principal); I10 Essential (primary) hypertension; E78.5 Hyperlipidemia, unspecified
CPT/HCPCS: 36415; 80053; 80061; 82043; 83036; 84443; 85025

== ENCOUNTER → 2024-02-12 | Outpatient (CLI) | payer MEDICAID, SELFPAY ==
--- NOTE | 2024-02-12 13:58 | BI_ITS ---
MAMMOGRAPHY - BILATERAL SCREENING REASON FOR EXAM: Female, 43 years old. Routine annual screening examination. PERTINENT HISTORY: Non-contributory. Chronic inversion of the left nipple complex. TECHNIQUE: Digital bilateral breast enrique (3D mammographic acquisition) in the CC and MLO projections. 2-D mediolateral oblique (MLO) and craniocaudad (CC) views of both breasts were obtained. CAD: Full Field Digital Mammography with Computer Added Detection was performed. COMPARISON: Comparison is made with prior study December 05, 2022 and November 23, 2021. FINDINGS: Breast Composition: The breasts are almost entirely fatty. There are no dominant masses or suspicious calcifications. No other significant abnormalities are identified. There has been no significant change since the prior study. BI/SCRN MAMM (CAD)W/ENRIQUE BILAT IMPRESSION: Stable bilateral screening mammogram. Yearly follow-up mammogram recommended. (A) ASSESSMENT CATEGORY: BIRADS Category 1: Negative. A letter regarding these results will be sent to the patient by the facility within 30 days. Approximately 10% of breast cancers are not detected by mammography. A normal mammogram should not delay biopsy of a clinically suspicious abnormality. [id number] Electronically Signed: Yanick Guerrero MD at 15:10 EST ,
== END | disposition home or self-care (01) ==
LOC: OPBI 13:58
PROVIDERS: PCP Family Medicine Geriatric Medicine; Referring Provider Obstetrics & Gynecology; Visit Provider Obstetrics & Gynecology
DX: Z12.31 Encounter for screening mammogram for malignant neoplasm of breast (principal)
CPT/HCPCS: 77063; 77067

== ENCOUNTER → 2024-02-19 | Outpatient (CLI) | payer MEDICAID, SELFPAY ==
--- NOTE | 2024-02-19 | CER_PTH ---
PATIENT: KRISTEN ANDRADE LOC: [facility][id number] AGE/SX: 43/F ROOM: RE02/19/[address]: Dr. Diandra Payan DO : 1980 BED: DIS: 02/19/2024 SPEC #: [id number] RECD: 02/19/24 14:35 STATUS: AAKASH GURROLA #: [id number] ANNABELLA: 02/19/24 00:[address]: Diandra Payan DEPT: SURGICAL PATHOLOGY RECD BY: Magdaleno Gross ENTERED: 02/20/24 07:12 SP TYPE: CERV OTHR DR: Dr. Nahun Martin MD Tissues: Uterine cervix, NOS Procedures: Surgery Specimen Level IV HEADER OPERATION: Colposcopy PRE-OP DIAGNOSIS: HPV+ TISSUE SUBMITTED: ECC MICROSCOPIC DIAGNOSIS Endocervical curettings: Fragments of benign ectocervical and endocervical epithelium, negative for dysplasia. See comment. SJ.mr 02/21/2024 COMMENT Clinical correlation and appropriate follow up are necessary. MICROSCOPIC DESCRIPTION Slides are reviewed. GROSS DESCRIPTION Received in fixative is a metallic brush with adherent minute fragments of kwong-red tissue and labeled with the patient's name and and designated per the requisition as ECC BRUSH. The material is dislodged from the brush and submitted for cell block preparation in one cassette. VAISHNAVI 02/21/2024 TC:4 CPT:36696
== END | disposition home or self-care (01) ==
LOC: LABSPEC 15:19
PROVIDERS: PCP Family Medicine Geriatric Medicine; Referring Provider Obstetrics & Gynecology; Visit Provider Obstetrics & Gynecology
DX: R87.810 Cervical high risk human papillomavirus (HPV) DNA test positive (principal)
CPT/HCPCS: 88305

== ENCOUNTER → 2024-04-30 | Outpatient (CLI) | payer MEDICAID, SELFPAY | END | disposition home or self-care (01) | PROVIDERS: PCP Family Medicine Geriatric Medicine; Visit Provider Family Medicine Geriatric Medicine | DX: L03.112 Cellulitis of left axilla (principal); A49.02 Methicillin resistant Staphylococcus aureus infection, unspecified site | CPT/HCPCS: 87075; 87640 ==

== ENCOUNTER → 2024-04-30 | Outpatient (CLI) | payer MEDICAID, SELFPAY ==
[2024-04-30 15:22] LABS: Absolute Lymphocyte Count 1.85 X10^3/uL (0.83-4.51); Absolute Neutrophil Count 3.9 X10^3/uL (2.0-7.7); Basophil# 0.05 X10^3/uL; Basophil% 0.8 % (0-1); Eosinophil# 0.16 X10^3/uL; Eosinophils% 2.5 % (0-5); Hematocrit 35.6 % (37-47); Hemoglobin 11.7 g/dL (12.0-15.0); Lymphocyte # 1.85 X10^3/ul (0.83-4.51); Lymphocyte % 28.8 % (19-41); Mean Corp Hgb Conc 32.9 g/dL (32-36); Mean Corpuscular Hgb 28.7 pg (27.0-32.0); Mean Corpuscular Volume 87.5 fL (81-99); Monocyte# 0.44 X10^3/uL; Monocyte% 6.8 % (0-10); NRBC Flagged by Analyzer 0 % (0-5); Neutrophil # 3.91 X10^3/uL (2.7-7.7); Neutrophil % 60.8 % (47-70); Platelet Count 279 K/mm3 (150-450); RBC Distribution Width SD 40.9 fl (35.1-43.9); Red Blood Count 4.07 M/mm3 (4.2-5.4); White Blood Count 6.4 K/mm3 (4.4-11.0)
[2024-04-30 15:25] LABS: Erythrocyte Sedimentation Rate 11 mm/hr (0-30)
[2024-04-30 15:47] LABS: Anion Gap 6 (5-15); BUN 17 mg/dL (7-18); CRP 7.32 mg/L (0.0-3.0); Calcium,Total 8.8 mg/dL (8.5-10.1); Chloride 104 mmol/L (98-107); Creatinine, Serum 0.94 mg/dL (0.55-1.02); EST Glomerular Filtration Rate 69 mL/min (>60); Est Glom Filt Rate - Afr Amer 83 mL/min (>60); Glucose 251 mg/dL (74-106); Potassium 4.4 mmol/L (3.5-5.1); Sodium Level 137 mmol/L (136-145)
== END | disposition home or self-care (01) ==
LOC: LAB 14:37
PROVIDERS: PCP Family Medicine Geriatric Medicine; Referring Provider Family Medicine Geriatric Medicine; Visit Provider Family Medicine Geriatric Medicine
DX: I10 Essential (primary) hypertension (principal); L03.112 Cellulitis of left axilla; A49.02 Methicillin resistant Staphylococcus aureus infection, unspecified site
CPT/HCPCS: 36415; 80048; 85025; 85652; 86140; 87070; 87075; 87077; 87186; 87205; 87640

== ENCOUNTER 2024-07-03 11:39 | Day surgery (SDC) | payer MEDICAID, SELFPAY ==
[2024-07-03] VITALS (7 sets, daily range): BP systolic 100–127; BP diastolic 36–79; PULSE 84–90; RESP 16–20; TEMP 36.2–36.8; O2SAT 99–100; BMI 57.4
--- NOTE | 2024-07-03 11:57 | PRE.ANES_ITS ---
ASA Classification* ASA Classification ASA Classification: 3 Assessment & Plan Anesthesia* Anesthesia Assessment Anesthesia Assessment: Discussed sedation and/or anesthesia options, risks, benefits, and alternatives with patient/parents/legal guardian/POA. Questions invited. The patient/parents/legal guardian/POA seems to understand and agrees to proceed with anesthesia plan. Reviewed the physical assessment, medical history, allergy history and patient home medications list prior to surgery/procedure/anesthetic and documented any changes. Performed airway and anesthesia risk assessments. Anesthesia Type Anesthesia Type: MAC Anesthesia Focused Assessment* Airway Assessment Mouth opens: >3 cm Mallampati Score: II Focused Labs Anesthesia Preop lab: CBC WBC 6.4 K/mm3 (4.4-11.0) 04/30/24 14:40 04/30/24 RBC 4.07 M/mm3 (4.2-5.4) L 04/30/24 14:40 04/30/24 Hgb 11.7 g/dL (12.0-15.0) L 04/30/24 14:40 5 Hct 35.6 % (37-47) L 04/30/24 14:40 04/30/24 Plt Count 279 K/mm3 (150-450) 04/30/24 14:40 04/30/24 CHEMISTRY Potassium 4.4 mmol/L (3.5-5.1) 04/30/24 14:40 04/30/24 Sodium 137 mmol/L (136-145) 04/30/24 14:40 04/30/24 Magnesium 1.7 mg/dL (1.6-2.6) 12/21/19 06:35 12/21/19 BUN 17 mg/dL (7-18) 04/30/24 14:40 04/30/24 Creatinine 0.94 mg/dL (0.55-1.02) 04/30/24 14:40 04/30/24 Glucose 251 mg/dL (74-106) H 04/30/24 14:40 04/30/24 POC Glucose 129 mg/dL (70-110) H 12/21/19 08:57 12/21/19 TSH 1.140 uIU/mL (0.358-3.740) 02/06/24 14:01/12 COAG Urine Test Negative Negative 12/17/19 00:20 12/17/19 Tst Clinic Negative 11/04/21 14:40 11/04/21 Pre-Assessment Diagnosis/Proposed Procedure Planned Operative Procedure(s): Colonoscopy,EGD Anesthesia History Anesthesia History - nurse technician: Anesthesia History - nurse technician Hx Hospitalization No 06/28/24 09:55 Any Problems With Anesthesia No 06/28/24 09:55 Cholinesterase deficiency No 06/28/24 09:55 You/Your Family Experience No 06/28/24 09:55 fever (hyperthermia) with Relationship Recent Exposure to Contagious No 12/16/19 11:53 Disease Does patient have nerve No 06/28/24 09:55 stimulator Patient instructed to have device shut off --Does patient have Pacemaker or ICD? When Was Last Pacemaker Check QUESTION #4 FULL TEXT: You/Your Family Experience fever (hyperthermia) with Anesthesia Last Oral Intake Last Oral intake: Last Oral Intake NPO since Meds taken in AM with sips of water? Meds patient instructed to take am of surgery PONV PONV - nurse technician: PONV - nurse technician Female Yes 06/28/24 09:55 HX of Motion Sickness No 06/28/24 09:55 HX of N/V After Surgery No 06/28/24 09:55 Non-Smoker Yes 06/28/24 09:55 Duration of Surgery greater No 06/28/24 09:55 than 60 minutes Number of Risk Factors 2 06/28/24 09:55 PONV Score Moderate Risk 06/28/24 09:55 Height & Weight Height & Weight: Anesthesia: Height & Weight Height 5 ft 10 in 05/23/24 14:38 Respiratory Assessment Respiratory Assessment - nurse technician: Respiratory Tract Infection Hx - nurse technician Hx Respiratory Tract Infection No 06/28/24 09:55 STOP Sleep Apnea STOP Sleep Apnea - nurse technician: STOP Sleep Apnea - nurse technician Hx Hypertension Yes 06/28/24 09:55 Hx Sleep Apnea Yes 06/28/24 09:55 CPAP No 06/28/24 09:55 BIPAP Yes: NON COMPLIANT 06/28/24 09:55 Do you snore loudly (louder than talking or can be heard Do you often feel tired/ fatigued/ sleepy during daytime? Has anyone observed you stop breathing during sleep? STOP Results Positive 06/28/24 09:55 QUESTION #5 FULL TEXT : Do you snore loudly (louder than talking or can be heard through closed doors)? 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 Specify any problems Hx of Preganancy in last 3 No 06/28/24 09:55 Months Nurse Filling Out Transfusion JZOLLINGE 06/28/24 09:55 & Questions: Date: 06/28/24 06/28/24 09:55 Time: 09:57 06/28/24 09:55 Patient unable to answer at this time (ie. confused, unrespo /Reproduction History /Reproductive History - nurse technician: /Reproductive Hx- nurse technician Hx Now No 06/28/24 09:55 Gestational Age (in weeks): EDC: Hx Hx Para Hx Section SAB No 06/28/24 09:55 PFSH Medical History Wears glasses Dietary restriction History of hiatal hernia Gastric reflux Non-smoker Sleep apnea Dupuytren disease of finger ASCUS with positive high risk HPV Obesity CKD (chronic kidney disease) Hx of allergic drug reaction Incontinence Fatigue Thyroid disease Diabetes Hypertension OCD (obsessive compulsive disorder) Anxiety and depression Asthma Home Medications ?Medication ?Instructions ?Recorded ?Last Taken ?Type alprazolam 1 mg tablet 1 mg PO TID PRN PRN panic at tacks 04/02/18 03/28/18 15:00 History aripiprazole 10 mg tablet 10 tab PO DAILY depression 0 09/16/19 Unknown History buspirone 30 mg tablet 30 tab PO BID anxiety Unknown History pantoprazole 40 mg tablet,delayed 40 tab PO DAILY gerd 09/16/19 Unknown History release venlafaxine 150 mg 300 mg PO QHS depression 08/30 Unknown History capsule,extended release 24 hr albuterol sulfate 90 mcg/actuation 2 puff IH PRN PRN A sthma 12/15/19 Unknown History aerosol inhaler bupropion HCl 300 mg 24 hr tablet, 300 mg PO DAILY dep ression 12/16/19 Unknown History extended release loratadine 10 mg tablet 10 mg PO DAILY allergies 07/30 Unknown History lisinopril 20 mg tablet 20 mg PO DAILY bp ##0 Unknown Rx OneTouch Verio test strips (blood #150 ea 08/14/20 Unk nown Rx sugar diagnostic) atorvastatin 40 mg tablet 40 tablet PO QHS 08/14/20 Un known History bupropion HCl 150 mg 24 hr tablet, 150 mg PO DAILY 07/01 Unknown History extended release lancets 28 gauge #100 ea 08/14/20 Unknown His tory levothyroxine 50 mcg tablet 50 mcg PO DAILY 08/14/20 U nknown History pen needle, diabetic 31 gauge x #1,200 ea 08/14/20 Unk nown History 07/26 lancets 33 gauge (OneTouch Delica #200 ea 11/17/20 Unk nown Rx Lancets) etonogestrel 68 mg subdermal 1 implant subdermal ONCE 11/04/21 Unknown History implant (Nexplanon) blood sugar diagnostic (Accu-Chek #100 ea 06/15/23 Unk nown Rx Guide test strips) lancets (Accu-Chek Softclix #100 ea 06/15/23 Unknown R x Lancets) budesonide-formoterol HFA 80 2 puff inhalation BID 02/03 Unknown History mcg-4.5 mcg/actuation aerosol inhaler (Symbicort) peg 3350-electrolytes 236 240 ml PO .COMPLEX #4,000 mL 02/21/24 Unknown Rx gram-22.74 gram-6.74 gram-5.86 gram solution (Golytely) polyethylene glycol 3350 17 17 g PO .COMPLEX #119 gram s 02/21/24 Unknown Rx gram/dose oral powder (Miralax) polyethylene glycol 3350 17 17 g PO .COMPLEX #238 gram s 02/21/24 Unknown Rx gram/dose oral powder (Miralax) pen needle,diabetic, disp unit 32 #100 ea 03/12/24 Unk nown Rx gauge x 1/4, remover and disposal unit ([employer] SafePack-Pen Needle) insulin lispro 100 unit/mL 130 unit (1.3 mL) continuou s 06/05/24 Unknown Rx subcutaneous solution (Humalog subcutaneous infusion . continuous U-100 Insulin) #117 mL mirabegron 50 mg tablet,extended 50 mg PO DAILY Unknown History release 24 hr (Myrbetriq) Allergy/AdvReac Type Severity Reaction Status Date / Time clindamycin Allergy Severe KIDNEY Verified 06/28/24 09:37 DAMAGE loracarbef (From Lorabid) Allergy Unknown Verified 05/23/24 14:26 Penicillins Allergy Unknown Verified 05/23/24 14:26 Sulfa (Sulfonamide AdvReac Upset Verified 05/23/24 14:26 Antibiotics) Stomach Family History Other Arthritis Diabetes Heart disease Surgical History History of tonsillectomy Hx of cholecystectomy Social History Smoking Status: Never smoker alcohol intake: never substance use type: does not use caffeine: Yes what type of physical activity do you participate in: walking frequency: 3-4 times per week seatbelt use: always do you feel safe at home: Yes additional social history: single- Review of Systems (Anesthesia) ROS Narrative System reviewed and no additional complaints, except as documented.
[2024-07-03] MEDS: Lactated Ringers 1,000 ML 15 ML IV (12:47)
--- NOTE | 2024-07-03 12:51 | PCM.HP.STD ---
HPI - General General Date of Admission: 07/03/24 Date of Service: 07/03/24 Chief Complaint: abdominal pain and change in bowel habits with constipation HPI Narrative KRISTEN ANDRADE, is a 43 F who presents for an EGD and colonoscopy with complaints of chronic flatulence, bloating, and constipation. - seen in office today with her boyfriend Gabriel - she has a BM every 7-10 days - then can have days where she will have 4-5 BM in a day - fiber supplements just bulk stools but do not increase frequency - water intake is 6 glasses a day B: skips L: left overs D: starch, meat and vegetable - she denies any family h/o crohn's, coilits or colon CA HB - controlled with medication - pantoprazole 40mg daily - she reports a remote history of EGD - she states this showed a HH - denies any dysphagia with solids only with liquids such as carbonated beverages in the lower esophagus - denies any N/V - weight is stable PFSH Medical History Wears glasses Dietary restriction History of hiatal hernia Gastric reflux Non-smoker Sleep apnea Dupuytren disease of finger ASCUS with positive high risk HPV Obesity CKD (chronic kidney disease) Hx of allergic drug reaction Incontinence Fatigue Thyroid disease Diabetes Hypertension OCD (obsessive compulsive disorder) Anxiety and depression Asthma Home Medications ?Medication ?Instructions ?Recorded ?Last Taken ?Type alprazolam 1 mg tablet 1 mg PO TID PRN PRN panic attacks 04/02/18 03/28/18 15:00 History aripiprazole 10 mg tablet 10 tab PO DAILY depression 09/16/19 07/02/24 History buspirone 30 mg tablet 30 tab PO BID anxiety 09/16/19 07/02/24 History pantoprazole 40 mg tablet,delayed 40 tab PO DAILY gerd 09/16/19 07/02/24 History release venlafaxine 150 mg 300 mg PO QHS depression 09/16/19 07/02/24 History capsule,extended release 24 hr albuterol sulfate 90 mcg/actuation 2 puff IH PRN PRN Asthma 12/15/19 07/03/24 History aerosol inhaler bupropion HCl 300 mg 24 hr tablet, 300 mg PO DAILY depression 12/16/19 07/02/24 History extended release loratadine 10 mg tablet 10 mg PO DAILY allergies 12/16/19 07/02/24 History lisinopril 20 mg tablet 20 mg PO DAILY bp ##0 12/21/19 07/02/24 Rx OneTouch Verio test strips (blood #150 ea 08/14/20 Unknown Rx sugar diagnostic) atorvastatin 40 mg tablet 40 tablet PO QHS 08/14/20 07/02/24 History bupropion HCl 150 mg 24 hr tablet, 150 mg PO DAILY 08/14/20 07/02/24 History extended release lancets 28 gauge #100 ea 08/14/20 Unknown History levothyroxine 50 mcg tablet 50 mcg PO DAILY 08/14/20 07/02/24 History pen needle, diabetic 31 gauge x #1,200 ea 08/14/20 Unknown History 07/26 lancets 33 gauge (OneTouch Delica #200 ea 11/17/20 Unknown Rx Lancets) etonogestrel 68 mg subdermal 1 implant subdermal ONCE 11/04/21 Unknown History implant (Nexplanon) blood sugar diagnostic (Accu-Chek #100 ea 06/15/23 Unknown Rx Guide test strips) lancets (Accu-Chek Softclix #100 ea 06/15/23 Unknown Rx Lancets) budesonide-formoterol HFA 80 2 puff inhalation BID 02/21/24 Unknown History mcg-4.5 mcg/actuation aerosol inhaler (Symbicort) peg 3350-electrolytes 236 240 ml PO .COMPLEX #4,000 mL 02/21/24 07/02/24 Rx gram-22.74 gram-6.74 gram-5.86 gram solution (Golytely) polyethylene glycol 3350 17 17 g PO .COMPLEX #119 grams 02/21/24 07/02/24 Rx gram/dose oral powder (Miralax) polyethylene glycol 3350 17 17 g PO .COMPLEX #238 grams 02/21/24 07/02/24 Rx gram/dose oral powder (Miralax) pen needle,diabetic, disp unit 32 #100 ea 03/12/24 Unknown Rx gauge x 1/4, remover and disposal unit (UltiGuard SafePack-Pen Needle) insulin lispro 100 unit/mL 130 unit (1.3 mL) continuous 06/05/24 07/03/24 Rx subcutaneous solution (Humalog subcutaneous infusion .continuous U-100 Insulin) #117 mL mirabegron 50 mg tablet,extended 50 mg PO DAILY 06/28/24 07/02/24 History release 24 hr (Myrbetriq) Allergy/AdvReac Type Severity Reaction Status Date / Time clindamycin Allergy Severe KIDNEY Verified 07/03/24 12:38 DAMAGE loracarbef (From Lorabid) Allergy Unknown Verified 07/03/24 12:38 Penicillins Allergy Unknown Verified 07/03/24 12:38 Sulfa (Sulfonamide AdvReac Upset Verified 07/03/24 12:38 Antibiotics) Stomach Family History Other Arthritis Diabetes Heart disease Surgical History History of tonsillectomy Hx of cholecystectomy Social History Smoking Status: Never smoker alcohol intake: never substance use type: does not use caffeine: Yes what type of physical activity do you participate in: walking frequency: 3-4 times per week seatbelt use: always do you feel safe at home: Yes additional social history: single- ROS Constitutional Constitutional: Denies fatigue, fever(s), poor appetite, weight gain or weight loss Gastrointestinal Gastrointestinal: Denies belching, bloating, change in bowel habits, change in stool character, chewing difficulty, coffee ground emesis, constipation, cramping, diarrhea, dyspepsia, dysphagia, early satiety, excessive flatus, fecal incontinence, heartburn, hematemesis, hematochezia, hemorrhoids, loose stools, melena, nausea, odynophagia, rectal bleeding, tenesmus, vomiting or weight changes Vital Signs Vital Signs Vital Signs: 07/03/24 12:39 07/03/24 12:39 Temperature 97.1 F L Temperature Source Temporal Pulse Rate 89 Respiratory Rate 20 H Respiratory Pattern Normal Blood Pressure 110/79 Blood Pressure Mean 89 Blood Pressure Source Monitor Blood Pressure Position Semi-Fowlers Blood Pressure Location Right Arm Pulse Ox 99 Oxygen Delivery Method Room Air Weight Weight: 400 lb 2.224 oz Body Mass Index (BMI) 57.4 Physical Exam Const alert, oriented x3, no apparent distress and healthy appearing General Appearance: cooperative GI normal to inspection, nondistended, normoactive bowel sounds, soft to palpation, non-tender and non-distended Percussion: normal to percussion Rectal Exam: deferred Assessment & Plan Assessment/Plan (1) Dysphagia: QUALIFIERS: Dysphagia type: esophageal phase Qualified Code(s): R13.19 - Other dysphagia (2) GERD (gastroesophageal reflux disease): QUALIFIERS: Esophagitis presence: esophagitis presence not specified Qualified Code(s): K21.9 - Gastro-esophageal reflux disease without esophagitis (3) Bloating: (4) Flatulence: PLAN: Assessment and Plan Assessment and Plan (1) Irritable bowel syndrome: Qualifiers: Irritable bowel syndrome type: with constipation Qualified Code(s): K58.1 - Irritable bowel syndrome with constipation (2) Flatulence: Status: Acute (3) Bloating: Status: Acute (4) GERD (gastroesophageal reflux disease): Status: Acute Qualifiers: Esophagitis presence: esophagitis presence not specified Qualified Code(s): K21.9 - Gastro-esophageal reflux disease without esophagitis (5) Dysphagia: Status: Acute Qualifiers: Dysphagia type: esophageal phase Qualified Code(s): R13.19 - Other dysphagia Medications: New polyethylene glycol 3350 (Miralax) 17 grams orally once a day in the evening wiht 8 ounces of water; 238 grams 2RF polyethylene glycol 3350 (Miralax) 17 grams orally as directed for bowel prep - see instructions provided by office 119 grams 0RF peg 3350-electrolytes 236-22.74-6.74 -5.86 gram (Golytely) 240 mL orally as directed for split dose bowel prep; until fecal effluent is clear 4,000 mL 0RF Plan 43y/o female presents for consultation with complaints of chronic flatulence, bloating, and constipation. She will go up to 10 days without a bowel movement. She denies any abdominal pain or bleeding. I have recommended a high fiber diet with the addition of Benefiber daily in 8 ounces of water and Miralax at HS. We have discussed dose adjusting Miralax as needed. She will schedule colonoscopy. She reports a long history of GERD controlled with daily PPI most days. She does experience occasional lower esophageal dysphagia with carbonated beverages. SHe will also schedule EGD.
--- NOTE | 2024-07-03 13:00 | EGD_PTH ---
PATIENT: KRISTEN ANDRADE LOC: EN U#:[id number] AGE/SX: 43/F ROOM: RE07/03/[address]: Dr. Raad Segovia DO : 1980 BED: DIS: 07/03/2024 SPEC #: [id number] RECD: 07/04/24 08:54 STATUS: AAKASH IZABELA #: [id number] ANNABELLA: 07/03/24 13:[address]: Raad Segovia DEPT: SURGICAL PATHOLOGY RECD BY: Alex Bonilla ENTERED: 07/04/24 08:54 SP TYPE: EGD BIOPSY [facility]ANF[facility] DR: Dr. Nahun Martin MD Tissues: A - Gastric mucous membrane B - Ileum, NOS C - COLON BIOPSY D - Transverse colon Procedures: Surgery Specimen Level IV HEADER OPERATION: Colonoscopy with biopsy, EGD with biopsy PRE-OP DIAGNOSIS: Dysphagia, GERD, bloating, flatulence TISSUE SUBMITTED: A- Gastric polyp biopsy, B- Terminal ileum biopsy, C- Random colon biopsy, D- Transverse colon polyp biopsy MICROSCOPIC DIAGNOSIS A. Stomach, polyp, biopsy: * Hyperplastic polyp. B. Small bowel, terminal ileum, biopsy: * Normal villous morphology with mucosal lymphoid aggregates. C. Colon, random, biopsy: * No specific pathologic change. D. Transverse colon, polyp, biopsy: * Polypoid colonic mucosa with prolapse features (deeper sections examined). MICROSCOPIC DESCRIPTION Slides are reviewed. GROSS DESCRIPTION A. Received in formalin in a container labeled with the patient's name, date of , and gastric polyp biopsy are 3 kwong-pink fragments of mucosal tissue each measuring 0.3 x 0.2 x 0.2 cm. Submitted in toto in A1. B. Received in formalin in a container labeled with the patient's name, date of , and terminal ileum biopsy are multiple kwong-pink fragments of mucosal tissue measuring 1.0 x 0.7 x 0.3 cm in aggregate. Submitted in toto in B1. C. Received in formalin in a container labeled with the patient's name, date of , and random colon biopsy are 2 kwong-pink fragments of mucosal tissue, each measuring 0.3 x 0.3 x 0.3 cm. Submitted in toto in C1. D. Received in formalin in a container labeled with the patient's name, date of , and transverse colon polyp biopsy is a 0.3 x 0.2 x 0.2 cm fragment of kwong-pink mucosal tissue. Submitted in toto in D1. [facility] 07-04-2024 CPT:58071m8
[2024-07-03 13:08] LABS: Internal QC Validated? YES +Cl - CLEAR BKGD; Pregnancy, Urine Negative Negative
--- NOTE | 2024-07-03 13:57 | PCM.POST.ANE ---
Anesthesia: Postop Eval I Current Vital Signs Temperature: 98 F Pulse Rate: 84 Blood Pressure: 127/68 Respiratory Rate: 16 Pulse Ox: 100 Oxygen Delivery Method: Room Air Assessment Airway patent: Yes Spontaneous unlabored respirations: Yes Mental status: Awake and Calm nausea: No Vomiting: No Anesthesia Complication: No Fluid Hydration Crystalloid volume administer (ml): 400 Total IV fluid infused: 400 Progress Note Anesthesia document: Postop Eval 1 completed: Yes
--- NOTE | 2024-07-03 14:00 | OP.EGD_ITS ---
Patient Name: Sandhya Wilder Procedure Date: 07/03/2024 1:13 PM Date of : 1980 Age: 43 Procedure: Upper GI endoscopy Indications: Epigastric abdominal pain, Functional Dyspepsia, Heartburn Providers: Raad Segovia DO Referring MD: Nahun Martin MD Medicines: Monitored Anesthesia Care Patient Profile: This is a 43 year old female. Refer to note in patient chart for documentation of history and physical. Patient has symptoms. Complications: No immediate complications. Procedure: Pre-Anesthesia Assessment: - Prior to the procedure, a History and Physical was performed, and patient medications and allergies were reviewed. The patient is competent. The risks and benefits of the procedure and the sedation options and risks were discussed with the patient. All questions were answered and informed consent was obtained. Patient identification and proposed procedure were verified by the physician in the pre-procedure area. Mental Status Examination: alert and oriented. Airway Examination: normal oropharyngeal airway and neck mobility. Respiratory Examination: clear to auscultation. CV Examination: normal. Prophylactic Antibiotics: The patient does not require prophylactic antibiotics. Prior Anticoagulants: The patient has taken no anticoagulant or antiplatelet agents except for NSAID medication. ASA Grade Assessment: II - A patient with mild systemic disease. After reviewing the risks and benefits, the patient was deemed in satisfactory condition to undergo the procedure. The anesthesia plan was to use monitored anesthesia care (MAC). Immediately prior to administration of medications, the patient was re-assessed for adequacy to receive sedatives. The heart rate, respiratory rate, oxygen saturations, blood pressure, adequacy of pulmonary ventilation, and response to care were monitored throughout the procedure. The physical status of the patient was re-assessed after the procedure. After obtaining informed consent, the endoscope was passed under direct vision. Throughout the procedure, the patient's blood pressure, pulse, and oxygen saturations were monitored continuously. The Colonoscope was introduced through the mouth, and advanced to the third part of the duodenum. Small bowel enteroscopy was deemed necessary. The upper GI endoscopy was accomplished without difficulty. The patient tolerated the procedure well. Scope In: 1:25:41 PM Scope Out: 1:29:20 PM Total Procedure Duration Time 0 hours 3 minutes 39 seconds Findings: The examined esophagus was normal. Multiple 1 to 2 mm hyperplastic polyps with no bleeding and no stigmata of recent bleeding were found in the gastric antrum. This was biopsied with a cold forceps for histology. Verification of patient identification for the specimen was done. Estimated blood loss was minimal. No gross lesions were noted in the entire examined duodenum. Suspect gastroparesis due to patient symptoms and retained gastric contents. Impression: - Normal esophagus. - Multiple gastric polyps. Biopsied. - No gross lesions in the entire examined duodenum. - Gastroparesis. Recommendation: - Discharge patient to home (ambulatory). - Resume previous diet. - Continue present medications. - Await pathology results. Procedure Code(s): --- Professional --- 17037, Small intestinal endoscopy, enteroscopy beyond second portion of duodenum, not including ileum; with biopsy, single or multiple CPT copyright 2021 [employer]. All rights reserved. The codes documented in this report are preliminary and upon residential monitor review may be revised to meet current compliance requirements. Raad Segovia DO 07/03/2024 1:59:23 PM This report has been signed electronically. Number of Addenda: 0 Note Initiated On: 07/03/2024 1:13 PM
--- NOTE | 2024-07-03 14:00 | OP.CCLET_ITS ---
07/03/2024 Nahun Martin MD [address] [place] [address] Re : Upper GI endoscopy procedure for Sandhya Gutierrezber Dear Dr. Martin This procedure was performed on Wednesday, July 03, 2024. My impressions and recommendations are as follows: Impressions : - Normal esophagus. - Multiple gastric polyps. Biopsied. - No gross lesions in the entire examined duodenum. - Gastroparesis. Recommendations : - Discharge patient to home (ambulatory). - Resume previous diet. - Continue present medications. - Await pathology results. My findings are described in the full procedure note, which is enclosed. If I can be of further assistance, please feel free to contact me at . Sincerely, Raad Segovia, 07/03/2024 1:59:23 PM This report has been signed electronically.
--- NOTE | 2024-07-03 14:03 | PCM.POSTANE2 ---
Anesthesia Postop Eval I Sum Postop Eval Completion status Anesthesia document: Postop Eval 1 completed: Yes Anesthesia Postop Eval I Summary Anesthesia Postop Eval I Summary: Anesthesia Postop Eval I: Assessment Summary Airway patent Yes 07/03/24 13:58 [email or web address] Spontaneous unlabored Yes 07/03/24 13:58 [email or web address] respirations Mental status Awake,Calm 07/03/24 13:58 [email or web address] nausea No 07/03/24 13:58 [email or web address] Vomiting No 07/03/24 13:58 [email or web address] Anesthesia Postop Eval I: Fluid Summary Crystalloid volume administer 400 07/03/24 13:58 [email or web address] (ml) Colloids volume administered ( ml) Blood Product volume administered (ml) Total IV fluid infused 400 07/03/24 13:58 [email or web address] Anesthesia Postop Eval I: Summary Notes Anesthesia Complication No 07/03/24 13:58 [email or web address] Anesthesia Complication Comment: Post-operative progress note Anesthesia: Postop Eval II Evaluation Mental status: Awake Pain Level: 0 nausea: No Vomiting: No
--- NOTE | 2024-07-03 14:05 | OP.CCLET_ITS ---
07/03/2024 Nahun Martin MD [address] [place] [address] Re : Colonoscopy procedure for Sandhya Wilder Dear Dr. Martin This procedure was performed on Wednesday, July 03, 2024. My impressions and recommendations are as follows: Impressions : - Diverticulosis in the recto-sigmoid colon and in the sigmoid colon. - One 8 mm polyp in the transverse colon, removed with a jumbo cold forceps. Resected and retrieved. - Congested mucosa in the sigmoid colon, in the transverse colon and at the hepatic flexure. Biopsied. - The examined portion of the ileum was normal. Biopsied. Recommendations : - Discharge patient to home. - Resume previous diet. - Continue present medications. - Await pathology results. - Repeat colonoscopy in 5 years for surveillance. My findings are described in the full procedure note, which is enclosed. If I can be of further assistance, please feel free to contact me at . Sincerely, Raad Segovia, 07/03/2024 2:05:12 PM This report has been signed electronically.
--- NOTE | 2024-07-03 14:05 | OP.COLON_ITS ---
Patient Name: Sandhya Wilder Procedure Date: 07/03/2024 1:29 PM Date of : 1980 Age: 43 Procedure: Colonoscopy Indications: Chronic diarrhea Providers: Raad Segovia DO Referring MD: Nahun Martin MD Medicines: Monitored Anesthesia Care Patient Profile: This is a 43 year old female. Refer to note in patient chart for documentation of history and physical. Patient has symptoms. Last Colonoscopy: date unknown. Unable to locate last colonoscopy report. Complications: No immediate complications. Procedure: Pre-Anesthesia Assessment: - Prior to the procedure, a History and Physical was performed, and patient medications and allergies were reviewed. The patient is competent. The risks and benefits of the procedure and the sedation options and risks were discussed with the patient. All questions were answered and informed consent was obtained. Patient identification and proposed procedure were verified by the physician in the pre-procedure area. Mental Status Examination: alert and oriented. Airway Examination: normal oropharyngeal airway and neck mobility. Respiratory Examination: clear to auscultation. CV Examination: normal. Prophylactic Antibiotics: The patient does not require prophylactic antibiotics. Prior Anticoagulants: The patient has taken no anticoagulant or antiplatelet agents except for NSAID medication. ASA Grade Assessment: II - A patient with mild systemic disease. After reviewing the risks and benefits, the patient was deemed in satisfactory condition to undergo the procedure. The anesthesia plan was to use monitored anesthesia care (MAC). Immediately prior to administration of medications, the patient was re-assessed for adequacy to receive sedatives. The heart rate, respiratory rate, oxygen saturations, blood pressure, adequacy of pulmonary ventilation, and response to care were monitored throughout the procedure. The physical status of the patient was re-assessed after the procedure. After I obtained informed consent, the scope was passed under direct vision. Throughout the procedure, the patient's blood pressure, pulse, and oxygen saturations were monitored continuously. The Colonoscope was introduced through the anus and advanced to the terminal ileum. The colonoscopy was performed without difficulty. The patient tolerated the procedure well. The quality of the bowel preparation was adequate. The terminal ileum, ileocecal valve, appendiceal orifice, and rectum were photographed. Scope In: 1:32:04 PM Scope Withdrawal Time 0 hours 11 minutes 59 seconds Scope Out: 1:48:24 PM Total Procedure Duration Time 0 hours 16 minutes 20 seconds Findings: The perianal and digital rectal examinations were normal. A few small-mouthed diverticula were found in the recto-sigmoid colon and sigmoid colon. An 8 mm polyp was found in the transverse colon. The polyp was sessile. The polyp was removed with a jumbo cold forceps. Resection and retrieval were complete. Verification of patient identification for the specimen was done. Estimated blood loss was minimal. An area of mildly congested mucosa was found in the sigmoid colon, in the transverse colon and at the hepatic flexure. Biopsies were taken with a cold forceps for histology. Verification of patient identification for the specimen was done. Estimated blood loss was minimal. The terminal ileum appeared normal. Biopsies were taken with a cold forceps for histology. Verification of patient identification for the specimen was done. Estimated blood loss was minimal. Impression: - Diverticulosis in the recto-sigmoid colon and in the sigmoid colon. - One 8 mm polyp in the transverse colon, removed with a jumbo cold forceps. Resected and retrieved. - Congested mucosa in the sigmoid colon, in the transverse colon and at the hepatic flexure. Biopsied. - The examined portion of the ileum was normal. Biopsied. Recommendation: - Discharge patient to home. - Resume previous diet. - Continue present medications. - Await pathology results. - Repeat colonoscopy in 5 years for surveillance. Procedure Code(s): --- Professional --- 40276, Colonoscopy, flexible; with biopsy, single or multiple CPT copyright 2021 [employer]. All rights reserved. The codes documented in this report are preliminary and upon senior sales consultant review may be revised to meet current compliance requirements. Raad Segovia DO 07/03/2024 2:05:12 PM This report has been signed electronically. Number of Addenda: 0 Note Initiated On: 07/03/2024 1:29 PM
[2024-07-03 14:07] LABS: Bedside Glucose 120 mg/dL (74-106)
== END 2024-07-03 14:34 | disposition home or self-care (01) ==
LOC: EN 11:39 → AC 11:40
PROVIDERS: Anesthesiology; PCP Family Medicine Geriatric Medicine; Referring Provider Family Medicine Geriatric Medicine; Visit Provider Internal Medicine Gastroenterology
PROC: 0DJD8ZZ Inspection of Lower Intestinal Tract, Via Natural or Artificial Opening Endoscopic (ICD-10-PCS; CPT 45378; principal; 2024-07-03 12:55)
DX: K31.7 Polyp of stomach and duodenum (principal); E11.43 Type 2 diabetes mellitus with diabetic autonomic (poly)neuropathy; E11.22 Type 2 diabetes mellitus with diabetic chronic kidney disease; Z79.4 Long term (current) use of insulin; I12.9 Hypertensive chronic kidney disease with stage 1 through stage 4 chronic kidney disease, or unspecified chronic kidney disease; K57.30 Diverticulosis of large intestine without perforation or abscess without bleeding; K31.84 Gastroparesis; N18.9 Chronic kidney disease, unspecified; K21.9 Gastro-esophageal reflux disease without esophagitis; K58.1 Irritable bowel syndrome with constipation; J45.909 Unspecified asthma, uncomplicated; F41.9 Anxiety disorder, unspecified; F32.A Depression, unspecified; F42.9 Obsessive-compulsive disorder, unspecified; Z79.899 Other long term (current) drug therapy; Z79.890 Hormone replacement therapy; E07.9 Disorder of thyroid, unspecified; K63.5 Polyp of colon
CPT/HCPCS: 45380; 43239; 81025; 82962; 88305; J2405

== ENCOUNTER → 2024-07-08 | Outpatient (CLI) | payer MEDICAID, SELFPAY ==
[2024-07-08 19:06] LABS: Ferritin 45 ng/mL (22-378); Iron 61 ug/dL (50-170); Iron Binding Capacity,Total 300 ug/dL (250-450); Iron Binding Capacity,Unsat 239 ug/dL (228-428); Vitamin B12 418 pg/mL (180-914); Vitamin D,25 Hydroxy 14.4 ng/mL (30-100)
== END | disposition home or self-care (01) ==
LOC: MTLAB 14:47
PROVIDERS: PCP Family Medicine Geriatric Medicine; Referring Provider Registered Nurse; Visit Provider Registered Nurse
DX: R53.83 Other fatigue (principal)
CPT/HCPCS: 36415; 82306; 82607; 82728; 83540; 83550

== ENCOUNTER → 2024-08-07 | Outpatient (CLI) | payer MEDICAID, SELFPAY ==
[2024-08-07 15:00] LABS: Absolute Lymphocyte Count 1.85 X10^3/uL (0.83-4.51); Absolute Neutrophil Count 3.2 X10^3/uL (2.0-7.7); Basophil# 0.05 X10^3/uL; Basophil% 0.9 % (0-1); Eosinophil# 0.12 X10^3/uL; Eosinophils% 2.1 % (0-5); Hematocrit 36.4 % (37-47); Hemoglobin 11.8 g/dL (12.0-15.0); Lymphocyte # 1.85 X10^3/ul (0.83-4.51); Lymphocyte % 32.5 % (19-41); Mean Corp Hgb Conc 32.4 g/dL (32-36); Mean Corpuscular Hgb 28.2 pg (27.0-32.0); Mean Corpuscular Volume 86.9 fL (81-99); Mean Platelet Vol. 10.2 fl (6.2-12.0); Monocyte# 0.43 X10^3/uL; Monocyte% 7.6 % (0-10); NRBC Flagged by Analyzer 0 % (0-5); Neutrophil # 3.22 X10^3/uL (2.7-7.7); Neutrophil % 56.5 % (47-70); Platelet Count 255 K/mm3 (150-450); RBC Distribution Width CV 13.2 % (11.6-14.6); RBC Distribution Width SD 41.1 fl (35.1-43.9); Red Blood Count 4.19 M/mm3 (4.2-5.4); White Blood Count 5.7 K/mm3 (4.4-11.0)
[2024-08-07 16:33] LABS: Hemoglobin A1c 7.5 % (<=5.6)
[2024-08-07 16:39] LABS: ALB/GLOB Ratio 1.2 RATIO (0.9-2.4); AST(SGOT) 13 U/L (<=31); Alanine Aminotransfer ALT/SGPT 10 U/L (<=34); Albumin, Serum 3.9 g/dL (3.5-5.0); Alkaline Phosphatase 122 U/L (35-104); Anion Gap 11 (5-15); BUN 13 mg/dL (4-19); BUN/Creat Ratio 15.3 RATIO (10-20); Calcium,Total 8.7 mg/dL (7.6-11.0); Carbon Dioxide 22.8 mmol/L (21.0-32.0); Chloride 104 mmol/L (98-108); Cholesterol 119 mg/dL (<=200); Creatinine, Serum 0.84 mg/dL (0.70-1.20); EST Glomerular Filtration Rate 88 (>60); Globulin 3.1 g/dL (2.2-4.2); Glucose 171 mg/dL (70-99); High Density Lipoprotein 48 mg/dL; Low Density Lipoprotein Calc. 47 mg/dL; Sodium Level 138 mmol/L (133-145); Total Bilirubin 0.49 mg/dL (0.00-1.30); Triglycerides 124 mg/dL; Very Low Density Lipoprotein 25 mg/dL (5-40); cholesterol:hdl ratio screen 2.51
== END | disposition home or self-care (01) ==
LOC: LAB 13:36
PROVIDERS: PCP Family Medicine Geriatric Medicine; Referring Provider Family Medicine Geriatric Medicine; Visit Provider Family Medicine Geriatric Medicine
DX: E11.65 Type 2 diabetes mellitus with hyperglycemia (principal); I10 Essential (primary) hypertension; E78.5 Hyperlipidemia, unspecified
CPT/HCPCS: 36415; 80053; 80061; 83036; 84443; 85025

== ENCOUNTER → 2024-11-06 | Outpatient (CLI) | payer MEDICAID, SELFPAY | END | disposition home or self-care (01) | LOC: LABSPEC 15:28 | PROVIDERS: PCP Family Medicine Geriatric Medicine; Referring Provider Nurse Practitioner Family; Visit Provider Nurse Practitioner Family | DX: N89.8 Other specified noninflammatory disorders of vagina (principal) | CPT/HCPCS: 87070; 87205 ==

== ENCOUNTER → 2025-02-13 | Outpatient (CLI) | payer MEDICAID, SELFPAY ==
[2025-02-13 15:27] LABS: Hematocrit 37.3 % (37-47); Hemoglobin 12.5 g/dL (12.0-15.0); Immature Granulocytes Count 0.030 X10^3/uL (0.0-0.0); Mean Corp Hgb Conc 33.5 g/dL (32-36); Mean Corpuscular Volume 85.4 fL (81-99); Mean Platelet Vol. 10.0 fl (6.2-12.0); NRBC Flagged by Analyzer 0 % (0-5); Platelet Count 234 K/mm3 (150-450); RBC Distribution Width CV 12.6 % (11.6-14.6); RBC Distribution Width SD 39.0 fl (35.1-43.9); Red Blood Count 4.37 M/mm3 (4.2-5.4); White Blood Count 7.1 K/mm3 (4.4-11.0)
[2025-02-13 15:48] LABS: AST(SGOT) 10 U/L (<=31); Alanine Aminotransfer ALT/SGPT 9 U/L (<=34); Albumin, Serum 3.9 g/dL (3.5-5.0); Alkaline Phosphatase 113 U/L (35-104); Anion Gap 14 (5-15); BUN 14 mg/dL (4-19); BUN/Creat Ratio 16.8 RATIO (10-20); Calcium,Total 9.1 mg/dL (7.6-11.0); Carbon Dioxide 20.8 mmol/L (21.0-32.0); Chloride 101 mmol/L (98-108); Cholesterol 122 mg/dL (<=200); Globulin 3.3 g/dL (2.2-4.2); Glucose 213 mg/dL (70-99); Low Density Lipoprotein Calc. 49 mg/dL; Potassium 3.9 mmol/L (3.3-5.1); Triglycerides 93 mg/dL; Very Low Density Lipoprotein 19 mg/dL (5-40); cholesterol:hdl ratio screen 2.22
[2025-02-13 17:05] LABS: Creatinine, Urine (random) 88.70 mg/dL (28.00-217.00); Microalbumin,Random Urine 13.5 mg/L (<20 mg/L)
== END | disposition home or self-care (01) ==
LOC: POLAB3 14:58
PROVIDERS: PCP Family Medicine Geriatric Medicine; Visit Provider Family Medicine Geriatric Medicine
DX: E03.9 Hypothyroidism, unspecified (principal); E11.65 Type 2 diabetes mellitus with hyperglycemia; E78.5 Hyperlipidemia, unspecified; I10 Essential (primary) hypertension
CPT/HCPCS: 36415; 80053; 80061; 82043; 82570; 83036; 84443; 85025

== ENCOUNTER → 2025-03-04 | Outpatient (CLI) | payer MEDICAID, SELFPAY ==
[2025-03-10 14:08] LABS: HPV APTIMA, High Risk Positive (Negative)
== END | disposition home or self-care (01) ==
LOC: LABSPEC 12:02
PROVIDERS: PCP Family Medicine Geriatric Medicine; Visit Provider Advanced Practice Midwife
DX: Z12.4 Encounter for screening for malignant neoplasm of cervix (principal)
CPT/HCPCS: 87624; 88175; G0145